=== PATIENT | male | born 1960 | race Caucasian/White ===

== ENCOUNTER 2021-04-18 10:45 | Observation (INO) | payer BC ==
[2021-04-18] MEDS ORDERED: METOPROLOL TARTRATE 5 MG/5 ML INJ IV ONE (11:39)
[2021-04-18 11:51] LABS: Absolute Lymphocytes (CBC) 1.8 K/uL (0.7-4.9); Lymphocytes % 19.6 % (15.3-44.8); MPV 7.9 fL (7.6-11.3); RBC Red Blood Cell Count 4.42 M/uL (4.33-5.43)
[2021-04-18 11:54] LABS: Protime INR 1.09
[2021-04-18 12:00] LABS: Potassium 3.7 mmol/L (3.5-5.1)
--- NOTE | 2021-04-18 12:14 | RAD REPORT ---
EXAM DESCRIPTION: RAD - Chest Single View - 04/18/2021 11:45 am CLINICAL HISTORY: CHEST PAIN COMPARISON: Two view chest March 2019 TECHNIQUE: AP portable chest image was obtained 04/18/2021 11:45 am . FINDINGS: Lung barrera are slightly underinflated compared to the prior study. No peripheral mass or consolidation. Retrocardiac left base is significantly limited due to body habitus affects and portab le imaging. Blunting of the left costophrenic angle is believed to be artifact of portable technique and body habitus. Interstitial pattern matches the prior study. Heart size is prominent but stable. No acute vascular engorgement. Spinal hardware is in place pau ing the full length of the thoracic spine. Hardware is without fracture or acute finding compared to the prior study. No measurable pleural effusion and no pneumothorax. No acute aortic findings suspected. IMPRESSION: Limited portable examination without acute cardiopulmonary finding. No significant change from the comparison study.
[2021-04-18 13:39] LABS: Bilirubin Direct 0.1 mg/dL (0-0.2); Bilirubin Total 0.4 mg/dL (0.2-1.0); Magnesium 2.1 mg/dL (1.8-2.4); Protein, Total 6.5 g/dL (6.4-8.2)
--- NOTE | 2021-04-18 14:05 | EDPHYS ---
Physician Documentation [facility] Name: Darien Luna Age: 60 yrs Sex: Male : 1960 Arrival Date: 04/18/2021 Time: 10:46 Bed 4 Private MD: ED Physician Sandy Zhou HPI: 04/18 11:09 This 60 yrs old Male presents to ER via Ambulatory with complaints of Chest Pain, High sp3 Blood Pressure. 11:09 60-year-old male with history of hypertension presents to the ED for chief complaint sp3 palpitations, chest pain that started suddenly approximately 2 hours prior to arrival. Patient has no history of coronary artery disease, atrial fibrillation, other arrhythmia, STEMI, stent placement, or other cardiac history. Patient on ROS does have mild left-sided neck pain and mild shortness of breath on exertion. Remainder of ROS is negative including headache, back pain, abdominal pain, nausea, vomiting, diarrhea, known sick contacts, fever, travel history, prolonged immobilization, or any other significant findings/symptoms. Patient was fine prior to the sudden episode of the palpitations.. Historical: - Allergies: 10:49 No Known Allergies; ab2 - Home Meds: 10:49 losartan oral [Active]; ab2 - PMHx: 10:49 Hypertensive disorder; ab2 - PSHx: 10:49 Bilateral Knee Replacement; ab2 - Immunization history:: Adult Immunizations up to date, Client reports receiving the 2nd dose of the Covid vaccine. - Social history:: Smoking status: Patient denies any tobacco usage or history of. ROS: 11:10 Constitutional: Negative for fever, chills, and weight loss, Eyes: Negative for injury, sp3 pain, redness, and discharge, ENT: Negative for injury, pain, and discharge, Neck: Negative for injury, pain, and swelling, Respiratory: Negative for shortness of breath, cough, wheezing, and pleuritic chest pain, Abdomen/GI: Negative for abdominal pain, nausea, vomiting, diarrhea, and constipation, Back: Negative for injury and pain, MS/Extremity: Negative for injury and deformity, Skin: Negative for injury, rash, and discoloration, Neuro: Negative for headache, weakness, numbness, tingling, and seizure, Psych: Negative for depression, anxiety, suicide ideation, homicidal ideation, and hallucinations, Allergy/Immunology: Negative for hives, rash, and allergies, Endocrine: Negative for neck swelling, polydipsia, polyuria, polyphagia, and marked weight changes. 11:10 All other systems are negative. Exam: 11:11 Constitutional: This is a well developed, well nourished patient who is awake, alert, sp3 and in no acute distress. Head/Face: Normocephalic, atraumatic. Eyes: Pupils equal round and reactive to light, extra-ocular motions intact. Lids and lashes normal. Conjunctiva and sclera are non-icteric and not injected. Cornea within normal limits. Periorbital areas with no swelling, redness, or edema. ENT: Nares patent. No nasal discharge, no septal abnormalities noted. External auditory canals are clear. Oropharynx with no redness, swelling, or masses, exudates, or evidence of obstruction, uvula midline. Mucous membranes moist. Neck: Trachea midline, no thyromegaly or masses palpated, and no cervical lymphadenopathy. Supple, full range of motion without nuchal rigidity, or vertebral point tenderness. No Meningismus. Chest/axilla: Normal chest wall appearance and motion. Nontender with no deformity. No lesions are appreciated. Respiratory: Lungs have equal breath sounds bilaterally, clear to auscultation and percussion. No rales, rhonchi or wheezes noted. No increased work of breathing, no retractions or nasal flaring. Abdomen/GI: Soft, non-tender, with normal bowel sounds. No distension or tympany. No guarding or rebound. No evidence of tenderness throughout. Back: No spinal tenderness. No costovertebral tenderness. Full range of motion. Skin: Warm, dry with normal turgor. Normal color with no rashes, no lesions, and no evidence of cellulitis. MS/ Extremity: Pulses equal, no cyanosis. Neurovascular intact. Full, normal range of motion. Neuro: Awake and alert, GCS 15, oriented to person, place, time, and situation. Cranial nerves II-XII grossly intact. Motor strength 5/5 in all extremities. Sensory grossly intact. Cerebellar exam normal. Normal gait. Psych: Awake, alert, with orientation to person, place and time. Behavior, mood, and affect are within normal limits. 11:11 Cardiovascular: Irregularly irregular rhythm otherwise normal cardiac exam.. 11:12 ECG was reviewed by the Attending Physician. EKG demonstrates atrial fibrillation with sp3 RVR at 108 bpm, absent LA interval, leftward axis, nonspecific ST/T changes particularly in the inferior leads without evidence of acute ischemia. Vital Signs: 10:47 BP 133 / 77; Pulse 133; Resp 18; Temp 98.1(TE); Pulse Ox 98% on R/A; Weight 136.08 kg; ab2 Height 6 ft. 2 in. (187.96 cm); Pain 0/10; 13:11 BP 108 / 46; Pulse 89; Resp 18; Pulse Ox 100% ; cardenas 14:03 BP 103 / 50; Pulse 91; Resp 16; Pulse Ox 96% on R/A; cardenas 14:53 BP 125 / 57; Pulse 82; Resp 22; Pulse Ox 96% on R/A; ke1 15:31 BP 169 / 62; Pulse 91; Resp 18; Pulse Ox 95% on R/A; cardenas 17:00 BP 141 / 73; Pulse 111; Resp 17; Pulse Ox 95% on R/A; ke1 18:00 BP 123 / 53; Pulse 71; Resp 20; Pulse Ox 94% ; ke1 10:47 Body Mass Index 38.52 (136.08 kg, 187.96 cm) ab2 MDM: 11:03 Patient medically screened. sp3 11:12 Data reviewed: vital signs, nurses notes. ED course: 60-year-old male with new onset sp3 atrial fibrillation less than 23 hours ago. Will administer Lopressor 5 mg IV for rate control and await work-up for ultimate further intervention and/or possible admission. Patient does not appear to be having ST elevation IN or other significant cardiac event.. 13:57 ED course: Patient has been rate controlled into the 80s with 1 dose of metoprolol IV. sp3 Discussed case with on-call cardiology Dr. Duke who is okay with us chemically cardioverting him with ibutilide, however pharmacy does not carry that medication at this time. Patient's troponin and BNP are still pending due to lab machine upgrade status still in progress. We will admit patient at this time for 23 observation, trending of troponins, and further options for cardioversion by cardiology. We are unable to rule out acute coronary syndrome in the emergency department given difficulty with troponin.. 04/18 11:03 Order name: Basic Metabolic Panel sp3 04/18 11:03 Order name: CBC with Diff; Complete Time: 12:15 sp3 04/18 11:03 Order name: LFT's sp3 04/18 11:03 Order name: Magnesium sp3 04/18 11:03 Order name: NT PRO-BNP sp3 04/18 11:03 Order name: PT-INR; Complete Time: 12:15 sp3 04/18 11:03 Order name: Troponin HS sp3 04/18 15:16 Order name: Basic Metabolic Panel EDMS 04/18 15:16 Order name: Basic Metabolic Panel EDMS 04/18 15:17 Order name: T4 Free EDMS 04/18 15:17 Order name: Thyroid Stimulating Hormone EDMS 04/18 15:17 Order name: Magnesium EDMS 04/18 15:17 Order name: Magnesium EDMS 04/18 15:17 Order name: CBC with Automated Diff EDMS 04/18 11:03 Order name: XRAY Chest (1 view); Complete Time: 12:49 sp3 04/18 11:03 Order name: EKG; Complete Time: 11:04 sp3 04/18 11:03 Order name: Cardiac monitoring; Complete Time: 11:38 sp3 04/18 11:03 Order name: EKG - Nurse/Tech; Complete Time: 11:38 sp3 04/18 11:03 Order name: IV Saline Lock; Complete Time: 11:38 sp3 04/18 15:15 Order name: CONS Physician Consult EDMS 04/18 15:16 Order name: Heart Healthy EDMS 04/18 15:17 Order name: CBC with Automated Diff EDMS 04/18 15:21 Order name: EKG Electrocardiogram EDCO 04/18 15:21 Order name: EKG Electrocardiogram EDMS 04/18 15:45 Order name: COVID-19 SARS RT PCR (Document "Date of Onset" if Symptomatic) 04/18 16:44 Order name: SARS-COV-2 RT PCR EDCO 04/18 11:03 Order name: Labs collected and sent; Complete Time: 11:38 sp3 04/18 11:03 Order name: O2 Per Protocol; Complete Time: 11:38 sp3 04/18 11:03 Order name: O2 Sat Monitoring; Complete Time: 11:38 sp3 Administered Medications: 11:50 Drug: Lopressor (metoprolol) 5 mg Route: IVP; Site: left forearm; ke1 13:56 CANCELLED (Physician Discretion; facility does not have medicatin): Ibutilide 1 mg IV cardenas at calculated rate once; administer over 10 mins , may repeat once 14:16 Drug: Tylenol 650 mg Route: PO; ke1 14:59 Follow up: Response: Pain is decreased ke1 15:52 Drug: morphine 2 mg Route: IVP; Site: left forearm; cardenas 15:53 Follow up: Response: No adverse reaction cardenas Disposition Summary: 04/18/21 14:04 Hospitalization Ordered Hospitalization Status: Observation sp3 Provider: Wilfredo Christianson sp3 Location: Telemetry/MedSurg (observation) sp3 Condition: Stable sp3 Problem: new sp3 Symptoms: have worsened sp3 Bed/Room Type: Standard sp3 Room Assignment: 219(04/18/21 20:40) Diagnosis - Atrial fibrillation, new onset, RVR now rate controlled sp3 Forms: - Medication Reconciliation Form sp3 - SBAR form sp3 Signatures: Dispatcher [employer] EDBettye Wright Cindy, RN RN Sandy Burroughs MD MD sp3 Sophie Altamirano RN RN Jacoby Bhagat Kouassi, RN RN ke1 Corrections: (The following items were deleted from the chart) 13:56 13:23 Ibutilide 1 mg IV at calculated rate once; administer over 10 mins , may repeat cardenas once ordered. sp3 18:04 14:04 sp3 bd 18:11 18:04 204 bd bd 20:40 18:11 bd cg
--- NOTE | 2021-04-18 14:05 | ER ---
Nurse's Notes [facility] Name: Darien Luna Age: 60 yrs Sex: Male : 1960 Arrival Date: 04/18/2021 Time: 10:46 Bed 4 Private MD: Diagnosis: Atrial fibrillation, new onset, RVR now rate controlled Presentation: 04/18 10:47 Chief complaint: Patient states: "I usually have high blood pressure but now I feel ab2 like my heart is beating out of my chest. 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 Coronavirus screen: Vaccine status: Patient reports receiving the 2nd dose of the covid vaccine. Client denies travel out of the [place] in the last 14 days. At this time, the client does not indicate any symptoms associated with coronavirus-19. Ebola Screen: Patient negative for fever greater than or equal to 101.5 degrees Fahrenheit, and additional compatible Ebola Virus Disease symptoms Patient denies exposure to infectious person. Patient denies travel to an Ebola-affected area in the 21 days before illness onset. No symptoms or risks identified at this time. Initial Sepsis Screen: Does the patient meet any 2 criteria? No. Patient's initial sepsis screen is negative. Does the patient have a suspected source of infection? No. Patient's initial sepsis screen is negative. Risk Assessment: Do you want to hurt yourself or someone else? Patient reports no desire to harm self or others. Onset of symptoms is unknown. 10:47 Method Of Arrival: Ambulatory ab2 10:47 Acuity: KUSUM 3 ab2 Triage Assessment: 10:50 General: Appears in no apparent distress. comfortable, Behavior is calm, cooperative, ab2 appropriate for age. Pain: Denies pain. Cardiovascular: Reports palpitations, Denies chest pain, shortness of breath, Patient's skin is warm and dry. Historical: - Allergies: 10:49 No Known Allergies; ab2 - Home Meds: 10:49 losartan oral [Active]; ab2 - PMHx: 10:49 Hypertensive disorder; ab2 - PSHx: 10:49 Bilateral Knee Replacement; ab2 - Immunization history:: Adult Immunizations up to date, Client reports receiving the 2nd dose of the Covid vaccine. - Social history:: Smoking status: Patient denies any tobacco usage or history of. Assessment: 10:50 General: Appears in no apparent distress. Behavior is calm, cooperative. Pain: Denies ke1 pain. Neuro: Level of Consciousness is awake, alert, Oriented to person, place, time, situation. Cardiovascular: Capillary refill < 3 seconds Patient's skin is warm and dry. Pulses are all present. Rhythm is atrial fibrillation. Respiratory: Airway is patent Breath sounds are clear bilaterally. GI: Abdomen is obese. : No deficits noted. Derm: No deficits noted. Musculoskeletal: No deficits noted. 12:00 Reassessment: Patient is alert, oriented x 3, equal unlabored respirations, skin ke1 warm/dry/pink. Patient denies pain at this time. 13:00 Reassessment: Patient is alert, oriented x 3, equal unlabored respirations, skin ke1 warm/dry/pink. Patient denies pain at this time. 14:00 Reassessment: Patient is alert, oriented x 3, equal unlabored respirations, skin ke1 warm/dry/pink. Pain: Complains of pain in headache Pain does not radiate. Pain currently is 7 out of 10 on a pain scale. Quality of pain is described as pulsating. 14:58 Reassessment: Patient states feeling better. Patient states symptoms have improved. ke1 Pain: Complains of pain in headache Pain currently is 4 out of 10 on a pain scale. Vital Signs: 10:47 BP 133 / 77; Pulse 133; Resp 18; Temp 98.1(TE); Pulse Ox 98% on R/A; Weight 136.08 kg; ab2 Height 6 ft. 2 in. (187.96 cm); Pain 0/10; 13:11 BP 108 / 46; Pulse 89; Resp 18; Pulse Ox 100% ; cardenas 14:03 BP 103 / 50; Pulse 91; Resp 16; Pulse Ox 96% on R/A; cardenas 14:53 BP 125 / 57; Pulse 82; Resp 22; Pulse Ox 96% on R/A; ke1 15:31 BP 169 / 62; Pulse 91; Resp 18; Pulse Ox 95% on R/A; cardenas 17:00 BP 141 / 73; Pulse 111; Resp 17; Pulse Ox 95% on R/A; ke1 18:00 BP 123 / 53; Pulse 71; Resp 20; Pulse Ox 94% ; ke1 10:47 Body Mass Index 38.52 (136.08 kg, 187.96 cm) ab2 ED Course: 10:46 Patient arrived in ED. ds1 10:49 Triage completed. ab2 10:52 Sandy Zhou MD is Attending Physician. sp3 11:22 Jessica Ovalles RN is Primary Nurse. ke1 11:38 Basic Metabolic Panel Sent. cardenas 11:38 CBC with Diff Sent. cardenas 11:38 LFT's Sent. cardenas 11:38 Magnesium Sent. cardenas 11:38 NT PRO-BNP Sent. cardenas 11:38 PT-INR Sent. cardenas 11:38 Troponin HS Sent. cardenas 11:38 No provider procedures requiring assistance completed. Inserted saline lock: 20 gauge cardenas in left forearm, using aseptic technique. Patient maintains SpO2 saturation greater than 95% on room air. 11:44 XRAY Chest (1 view) In Process Unspecified. EDMS 14:02 Moreno Christianson MD is Hospitalizing Provider. sp3 14:03 Hospitalizing Provider role handed off by Moreno Christianson MD sp3 14:03 Wilfredo Christianson MD is Hospitalizing Provider. sp3 15:52 COVID-19 SARS RT PCR (Document "Date of Onset" if Symptomatic) Sent. cardenas Administered Medications: 11:50 Drug: Lopressor (metoprolol) 5 mg Route: IVP; Site: left forearm; ke1 13:56 CANCELLED (Physician Discretion; facility does not have medicatin): Ibutilide 1 mg IV cardenas at calculated rate once; administer over 10 mins , may repeat once 14:16 Drug: Tylenol 650 mg Route: PO; ke1 14:59 Follow up: Response: Pain is decreased ke1 15:52 Drug: morphine 2 mg Route: IVP; Site: left forearm; cardenas 15:53 Follow up: Response: No adverse reaction cardenas Outcome: 14:04 Decision to Hospitalize by Provider. sp3 21:28 Admitted to Med/surg accompanied by tech, via wheelchair, Report called to VERONA Davis sf1 21:51 Patient left the ED. sf1 Signatures: Dispatcher [employer] EDAL Fransisca Fuller ds1 Sandy Zhou MD MD sp3 Au-StagerSophie RN RN cardenas Jacoby Thompson ab2 Anneliese Pacheco RN RN sf1 Jessica Ovalles RN RN ke1 Corrections: (The following items were deleted from the chart) 11:51 11:50 Lopressor (metoprolol) 5 mg IVP in left antecubital 1 ke1 14:16 14:00 Pain: Complains of pain in headache 1 1 18:33 17:59 BP 123 / 53; Pulse 71bpm; Resp 20bpm; Pulse Ox 94%; ke1 ke1
[2021-04-18] MEDS ORDERED: ACETAMINOPHEN 325 MG TABLET ONE (14:16)
[2021-04-18 15:14] LABS: Troponin High Sensitivity 54.6 pg/mL (<58.9)
--- NOTE | 2021-04-18 15:22 | P.HP ---
Certification for Inpatient Patient admitted to: Observation With expected LOS: <2 Midnights Practitioner: I am a practitioner with admitting privileges, knowledge of patient current condition, hospital course, and medical plan of care. Services: Services provided to patient in accordance with Admission requirements found in Title 42 Section 412.3 of the Code of Federal Regulations Patient History Date of Service: 04/18/21 Reason for admission: A. fib with RVR History of Present Illness: 60-year-old male, PMH: Hypertension Presents to the ED with a few hours of chest palpitations, chest pain, feeling like his heart beating very hard. Associated with slight shortness of breath. Patient was found to be in A. fib with RVR, new onset for the patient. He was given IV Lopressor with improvement of his heart rate. Lab work was rather unremarkable. Patient denies any new recent changes in medications, no recent illness, no cardiac history. ED physician requests admission for further management. Allergies No Known Allergies Allergy (Verified 08/26/15 07:38) - Past Medical/Surgical History -: Hypertension -: Bilateral knee replacement - Family History Family History: Reviewed- Non-Contributory - Social History Smoking Status: Never smoker Alcohol use: Yes Place of Residence: Home Review of Systems 10-point ROS is otherwise unremarkable Physical Examination - Physical Exam General: Alert, In no apparent distress, Oriented x3 HEENT: Sclerae nonicteric Neck: No LAD Respiratory: Clear to auscultation bilaterally, Normal air movement Cardiovascular: No edema, Irregular heart rate/rhythm Gastrointestinal: Soft and benign, Non-distended, No tenderness Musculoskeletal: No erythema, No tenderness Integumentary: No rashes, No significant lesion Neurological: Normal speech, Normal strength at 5/5 x4 extr, Normal affect - Studies Laboratory Data (last 24 hrs) 04/18/21 11:35: PT 12.6 H, INR 1.09 04/18/21 11:35: WBC 9.10, Hgb 12.9 L, Hct 38.0 L, Plt Count 301 04/18/21 11:35: Sodium 141, Potassium 3.7, BUN 26 H, Creatinine 1.38 H, Glucose 115 H, Magnesium 2.1, Total Bilirubin 0.4, AST 16, ALT 33, Alkaline Phosphatase 78 Assessment and Plan - Advance Directives Does patient have a Living Will: No Does patient have a Durable POA for Healthcare: No Physician Review Additional Text: Problem list Atrial fibrillation with RVR, new onset Hypertension Fluid retention CHADSVASCs: 1, possibly 2 (HTN, possible CHF) Patient states he is on at least 1, possibly 2 diuretics. Reports had echocardiogram recently, was told his heart was enlarged. Denies ever being told he has CHF He states he was taking 50 mg hydralazine 3 times daily, this was increased to 100 mg 3 times daily 4-6 weeks ago. Otherwise no other changes in his medications Cardiology consulted Start sotalol 1 dose now, and another 80 mg tonight. Continue twice daily EKG in a.m. Start Eliquis Obtain/confirm home medications VTE: Eliquis Code: Full Dispo: Home, likely tomorrow Time Spent Managing Pts Care (In Minutes): 60
[2021-04-18] MEDS ORDERED: MORPHINE 2 MG/ML SYR ONE (15:50)
[2021-04-18] MEDS ORDERED: SOTALOL HCL 80 MG TAB PO ONE (16:00)
[2021-04-18] MEDS ORDERED: NA CHLORIDE 0.9% 1,000 ML IV SCH (16:00)
[2021-04-18 16:01] LABS: Thyroid Stimulating Hormone 1.55 uIU/mL (0.360-3.740)
[2021-04-18] MEDS ORDERED: NA CHLORIDE 0.9% 1,000 ML ONE (17:20)
[2021-04-18] MEDS ORDERED: SOTALOL HCL 80 MG TAB ONE (17:20)
[2021-04-18] MEDS ORDERED: SOTALOL HCL 80 MG TAB PO SCH (18:00)
[2021-04-18 19:58] VITALS: BMI 38.5
[2021-04-18] MEDS ORDERED: APIXABAN 5 MG TABLET ONE (20:06)
[2021-04-18] MEDS: APIXABAN 5 MG TABLET PO SCH (20:13)
[2021-04-18 20:56] VITALS: O2SAT 95
--- NOTE | 2021-04-18 20:56 | CON ---
Date of Consultation: 04/18/2021 Reason For Consultation: Rapid atrial fibrillation. History Of Present Illness: This is a middle-aged male, history of hypertension, presented with palp itations started about 7 o'clock in the morning, given some beta nikolay. Heart rate was controlled. He was found to be in atrial fibrillation with rapid ventricular response. Denies having any chest pain, minimally short of breath. After bringing his heart rate down, he felt much better. Past Medical History: Obesity and hypertension. Medications: Refer reconciliation sheet for detailed list. Allergies: NO KNOWN DRUG ALLERGIES. Family History: No premature coronary artery disease or cancer. Social History: Does not smoke or drink. Does not use any drugs. Review of Systems: All systems reviewed and they were negative except as mentioned in the HPI. Physical Examination: Vital Signs: Reviewed. Head and Neck: Pupils are equal and reactive to light. Intact eye movements. No JVD. No cervical lymphadenopathy. Neck: Supple. Thyroid is not enlarged. Lungs: Clear to auscultation bilaterally. No rhonchi, rales, or crackles. No accessory muscle use. Heart: Irregularly irregular. No extra sounds. Abdomen: Soft and nontender. Bowel sounds positive. No organomegaly. No masses or hernia. No rig idity or rebound. Extremities: No edema, clubbing, or cyanosis. Intact pulses. Skin: No rash. Neurologic: Alert, awake, and oriented x3. No acute focal deficits appreciated. Investigations: Labs were reviewed. Assessment And Recommendations: Atrial fibrillation with rapid ventricular response. Recommend star t on sotalol 80 mg twice a day to get 2 doses today and with the third dose to obtain an EKG. If no QTc interval prolongation and the patient hopefully will convert to sinus rhythm on that. Adjust one of dose might be needed as he is obese person. In the interim, can use Lopressor 5 mg IV q.1 to 2 h ours as needed for rate control and use sotalol 5 mg twice a day for anticoagulation and I will follo w up with the patient as an outpatient basis. /JEANIE Voice ID: [id number] Report ID: [id number]
[2021-04-18] MEDS ORDERED: MORPHINE 2 MG/ML SYR IV PRN (21:59)
[2021-04-19 04:15] LABS: Absolute Lymphocytes (CBC) 1.7 K/uL (0.7-4.9); Hematocrit 37.2 % (39.6-49.0); Lymphocytes % 18.6 % (15.3-44.8); MPV 8.2 fL (7.6-11.3); RBC Red Blood Cell Count 4.24 M/uL (4.33-5.43)
[2021-04-19 04:26] LABS: Magnesium 2.3 mg/dL (1.8-2.4); Potassium 3.9 mmol/L (3.5-5.1)
[2021-04-19] MEDS ORDERED: SOTALOL HCL 80 MG TAB PO SCH (06:00)
[2021-04-19] MEDS ORDERED: INFLUENZA VACCINE (for 6+ mo) 0.5 ML DOSE IMVAC ONE (08:00)
[2021-04-19] MEDS: APIXABAN 5 MG TABLET PO SCH (08:17)
[2021-04-19 08:26] VITALS: BP 115/49; TEMP 97.4
--- NOTE | 2021-04-19 08:56 | P.DS ---
Admission Date: 04/18/21 Discharge Date: 04/19/21 Disposition: ROUTINE DISCHARGE Discharge Condition: FAIR Reason for Admission: A. fib with RVR - Problems (1) Rapid atrial fibrillation Status: Acute (2) Essential hypertension Status: Acute Brief History of Present Illness: 60-year-old male, PMH: Hypertension presented to the ED with a few hours of chest palpitations, chest pain, feeling like his heart beating very hard. Symptoms associated with shortness of breath. Patient was found to be in A. fib with RVR, new onset for the patient. He was given IV Lopressor with improvement of his heart rate. Lab work was rather unremarkable. Patient denied any new recent changes in medications, no recent illness, no cardiac history. Patient hospitalized for further management. Hospital Course: He was placed under observation on the medical floor, seen by cardiology and started on sotalol. Patient spontaneously converted to sinus rhythm and remained in sinus rhythm. Repeat EKG today showed sinus bradycardia. At this point patient is deemed stable for discharge per cardiology. He is discharged with sotalol 80 mg twice daily. He will follow with cardiology as an outpatient for further management. Vital Signs/Physical Exam: Temp Pulse Resp BP Pulse Ox 97.4 F 54 24 H 115/49 L 95 04/19/21 08:00 04/19/21 08:00 04/19/21 08:00 04/19/21 08:00 04/19/21 08:00 Laboratory Data at Discharge: WBC 8.90 K/uL (4.3-10.9) 04/19/21 03:22 Hgb 12.5 g/dL (13.6-17.9) L 04/19/21 03:22 Hct 37.2 % (39.6-49.0) L 04/19/21 03:22 Plt Count 264 K/uL (152-406) 04/19/21 03:22 PT 12.6 SECONDS (9.5-12.5) H 04/18/21 11:35 INR 1.09 04/18/21 11:35 Sodium 143 mmol/L (136-145) 04/19/21 03:22 Potassium 3.9 mmol/L (3.5-5.1) 04/19/21 03:22 BUN 27 mg/dL (7-18) H 04/19/21 03:22 Creatinine 1.22 mg/dL (0.55-1.3) 04/19/21 03:22 Glucose 109 mg/dL (74-106) H 04/19/21 03:22 Magnesium 2.3 mg/dL (1.8-2.4) 04/19/21 03:22 Total Bilirubin 0.4 mg/dL (0.2-1.0) 04/18/21 11:35 AST 16 U/L (15-37) 04/18/21 11:35 ALT 33 U/L (12-78) 04/18/21 11:35 Alkaline Phosphatase 78 U/L (45-117) 04/18/21 11:35 Home Medications: Amlodipine [Norvasc*] 10 mg PO DAILY 04/18/21 Atorvastatin Calcium [Lipitor] 40 mg PO DAILY 04/18/21 Hydralazine HCl 100 mg PO TID 04/18/21 Losartan/Hydrochlorothiazide [Losartan-Hctz 100-25 mg Tab] 1 tab PO DAILY 04/18/21 Apixaban [Eliquis] 5 mg PO BID #60 tablet 04/19/21 Sotalol HCl [Betapace*] 80 mg PO BID 6AM 6PM #60 tab 04/19/21 New Medications: Sotalol HCl [Betapace*] 80 mg PO BID 6AM 6PM #60 tab Apixaban [Eliquis] 5 mg PO BID #60 tablet Followup: Estrada Duke MD [ACTIVE - CAN ADMIT] - 1-2 Weeks (Call to schedule appointment)
[2021-04-19] MEDS ORDERED: POTASSIUM 25 MEQ EFFERV TAB PO ONE (09:00)
--- NOTE | 2021-04-19 12:50 | EKG ---
Test Date: 2021-04-19 Test Time: 07:43:56 Capture Manager: NAOMI MEASUREMENT RESULTS: Intervals: Rate: 59 VT: 222 QRSD: 120 QT: 452 QTc: 447 [place]: P: 23 VT: 222 QRS: -13 T: 16 INTERPRETIVE STATEMENTS: Sinus bradycardia with 1st degree AV block Nonspecific intraventricular conduction delay Borderline ECG Compared to ECG 04/18/2021 11:00:52 First degree AV block now present Intraventricular conduction delay now present Atrial fibrillation no longer present Left ventricular hypertrophy no longer present Electronically Signed On 04-19-21 12:49:22 STERNMAN by Felipe Crum
--- NOTE | 2021-04-19 12:52 | EKG ---
Test Date: 2021-04-18 Test Time: 11:00:52 Cash Register Servicer: HODAN MEASUREMENT RESULTS: Intervals: Rate: 108 UT: QRSD: 110 QT: 358 QTc: 479 [place]: P: UT: QRS: -26 T: 41 INTERPRETIVE STATEMENTS: Atrial fibrillation with rapid ventricular response Minimal voltage criteria for LVH, may be normal variant Abnormal ECG Compared to ECG 04/20/2011 12:28:17 Left ventricular hypertrophy now present Sinus rhythm no longer present Myocardial infarct finding no longer present Electronically Signed On 04-19-21 12:49:53 LIFE SKILLS INSTRUCTOR by Felipe rCum
--- NOTE | 2021-04-20 11:27 | PN ---
Date of Progress Note: 04/19/2021 Mr. Luna was seen by Dr. Duke yesterday for new onset atrial fibrillation. He was placed on sotal ol 80 mg p.o. b.i.d. He also takes losartan at home. This morning, he is in normal rhythm, has no c omplaints. Echocardiogram was unremarkable. He can go home today and follow up with Dr. Wills on his home medication, but he should be on sotalol 80 mg b.i.d. His echo was normal and this is a new onset. His CHADS score is pretty low and I think he will do okay with just on aspirin for now. I wi ll leave further decision up to Dr. Wills. LINK/JEANIE Voice ID: [id number] Report ID: [id number]
== END 2021-04-19 10:45 | disposition home or self-care (01) ==
LOC: ER 10:45 → ERHOLD 15:27 → 2ND 21:34
PROVIDERS: ADMIT Hospitalist; ATTEND Internal Medicine
DX: I48.91 Unspecified atrial fibrillation (principal); N17.9 Acute kidney failure, unspecified; I10 Essential (primary) hypertension; E66.9 Obesity, unspecified; Z68.38 Body mass index [BMI] 38.0-38.9, adult; Z96.653 Presence of artificial knee joint, bilateral; Z20.822 Contact with and (suspected) exposure to COVID-19
CPT/HCPCS: 93005 ×2; 85025 ×2; 80048 ×2; 36415 ×2; 83735 ×2; 85610; 80076; 84443; 84484; 84439; 83880; 71045; 94760 ×2; 96375; 96374; 99285; U0003; J2270 ×2; J7030; G0378 ×3

== ENCOUNTER 2021-08-07 21:59 | Inpatient (IN) | payer BC ==
--- OUTSIDE RECORDS SUMMARY | 2021-08-07 22:03 | XMS REPORT | Continuity of Care Document ---
:1960 Author Organization [facility] t Address [address] [place] [address] Care Team Providers Name Role Phone [facility] Attending Clinician Unavailable Problems This patient has no known problems. Allergies, Adverse Reactions, Alerts This patient has no known allergies or adverse reactions. Medications This patient has no known medications. Procedures This patient has no known procedures. Encounters Start End Encounter Admission Attending Care Care Encounter Source Date/Time Date/Time Type Type Clinicians Facility Department ID 2021-07-13 2021-07-13 [id number] 026 [place] 00:00:00 00:00:[address] [facility] [address] 2021-07-13 2021-07-13 [facility] [id number] 026 [place] 00:00:00 00:00:00 [facility] [address] 2021-07-07 2021-07-07 [facility] [id number] 969 [place] 00:00:00 00:00:[address] [place] [address] 2021-07-04 2021-07-04 [facility] [id number] [place] 00:00:00 00:00:00 [facility] [address] 2021-06-13 2021-06-13 [facility] [id number] [place] 00:00:00 00:00:00 [place] [address] 2021-06-13 2021-06-13 [facility] [id number] 246 [place] 00:00:00 00:00:00 [place] [address] 2021-06-13 2021-06-13 [facility] [id number] 253 [place] 00:00:00 00:00:[address] [address] Results This patient has no known results.
[2021-08-07 22:43] LABS: Absolute Lymphocytes (CBC) 1.8 K/uL (0.7-4.9); Hematocrit 42.1 % (39.6-49.0); Lymphocytes % 22.7 % (15.3-44.8); MCV 85.2 fL (80-100); MPV 8.1 fL (7.6-11.3); RBC Red Blood Cell Count 4.94 M/uL (4.33-5.43)
[2021-08-07 22:54] LABS: Potassium 3.5 mmol/L (3.5-5.1); Troponin High Sensitivity 37.8 pg/mL (<58.9)
[2021-08-07] MEDS ORDERED: ACETAMINOPHEN 500 MG TAB ONE (23:28)
--- NOTE | 2021-08-07 23:55 | EDPHYS ---
Physician Documentation [facility] Name: Darien Luna Age: 60 yrs Sex: Male : 1960 Arrival Date: 08/07/2021 Time: 22:06 Bed 23 Private MD: ED Physician Alton Mccabe HPI: 08/07 22:41 This 60 yrs old Male presents to ER via EMS with complaints of Chest pain.. mh7 22:41 The patient or guardian reports chest pain that is located primarily in the substernal mh7 area. Onset: today, at 20:00. The pain radiates to neck, jaw. Associated signs and symptoms: Pertinent positives: nausea, shortness of breath, Pertinent negatives: abdominal pain, cough, diaphoresis, dizziness, headache, lower extremity pain, lower extremity swelling, lightheadedness, near syncope, palpitations, recent travel, syncope, vomiting. The chest pain is described as a pressure. Duration: The patient or guardian reports multiple episodes, that are intermittent, that wax and wane, with no pattern. Modifying factors: The symptoms are alleviated by ASA, 325mg NTG, X1. the symptoms are aggravated by nothing. Severity of pain: At its worst the pain was severe today, in the emergency department the pain has improved markedly. EMS care prior to arrival includes: aspirin, nitroglycerin, x 1. Historical: - Allergies: 22:16 No Known Allergies; bb - Home Meds: 22:16 losartan Oral [Active]; atorvastatin oral [Active]; Eliquis oral [Active]; bb - PMHx: 22:16 Hypertensive disorder; Atrial fibrillation; bb - PSHx: 22:16 bilateral knee replacement; back surgery; bb - Immunization history:: Moderna x 3. - Social history:: Smoking status: unknown. ROS: 22:41 Constitutional: Negative for fever, chills, and weight loss, Eyes: Negative for injury, mh7 pain, redness, and discharge, ENT: Negative for injury, pain, and discharge, Back: Negative for injury and pain, : Negative for injury, bleeding, discharge, and swelling, MS/Extremity: Negative for injury and deformity, Skin: Negative for injury, rash, and discoloration, Neuro: Negative for headache, weakness, numbness, tingling, and seizure, Psych: Negative for depression, anxiety, suicide ideation, homicidal ideation, and hallucinations, Allergy/Immunology: Negative for hives, rash, and allergies, Endocrine: Negative for neck swelling, polydipsia, polyuria, polyphagia, and marked weight changes, Hematologic/Lymphatic: Negative for swollen nodes, abnormal bleeding, and unusual bruising. Exam: 22:41 Constitutional: This is a well developed, well nourished patient who is awake, alert, mh7 and in no acute distress. Head/Face: Normocephalic, atraumatic. Eyes: Pupils equal round and reactive to light, extra-ocular motions intact. Lids and lashes normal. Conjunctiva and sclera are non-icteric and not injected. Cornea within normal limits. Periorbital areas with no swelling, redness, or edema. Neck: Trachea midline, no thyromegaly or masses palpated, and no cervical lymphadenopathy. Supple, full range of motion without nuchal rigidity, or vertebral point tenderness. No Meningismus. Chest/axilla: Normal chest wall appearance and motion. Nontender with no deformity. No lesions are appreciated. Cardiovascular: Regular rate and rhythm with a normal S1 and S2. No gallops, murmurs, or rubs. Normal PMI, no JVD. No pulse deficits. Respiratory: Lungs have equal breath sounds bilaterally, clear to auscultation and percussion. No rales, rhonchi or wheezes noted. No increased work of breathing, no retractions or nasal flaring. Abdomen/GI: Soft, non-tender, with normal bowel sounds. No distension or tympany. No guarding or rebound. No evidence of tenderness throughout. Back: No spinal tenderness. No costovertebral tenderness. Full range of motion. Skin: Warm, dry with normal turgor. Normal color with no rashes, no lesions, and no evidence of cellulitis. MS/ Extremity: Pulses equal, no cyanosis. Neurovascular intact. Full, normal range of motion. Neuro: Awake and alert, GCS 15, oriented to person, place, time, and situation. Cranial nerves II-XII grossly intact. Motor strength 5/5 in all extremities. Sensory grossly intact. Cerebellar exam normal. Normal gait. Psych: Awake, alert, with orientation to person, place and time. Behavior, mood, and affect are within normal limits. Vital Signs: 22:14 BP 138 / 38; Pulse 57; Resp 16 S; Temp 98.1(O); Pulse Ox 96% on 2 lpm NC; Weight 142.88 bb kg (R); Height 6 ft. 2 in. (187.96 cm) (R); Pain 9/10; 08/08 01:08 BP 125 / 35; Pulse 54; Resp 16; Pulse Ox 96% on R/A; bb 08/07 22:14 Body Mass Index 40.44 (142.88 kg, 187.96 cm) bb MDM: 08/07 23:51 Differential diagnosis: abnormal EKG, acute myocardial infarction, acute pericarditis, mh7 anxiety, coronary artery disease chest wall pain, congestive heart failure costochondritis, esophagitis, gastritis, gastroesophageal reflux disease (GERD), pancreatitis, pleurisy, pneumonia, pneumothorax. HEART Score: History: Highly Suspicious (2), ECG: Non specific repolarization disturbance / LBTB / PM (1), Age: > 45 and < 65 years (1), Risk Factors: 1 or 2 risk factors (1), [Hypercholesterolemia] [Hypertension] Troponin: < or = 1 x Normal Limit (0), Total Score = 5. The patient was not given aspirin in the Emergency Department. Administered by EMS. Data reviewed: vital signs, nurses notes, EMS record, old medical records, lab test result(s), cardiac enzymes, CBC, electrolytes, EKG, radiologic studies, plain films. Data interpreted: Pulse oximetry: on 2L(s) per nasal canula, is 96 %. Interpretation: acceptable. Counseling: I had a detailed discussion with the patient and/or guardian regarding: the historical points, exam findings, and any diagnostic results supporting the discharge/admit diagnosis, the presence of at least one elevated blood pressure reading (>120/80) during this emergency department visit, lab results, radiology results, the need for further work-up and treatment in the hospital. Response to treatment: the patient's symptoms have mildly improved after treatment. 23:54 Patient medically screened. [facility] 08/07 22:11 Order name: Basic Metabolic Panel; Complete Time: 23:31 08/07 22:11 Order name: CBC with Diff; Complete Time: 23: 08/07 22:11 Order name: Troponin HS; Complete Time: : 08/08 00:08 Order name: COVID-19 SARS RT PCR (Document "Date of Onset" if Symptomatic); Complete mw2 Time: 09:08/08 05:26 Order name: CBC with Automated Diff; Complete Time: :25 EDDE 08/08 05:51 Order name: Comprehensive Metabolic Panel; Complete Time: 09:25 EDDE 08/07 22:11 Order name: XRAY Chest (1 view) 08/07 22:11 Order name: EKG; Complete Time: 22:12 08/07 22:11 Order name: Cardiac monitoring; Complete Time: 22:14 08/07 22:11 Order name: EKG - Nurse/Tech; Complete Time: 22:14 08/07 22:11 Order name: IV Saline Lock; Complete Time: 22:14 08/08 05:51 Order name: Troponin High Sensitivity; Complete Time: 09:25 EDDE 08/07 22:11 Order name: Labs collected and sent; Complete Time: 22:14 08/07 22:11 Order name: O2 Per Protocol; Complete Time: 22:14 08/07 22:11 Order name: O2 Sat Monitoring; Complete Time: 22:14 Administered Medications: 23:35 Drug: Tylenol 1000 mg Route: PO; 08/08 01:19 Follow up: Response: No adverse reaction 01:19 Drug: HYDROcodone-acetaminophen 5 mg-325 mg 1 tabs Route: PO; 02:54 Follow up: Response: Pain is decreased Disposition Summary: 08/07/21 23:54 Hospitalization Ordered Hospitalization Status: Observation [facility] Provider: Moreno Christianson Condition: Stable [facility] Problem: new [facility] Symptoms: have improved [facility] Bed/Room Type: Standard [facility] Location: Telemetry/MedSurg (observation)(08/08/21 07:10) Room Assignment: 219(08/08/21 07:10) bd Diagnosis - Chest pain, unspecified [facility] Forms: - Medication Reconciliation Form [facility] - SBAR form [facility] Signatures: Dispatcher [employer] EDBettye Wright Brenda, RN RN bb Nieto, Roman, MD MD rn Attema, Lee, COLD STRIP ROLLER-C COLD STRIP ROLLER-Cla1 Sharon Morgan RN RN cg Holmes, Maurice, MD MD 7 Corrections: (The following items were deleted from the chart) 00:03 08/07 23:54 Telemetry/MedSurg (observation) [facility] 08/08 00:03 08/07 23:54 [facility] 08/08 07:10 00:03 [facility] 07:10 00:03 [facility]- bd
--- NOTE | 2021-08-07 23:55 | ER ---
Nurse's Notes [facility] Name: Darien Luna Age: 60 yrs Sex: Male : 1960 Arrival Date: 08/07/2021 Time: 22:06 Bed 23 Private MD: Diagnosis: Chest pain, unspecified Presentation: 08/07 22:14 Chief complaint: EMS states: they were toned out for report of pt with chest pain and bb shortness of breath since approx 1999 tonight. Coronavirus screen: At this time, the client does not indicate any symptoms associated with coronavirus-19. Ebola Screen: No symptoms or risks identified at this time. Initial Sepsis Screen: Does the patient meet any 2 criteria? No. Patient's initial sepsis screen is negative. Does the patient have a suspected source of infection? No. Patient's initial sepsis screen is negative. Risk Assessment: Do you want to hurt yourself or someone else? Patient reports no desire to harm self or others. Onset of symptoms was August 07, 2021. Care prior to arrival: Medication(s) given: ASA, 81 mg, x 4, Nitroglycerin, 0.4 mg SL x 1, IV initiated. 18 GA, in the right antecubital area, Glucose check: 100. 22:14 Method Of Arrival: EMS: [facility] bb 22:14 Acuity: KUSUM 3 bb Historical: - Allergies: 22:16 No Known Allergies; bb - Home Meds: 22:16 losartan Oral [Active]; atorvastatin oral [Active]; Eliquis oral [Active]; bb - PMHx: 22:16 Hypertensive disorder; Atrial fibrillation; bb - PSHx: 22:16 bilateral knee replacement; back surgery; bb - Immunization history:: Moderna x 3. - Social history:: Smoking status: unknown. Screenin:17 Abuse screen: Denies threats or abuse. Nutritional screening: No deficits noted. bb Tuberculosis screening: No symptoms or risk factors identified. Fall Risk None identified. Assessment: 22:17 General: Appears in no apparent distress. Behavior is calm, cooperative. Pain: bb Complains of pain in chest Pain currently is 2 out of 10 on a pain scale. Neuro: Level of Consciousness is awake, alert, obeys commands, Oriented to person, place, time, situation. Cardiovascular: Heart tones S1 S2 present Capillary refill < 3 seconds Patient's skin is warm and dry. Rhythm is sinus rhythm. Respiratory: Respiratory effort is even, unlabored, Respiratory pattern is regular. GI: Abdomen is obese, Bowel sounds present X 4 quads. Derm: Skin is pink, warm \T\ dry. Musculoskeletal: Circulation, motion, and sensation intact. 23:30 Reassessment: pt c/o headache Dr Mccabe notified new orders received pt medicated see bb APR. 08/08 01:07 Reassessment: Patient is alert, oriented x 3, equal unlabored respirations, skin bb warm/dry/pink. Mann Prieto COMMUNITY LIAISON at bedside for discussion of admission. 01:09 Reassessment: pt and family verbalized understanding of and agree to plan of care. bb Vital Signs: 08/07 22:14 BP 138 / 38; Pulse 57; Resp 16 S; Temp 98.1(O); Pulse Ox 96% on 2 lpm NC; Weight 142.88 bb kg (R); Height 6 ft. 2 in. (187.96 cm) (R); Pain 9/10; 08/08 01:08 BP 125 / 35; Pulse 54; Resp 16; Pulse Ox 96% on R/A; bb 08/07 22:14 Body Mass Index 40.44 (142.88 kg, 187.96 cm) bb ED Course: 08/07 22:06 Patient arrived in ED. mw2 22:11 Alton Mccabe MD is Attending Physician. 7 22:16 Triage completed. 22:16 Arm band placed on Patient placed in an exam room, on a stretcher, on oxygen, on bb monitor and storage bin tender, on pulse oximetry. EKG completed in triage. Results shown to MD. Family accompanied patient. 22:17 Patient has correct armband on for positive identification. Placed in gown. Bed in low bb position. Call light in reach. Side rails up X 1. Adult w/ patient. Client placed on continuous cardiac and pulse oximetry monitoring. NIBP monitoring applied. Warm blanket given. Pillow given. 22:17 Maintain EMS IV. EMS IV does not flush and discontinued with catheter intact, bleeding bb controlled, bandage applied. 22:21 Inserted saline lock: 20 gauge in left antecubital area, using aseptic technique. zm 22:22 Basic Metabolic Panel Sent. zm 22:22 CBC with Diff Sent. zm 22:22 Troponin HS Sent. zm 22:59 XRAY Chest (1 view) In Process Unspecified. EDMS 23:53 Moreno Christianson MD is Hospitalizing Provider. [facility] 08/08 01:05 Tona Brandt, RN is Primary Nurse. 01:08 No provider procedures requiring assistance completed. Patient admitted, IV remains in bb place. 09:26 Primary Nurse role handed off by Tona Brandt, RN sr5 Administered Medications: 08/07 23:35 Drug: Tylenol 1000 mg Route: PO; 08/08 01:19 Follow up: Response: No adverse reaction 01:19 Drug: HYDROcodone-acetaminophen 5 mg-325 mg 1 tabs Route: PO; 02:54 Follow up: Response: Pain is decreased bb Outcome: 08/07 23:54 Decision to Hospitalize by Provider. [facility] 08/08 01:08 Condition: stable bb Instructed on the need for admit. 10:49 Patient left the ED. aa5 Signatures: Dispatcher [employer] EDMS Tona Brandt, RN RN bb Heidy Harris RN RN aa5 Lucian Izaguirre RN RN sr5 Jonny Engel mw2 Atlon Mccabe MD MD [facility] Crystal Asher Corrections: (The following items were deleted from the chart) 01:08 08/07 23:30 Reassessment: Patient is alert, oriented x 3, equal unlabored respirations, bb skin warm/dry/pink. bb
[2021-08-08] MEDS ORDERED: HYDROCODONE/APAP 5/325 MG TAB ONE (01:31)
--- NOTE | 2021-08-08 02:10 | P.HP ---
Certification for Inpatient Patient admitted to: Observation With expected LOS: <2 Midnights Patient will require the following post-hospital care: None Practitioner: I am a practitioner with admitting privileges, knowledge of patient current condition, hospital course, and medical plan of care. Services: Services provided to patient in accordance with Admission requirements found in Title 42 Section 412.3 of the Code of Federal Regulations <Mann Prieto - Last Filed: 08/08/21 02:05> Patient History Date of Service: 08/08/21 Reason for admission: Chest pain History of Present Illness: 60-year-old male history of atrial fibrillation on chronic anticoagulation therapy, hypertension, hyperlipidemia presents to the emergency department for chest pain. He reports the pain began around 8 PM actually started in his jaw on both sides progressed down to his chest described as pressure-like with associated shortness of breath and nausea denies similar episodes in the past last tress test was 1 year ago has never had cardiac catheterization before. He reports he was diagnosed with atrial fibrillation in April and placed on Eliquis although he was not put on a beta-nikolay because his heart rate runs low. His initial troponin was negative EKG was without acute changes chest x-ray unremarkable does have some mild renal sufficiency will admit for ACS rule out. - Past Medical/Surgical History Diabetic: No -: Hypertension -: A. 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, lives at home with his - Family History Father -: Cancer Mother -: Stroke - Social History Smoking Status: Never smoker Alcohol use: Yes CD- Drugs: No Caffeine use: No Place of Residence: Home <Mann Prieto - Last Filed: 08/08/21 02:05> Date of Service: 08/09/21 <Moreno Christianson - Last Filed: 08/09/21 00:22> Allergies No Known Allergies Allergy (Verified 08/26/15 07:38) Home Medications: Atorvastatin Calcium [Lipitor] 40 mg PO DAILY 04/18/21 Losartan/Hydrochlorothiazide [Losartan-Hctz 100-25 mg Tab] 1 tab PO DAILY 04/18/21 Apixaban [Eliquis] 5 mg PO BID #60 tablet 04/19/21 Anastrozole [Arimidex] 1 mg PO DAILY 08/08/21 Codeine/APAP [Tylenol W/Codeine #3 tab] 1 tab PO Q6HP PRN 08/08/21 Review of Systems 10-point ROS is otherwise unremarkable Respiratory: Shortness of Breath Cardiovascular: Chest Pain Gastrointestinal: Nausea <Mann Prieto - Last Filed: 08/08/21 02:05> Physical Examination - Physical Exam General: Alert, In no apparent distress, Oriented x3 HEENT: Atraumatic, PERRLA, Mucous membr. moist/pink, EOMI, Sclerae nonicteric Neck: Supple, 2+ carotid pulse no bruit, No LAD, Without JVD or thyroid abnormality Respiratory: Clear to auscultation bilaterally, Normal air movement Cardiovascular: Normal S1 S2, Irregular heart rate/rhythm (Sinus bradycardia rate between 48 and 55) Capillary refill: <2 Seconds Gastrointestinal: Normal bowel sounds, No tenderness Musculoskeletal: No tenderness Integumentary: No rashes Neurological: Normal speech, Normal strength at 5/5 x4 extr, Normal tone, Normal affect - Studies Laboratory Data (last 24 hrs) 08/07/21 22:05: WBC 8.1, Hgb 14.1, Hct 42.1, Plt Count 193 08/07/21 22:05: Sodium 140, Potassium 3.5, BUN 29 H, Creatinine 1.45 H, Glucose 118 H <Mann Prieto - Last Filed: 08/08/21 02:05> - Studies Laboratory Data (last 24 hrs) 08/08/21 15:03: APTT 36.3 08/08/21 15:03: PT 13.2 H, INR 1.20 08/08/21 05:12: Sodium 141, Potassium 3.7, BUN 24 H, Creatinine 1.35 H, Glucose 98, Total Bilirubin 0.4, AST 14 L, ALT 24, Alkaline Phosphatase 69 08/08/21 05:12: WBC 7.5, Hgb 13.7, Hct 40.0, Plt Count 180 <Moreno Christianson - Last Filed: 08/09/21 00:22> Assessment and Plan - Plan Assessment: Chest pain rule out ACS A. fib on chronic anticoagulation therapy Renal insufficiency Hypertension Plan: Chest pain rule out ACS: Trend troponins, monitor on telemetry, cardiology consult in place. Last tress test 1 year ago normal per patient has never had cardiac catheterization. No beta-blockers given bradycardia continue Eliquis, losartan as needed pain medication. Appreciate further input from cardiology A. fib on chronic anticoagulation therapy: Continue Eliquis, monitor on telemetry currently sinus bradycardia. Renal insufficiency: We will provide with IV fluids overnight recheck labs in the morning. Hypertension: Continue losartan. DVT PPX: Continue Eliquis Code status:Full Discharge Plan: Home Plan to discharge in: 24 Hours - Advance Directives Does patient have a Living Will: No Does patient have a Durable POA for Healthcare: No - Code Status/Comfort Care Code Status Assessed: Yes (Full) Critical Care: No Time Spent Managing Pts Care (In Minutes): 70 <Mann Prieto - Last Filed: 08/08/21 02:05> - Plan Patient seen and examined on rounds this morning. cardiac risk chest pain concerning for unstable angina / ACS echo ordered suspect patient will need cardiac cath cardiology consulted <Moreno Christianson - Last Filed: 08/09/21 00:22>
[2021-08-08] MEDS ORDERED: ONDANSETRON 4 MG/2 ML VIAL IV PRN (04:52)
[2021-08-08 05:10] VITALS: BMI 39.4
[2021-08-08] MEDS ORDERED: MORPHINE 2 MG/ML SYR ONE ×2 (05:11→07:45)
[2021-08-08] MEDS: MORPHINE 2 MG/ML SYR IV PRN ×3 (05:12→14:55)
[2021-08-08 05:25] LABS: Lymphocytes % 26.7 % (15.3-44.8); MCV 85.8 fL (80-100); MPV 7.8 fL (7.6-11.3); RBC Red Blood Cell Count 4.66 M/uL (4.33-5.43)
[2021-08-08 05:46] LABS: Albumin 2.7 g/dL (3.4-5.0); Bilirubin Total 0.4 mg/dL (0.2-1.0); Potassium 3.7 mmol/L (3.5-5.1); Protein, Total 5.8 g/dL (6.4-8.2)
[2021-08-08 05:50] LABS: Troponin High Sensitivity 105.5 pg/mL (<58.9)
[2021-08-08] MEDS ORDERED: ONDANSETRON 4 MG/2 ML VIAL ONE (07:45)
[2021-08-08] MEDS ORDERED: NA CHLORIDE 0.9% 1,000 ML ONE (07:46)
[2021-08-08] MEDS: NA CHLORIDE 0.9% 1,000 ML IV SCH ×2 (07:48→17:44)
[2021-08-08] MEDS ORDERED: APIXABAN 5 MG TABLET PO SCH (09:00)
[2021-08-08] MEDS: LOSARTAN POTASSIUM 50 MG TABLET PO SCH (11:24)
[2021-08-08] MEDS: ACETAMINOPHEN 500 MG TAB PO PRN ×2 (11:39→17:47)
--- NOTE | 2021-08-08 14:41 | EKG ---
Test Date: 2021-08-07 Test Time: 22:07:11 Personal Injury Paralegal: BEBO MEASUREMENT RESULTS: Intervals: Rate: 57 DC: 218 QRSD: 120 QT: 444 QTc: 432 [place]: P: 18 DC: 218 QRS: -12 T: 39 INTERPRETIVE STATEMENTS: Sinus bradycardia with 1st degree AV block Left ventricular hypertrophy with QRS widening Abnormal ECG Compared to ECG 04/19/2021 07:43:56 Left ventricular hypertrophy now present Intraventricular conduction delay no longer present Electronically Signed On 08-08-21 14:40:03 CDT by Estrada Duke
[2021-08-08 15:20] LABS: Protime INR 1.2
--- NOTE | 2021-08-08 19:47 | RAD REPORT ---
EXAM DESCRIPTION: RAD - Chest Single View - 08/07/2021 10:57 pm CLINICAL HISTORY: CHEST PAIN. COMPARISON: None. TECHNIQUE: Single view AP chest radiograph(s). FINDINGS: Trace diffuse pulmonary interstitial thickening. Possible minimal streaky opacification in the left lung base. Left pleural fluid is not excluded. No pneumothorax. Mild cardiomegaly. No signi ficant osseous abnormality. IMPRESSION: Trace diffuse pulmonary interstitial thickening. Possible minimal streaky opacification in the left lung base, likely atelectasis. Left pleural fluid is not excluded. Mild cardiomegaly. Electronically signed by: Mariza Swartz MD 08/07/2021 11:32 PM CDT Due to temporary technical issues with the PACS/Fluency reporting system, reports are being signed by the in house radiologists without. review as a courtesy to insure prompt reporting. The interpreting radiologist is fully responsible for the content of the report.
[2021-08-08] MEDS ORDERED: MELATONIN 5 MG TABLET PO PRN (20:40)
[2021-08-08] MEDS ORDERED: ATORVASTATIN 40 MG TAB PO SCH (21:00)
[2021-08-09] MEDS: MORPHINE 2 MG/ML SYR IV PRN ×2 (00:54→09:38)
[2021-08-09] MEDS: NA CHLORIDE 0.9% 1,000 ML IV SCH ×2 (01:23→10:52)
[2021-08-09 05:43] LABS: Absolute Lymphocytes (CBC) 1.4 K/uL (0.7-4.9); Hematocrit 39.7 % (39.6-49.0); MCV 86.9 fL (80-100); MPV 8.1 fL (7.6-11.3); RBC Red Blood Cell Count 4.57 M/uL (4.33-5.43)
[2021-08-09] MEDS: ACETAMINOPHEN 500 MG TAB PO PRN (05:54)
[2021-08-09 06:02] LABS: Albumin 2.5 g/dL (3.4-5.0); Bilirubin Total 0.2 mg/dL (0.2-1.0); Potassium 3.9 mmol/L (3.5-5.1); Protein, Total 5.5 g/dL (6.4-8.2); Troponin High Sensitivity 87.8 pg/mL (<58.9)
[2021-08-09] MEDS ORDERED: LIDOCAINE 1% 20 ML MDV ONE (06:42)
[2021-08-09] MEDS ORDERED: HEPA 1000U/500MLS 1,000 UNIT/500 ML BAG IV ONE ×2 (06:42→07:53)
[2021-08-09] MEDS ORDERED: FENTANYL CITR 100 MCG/2 ML ONE (06:44)
[2021-08-09] MEDS ORDERED: MIDAZOLAM HCL 2 MG/2 ML INJ ONE (06:45)
[2021-08-09] MEDS ORDERED: NA CHLORIDE 0.9% 0 ML ONE ×2 (06:45)
[2021-08-09] MEDS ORDERED: ATROPINE SULF 1 MG/10 ML SYR IV ONE (06:45)
[2021-08-09] MEDS: LOSARTAN POTASSIUM 50 MG TABLET PO SCH (09:38)
[2021-08-09 10:31] VITALS: O2SAT 91
--- NOTE | 2021-08-09 13:38 | CON ---
Date of Consultation: 08/08/[address] Christianson on 08/07/2021. I saw the patient on 08/08/2021. Reason For Consultation: Non-STEMI. History Of Present Illness: Mr. Luna is 60. Has a history of hypertension, atrial fibrillation for which he takes Eliquis, Lipitor, losartan and hydrochlorothiazide. Comes in with chest pressure, bl ood pressure over 200, jaw pain and neck pain, and troponin was 105. EKG showed LVH. Chest x-ray wa s negative. Blood work is negative. He is pain free now. Past Medical History: As stated above. Allergies: HE IS ALLERGIC TO NO MEDICATIONS. Medication: As listed above. Review of Systems: Negative. Social History: Negative. Family History: Negative. Physical Examination: Vital Signs: Stable. He was afebrile. Initial pressure was 214. Last pressure was 150/84. HEENT: Negative. Neck: Supple with no bruit. Chest: Clear. Cardiac: Revealed a regular rhythm and rate with S4 gallops. No murmurs or rubs. Abdomen: Obese, but benign. Extremities: Revealed no clubbing, cyanosis, or edema. Diagnostic Data: As stated earlier. Impression And Plan: Non-ST segment elevation myocardial infarction, possibly secondary to hypertens neetu crisis versus coronary artery disease. I will plan a heart catheterization to define his coronar y anatomy. The patient understands the risk and benefits of the procedure and he agrees to proceed. We will hold his Eliquis. Continue Arimidex, Lipitor, losartan and hydrochlorothiazide. Add a low dose beta-blockers. Obtain a 2D echocardiogram. We will what the catheterization shows tomorrow. LINK/SHIREENL Voice ID: [id number] Report ID: [id number]
--- NOTE | 2021-08-09 14:40 | P.DS ---
Admission Date: 08/08/21 Discharge Date: 08/09/21 Disposition: ROUTINE DISCHARGE Discharge Condition: FAIR Reason for Admission: Chest pain - Problems (1) Chest pain Current Visit: Yes Status: Acute (2) Acute renal failure Current Visit: Yes Status: Acute Brief History of Present Illness: 60-year-old male history of atrial fibrillation on chronic anticoagulation therapy, hypertension, hyperlipidemia presented to the emergency department for chest pain. He reported the pain began around 8 PM actually started in his jaw on both sides progressed down to his chest described as pressure-like with associated shortness of breath and nausea. He had a stress test 1 year ago. never had cardiac catheterization before. He reports he was diagnosed with atrial fibrillation in April and placed on Eliquis although he was not put on a beta-nikolay because his heart rate runs low. His initial troponin was negative EKG was without acute changes. Chest x-ray unremarkable. Blood work showed mild renal sufficiency. Patient admitted for ACS rule out. Hospital Course: Diagnosis Chest pain rule out ACS A. fib on chronic anticoagulation therapy Acute renal failure Hypertension. Patient admitted to the medical floor. His troponin trended up. He was seen by cardiology-Dr. Crum who performed cardiac catheterization. No significant vessel occlusion noted on cardiac cath per preliminary report. Patient was asymptomatic during the hospital stay. He had mild acute renal failure which resolved. ACS has been ruled out. Patient with a diagnosis of atrial fibrillation. Patient deemed stable for discharge per cardiology. Eliquis resumed on discharge. Dr. Crum recommend low-dose beta-nikolay but patient's heart rate is in the 50s so beta-blockers held. Echocardiogram was done and the result is pending to be followed by cardiology. Vital Signs/Physical Exam: Temp Pulse Resp BP Pulse Ox 97.7 F 55 16 144/64 H 93 08/09/21 12:00 08/09/21 12:00 08/09/21 12:00 08/09/21 12:00 08/09/21 12:00 General: Alert, In no apparent distress, Oriented x3 HEENT: Mucous membr. moist/pink Neck: Supple, JVD not distended Respiratory: Clear to auscultation bilaterally, Normal air movement Cardiovascular: No edema, Normal S1 S2, Irregular heart rate/rhythm Gastrointestinal: Normal bowel sounds, Soft and benign, Non-distended Musculoskeletal: No swelling Integumentary: No rashes, No cyanosis Neurological: Normal strength at 5/5 x4 extr Laboratory Data at Discharge: WBC 7.0 K/uL (4.3-10.9) 08/09/21 05:06 Hgb 13.5 g/dL (13.6-17.9) L 08/09/21 05:06 Hct 39.7 % (39.6-49.0) 08/09/21 05:06 Plt Count 175 K/uL (152-406) 08/09/21 05:06 PT 13.2 SECONDS (9.5-12.5) H 08/08/21 15:03 INR 1.20 08/08/21 15:03 APTT 36.3 SECONDS (24.3-36.9) 08/08/21 15:03 Sodium 141 mmol/L (136-145) 08/09/21 05:06 Potassium 3.9 mmol/L (3.5-5.1) 08/09/21 05:06 BUN 17 mg/dL (7-18) 08/09/21 05:06 Creatinine 1.18 mg/dL (0.55-1.3) 08/09/21 05:06 Glucose 108 mg/dL (74-106) H 08/09/21 05:06 Total Bilirubin 0.2 mg/dL (0.2-1.0) 08/09/21 05:06 AST 12 U/L (15-37) L 08/09/21 05:06 ALT 21 U/L (12-78) 08/09/21 05:06 Alkaline Phosphatase 64 U/L (45-117) 08/09/21 05:06 Home Medications: Atorvastatin Calcium [Lipitor] 40 mg PO DAILY 04/18/21 Losartan/Hydrochlorothiazide [Losartan-Hctz 100-25 mg Tab] 1 tab PO DAILY 04/18/21 Apixaban [Eliquis] 5 mg PO BID #60 tablet 04/19/21 Anastrozole [Arimidex*] 1 mg PO DAILY 08/08/21 Codeine/APAP [Tylenol #3*] 1 tab PO Q6HP PRN 08/08/21 Diet: AHA Activity: Ad arely Followup: Donato David MD [Primary Care Provider] - 1 Week Felipe Crum MD [ACTIVE - CAN ADMIT] - 1-2 Weeks Time spent managing pt's care (in minutes): 36
[2021-08-09 16:00] VITALS: BP 171/69; TEMP 97.9
--- NOTE | 2021-08-09 20:44 | OP ---
Surgeon: Felipe Crum MD Poultry Buyer: Ms. Arelis Mejia. This is a patient who was admitted to Dr. Christianson on 08/08/2021 with a non-STEMI, chest pain, uncontrol led hypertension, hypertension crisis, elevated troponin. Procedure In Detail: Brought to the lab associate today as an inpatient. He underwent a left heart rossana terization, selective coronary arteriogram, common femoral artery angiogram, and an aortic root angio gram. Indication was dilated aortic root, aortic regurgitation, hypertension, and non-STEMI. The pa tient was prepped and draped in routine sterile fashion. Given Versed and fentanyl for sedation. A 6-Italian sheath introduced in the right common femoral artery successfully. Angiography there was no rmal. StarClose was used to close the case. Daniel catheter left and right were used. The Daniel catheter on the left side cannulated the left main successfully. Angiography there showed normal le ft main, normal circ, normal LAD. I could not cannulate the RCA with a JR4, so we had to do a 3DRC a nd then a modified Amplatz and he had a normal right coronary. An LV-gram was done with a pigtail ca theter crossing the aortic valve successfully. There was no gradient. Angiography showed normal eje ction fraction, normal left ventricular end-diastolic pressure, but he had a dilated aortic root and 1+ aortic regurgitation. With the pigtail catheter, I had actually done an LV-gram and then was pull ed back in the aortic root and aortic root shot was done. There were no complications. Blood Loss: 5 mL. Postoperative Diagnoses: Normal coronaries, mild aortic regurgitation, dilated aortic root. Plan: Plan is for medical therapy. NB/SHIREENL Voice ID: [id number] Report ID: [id number]
--- NOTE | 2021-08-10 07:36 | ECHO ---
HEIGHT: 6 ft 3 in WEIGHT: 315 lb 0 oz DATE OF STUDY: 08/09/[address]: Moreno Christianson MD 2-DIMENSIONAL: YES M.MODE: YES DOPPLER: YES COLOR FLOW: YES TDS: NO PORTABLE: YES DEFINITY: NO BUBBLE STUDY: NO DIAGNOSIS: NSTEMI CARDIAC HISTORY: CATHERIZATION: YES SURGERY: NO PROSTHETIC VALVE: NO PACEMAKER: NO MEASUREMENTS (cm) DIASTOLIC (NORMALS) SYSTOLIC (NORMALS) IVSd 1.3 (0.6-1.2) LA Diam 4.6 (1.9-4.0) LVEF 59% LVIDd 6.0 (3.5-5.7) LVIDs 4.2 (2.0-3.5) %FS 32% LVPWd 1.5 (0.6-1.2) Ao Diam 3.4 (2.0-3.7) 2 DIMENSIONAL ASSESSMENT: RIGHT ATRIUM: NORMAL LEFT ATRIUM: DILATED RIGHT VENTRICLE: NORMAL LEFT VENTRICLE: LEFT VENTRICULAR HYPERTROPHY TRICUSPID VALVE: NORMAL MITRAL VALVE: NORMAL PULMONIC VALVE: NORMAL AORTIC VALVE: NORMAL PERICARDIAL EFFUSION: NONE AORTIC ROOT: NORMAL LEFT VENTRICULAR WALL MOTION: NORMAL. DOPPLER/COLOR FLOW: MILD MITRAL, AORTIC AND TRICUSPID REGURGITATION. COMMENTS: LEFT VENTRICULAR HYPERTROPHY - NORMAL EJECTION FRACTION. MILD MITRAL, AORTIC AND TRICUSPID REGURGITATION - NORMAL RIGHT VENTRICULAR SYSTOLIC PRESSURE. BORDERLINE LEFT VENTRICULAR DILATION. LEFT ATRIAL ENLARGEMENT. TECHNOLOGIST: DOT DAVIES
== END 2021-08-09 16:30 | disposition home or self-care (01) | DRG 287 ==
LOC: ER 21:59 → ERHOLD 08-08 02:04 → 2ND 08-08 09:29 → OBSVTOIN 08-08 17:17
PROVIDERS: ADMIT Hospitalist; ATTEND Hospitalist
PROC: B2011ZZ Plain Radiography of Multiple Coronary Arteries using Low Osmolar Contrast (ICD-10-PCS; principal; 2021-08-09)
PROC: 4A023N7 Measurement of Cardiac Sampling and Pressure, Left Heart, Percutaneous Approach (ICD-10-PCS; 2021-08-09)
DX: I48.91 Unspecified atrial fibrillation (principal); N17.9 Acute kidney failure, unspecified; I16.9 Hypertensive crisis, unspecified; I10 Essential (primary) hypertension; E78.5 Hyperlipidemia, unspecified; I35.1 Nonrheumatic aortic (valve) insufficiency; R77.8 Other specified abnormalities of plasma proteins; Z79.01 Long term (current) use of anticoagulants; Z96.653 Presence of artificial knee joint, bilateral; Z20.822 Contact with and (suspected) exposure to COVID-19
CPT/HCPCS: 36415; 71045; 80048; 80053; 84484; 85025; 85610; 85730; 93005; 93306; 93454; 93567; 99285; C1893; G0378; J0583; J1644; J2250; J2270; J2405; J3010; J7030; J7040; Q9967; U0003

== ENCOUNTER 2022-07-09 18:19 | Emergency (ER) | payer BC ==
--- OUTSIDE RECORDS SUMMARY | 2022-07-09 18:25 | XMS REPORT | Continuity of Care Document ---
:1960 Author Organization [facility] t Address [address] [place] [address] Care Team Providers Name Role Phone Arvind REINA, Donato Primary Care Physician [phone] Jarrod Jamison Attending Clinician Unavailable Milly REINA, Nidia Sterling Attending Clinician [phone] REJI AGUERO Attending Clinician Unavailable Eryn REINA, Savannah French Attending Clinician [phone] Keri Oneil MA Attending Clinician Unavailable Jarrod Jamison Admitting Clinician Unavailable Physician, No Primary or Family Admitting Clinician Unavaila ble Payers Payer Name Policy Type Policy Number Effective Date Expiration Date S ource Problems Condition Condition Condition Status Onset Resolution Last Treating Co mments Source Name Details Category Date Date Treatment Clinician Date Osteoarthr Osteoarthr Disease Active M [facility]-10 st left knee left knee 00:00: [facility]osp [facility] 00 l Primary Primary Disease Active Methodi osteoarthr osteoarthr 09-06 itis of [facility] of 00:00: Hospita knee knee 00 l Essential Essential Disease Active Met hodi hypertensi hypertensi 08-19 on on 00:00: Hospita 00 l Obesity Obesity Disease Active Methodi (BMI (BMI 08-19 35.0-39.9 35.0-39.9 00:00: Hosp [facility] without without 00 l comorbidit comorbidit y) y) Allergies, Adverse Reactions, Alerts Allergy Allergy Status Severity Reaction(s) Onset Inactive Treating Comm ents Source Name Type Date Date Clinician No Known DA Active U [facility] Allergie 4-12 Clear s 00:00: [place] 00 [facility] Family History Family Member Diagnosis Comments Start Date Stop Date Source Natural father Cancer [facility] Natural mother Stroke [facility] Other Asthma [facility] Hosp ital Natural sister Asthma [facility] Social History Social Habit Start Date Stop Date Quantity Comments Source Gender identity [facility] Sexual orientation [facility] History of Social 2022-04-19 2022-04-[address] function 00:00:00 00:00:00 Hospital Alcohol intake 2022-01-24 2022-01-24 Current [facility] 00:00:00 00:00:00 non-drinker of Hospital alcohol (finding) Tobacco use and 2022-01-11 2022-01-11 Smokeless [facility] exposure 00:00:00 00:00:00 tobacco non-user Hospital Sex Assigned At [birth year] [facility] 00:00:00 00:00:00 Hospital Smoking Status Start Date Stop Date Source Never smoked tobacco [facility] ospital Medications Ordered Filled Start Stop Current Ordering Indication Dosage Frequency Signature Comments Components Source Medication Medication Date Date Medication? Clinician (SIG) Name Name multivitami 2021-02 Yes 1{tbl} QD Take 1 Me thodi n tablet 1-[address] 13:37: mouth Hospita 15 daily. l multivitami 2021-02 Yes 1{tbl} QD Take 1 Me thodi n tablet 1-[address] 13:37: mouth [facility]ospita 15 daily. l multivitami 2021-02 Yes 1{tbl} QD Take 1 Me thodi n tablet 1-[address] 13:37: mouth [facility]ospita 15 daily. l anastrozole 2021- No TAKE 1 Met hodi (ARIMIDEX) 6- 11-[address] 1 mg chemo 00:00: 00:00 MOUTH 24 Ho spita tablet 00 :00 TO 48 l HOURS AFTER WEEKLY INJECTION anastrozole 2021- No TAKE 1 Met hodi (ARIMIDEX) 6-23 11-[address] 1 mg chemo 00:00: 00:00 MOUTH 24 Ho spita tablet 00 :00 TO 48 l HOURS AFTER WEEKLY INJECTION anastrozole 2021- No TAKE 1 Met hodi (ARIMIDEX) 6-04 01-[address] 1 mg chemo 00:00: 00:00 MOUTH 24 Ho spita tablet 00 :00 TO 48 l HOURS AFTER WEEKLY INJECTION acetaminoph 2021- No 1{tbl} Q.5D Take 1 M ethodi en-codeine 6-[address] (TYLENOL 00:00: 00:00 mouth 2 Hospi ta WITH 00 :00 (two) l CODEINE #3) times a 300-30 mg day. per tablet acetaminoph 2021- No 1{tbl} Q.5D Take 1 M ethodi en-codeine 6-02 01-[address] (TYLENOL 00:00: 00:00 mouth 2 Hospi ta WITH 00 :00 (two) l CODEINE #3) times a 300-30 mg day. per tablet acetaminoph 2021- No 1{tbl} Q.5D Take 1 M ethodi en-codeine 601-[address] (TYLENOL 00:00: 00:00 mouth 2 Hospi ta WITH 00 :00 (two) l CODEINE #3) times a 300-30 mg day. per tablet Eliquis 5 2021-0 Yes 5mg Q.5D Take 5 mg Met hodi mg tablet 4-[address] 00:00: (two) Hospita 00 times a l day. Eliquis 5 2021-0 Yes 5mg Q.5D Take 5 mg Met hodi mg tablet 4-[address] 00:00: (two) Hospita 00 times a l day. Eliquis 5 2021-0 Yes 5mg Q.5D Take 5 mg Met hodi mg tablet 4-[address] 00:00: (two) Hospita 00 times a l day. atorvastati Yes 40mg QD Take 40 mg Methodi n (LIPITOR) 4-[address] 40 mg 00:00: daily. Hospita tablet 00 l losartan-hy Yes 1{tbl} QD Take 1 Me thodi drochloroth 4-[address] iazide 00:00: mouth Hospita (HYZAAR) 00 daily. l 100-25 mg per tablet atorvastati 2-0 Yes 40mg QD Take 40 mg Methodi n (LIPITOR) 4-[address] 40 mg 00:00: daily. Hospita tablet 00 l losartan-hy 2021-0 Yes 1{tbl} QD Take 1 Me thodi drochloroth 4-[address] iazide 00:00: mouth Hospita (HYZAAR) 00 daily. l 100-25 mg per tablet atorvastati 2-0 Yes 40mg QD Take 40 mg Methodi n (LIPITOR) 4-[address] 40 mg 00:00: daily. Hospita tablet 00 l losartan-hy 2021-0 Yes 1{tbl} QD Take 1 Me thodi drochloroth 4-[address] iazide 00:00: mouth Hospita (HYZAAR) 00 daily. l 100-25 mg per tablet hydrALAZINE 2021-0 202- No 50mg Take 50 mg Methodi (APRESOLINE 05-19 11-[address] ) 50 MG 00:00: 00:00 Hospita tablet 00 :00 l hydrALAZINE 2021-0 2022- No 50mg Take 50 mg Methodi (APRESOLINE 05-19 11-[address] ) 50 MG 00:00: 00:00 Hospita tablet 00 :00 l hydrALAZINE 2021-0 2022- No 50mg Take 50 mg Methodi (APRESOLINE 05-19-[address] ) 50 MG 00:00: 00:00 Hospita tablet 00 :00 l amLODIPine 2021-0 2022- No 5mg QD Take 5 mg M ethodi (NORVASC) 5 -29 12-[address] mg tablet 00:00: 00:00 daily. Hospi ta 00 :00 l spironolact 2-0 2022- No 25mg QD Take 25 mg Methodi one - 11-[address] (ALDACTONE) 00:00: 00:00 daily. Hos adan 25 MG 00 :00 l tablet amLODIPine 2021-0 2022- No 5mg QD Take 5 mg M ethodi (NORVASC) 5 -17 11-[address] mg tablet 00:00: 00:00 daily. Hospi ta 00 :00 l spironolact 2021- No 25mg QD Take 25 mg Methodi one 04-[address] (ALDACTONE) 00:00: 00:00 daily. Hos adan 25 MG 00 :00 l tablet amLODIPine 2021- No 5mg QD Take 5 mg M ethodi (NORVASC) 5 04-[address] mg tablet 00:00: 00:00 daily. Hospi ta 00 :00 l spironolact 2021- No 25mg QD Take 25 mg Methodi one 04-[address] (ALDACTONE) 00:00: 00:00 daily. Hos adan 25 MG 00 :00 l tablet sotaloL 2021- No TAKE 1 Methodi (BETAPACE) 04-[address] 80 MG 00:00: 00:00 MOUTH Hospita tablet 00 :00 TWICE l DAILY AT 6 AM AND AT 6 PM sotaloL 2021- No TAKE 1 Methodi (BETAPACE) 04-19- TABLET BY st 80 MG 00:00: 00:00 MOUTH Hospita tablet 00 :00 TWICE l DAILY AT 6 AM AND AT 6 PM sotaloL 2021- No TAKE 1 Methodi (BETAPACE) 04-[address] 80 MG 00:00: 00:00 MOUTH Hospita tablet 00 :00 TWICE l DAILY AT 6 AM AND AT 6 PM aspirin 2021- No 1 tab po Metho di (ECOTRIN) 09-[address] 325 MG 00:00: 00:00 days Hospita enteric 00 :00 l coated tablet aspirin 2021- No 1 tab po Metho di (ECOTRIN) 09-[address] 325 MG 00:00: 00:00 days Hospita enteric 00 :00 l coated tablet aspirin 2021- No 1 tab po Metho di (ECOTRIN) 09-07- daily x 30 st 325 MG 00:00: 00:00 days Hospita enteric 00 :00 l coated tablet Vital Signs Vital Name Observation Time Observation Value Comments Source Systolic blood 2022-01-24 15:21:00 149 mm[Hg] [facility] pressure Diastolic blood 2022-01-24 15:21:00 66 mm[Hg] [facility] pressure Heart rate 2022-01-24 15:21:00 59 /min [facility] Body temperature 2022-01-24 15:21:00 36.94 Della [facility] Respiratory rate 2022-01-24 15:21:00 14 /min [facility] Body height 2022-01-11 19:37:00 188 cm [facility] Body weight 2022-01-11 19:37:00 148.145 kg [facility] BMI 2022-01-11 19:37:00 41.93 kg/m2 [facility] Oxygen saturation in 2021-07-04 19:00:00 99 /min [facility] Arterial blood by Pulse oximetry Procedures Procedure Date / Time Performed Performing Clinician Sour e [id number] 2022-06-07 00:00:00 CHAAB.01 [facility] [id number] 2022-06-07 00:00:00 CHAAB.01 [facility] [id number] 2022-06-07 00:00:00 CHAAB.01 [facility] [id number] 2022-06-07 00:00:00 CHAAB.01 [facility] [id number] 2022-06-07 00:00:00 CHAAB.01 [facility] [id number] 2022-06-07 00:00:00 CHAAB.01 [facility] [id number] 2022-06-07 00:00:00 CHAAB.01 [facility] [id number] 2022-06-07 00:00:00 CHAAB.01 [facility] [id number] 2022-06-07 00:00:00 CHAAB.01 [facility] EXTERNAL STUDY 2022-01-24 15:17:10 Nidia Atkins [facility] EXAM [place] EXTERNAL STUDY 2021-08-16 15:01:48 Nidia Atkins [facility] EXAM CT LUMBAR SPINE WO 2021-07-13 20:00:00 Reji Aguero [facility] CONTRAST BONE DENSITY 2021-07-13 19:56:20 Reji Aguero [facility] IR EPIDURAL INJECTION 2021-07-04 18:26:22 Reji Aguero [facility] LUMBAR XR SPINE SCOLIOSIS 6+ 2021-06-13 16:58:21 Reji Aguero [facility] VIEWS Plan of Care Planned Activity Planned Date Details Comments Source Future Scheduled 2022-05-30 SHINGLES VACCINES (1 [facility] Test 15:02:54 of 2) [code = SHINGLES VACCINES (1 of 2)] Future Scheduled 2022-05-30 COVID-19 VACCINE (3 - Me [facility] Test 15:02:54 Booster for Moderna series) [code = COVID-19 VACCINE (3 - Booster for Moderna series)] Future Scheduled 2022-05-30 INFLUENZA VACCINE [facility] Test 15:02:54 [code = INFLUENZA VACCINE] Future Scheduled 2022-05-30 Hepatitis C screening [facility] Test 15:02:54 (procedure) [code = 720046813] Future Scheduled 2022-05-30 COLONOSCOPY SCREENING [facility] Test 15:02:54 [code = COLONOSCOPY SCREENING] Future Scheduled 2022-05-30 SHINGLES VACCINES (1 [facility] Test 15:02:54 of 2) [code = SHINGLES VACCINES (1 of 2)] Future Scheduled 2022-05-30 COVID-19 VACCINE (3 - Me [facility] Test 15:02:54 Booster for Moderna series) [code = COVID-19 VACCINE (3 - Booster for Moderna series)] Future Scheduled 2022-05-30 INFLUENZA VACCINE [facility] Test 15:02:54 [code = INFLUENZA VACCINE] Future Scheduled 2022-05-30 Hepatitis C screening [facility] Test 15:02:54 (procedure) [code = [id number]] Future Scheduled 2022-05-30 COLONOSCOPY SCREENING [facility] Test 15:02:54 [code = COLONOSCOPY SCREENING] Future Scheduled 2022-05-19 COVID-19 VACCINE (3 - Me [facility] Test 14:31:01 Booster for Moderna series) [code = COVID-19 VACCINE (3 - Booster for Moderna series)] Future Scheduled 2022-05-19 INFLUENZA VACCINE [facility] Test 14:31:01 [code = INFLUENZA VACCINE] Future Scheduled 2022-05-19 Hepatitis C screening [facility] Test 14:31:01 (procedure) [code = [id number]] Future Scheduled 2022-05-19 COLONOSCOPY SCREENING [facility] Test 14:31:01 [code = COLONOSCOPY SCREENING] Future Scheduled 2022-05-19 SHINGLES VACCINES (1 [facility] Test 14:31:01 of 2) [code = SHINGLES VACCINES (1 of 2)] Encounters Start End Encounter Admission Attending Care Care Encounter Source Date/Time Date/Time Type Type Clinicians Facility Department ID 2022-06-07 2022-06-11 Inpatient JAYJAY PorterLINDA INTE [id number] [facility] 05:50:00 16:04:00 Sandro 52 [facility] 2022-05-24 2022-05-24 Outpatient JAYJAY PorterLINDA OUTD [id number] [facility] [facility] 15:28:00 15:28:00 Sandro 03 [facility] 2022-01-24 2022-01-24 Hospital Milly, 1.2.840.1 [id number] Methodi 09:21:25 23:59:00 Encounter Nidia 01766.1.1 [address] [facility] 3.430.2.7 Hospit a .3.917050 l .8 2022-01-24 2022-01-24 Hospital Milly, 1.2.840.1 [id number] 2100 [id number] Methodi 09:21:25 23:59:00 Encounter Nidia 93590.1.1 [address] [facility] 3.430.2.7 Hospit a .3.899874 l .8 2022-01-24 2022-01-24 Procedure Milly, 1.2.840.1 [id number] [id number] Methodi 09:00:00 11:37:12 visit Nidia 94360.1.[address] [facility] 3.430.2.7 Hospit a .3.666183 l .8 2022-01-24 2022-01-24 Procedure Milly, 1.2.840.1 [id number] Methodi 09:00:00 11:37:12 visit Nidia 54333.1.[address] [facility] 3.430.2.7 Hospit a .3.388849 l .8 2022-01-24 2022-01-24 Orders Atkins, 1.2.840.1 [id number] Methodi 00:00:00 00:00:00 Only Nidia 01369.1.[address] [place] 3.430.2.7 Hospit a .3.142020 l .8 2022-01-24 2022-01-24 Travel 1.2.840.1 1.2.801.263 2852 [id number] Methodi 00:00:00 00:00:[address] 3.430.2.7 0.2.7.3.698 Ho spita .3.729734 084.8 l .8 2022-01-24 2022-01-24 Orders Atkins, 1.2.840.1 [id number] Methodi 00:00:00 00:00:00 Only Nidia 71949.1.[address] [place] 3.430.2.7 Hospit a .3.440934 l .8 2022-01-24 2022-01-24 Travel 1.2.840.1 1.2.549.853 3937 [id number] Methodi 00:00:00 00:00:[address] 3.430.2.7 0.2.7.3.698 Ho spita .3.825668 084.8 l .8 2022-01-11 2022-01-11 Office Atkins, 1.2.840.1 [id number] Methodi 13:00:00 14:08:41 Visit Nidia 03853.1.[address] [place] 3.430.2.7 Hospit a .3.034840 l .8 2022-01-11 2022-01-11 Office Atkins, 1.2.840.1 [id number] Methodi 13:00:00 14:08:41 Visit Nidia 51397.1.[address] [place] 3.430.2.7 Hospit a .3.986507 l .8 2022-01-10 2022-01-10 Travel 1.2.840.1 1.2.579.769 9681 [id number] Methodi 00:00:00 00:00:[address] 3.430.2.7 0.2.7.3.698 Ho spita .3.394400 084.8 l .8 2022-01-10 2022-01-10 Travel 1.2.840.1 1.2.241.555 3530 [id number] Methodi 00:00:00 00:00:[address] 3.430.2.7 0.2.7.3.698 Ho spita .3.038356 084.8 l .8 2022-01-09 2022-01-09 Telephone Atkins, 1.2.840.1 [id number] [id number] Methodi 00:00:00 00:00:[address] [facility] 3.430.2.7 Hospit a .3.001859 l .8 2022-01-09 2022-01-09 Telephone Atkins, 1.2.840.1 [id number] Methodi 00:00:00 00:00:[address] [place] 3.430.2.7 Hospit a .3.533648 l .8 2021-08-22 2021-08-22 Hospital Atkins, 1.2.840.1 [id number] [id number] Methodi 15:18:30 23:59:00 Encounter Nidia 20501.1.[address] [facility] 3.430.2.7 Hospit a .3.420609 l .8 2021-08-22 2021-08-22 Hospital Atkins, 1.2.840.1 [id number] Methodi 15:18:30 23:59:00 Encounter Nidia 55533.1.[address] [place] 3.430.2.7 Hospit a .3.982021 l .8 2021-08-22 2021-08-22 Orders Atkins, 1.2.840.1 [id number] Methodi 00:00:00 00:00:00 Only Nidia 06956.1.[address] [facility] 3.430.2.7 Hospit a .3.893955 l .8 2021-08-22 2021-08-22 Orders Atkins, 1.2.840.1 [id number] Methodi 00:00:00 00:00:00 Only Nidia 27845.1.[address] [place] 3.430.2.7 Hospit a .3.334003 l .8 2021-08-16 2021-08-16 Procedure Atkins, 1.2.840.1 [id number] 851 [id number] Methodi 11:00:00 11:15:00 visit Nidia 40437.1.[address] [place] 3.430.2.7 Hospit a .3.221036 l .8 2021-08-16 2021-08-16 Procedure Atkins, 1.2.840.1 [id number] 782 [id number] Methodi 11:00:00 11:15:00 visit Nidia 44286.1.[address] [place] 3.430.2.7 Hospit a .3.815582 l .8 2021-08-16 2021-08-16 Travel 1.2.840.1 1.2.155.019 1283 [id number] Methodi 00:00:00 00:00:[address] 3.430.2.7 0.2.7.3.698 Ho spita .3.194652 084.8 l .8 2021-08-16 2021-08-16 Travel 1.2.840.1 1.2.362.453 7183 [id number] Methodi 00:00:00 00:00:[address] 3.430.2.7 0.2.7.3.698 Ho spita .3.319942 084.8 l .8 2021-08-05 2021-08-05 Travel 1.2.840.1 1.2.891.007 8647 146208 Methodi 00:00:00 00:00:[address] 3.430.2.7 0.2.7.3.698 Ho spita .3.075881 084.8 l .8 2021-08-05 2021-08-05 Travel 1.2.840.1 1.2.332.288 6463 [id number] Methodi 00:00:00 00:00:[address] 3.430.2.7 0.2.7.3.698 Ho spita .3.161691 084.8 l .8 2021-07-14 2021-07-14 Travel 1.2.840.1 1.2.966.937 6449 408109 Methodi 00:00:00 00:00:[address] 3.430.2.7 0.2.7.3.698 Ho spita .3.241544 084.8 l .8 2021-07-14 2021-07-14 Travel 1.2.840.1 1.2.343.492 1031 006236 Methodi 00:00:00 00:00:[address] 3.430.2.7 0.2.7.3.698 Ho spita .3.536010 084.8 l .8 2021-07-13 2021-07-13 Outpatient MORE, [facility] [id number] [place] 00:00:00 00:00:00 REJI 454 Metho di 2021-07-13 2021-07-13 Outpatient MORE, [facility] [id number] [place] 00:00:00 00:00:00 REJI 567 Metho di 2021-07-07 2021-07-07 Office More, 1.2.840.1 [id number] Methodi 14:30:00 15:37:45 Visit Reji Luevano 68498.1.[address] 3.430.2.7 Hospit a .3.006678 l .8 2021-07-07 2021-07-07 Travel 1.2.840.1 1.2.127.678 3111 [id number] Methodi 00:00:00 00:00:[address] 3.430.2.7 0.2.7.3.698 Ho spita .3.991488 084.8 l .8 2021-07-05 2021-07-05 Telephone Eryn, 1.2.840.1 [id number] Methodi 00:00:00 00:00:[address] [place] 3.430.2.7 Hospi ta .3.824134 l .8 2021-07-04 2021-07-04 Hospital More, 1.2.840.1 [id number] Methodi 09:35:17 23:59:00 Encounter Reji Luevano 63097.1.[address] 3.430.2.7 Hospit a .3.591470 l .8 2021-07-04 2021-07-04 Travel 1.2.840.1 1.2.489.207 2358 [id number] Methodi 00:00:00 00:00:[address] 3.430.2.7 0.2.7.3.698 Ho spita .3.736458 084.8 l .8 2021-06-27 2021-06-27 Transcribe More, 1.2.840.1 [id number] [id number] Methodi 00:00:00 00:00:00 Orders Reji Luevano 34075.1.[address] 3.430.2.7 Hospit a .3.957465 l .8 2021-06-24 2021-06-24 Orders Thad 1.2.840.1 [id number] [id number] Methodi 00:00:00 00:00:00 Only Keri 44999.1.[address] 3.430.2.7 Hospit a .3.595022 l .8 2021-06-20 2021-06-20 Roscoe Aguero, 1.2.840.1 [id number] 2100 [id number] Methodi 00:00:00 00:00:00 Re[address] Lue[address] 3.430.2.7 Hospit a .3.157536 l .8 2021-06-13 2021-06-13 Hospital Aguero, 1.2.840.1 [id number] Methodi 11:02:23 23:59:00 Encounter Reji Luevano 77449.1.[address] 3.430.2.7 Hospit a .3.074671 l .8 2021-06-13 2021-06-13 [facility] Aguero, 1.2.840.1 [id number] 69970 Methodi 10:17:05 11:01:00 Encounter Reji Luevano 64393.1.[address] 3.430.2.7 Hospit a .3.449230 l .8 2021-06-13 2021-06-13 [facility] Aguero, 1.2.840.1 [id number] Methodi 10:30:00 10:58:23 Visit Reji Luevano 52956.1.[address] 3.430.2.7 Hospit a .3.684346 l .8 2021-06-13 2021-06-13 [facility] Aguero, 1.2.840.1 [id number] Methodi 00:00:00 00:00:00 Only Reji Luevano 26037.1.[address] 3.430.2.7 Hospit a .3.071390 l .8 2021-06-13 2021-06-13 Travel 1.2.840.1 1.2.867.720 0899 [id number] Methodi 00:00:00 00:00:[address] 3.430.2.7 0.2.7.3.698 Ho pedrota .3.381427 084.8 l .8 Results Test Description Test Time Test Comments Results Result Comments Source BASIC METABOLIC PANEL 2022-06-11 05:31:00 Test Item Value Reference Range Interpretation Comme nts SODIUM (test code = NA) 132 mEq/L 134-147 L POTASSIUM (test code = K) 4.8 mEq/L 3.4-5.0 N CHLORIDE (test code = CL) 100 mEq/L 100-108 N CARBON DIOXIDE (test code = 27 mEq/l 21-33 N CO2) ANION GAP (test code = GAP) 10 0-20 N GLUCOSE (test code = GLU) 96 mg/dL 70-110 N BLOOD UREA NITROGEN (test code 11 mg/dL 7-18 = BUN) GLOMERULAR FILTRATION RATE 98.4 90-95 H T he Glomerular Filtration Rate is (test code = GFR) a calculat ed parameterbased on serum Creatinin e, patient age and sex. GFR values less than 60 mL/min/1.73 squ are meters are indicative ofCh ronic Kidney Disease. Values less than 15 mL/min/1.73squa re meters indicate Kidney failure. The calculation forGFR is based on the CKD-EPI (2020) calculat ion. This formulais race indifferen t and is the recommended for juan for GFRby the National Kidney Foundation for Adults.The GFR will not calculate if the sex is u nknown or if thepatient's ag e is <18 years. CREATININE (test code = CREAT) 0.9 mg/dL 0.6-1.3 N CALCIUM (test code = CA) 9.1 mg/dL 8.0-10.5 N [id number] 05:31:00 Test Item Value Reference Range Interpretation Comments MAGNESIUM (test code = MAG) 1.92 mg/dL 1.80-2.40 N CBC W/AUTO [id number] 05:05:00 Test Item Value Reference Range Interpretation Comments WHITE BLOOD CELL (test code = 11.0 x10 3/uL 4.5-11.0 N WBC) RED BLOOD CELL (test code = 4.81 x10 6/uL 4.00-5.60 N RBC) HEMOGLOBIN (test code = HGB) 13.8 g/dL 12.5-16.9 N HEMATOCRIT (test code = HCT) 42.3 % 37.5-50.7 N MEAN CELL VOLUME (test code = 87.9 fL 81.0-99.0 N MCV) MEAN CELL HGB (test code = MCH) 28.7 pg 27.0-33.0 N MEAN CELL HGB CONCETRATION 32.6 g/dL 33.0-37.0 L (test code = MCHC) RED CELL DISTRIBUTION WIDTH CV 12.4 % 11.5-14.5 N (test code = RDW) RED CELL DISTRIBUTION WIDTH SD 39.6 fL 37.0-54.0 N (test code = RDW-SD) PLATELET COUNT (test code = 252 x10 3/uL 150-400 N PLT) MEAN PLATELET VOLUME (test code 10.4 fL 7.0-9.0 H = MPV) NEUTROPHIL % (test code = NT%) 75.6 % 56.0-77.0 N IMMATURE GRANULOCYTE % (test 0.5 % 0.0-2.0 N code = IG%) LYMPHOCYTE % (test code = LY%) 9.2 % 14.0-32.0 L MONOCYTE % (test code = MO%) 11.7 % 4.8-9.0 H EOSINOPHIL % (test code = EO%) 2.6 % 0.3-3.7 N BASOPHIL % (test code = BA%) 0.4 % 0.0-2.0 N NUCLEATED RBC % (test code = 0.0 % 0-0 N NRBC%) NEUTROPHIL # (test code = NT#) 8.33 x10 3/uL 2.0-7.6 H IMMATURE GRANULOCYTE # (test 0.05 x10 3/uL 0.00-0.03 H code = IG#) LYMPHOCYTE # (test code = LY#) 1.01 x10 3/uL 1.0-3.8 N MONOCYTE # (test code = MO#) 1.29 x10 3/uL 0.1-0.8 H EOSINOPHIL # (test code = EO#) 0.29 x10 3/uL 0.0-0.2 H BASOPHIL # (test code = BA#) 0.04 x10 3/uL 0.0-0.2 N NUCLEATED RBC # (test code = 0.00 x10 3/uL 0.0-0.1 N NRBC#) MANUAL DIFF REQUIRED (test code NO = MDIFF) - DUP VEIN [id number] 00:00[facility]00 [facility] 1960 Sex: M Name: MARCIA HART [facility] : 1960 Age/S: 61 / M [address] [place] [address] Blvd Unit #: [id number] Loc: [facility] [place] [address] Phys: Nikole Vasquez Acct: [id number] Dis Date: Status: ADM IN PHONE #: [phone] Exam Date: 06/11/2022 1320 FAX #: [phone] Reason: BLE R/O DVT EXAMS: CPT CODE: [id number] [facility] VEIN [place] [address] PROCEDURE INFORMATION: Exam: US Duplex Lower Extremity Veins, Bilateral Exam date and time: 06/11/2022 12:45 PM Age: 61 years old Clinical indication: Screening exam; S/P avr; Additional info: Ble R/O dvt TECHNIQUE: Imaging protocol: Real-time duplex ultrasound of the bilateral extremities with 2-D fernandes scale, color Doppler flow and spectral waveform analysis including responses to compression and other maneuvers (when performed) with image documentation. Complete examfocused on the lower extremity veins. COMPARISON: No relevant prior studies available. FINDINGS: Right deep veins: Unremarkable. The common femoral, femoral, proximal profunda femoral and popliteal veins are patent without thrombus. Normal Doppler waveforms. Normal compressibility and/or augmentationresponse. Right superficial veins: Saphenofemoral junction is patent without thrombus. Left deep veins: Unremarkable. The common femoral, femoral, proximal profunda femoral and popliteal veins are patent without thrombus. Normal Doppler waveforms. Normal compressibility and/or augmentation response. Left superficial veins: Saphenofemoral junction is patent without thrombus. Soft tissues: Unremarkable. IMPRESSION: No evidence of deep vein thrombosis. Electronically Signed by Reema Rodríguez on06/11/2022 at 1327 Reported and signed by: Rainer Rodríguez M.D. CC: Jarrod Jamison MD; Nikole Vasquez Technologist: [facility] Date/Time: 06/11/2022 (1326) [email or web address] Orig Print D/T: S: 06/11/2022 (1326) Probe: PAGE 1 Signed Report- XR CHEST 1 [id number] 00:00:00 [facility] 1960 Sex: M FAX: Jarrod Culp [phone] [place]: St: [facility] FAX: Nikole Block y [phone] ------- Name: MARCIA HART [facility] : 1960 Age/S: 61/M [address] [place], [place] [address] Unit #: [id number] Loc: [id number] Michael [id number] Phys: Nikole Vasquez Physic Acct: [id number] Dis Date: Status: ADM IN PHONE #: [phone] Exam Date: 06/11/2022 0640 FAX #: [phone] Reason: Cardiac Surgery Post Op EXAMS: CPT CODE: [id number] XR CHEST 1 V 04471 PROCEDURE INFORMATION: Exam: XR Chest Exam date and time: 06/11/2022 6:38 AM Age: 61 years old Clinical indication: Other: Cardiac surgery post op TECHNIQUE: Imaging protocol: Radiologic exam of the chest. Views: 1 view. COMPARISON: CR XR CHEST 1V 06/10/2022 6:40 AM FINDINGS: L ungs: Bilateral lung opacities have not significantly changed. Pleural spaces: No pneumothorax. Questionable bilateral pleural effusions. Heart/Mediastinum: The heart size is stable. There are multiple median sternotomy wires and surgical clips suggesting prior CABG. Prosthetic cardiac valve. Bones/joints: Stable. Olivares rods. IMPRESSION: No significant change of the lungs. at 0756 Reported and signed by: Rainer Rodríguez M.D. CC: Jarrod Jamison MD; Nikole Vasquez Technologist: Shawn Quiñonez Trnyvesrd Date/Time/By: 06/11/2022 (0756) : By: [email or web address] Orig Print D/T: S: 06/11/2022 (0756) PAGE 1 Signed ReportBASIC METABOLIC [id number] 03:02:00 Test Item Value Reference Range Interpretation Comments SODIUM (test code = 132 mEq/L 134-147 L NA) POTASSIUM (test code 4.8 mEq/L 3.4-5.0 N = K) CHLORIDE (test code 102 mEq/L 100-108 N = CL) CARBON DIOXIDE (test 29 mEq/l 21-33 N code = CO2) ANION GAP (test code 6 0-20 N = GAP) GLUCOSE (test code = 104 mg/dL 70-110 N GLU) BLOOD UREA NITROGEN 17 mg/dL 7-18 (test code = BUN) GLOMERULAR 86.7 90-95 L The Glomerular FILTRATION RATE Filtration R ate is a (test code = GFR) calculated parameterbased on serum Creatinine, pat ient age and sex. GFR va luesless than 60 mL/min/ 1.73 square meters a re indicative ofCh ronic Kidney Disease. Values less than 15 mL/min/1.73squa re meters indicate Kidney failure. The calculation forGFR is based on the CKD-EPI (2020) calculat ion. This formulais race indifferent and is the recommended for juan for GFRby the [facility] on for Adults.The GFR will not calculate if th e sex is unknown or if thepatient's ag e is <18 years. CREATININE (test 1.0 mg/dL 0.6-1.3 N code = CREAT) CALCIUM (test code = 9.0 mg/dL 8.0-10.5 N CA) COMMENTS: POD #1HEPATIC FUNCTION [id number] 03:02:00 Test Item Value Reference Range Interpretation Comments TOTAL PROTEIN (test code = PROT) 5.9 g/dL 6.4-8.2 L ALBUMIN (test code = ALB) 2.90 g/dL 3.4-5.0 L BILIRUBIN TOTAL (test code = BILT) 0.70 mg/dL 0.0-1.0 N BILIRUBIN DIRECT (test code = 0.30 MG/DL 0.0-0.30 N BILD) BILIRUBIN INDIRECT (test code = 0.40 MG/DL BILIND) SGOT/AST (test code = AST) 29 IUnit/L 15-37 N SGPT/ALT (test code = ALT) 20 IUnit/L 30-65 L ALKALINE PHOSPHATASE TOTAL (test 61 IUnit/L 20-125 N code = ALKP) COMMENTS: POD #[id number] 03:02:00 Test Item Value Reference Range Interpretation Comments MAGNESIUM (test code = MAG) 1.98 mg/dL 1.80-2.40 N COMMENTS: POD #1CBC W/AUTO [id number] 02:54:00 Test Item Value Reference Range Interpretation Comments WHITE BLOOD CELL (test code = 12.6 x10 3/uL 4.5-11.0 H WBC) RED BLOOD CELL (test code = 4.95 x10 6/uL 4.00-5.60 N RBC) HEMOGLOBIN (test code = HGB) 14.3 g/dL 12.5-16.9 N HEMATOCRIT (test code = HCT) 43.3 % 37.5-50.7 N MEAN CELL VOLUME (test code = 87.5 fL 81.0-99.0 N MCV) MEAN CELL HGB (test code = MCH) 28.9 pg 27.0-33.0 N MEAN CELL HGB CONCETRATION 33.0 g/dL 33.0-37.0 N (test code = MCHC) RED CELL DISTRIBUTION WIDTH CV 12.4 % 11.5-14.5 N (test code = RDW) RED CELL DISTRIBUTION WIDTH SD 39.7 fL 37.0-54.0 N (test code = RDW-SD) PLATELET COUNT (test code = 179 x10 3/uL 150-400 N PLT) MEAN PLATELET VOLUME (test code 9.9 fL 7.0-9.0 H = MPV) NEUTROPHIL % (test code = NT%) 77.5 % 56.0-77.0 H IMMATURE GRANULOCYTE % (test 0.6 % 0.0-2.0 N code = IG%) LYMPHOCYTE % (test code = LY%) 7.5 % 14.0-32.0 L MONOCYTE % (test code = MO%) 12.6 % 4.8-9.0 H EOSINOPHIL % (test code = EO%) 1.5 % 0.3-3.7 N BASOPHIL % (test code = BA%) 0.3 % 0.0-2.0 N NUCLEATED RBC % (test code = 0.0 % 0-0 N NRBC%) NEUTROPHIL # (test code = NT#) 9.77 x10 3/uL 2.0-7.6 H IMMATURE GRANULOCYTE # (test 0.07 x10 3/uL 0.00-0.03 H code = IG#) LYMPHOCYTE # (test code = LY#) 0.95 x10 3/uL 1.0-3.8 L MONOCYTE # (test code = MO#) 1.59 x10 3/uL 0.1-0.8 H EOSINOPHIL # (test code = EO#) 0.19 x10 3/uL 0.0-0.2 N BASOPHIL # (test code = BA#) 0.04 x10 3/uL 0.0-0.2 N NUCLEATED RBC # (test code = 0.00 x10 3/uL 0.0-0.1 N NRBC#) MANUAL DIFF REQUIRED (test code NO = MDIFF) - XR CHEST 1 [id number] 00:00:00 [facility] 1960 Sex: M FAX: Jarrod Culp [phone] [place]: St: ADM FAX: Edie Powell MD [phone] Name: MARCIA HART [facility] : 1960 Age/S: 61/M [address] [place] [address] Unit #: [id number] Loc: G.[address] [place] [address]Iuuu: Edie Powell MD Acct: [id number] Dis Date: Status: ADM IN PHONE #: [phone] Exam Date: 224 FAX #: [phone] Reason: SOB/CHEST PAIN EXAMS: CPT CODE: [id number] XR CHEST 1 V 04982 PROCEDURE INFORMATION: Exam: XR Chest Exam date and time: 06/10/2022 2:20 AM Age: 61 years old Clinical indication: Other: Sob/chest pain TECHNIQUE: Imaging protocol: Radiologic exam of the chest. Views: 1 view. COMPARISON: CR XR CHEST 1V 06/09/2022 5:26 AM FINDINGS: Lungs: New right lower lobe infiltrate. Stable increased density at the left lung base.. Pleural spaces: Unremarkable. No pleural effusion. No pneumothorax. Heart/Mediastinum: Cardiomegaly. Increasing prominence of central pulmonary vascularity. Previous midline sternotomy. Bones/joints: Thoracic Olivares rods noted. IMPRESSION: Cardiomegaly with pulmonary vascular congestion. Stable left, increasing right lung base infiltrate likely reflecting pulmonary edema. t 321 Reported and signed by: Leonidas Aguirre M.D. CC: Jarrod Jamison MD; Edie Faustin Technologist: RT Rogelio(R) Trnscrd Date/Time/By: 06/10/2022 (321) : By: Jeannie Orig Print D/T: S: 06/10/2022 (321) PAGE 1 Signed Report- XR CHEST 1 [id number] 00:00:00 [facility] 1960 Sex: M FAX: Jarrod Culp [phone] [place]: St: [facility] FAX: Nikole Block Phy [phone] ------- Name: MARCIA HART [facility] : 1960 Age/S: 61/M [address] [place] [address] Unit #: [id number] Loc: G.3310 Michael [id number] Phys: Nikole Vasquez Acct: [id number] Dis Date: Status: ADM IN PHONE #: [phone] Exam Date: 06/10/2022 0640 FAX #: [phone] Reason: Cardiac Surgery Post Op EXAMS: CPT CODE: [id number] XR CHEST 1 V [id number] PROCEDURE INFORMATION: Exam: XR Chest Exam date and time: 06/10/2022 6:40 AM Age: 61 years old Clinical indication: Pain; Other: Cardiac surgery post op TECHNIQUE: Imaging protocol: Radiologic exam of the chest. Views: 1 view. COMPARISON: CR XR CHEST 1V 06/10/2022 2:20 AM FINDINGS: Lungs: Bilateral lung opacities have not significantly changed when allowing for differences in technique. Pleural spaces: No pneumothorax. Questionable bilateral pleural effusions. Heart/Mediastinum: The heart size is stable. Multiple median sternotomy wires with prosthetic cardiac valve. Bones/joints: Stable. Surgical spine hardware. IMPRESSION: No significant change when allowing for differences in technique. at 0759 Reported and signed by: Rainer Rodríguez M.D. CC: Jarrod Jamison MD; Nikole Vasquez Technologist: Shawn Quiñonez; RT Jose Ramon(Nadya) Trnscrd Date/Time/By: 06/10/2022 (0759) : By: [email or web address] Orig Print D/T: S: 06/10/2022 (0839) PAGE 1 Signed [id number] 14:16:00 Test Item Value Reference Interpretation Comments Range SURGICAL (test code = SR) RUN DATE: 06/09/22 [place] - LAB PAGE 1 RUN TIME: 1416 Specimen Inquiry RUN USER: INTERFACE PATIENT: MARCIA HART LOC: MARIZA U #: [id number] AGE/SX: 61/M ROOM: [facility] RE06/07/22REG DR: Jarrod Jamison : 64 BED: 1 DIS: STATUS: ADM IN TLOC: SPEC #: [id number] RECD: 06/08/22 STATUS: MEÑO REDiallo #: [id number] JUAN: 06/06/22- SUBM DR: Jarrod Jamison MD ENTERED: 06/08/22 SP TYPE: SURGICAL OTHR DR: No Primary or Family Physician Kacey Brown MD, Anas MDORDERED: 67823, 68680, ANATOMIC SPEC COPIES TO: No Primary or Family Physician Kacey Brown MD [address] [place] [address] Jarrod Jamison MD [address] [place] [address]. [address] [place] [address] Edie Powell MD [address] [place] [address] PROCEDURES: 17780 (06/08/22) 97885 (06/08/22) TISSUES: A. AORTIC VALVE - LEAFLETS B. ATRIUM - LEFT ATRIAL APPENDAGE CLINICAL HISTORY SAME FINAL DIAGNOSIS Aortic valve leaflets , replacement: Heart valve with myxoid degeneration. Heart, left atrial appendage, wedge biopsy: Myocardium with focal mild ischemic change. CONTINUED ON NEXT PAGE RUN DATE: 06/09/22 [place] - LAB PAGE 2 RUN TIME: 1415 Specimen Inquiry RUN USER: INTERFACE SPEC #: [id number] PATIENT: MARCIA HART #[id number] (Continued) - GROSS DESCRIPTION Specimen #1 received in formalin labeled "aortic valve leaflets "are 2 crescent-shapedwhite membranous tissue with focal yellow discoloration, up to 3.1 cm in maximum dimension,with dealer compliance representative sections submitted in (A). Specimen #2 received in formalin labeled "left atrial appendage "is a heart wedge biopsyspecimen (3 x 2.3 x 1.7 cm), sectioned and entirely submitted in (B)-(C). Technical component performed at [facility],[address] [place] [address] [place] [address] Unless gross only, the diagnosis is based upon microscopic examination.Immunohistochemistry: This test was developed and its performance characteristicsdetermined by this laboratory. It has not been approved nor does it need approvalby the [place] FDA. Appropriate positive and negative controls are reviewed and judgedto be acceptable for performedimmunohistochemistry and/or special stains. This laboratoryis certified under the Clinical Laboratory Improvement Amendments (CLIA-88) as qualified toperform high complexity clinical laboratory testing. CLINICAL INFORMATION AORTIC VALVE REGURGITATION --- Signed SIGNATURE ON FILE Elder De Santiago 06/09/22 1416 END OF REPORT BASIC METABOLIC [id number] 04:31:00 Test Item Value Reference Range Interpretation Comments SODIUM (test code = 131 mEq/L 134-147 L NA) POTASSIUM (test code 4.9 mEq/L 3.4-5.0 N = K) CHLORIDE (test code 103 mEq/L 100-108 N = CL) CARBON DIOXIDE (test 25 mEq/l 21-33 N code = CO2) ANION GAP (test code 8 0-20 N = GAP) GLUCOSE (test code = 117 mg/dL 70-110 H GLU) BLOOD UREA NITROGEN 13 mg/dL 7-18 N (test code = BUN) GLOMERULAR 98.4 90-95 H The Glomerular FILTRATION RATE Filtration R ate is a (test code = GFR) calculated parameterbased on serum Creatinine, pat ient age and sex. GFR va luesless than 60 mL/min/ 1.73 square meters a re indicative ofCh ronic Kidney Disease. Values less than 15 mL/min/1.73squa re meters indicate Kidney failure. The calculation forGFR is based on the CKD-EPI (2020) calculat ion. This formulais race indifferent and is the recommended for juan for GFRby the [facility] Kidney Foundati on for Adults.The GFR will not calculate if th e sex is unknown or if thepatient's ag e is <18 years. CREATININE (test 0.9 mg/dL 0.6-1.3 N code = CREAT) CALCIUM (test code = 8.3 mg/dL 8.0-10.5 N CA) COMMENTS: POD #1HEPATIC FUNCTION [id number] 04:31:00 Test Item Value Reference Range Interpretation Comments TOTAL PROTEIN (test code = PROT) 5.4 g/dL 6.4-8.2 L ALBUMIN (test code = ALB) 2.80 g/dL 3.4-5.0 L BILIRUBIN TOTAL (test code = BILT) 0.70 mg/dL 0.0-1.0 BILIRUBIN DIRECT (test code = 0.30 MG/DL 0.0-0.30 BILD) BILIRUBIN INDIRECT (test code = 0.40 MG/DL BILIND) SGOT/AST (test code = AST) 35 IUnit/L 15-37 N SGPT/ALT (test code = ALT) 18 IUnit/L 30-65 L ALKALINE PHOSPHATASE TOTAL (test 51 IUnit/L 20-125 N code = ALKP) COMMENTS: POD #[id number] 04:31:00 Test Item Value Reference Range Interpretation Comments MAGNESIUM (test code = MAG) 2.05 mg/dL 1.80-2.40 N COMMENTS: POD #1CBC W/AUTO [id number] 04:11:00 Test Item Value Reference Range Interpretation Comments WHITE BLOOD CELL (test code = 14.3 x10 3/uL 4.5-11.0 H WBC) RED BLOOD CELL (test code = 4.74 x10 6/uL 4.00-5.60 N RBC) HEMOGLOBIN (test code = HGB) 13.7 g/dL 12.5-16.9 N HEMATOCRIT (test code = HCT) 40.8 % 37.5-50.7 N MEAN CELL VOLUME (test code = 86.1 fL 81.0-99.0 N MCV) MEAN CELL HGB (test code = 28.9 pg 27.0-33.0 N MCH) MEAN CELL HGB CONCETRATION 33.6 g/dL 33.0-37.0 N (test code = MCHC) RED CELL DISTRIBUTION WIDTH CV 12.7 % 11.5-14.5 N (test code = RDW) RED CELL DISTRIBUTION WIDTH SD 39.8 fL 37.0-54.0 N (test code = RDW-SD) PLATELET COUNT (test code = 143 x10 3/uL 150-400 L PLT) MEAN PLATELET VOLUME (test 10.3 fL 7.0-9.0 H code = MPV) NEUTROPHIL % (test code = NT%) 80.1 % 56.0-77.0 H IMMATURE GRANULOCYTE % (test 0.6 % 0.0-2.0 N code = IG%) LYMPHOCYTE % (test code = LY%) 6.0 % 14.0-32.0 L MONOCYTE % (test code = MO%) 12.6 % 4.8-9.0 H EOSINOPHIL % (test code = EO%) 0.6 % 0.3-3.7 N BASOPHIL % (test code = BA%) 0.1 % 0.0-2.0 N NUCLEATED RBC % (test code = 0.0 % 0-0 N NRBC%) NEUTROPHIL # (test code = NT#) 11.45 x10 3/uL 2.0-7.6 H IMMATURE GRANULOCYTE # (test 0.08 x10 3/uL 0.00-0.03 H code = IG#) LYMPHOCYTE # (test code = LY#) 0.86 x10 3/uL 1.0-3.8 L MONOCYTE # (test code = MO#) 1.80 x10 3/uL 0.1-0.8 H EOSINOPHIL # (test code = EO#) 0.08 x10 3/uL 0.0-0.2 N BASOPHIL # (test code = BA#) 0.02 x10 3/uL 0.0-0.2 N NUCLEATED RBC # (test code = 0.00 x10 3/uL 0.0-0.1 N NRBC#) MANUAL DIFF REQUIRED (test NO code = MDIFF) - XR CHEST 1 [id number] 00:00:00 [facility] 1960 Sex: M FAX: Jarrod Culp [phone] [place]: St: ADM FAX: Nikole Block [facility] [phone] ------- Name: MARCIA HART [facility] : 1960 Age/S: 61/M [address] [place] [address] Unit #: [id number] Loc: G.2204 [facility] [id number] Phys: Nikole Vasquez Physic Acct: [id number] Dis Date: Status: ADM IN PHONE #: [phone] Date: 06/09/2022706 FAX #: [phone] Reason: Cardiac Surgery Post Op EXAMS: CPT CODE: [id number] XR CHEST 1 V 72839 PROCEDURE INFORMATION: Exam: XR Chest Exam date and time: 06/09/2022 5:26 AM Age: 61 years old Clinical indication: Other: Cardiac surgery post op TECHNIQUE: Imaging protocol: Radiologic exam of the chest. Views: 1 view. COMPARISON: CR XR CHEST 1V 06/08/2022 5:18 AM FINDINGS: Lungs: There is opacity at the left lung base. Pleural spaces: Small left pleural effusion. No pneumothorax. Heart/Mediastinum: The cardiac silhouette is enlarged. Previous midline sternotomy. Bones/joints: Olivares rods project overlying the thoracic spine. Previous ACDF. IMPRESSION: Cardiomegaly with opacity at the left lung base and a small left pleural effusion. at 0848 Reported and signed by: David Genao M.D. CC: Jarrod Jamison MD; Nikole Vasquez Technologist: RT Daniela(R) Trnscrd Date/Time/By : 06/09/2022 (0848) : By: Kenneth Orig Print D/T: S: 06/09/2022 (0849) PAGE 1 Signed ReportGLUCOSE [id number] 12:25:00 Test Item Value Reference Range Interpretation Comments GLUCOSE BEDSIDE (test 127 MG/DL 70-110 H Perfor med by certified code = GLUBED) 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 [facility] POC ARTERIAL BLOOD [id number] 06:57:00 Test Item Value Reference Range Interpretation Comments POC ARTERIAL BLOOD GAS PH (test 7.353 7.35-7.45 N code = POCPHA) POC ARTERIAL BLOOD GAS PCO2 (test 44.3 mmHg 35.0-45 N code = UICKDB0V) POC TCO2 ARTERIAL (test code = 25.9 POCTCO2) POC ARTERIAL BLOOD GAS PO2 (test 88.7 mmHg 80-100.0 N code = AREWP1Q) POC HCO3 ARTERIAL (test code = 24.5 MMOL/L 22.0-26.0 N HAQYXN0T) POC BASE EXCESS (test code = -0.9 MMOL/L -4.0-4.0 N POCBEA) POC O2 SATURATION (test code = 96.1 % 90-100 N POCO2S) ABG DELIVERY (test code = VERN) Cannula ABG TEMPERATURE (test code = 99.3 F TEMPA) ABG SITE (test code = SITEA) Art Line BASIC METABOLIC [id number] 06:57:00 Test Item Value Reference Range Interpretation Comments SODIUM (test code = NA/ABG) 136 mmol/L 134-147 N POTASSIUM (test code = K/ABG) 4.3 mmol/L 3.4-5.0 N CHLORIDE (test code = CL/ABG) 102 mmol/L 100-108 N CREATININE ABG (test code = 1.2 mg/dL 0.8-1.3 N CREAABG) POC IONIZED CALCIUM (test code = 1.23 MMOL/L 1.12-1.32 N POCCA) POC GLUCOSE (test code = POCGLU) 123 MG/DL 70-110 H HEMOGLOBIN [id number] 06:57:00 Test Item Value Reference Range Interpretation Comments HEMOGLOBIN ABG (test code = 15.9 G/DL 12.5-16.9 N HGB/ABG) [id number] 06:57:00 Test Item Value Reference Range Interpretation Comments HEMATOCRIT (test code = HCT/ABG) 47 % 37.5-50.7 N POC LACTIC [id number] 06:57:00 Test Item Value Reference Range Interpretation Comments POC LACTIC ACID (test code = 1.2 mmol/l 0.9-1.7 N POCLAC) BASIC METABOLIC [id number] 03:50:00 Test Item Value Reference Range Interpretation Comments SODIUM (test code = 136 mEq/L 134-147 N NA) POTASSIUM (test code 4.6 mEq/L 3.4-5.0 N = K) CHLORIDE (test code 106 mEq/L 100-108 N = CL) CARBON DIOXIDE (test 27 mEq/l 21-33 N code = CO2) ANION GAP (test code 8 0-20 N = GAP) GLUCOSE (test code = 115 mg/dL 70-110 H GLU) BLOOD UREA NITROGEN 17 mg/dL 7-18 N (test code = BUN) GLOMERULAR 77.3 90-95 L The Glomerular FILTRATION RATE Filtration R ate is a (test code = GFR) calculated parameterbased on serum Creatinine, pat ient age and sex. GFR va luesless than 60 mL/min/ 1.73 square meters a re indicative ofCh ronic Kidney Disease. Values less than 15 mL/min/1.73squa re meters indicate Kidney failure. The calculation forGFR is based on the CKD-EPI (2020) calculat ion. This formulais race indifferent and is the recommended for juan for GFRby the [facility] for Adults.The GFR will not calculate if th e sex is unknown or if thepatient's ag e is <18 years. CREATININE (test 1.1 mg/dL 0.6-1.3 N code = CREAT) CALCIUM (test code = 8.1 mg/dL 8.0-10.5 N CA) COMMENTS: POD #1HEPATIC FUNCTION [id number] 03:50:00 Test Item Value Reference Range Interpretation Comments TOTAL PROTEIN (test code = PROT) 5.0 g/dL 6.4-8.2 L ALBUMIN (test code = ALB) 2.80 g/dL 3.4-5.0 L BILIRUBIN TOTAL (test code = BILT) 0.50 mg/dL 0.0-1.0 N BILIRUBIN DIRECT (test code = 0.20 MG/DL 0.0-0.30 N BILD) BILIRUBIN INDIRECT (test code = 0.30 MG/DL BILIND) SGOT/AST (test code = AST) 60 IUnit/L 15-37 H SGPT/ALT (test code = ALT) 28 IUnit/L 30-65 L ALKALINE PHOSPHATASE TOTAL (test 47 IUnit/L 20-125 N code = ALKP) COMMENTS: POD #[id number] 03:50:00 Test Item Value Reference Range Interpretation Comments MAGNESIUM (test code = MAG) 2.20 mg/dL 1.80-2.40 N COMMENTS: POD #1CBC W/AUTO [id number] 03:22:00 Test Item Value Reference Range Interpretation Comments WHITE BLOOD CELL (test code = 14.4 x10 3/uL 4.5-11.0 H WBC) RED BLOOD CELL (test code = 4.88 x10 6/uL 4.00-5.60 N RBC) HEMOGLOBIN (test code = HGB) 14.4 g/dL 12.5-16.9 N HEMATOCRIT (test code = HCT) 42.6 % 37.5-50.7 N MEAN CELL VOLUME (test code = 87.3 fL 81.0-99.0 N MCV) MEAN CELL HGB (test code = 29.5 pg 27.0-33.0 N MCH) MEAN CELL HGB CONCETRATION 33.8 g/dL 33.0-37.0 N (test code = MCHC) RED CELL DISTRIBUTION WIDTH CV 12.3 % 11.5-14.5 N (test code = RDW) RED CELL DISTRIBUTION WIDTH SD 39.7 fL 37.0-54.0 N (test code = RDW-SD) PLATELET COUNT (test code = 171 x10 3/uL 150-400 N PLT) MEAN PLATELET VOLUME (test 10.2 fL 7.0-9.0 H code = MPV) NEUTROPHIL % (test code = NT%) 81.3 % 56.0-77.0 H IMMATURE GRANULOCYTE % (test 0.4 % 0.0-2.0 N code = IG%) LYMPHOCYTE % (test code = LY%) 7.4 % 14.0-32.0 L MONOCYTE % (test code = MO%) 10.6 % 4.8-9.0 H EOSINOPHIL % (test code = EO%) 0.1 % 0.3-3.7 L BASOPHIL % (test code = BA%) 0.2 % 0.0-2.0 N NUCLEATED RBC % (test code = 0.0 % 0-0 N NRBC%) NEUTROPHIL # (test code = NT#) 11.69 x10 3/uL 2.0-7.6 H IMMATURE GRANULOCYTE # (test 0.06 x10 3/uL 0.00-0.03 H code = IG#) LYMPHOCYTE # (test code = LY#) 1.06 x10 3/uL 1.0-3.8 N MONOCYTE # (test code = MO#) 1.53 x10 3/uL 0.1-0.8 H EOSINOPHIL # (test code = EO#) 0.02 x10 3/uL 0.0-0.2 N BASOPHIL # (test code = BA#) 0.03 x10 3/uL 0.0-0.2 N NUCLEATED RBC # (test code = 0.00 x10 3/uL 0.0-0.1 N NRBC#) MANUAL DIFF REQUIRED (test NO code = MDIFF) HEMOGLOBIN [id number] 03:07:00 Test Item Value Reference Range Interpretation Comments HEMOGLOBIN ABG (test code = 15.3 G/DL 12.5-16.9 N HGB/ABG) [id number] 03:07:00 Test Item Value Reference Range Interpretation Comments HEMATOCRIT (test code = HCT/ABG) 45 % 37.5-50.7 N POC LACTIC [id number] 03:07:00 Test Item Value Reference Range Interpretation Comments POC LACTIC ACID (test code = 0.7 mmol/l 0.9-1.7 L POCLAC) POC ARTERIAL BLOOD [id number] 03:07:00 Test Item Value Reference Range Interpretation Comments POC ARTERIAL BLOOD GAS PH (test 7.367 7.35-7.45 N code = POCPHA) POC ARTERIAL BLOOD GAS PCO2 45.3 mmHg 35.0-45 H (test code = WBZFCI0D) POC TCO2 ARTERIAL (test code = 27.3 POCTCO2) POC ARTERIAL BLOOD GAS PO2 (test 87.7 mmHg 80-100.0 N code = TNXWV3S) POC HCO3 ARTERIAL (test code = 25.9 MMOL/L 22.0-26.0 N YOWGWM1C) POC BASE EXCESS (test code = 0.7 MMOL/L -4.0-4.0 N POCBEA) POC O2 SATURATION (test code = 96.1 % 90-100 N POCO2S) FIO2 (test code = FIO2A) 45 % PaO2/FiO2 (test code = [id number]) 194.88 mm/Hg ABG DELIVERY (test code = VERN) BiPAP ABG VENT RESP RATE (test code = 20 /MIN RRA) ABG PRESSURE SUPPORT (test code 7 cmH2O = PSABG) ABG TEMPERATURE (test code = 99.3 F TEMPA) ABG SITE (test code = SITEA) Art Line BASIC METABOLIC [id number] 03:07:00 Test Item Value Reference Range Interpretation Comments SODIUM (test code = NA/ABG) 137 mmol/L 134-147 N POTASSIUM (test code = K/ABG) 4.6 mmol/L 3.4-5.0 N CHLORIDE (test code = CL/ABG) 100 mmol/L 100-108 N CREATININE ABG (test code = 1.1 mg/dL 0.8-1.3 N CREAABG) POC IONIZED CALCIUM (test code = 1.27 MMOL/L 1.12-1.32 N POCCA) POC GLUCOSE (test code = POCGLU) 103 MG/DL 70-110 N GLUCOSE [id number] 02:17:00 Test Item Value Reference Range Interpretation Comments GLUCOSE BEDSIDE (test 101 MG/DL 70-110 N Perfor med by certified code = GLUBED) 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 [facility] GLUCOSE [id number] 00:29:00 Test Item Value Reference Range Interpretation Comments GLUCOSE BEDSIDE (test 113 MG/DL 70-110 H Perfor med by certified code = GLUBED) 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 [facility] - XR CHEST 1 [id number] 00:00:00 [facility] 1960 Sex: M FAX: Jarrod Culp [phone] [place]: St: ADM FAX: Nikole Block y [phone] -------- Name: MARCIA HART [facility] : 1960 Age/S: 61/M [address] [place] [address] Unit #: [id number] Loc: G.[id number] [facility] [id number] Phys: Nikole Vasquez Physic Acct: [id number] Dis Date: Status: ADM IN PHONE #: [phone] Exam Date: 06/08/2022519 FAX #: [phone] Reason: Cardiac Surgery Post Op EXAMS: CPT CODE: [id number] XR CHEST 1 V [id number] PROCEDURE INFORMATION: Exam: XR Chest Exam date and time: 06/08/2022 5:18 AM Age: 61 years old Clinical indication: Other: Cardiac surgery post op TECHNIQUE: Imaging protocol: Radiologic exam of the chest. Views: 1 view. COMPARISON: CR XR CHEST 1V 06/07/2022 11:40 AM FINDINGS: L imitations: Portable technique and patient body habitus. Portions of the lung bases are beyond the field of view. Tubes, catheters and devices: Endotracheal tube has been removed. Right Pomeroy-Vlad catheter sheath in place. Aortic valve prosthesis poorly visualized on this exam grossly stable otherwise. Any mediastinal drain is beyond the field of view. Lungs: Lung volumes are decreased. Ill-defined perihilar and basilar pulmonary opacities. The left hemidiaphragm is obscured. The right remains partially visible. Pleural spaces: There is no pneumothorax. Heart/Mediastinum: Enlarged cardiomediastinal silhouette likely magnified by projection and lower lung volumes. Apparent widening of the superiormediastinum likely accentuated by patient rotation and low lung volumes. The pulmonary vasculature is indistinct. Bones/joints: Unremarkable. IMPRESSION: 1. Limited exam with decreased lung volumes. Hyp oventilatory changes accentuating pulmonary opacities with edema and inflammation in the differential. 2. Enlarged cardiomediastinal silhouette likely magnified by projection and low lung volumes. Close radiographic follow- up is suggested. If there is clinical concern, further imaging options include C T and echocardiography. 3. Opacification left base may reflect combination of atelectasis, consolidation and pleural effusion. at 0847 Reported and signed by: Piotr Lee M.D. PAGE 1 Signed Report (CONTINUED) FAX: Jarrod Culp [phone] [place]: St: [facility] FAX: Nikole Block [facility] [phone] Name: MARCIA HART [facility] :1960 Age/S: 61/M [address] [place] [address] Blvd Unit #: [id number] Loc: G.2204 [place] [address] Phys: Nikole Vasquez Acct: [id number] Dis Date: Status: ADM IN PHONE #: [phone] Exam Date: 06/08/2022519 FAX #: [phone] Reason: Cardiac Surgery Post Op EXAMS: CPT CODE: [id number] XR CHEST 1 V 25763 (Continued) CC: Jarrod Jamison MD; Nikole Vasquez Technologist: Daria Chavis, RT(R) Trnscrd Date/Time/By: 06/08/2022 (0847) : By: [place] Orig Print D/T: S: 06/08/2022 (0848) PAGE 2 Signed ReportGLUCOSE [id number] 22:21:00 Test Item Value Reference Range Interpretation Comments GLUCOSE BEDSIDE (test 133 MG/DL 70-110 H Perfor med by certified code = GLUBED) 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 [facility] BASIC METABOLIC [id number] 21:29:00 Test Item Value Reference Range Interpretation Comments SODIUM (test code = 135 mEq/L 134-147 N NA) POTASSIUM (test code 4.7 mEq/L 3.4-5.0 = K) CHLORIDE (test code 106 mEq/L 100-108 N = CL) CARBON DIOXIDE (test 25 mEq/l 21-33 N code = CO2) ANION GAP (test code 9 0-20 N = GAP) GLUCOSE (test code = 139 mg/dL 70-110 H GLU) BLOOD UREA NITROGEN 16 mg/dL 7-18 N (test code = BUN) GLOMERULAR 77.3 90-95 L The Glomerular FILTRATION RATE Filtration R ate is a (test code = GFR) calculated parameterbased on serum Creatinine, pat ient age and sex. GFR va luesless than 60 mL/min/ 1.73 square meters a re indicative ofCh ronic Kidney Disease. Values less than 15 mL/min/1.73squa re meters indicate Kidney failure. The calculation forGFR is based on the CKD-EPI (2020) calculat ion. This formulais race indifferent and is the recommended for juan for GFRby the Nat[facility] n[facility] Kidney Foundati on for Adults.The GFR will not calculate if th e sex is unknown or if thepatient's ag e is <18 years. CREATININE (test 1.1 mg/dL 0.6-1.3 N code = CREAT) CALCIUM (test code = 8.2 mg/dL 8.0-10.5 N CA) [id number] 21:29:00 Test Item Value Reference Range Interpretation Comments MAGNESIUM (test code = MAG) 2.00 mg/dL 1.80-2.40 POC ARTERIAL BLOOD [id number] 21:01:00 Test Item Value Reference Range Interpretation Comments POC ARTERIAL BLOOD GAS PH (test 7.361 7.35-7.45 N code = POCPHA) POC ARTERIAL BLOOD GAS PCO2 (test 45.4 mmHg 35.0-45 H code = [id number]) POC TCO2 ARTERIAL (test code = 26.9 POCTCO2) POC ARTERIAL BLOOD GAS PO2 (test 78.5 mmHg 80-100.0 L code = OEVHO3F) POC HCO3 ARTERIAL (test code = 25.6 MMOL/L 22.0-26.0 N [id number]) POC BASE EXCESS (test code = 0.3 MMOL/L -4.0-4.0 N POCBEA) POC O2 SATURATION (test code = 94.5 % 90-100 N POCO2S) ABG DELIVERY (test code = VERN) Cannula ABG TEMPERATURE (test code = 99.5 F TEMPA) ABG SITE (test code = SITEA) Art Line BASIC METABOLIC [id number] 21:01:00 Test Item Value Reference Range Interpretation Comments SODIUM (test code = NA/ABG) 137 mmol/L 134-147 N POTASSIUM (test code = K/ABG) 4.8 mmol/L 3.4-5.0 N CHLORIDE (test code = CL/ABG) 102 mmol/L 100-108 N CREATININE ABG (test code = 1.2 mg/dL 0.8-1.3 N CREAABG) POC IONIZED CALCIUM (test code = 1.28 MMOL/L 1.12-1.32 N POCCA) POC GLUCOSE (test code = POCGLU) 132 MG/DL 70-110 H HEMOGLOBIN [id number] 21:01:00 Test Item Value Reference Range Interpretation Comments HEMOGLOBIN ABG (test code = 15.1 G/DL 12.5-16.9 N HGB/ABG) [id number] 21:01:00 Test Item Value Reference Range Interpretation Comments HEMATOCRIT (test code = HCT/ABG) 44 % 37.5-50.7 N POC LACTIC [id number] 21:01:00 Test Item Value Reference Range Interpretation Comments POC LACTIC ACID (test code = 1.8 mmol/l 0.9-1.7 H POCLAC) GLUCOSE [id number] 20:21:00 Test Item Value Reference Range Interpretation Comments GLUCOSE BEDSIDE (test 131 MG/DL 70-110 H Perfor med by certified code = GLUBED) 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 [facility] POC ARTERIAL BLOOD [id number] 17:56:00 Test Item Value Reference Range Interpretation Comments POC ARTERIAL BLOOD GAS PH (test 7.346 7.35-7.45 L code = POCPHA) POC ARTERIAL BLOOD GAS PCO2 (test 48.0 mmHg 35.0-45 H code = WKNDUD6C) POC TCO2 ARTERIAL (test code = 27.7 POCTCO2) POC ARTERIAL BLOOD GAS PO2 (test 88.9 mmHg 80-100.0 N code = ULQOU8F) POC HCO3 ARTERIAL (test code = 26.2 MMOL/L 22.0-26.0 H DNQFYB8A) POC BASE EXCESS (test code = 0.6 MMOL/L -4.0-4.0 N POCBEA) POC O2 SATURATION (test code = 96.1 % 90-100 N POCO2S) ABG DELIVERY (test code = VERN) Cannula ABG TEMPERATURE (test code = 99 F TEMPA) ABG SITE (test code = SITEA) Art Line RONIT'S TEST (test code = ALLENS) N/A BASIC METABOLIC [id number] 17:56:00 Test Item Value Reference Range Interpretation Comments SODIUM (test code = NA/ABG) 138 mmol/L 134-147 N POTASSIUM (test code = K/ABG) 4.8 mmol/L 3.4-5.0 N CHLORIDE (test code = CL/ABG) 105 mmol/L 100-108 N CREATININE ABG (test code = 1.0 mg/dL 0.8-1.3 N CREAABG) POC IONIZED CALCIUM (test code = 1.28 MMOL/L 1.12-1.32 N POCCA) POC GLUCOSE (test code = POCGLU) 140 MG/DL 70-110 H HEMOGLOBIN [id number] 17:56:00 Test Item Value Reference Range Interpretation Comments HEMOGLOBIN ABG (test code = 14.7 G/DL 12.5-16.9 N HGB/ABG) [id number] 17:56:00 Test Item Value Reference Range Interpretation Comments HEMATOCRIT (test code = HCT/ABG) 43 % 37.5-50.7 N POC LACTIC [id number] 17:56:00 Test Item Value Reference Range Interpretation Comments POC LACTIC ACID (test code = 1.3 mmol/l 0.9-1.7 N POCLAC) POC ARTERIAL BLOOD [id number] 14:35:00 Test Item Value Reference Range Interpretation Comments POC ARTERIAL BLOOD GAS PH (test 7.284 7.35-7.45 LL code = POCPHA) POC ARTERIAL BLOOD GAS PCO2 (test 57.4 mmHg 35.0-45 HH code = TYNJEL9Z) POC TCO2 ARTERIAL (test code = 29.1 POCTCO2) POC ARTERIAL BLOOD GAS PO2 (test 70.7 mmHg 80-100.0 L code = LWISE0F) POC HCO3 ARTERIAL (test code = 27.3 MMOL/L 22.0-26.0 H TCBGJA6O) POC BASE EXCESS (test code = 0.5 MMOL/L -4.0-4.0 N POCBEA) POC O2 SATURATION (test code = 91.7 % 90-100 N POCO2S) ABG DELIVERY (test code = VERN) Cannula ABG TEMPERATURE (test code = 98 F TEMPA) ABG SITE (test code = SITEA) Art Line RONIT'S TEST (test code = ALLENS) N/A BASIC METABOLIC [id number] 14:35:00 Test Item Value Reference Range Interpretation Comments SODIUM (test code = NA/ABG) 142 mmol/L 134-147 N POTASSIUM (test code = K/ABG) 4.4 mmol/L 3.4-5.0 N CHLORIDE (test code = CL/ABG) 109 mmol/L 100-108 H CREATININE ABG (test code = 0.9 mg/dL 0.8-1.3 CREAABG) POC IONIZED CALCIUM (test code = 1.32 MMOL/L 1.12-1.32 N POCCA) POC GLUCOSE (test code = POCGLU) 166 MG/DL 70-110 H HEMOGLOBIN [id number] 14:35:00 Test Item Value Reference Range Interpretation Comments HEMOGLOBIN ABG (test code = 15.6 G/DL 12.5-16.9 N HGB/ABG) [id number] 14:35:00 Test Item Value Reference Range Interpretation Comments HEMATOCRIT (test code = HCT/ABG) 46 % 37.5-50.7 N POC LACTIC [id number] 14:35:00 Test Item Value Reference Range Interpretation Comments POC LACTIC ACID (test code = 1.5 mmol/l 0.9-1.7 N POCLAC) GLUCOSE [id number] 13:14:00 Test Item Value Reference Range Interpretation Comments GLUCOSE BEDSIDE (test 136 MG/DL 70-110 H [facility] med by certified code = GLUBED) 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 [facility] POC ARTERIAL BLOOD [id number] 12:36:00 Test Item Value Reference Range Interpretation Comments POC ARTERIAL BLOOD GAS PH (test 7.295 7.35-7.45 LL code = POCPHA) POC ARTERIAL BLOOD GAS PCO2 51.9 mmHg 35.0-45 HH (test code = AXMGUY8L) POC TCO2 ARTERIAL (test code = 27.3 POCTCO2) POC ARTERIAL BLOOD GAS PO2 (test 78.7 mmHg 80-100.0 L code = LZRRJ6C) POC HCO3 ARTERIAL (test code = 25.6 MMOL/L 22.0-26.0 N PARUUG4E) POC BASE EXCESS (test code = -1.2 MMOL/L -4.0-4.0 N POCBEA) POC O2 SATURATION (test code = 94.7 % 90-100 N POCO2S) FIO2 (test code = FIO2A) 50 % PaO2/FiO2 (test code = SND9SLQ9) 157.40 mm/Hg ABG DELIVERY (test code = VERN) Adult Vent ABG VENT MODE (test code = CPAP/PS MODEA) ABG PEEP (test code = PEEPA) 5 cmH2O ABG PRESSURE SUPPORT (test code 10 cmH2O = PSABG) ABG TEMPERATURE (test code = 96.6 F TEMPA) ABG SITE (test code = SITEA) Art Line RONIT'S TEST (test code = N/A ALLENS) BASIC METABOLIC [id number] 12:36:00 Test Item Value Reference Range Interpretation Comments SODIUM (test code = NA/ABG) 143 mmol/L 134-147 N POTASSIUM (test code = K/ABG) 3.9 mmol/L 3.4-5.0 N CHLORIDE (test code = CL/ABG) 108 mmol/L 100-108 N CREATININE ABG (test code = 1.3 mg/dL 0.8-1.3 N CREAABG) POC IONIZED CALCIUM (test code = 1.35 MMOL/L 1.12-1.32 H POCCA) POC GLUCOSE (test code = POCGLU) 147 MG/DL 70-110 H HEMOGLOBIN [id number] 12:36:00 Test Item Value Reference Range Interpretation Comments HEMOGLOBIN ABG (test code = 15.7 G/DL 12.5-16.9 N HGB/ABG) [id number] 12:36:00 Test Item Value Reference Range Interpretation Comments HEMATOCRIT (test code = HCT/ABG) 46 % 37.5-50.7 N POC LACTIC [id number] 12:36:00 Test Item Value Reference Range Interpretation Comments POC LACTIC ACID (test code = 1.8 mmol/l 0.9-1.7 H POCLAC) GLUCOSE [id number] 12:25:00 Test Item Value Reference Range Interpretation Comments GLUCOSE BEDSIDE (test 123 MG/DL 70-110 H Perfor med by certified code = GLUBED) 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 [facility] PROTHROMBIN [id number] 11:47:00 Test Item Value Reference Range Interpretation Comments PROTHROMBIN TIME 12.8 SECONDS 9.3-12.9 N PATIENT (test code = PTP) INTERNATIONAL NORMAL 1.1 0.8-1.2 N TARGET INR BY RATIO (test code = INDICATIO N Indication INR) INR1. Prophylax is of venous thrombos is 2.0 - 3.0 (orthoped ic surgery), Proph ylaxis of venous throm bosis (other than hig h-risk surgery), Treat ment of Deep Vein Thrombosis/Pulm onary Embolism, Preve ntion of systemic emb olism - Tissue heart va lves, Acute Myocardia l Infarction (to prevent systemic emboli sm), Valvular heart disease, Atrial Fibrillation, Bileaflet mecha nical valve in aortic position.2. Mec hanical prosthetic valv es (high risk), 2. 5 - 3.5 Presence of Lup us Anticoagulant o r Antiphospholipi d Antibodies, Pre vention of systemic emb olism - Acute Myocardia l Infarction (to prevent recurrent infar ct). COMMENTS: On arrivalTHROMBOPLASTIN TIME [id number] 11:47:00 Test Item Value Reference Range Interpretation Comments THROMBOPLASTIN TIME 32.5 Seconds 25.0-39.5 N Therape utic Range: PARTIAL (test code = 50.4 - 88.3 Seconds PTT) Effective 05/28/2018 COMMENTS: On arrivalBASIC METABOLIC [id number] 11:47:00 Test Item Value Reference Range Interpretation Comments SODIUM (test code = 141 mEq/L 134-147 N NA) POTASSIUM (test code 3.9 mEq/L 3.4-5.0 N = K) CHLORIDE (test code 110 mEq/L 100-108 H = CL) CARBON DIOXIDE (test 25 mEq/l 21-33 N code = CO2) ANION GAP (test code 10 0-20 N = GAP) GLUCOSE (test code = 142 mg/dL 70-110 H GLU) BLOOD UREA NITROGEN 16 mg/dL 7-18 N (test code = BUN) GLOMERULAR 63.3 90-95 L The Glomerular FILTRATION RATE Filtration R ate is a (test code = GFR) calculated parameterbased on serum Creatinine, pat ient age and sex. GFR va luesless than 60 mL/min/ 1.73 square meters a re indicative ofCh ronic Kidney Disease. Values less than 15 mL/min/1.73squa re meters indicate Kidney failure. The calculation forGFR is based on the CKD-EPI (2020) calculat ion. This formulais race indifferent and is the recommended for juan for GFRby the [facility] on for Adults.The GFR will not calculate if th e sex is unknown or if thepatient's ag e is <18 years. CREATININE (test 1.3 mg/dL 0.6-1.3 N code = CREAT) CALCIUM (test code = 9.8 mg/dL 8.0-10.5 N CA) COMMENTS: On [id number] 11:47:00 Test Item Value Reference Range Interpretation Comments MAGNESIUM (test code = MAG) 3.14 mg/dL 1.80-2.40 H COMMENTS: On arrivalCBC W/AUTO [id number] 11:41:00 Test Item Value Reference Range Interpretation Comments WHITE BLOOD CELL (test code = 20.5 x10 3/uL 4.5-11.0 H WBC) RED BLOOD CELL (test code = 5.27 x10 6/uL 4.00-5.60 N RBC) HEMOGLOBIN (test code = HGB) 15.4 g/dL 12.5-16.9 N HEMATOCRIT (test code = HCT) 45.7 % 37.5-50.7 N MEAN CELL VOLUME (test code = 86.7 fL 81.0-99.0 N MCV) MEAN CELL HGB (test code = 29.2 pg 27.0-33.0 N MCH) MEAN CELL HGB CONCETRATION 33.7 g/dL 33.0-37.0 N (test code = MCHC) RED CELL DISTRIBUTION WIDTH CV 12.0 % 11.5-14.5 N (test code = RDW) RED CELL DISTRIBUTION WIDTH SD 38.5 fL 37.0-54.0 N (test code = RDW-SD) PLATELET COUNT (test code = 165 x10 3/uL 150-400 N PLT) MEAN PLATELET VOLUME (test 10.0 fL 7.0-9.0 H code = MPV) NEUTROPHIL % (test code = NT%) 86.1 % 56.0-77.0 H IMMATURE GRANULOCYTE % (test 0.9 % 0.0-2.0 N code = IG%) LYMPHOCYTE % (test code = LY%) 8.1 % 14.0-32.0 L MONOCYTE % (test code = MO%) 4.0 % 4.8-9.0 L EOSINOPHIL % (test code = EO%) 0.6 % 0.3-3.7 N BASOPHIL % (test code = BA%) 0.3 % 0.0-2.0 N NUCLEATED RBC % (test code = 0.0 % 0-0 N NRBC%) NEUTROPHIL # (test code = NT#) 17.61 x10 3/uL 2.0-7.6 H IMMATURE GRANULOCYTE # (test 0.19 x10 3/uL 0.00-0.03 H code = IG#) LYMPHOCYTE # (test code = LY#) 1.66 x10 3/uL 1.0-3.8 N MONOCYTE # (test code = MO#) 0.81 x10 3/uL 0.1-0.8 H EOSINOPHIL # (test code = EO#) 0.13 x10 3/uL 0.0-0.2 N BASOPHIL # (test code = BA#) 0.06 x10 3/uL 0.0-0.2 N NUCLEATED RBC # (test code = 0.00 x10 3/uL 0.0-0.1 N NRBC#) MANUAL DIFF REQUIRED (test NO code = MDIFF) [facility] [id number] 11:19:00 Test Item Value Reference Range Interpretation Comments POC ARTERIAL BLOOD GAS PH (test 7.322 7.35-7.45 L code = POCPHA) POC ARTERIAL BLOOD GAS PCO2 51.0 mmHg 35.0-45 HH (test code = HKYCXS7T) POC TCO2 ARTERIAL (test code = 28.0 POCTCO2) POC ARTERIAL BLOOD GAS PO2 (test 77.9 mmHg 80-100.0 L code = JBROY8O) POC HCO3 ARTERIAL (test code = 26.5 MMOL/L 22.0-26.0 H ODOAWP3F) POC BASE EXCESS (test code = 0.3 MMOL/L -4.0-4.0 N POCBEA) POC O2 SATURATION (test code = 94.3 % 90-100 N POCO2S) FIO2 (test code = FIO2A) 50 % PaO2/FiO2 (test code = [id number]) 155.80 mm/Hg ABG DELIVERY (test code = VERN) Adult Vent ABG VENT MODE (test code = AC MODEA) ABG VENT RESP RATE (test code = 20 /MIN RRA) ABG TIDAL VOLUME (test code = 550 ml TVA) ABG PEEP (test code = PEEPA) 5 cmH2O ABG TEMPERATURE (test code = 98 F TEMPA) ABG SITE (test code = SITEA) Art Line RONIT'S TEST (test code = N/A ALLENS) BASIC METABOLIC [id number] 11:19:00 Test Item Value Reference Range Interpretation Comments SODIUM (test code = NA/ABG) 141 mmol/L 134-147 N POTASSIUM (test code = K/ABG) 3.8 mmol/L 3.4-5.0 N CHLORIDE (test code = CL/ABG) 107 mmol/L 100-108 N CREATININE ABG (test code = 1.1 mg/dL 0.8-1.3 CREAABG) POC IONIZED CALCIUM (test code = 1.42 MMOL/L 1.12-1.32 H POCCA) POC GLUCOSE (test code = POCGLU) 146 MG/DL 70-110 H HEMOGLOBIN [id number] 11:19:00 Test Item Value Reference Range Interpretation Comments HEMOGLOBIN ABG (test code = 15.2 G/DL 12.5-16.9 N HGB/ABG) [id number] 11:19:00 Test Item Value Reference Range Interpretation Comments HEMATOCRIT (test code = HCT/ABG) 45 % 37.5-50.7 N POC ARTERIAL BLOOD [id number] 10:39:00 Test Item Value Reference Range Interpretation Comments POC ARTERIAL BLOOD GAS PH (test 7.348 7.35-7.45 L code = POCPHA) POC ARTERIAL BLOOD GAS PCO2 (test 45.4 mmHg 35.0-45 H code = RMFNDC0T) POC TCO2 ARTERIAL (test code = 26.3 POCTCO2) POC ARTERIAL BLOOD GAS PO2 (test 105.0 mmHg 80-100.0 H code = FNJXE1F) POC HCO3 ARTERIAL (test code = 24.9 MMOL/L 22.0-26.0 N YRHQIN3P) POC BASE EXCESS (test code = -1.0 MMOL/L -4.0-4.0 N POCBEA) POC O2 SATURATION (test code = 97.7 % 90-100 N POCO2S) BASIC METABOLIC [id number] 10:39:00 Test Item Value Reference Range Interpretation Comments SODIUM (test code = NA/ABG) 143 mmol/L 134-147 N POTASSIUM (test code = K/ABG) 3.6 mmol/L 3.4-5.0 N CHLORIDE (test code = CL/ABG) 109 mmol/L 100-108 H CREATININE ABG (test code = 1.4 mg/dL 0.8-1.3 H CREAABG) POC IONIZED CALCIUM (test code = 1.44 MMOL/L 1.12-1.32 H POCCA) POC GLUCOSE (test code = POCGLU) 145 MG/DL 70-110 H HEMOGLOBIN [id number] 10:39:00 Test Item Value Reference Range Interpretation Comments HEMOGLOBIN ABG (test code = 14.2 G/DL 12.5-16.9 N HGB/ABG) [id number] 10:39:00 Test Item Value Reference Range Interpretation Comments HEMATOCRIT (test code = HCT/ABG) 42 % 37.5-50.7 N POC LACTIC [id number] 10:39:00 Test Item Value Reference Range Interpretation Comments POC LACTIC ACID (test code = 2.0 mmol/l 0.9-1.7 H POCLAC) [id number] 10:30:00 Test Item Value Reference Range Interpretation Comments ACT-ISTAT (test code 125 SEC 74-137 N Perform ed by certified = ACTI) 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 [facility] POC ARTERIAL BLOOD [id number] 10:22:00 Test Item Value Reference Range Interpretation Comments POC ARTERIAL BLOOD GAS PH (test 7.340 7.35-7.45 L code = POCPHA) POC ARTERIAL BLOOD GAS PCO2 (test 47.9 mmHg 35.0-45 H code = [id number]) POC TCO2 ARTERIAL (test code = 27.3 POCTCO2) POC ARTERIAL BLOOD GAS PO2 (test 67.3 mmHg 80-100.0 L code = DWKOG8B) POC HCO3 ARTERIAL (test code = 25.8 MMOL/L 22.0-26.0 N [id number]) POC BASE EXCESS (test code = -0.5 MMOL/L -4.0-4.0 N POCBEA) POC O2 SATURATION (test code = 91.7 % 90-100 N POCO2S) BASIC METABOLIC [id number] 10:22:00 Test Item Value Reference Range Interpretation Comments SODIUM (test code = NA/ABG) 143 mmol/L 134-147 N POTASSIUM (test code = K/ABG) 3.9 mmol/L 3.4-5.0 N CHLORIDE (test code = CL/ABG) 107 mmol/L 100-108 N CREATININE ABG (test code = 1.4 mg/dL 0.8-1.3 H CREAABG) POC IONIZED CALCIUM (test code = 1.36 MMOL/L 1.12-1.32 H POCCA) POC GLUCOSE (test code = POCGLU) 147 MG/DL 70-110 H HEMOGLOBIN [id number] 10:22:00 Test Item Value Reference Range Interpretation Comments HEMOGLOBIN ABG (test code = 13.3 G/DL 12.5-16.9 N HGB/ABG) [id number] 10:22:00 Test Item Value Reference Range Interpretation Comments HEMATOCRIT (test code = HCT/ABG) 39 % 37.5-50.7 N POC LACTIC [id number] 10:22:00 Test Item Value Reference Range Interpretation Comments POC LACTIC ACID (test code = 1.9 mmol/l 0.9-1.7 H POCLAC) [id number] 09:40:00 Test Item Value Reference Range Interpretation Comments ACT-ISTAT (test code 522 SEC 74-137 H Perform ed by certified = ACTI) 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 [facility] POC ARTERIAL BLOOD [id number] 09:27:00 Test Item Value Reference Range Interpretation Comments POC ARTERIAL BLOOD GAS PH (test 7.381 7.35-7.45 N code = POCPHA) POC ARTERIAL BLOOD GAS PCO2 (test 45.8 mmHg 35.0-45 H code = FDSTYR3C) POC TCO2 ARTERIAL (test code = 28.6 POCTCO2) POC ARTERIAL BLOOD GAS PO2 (test 402.6 mmHg 80-100.0 HH code = PYHRQ8N) POC HCO3 ARTERIAL (test code = 27.2 MMOL/L 22.0-26.0 H [id number]) POC BASE EXCESS (test code = 1.5 MMOL/L -4.0-4.0 N POCBEA) POC O2 SATURATION (test code = 100.0 % 90-100 N POCO2S) BASIC METABOLIC [id number] 09:27:00 Test Item Value Reference Range Interpretation Comments SODIUM (test code = NA/ABG) 142 mmol/L 134-147 N POTASSIUM (test code = K/ABG) 5.4 mmol/L 3.4-5.0 H CHLORIDE (test code = CL/ABG) 105 mmol/L 100-108 N CREATININE ABG (test code = 1.4 mg/dL 0.8-1.3 H CREAABG) POC IONIZED CALCIUM (test code = 1.13 MMOL/L 1.12-1.32 N POCCA) POC GLUCOSE (test code = POCGLU) 129 MG/DL 70-110 H HEMOGLOBIN [id number] 09:27:00 Test Item Value Reference Range Interpretation Comments HEMOGLOBIN ABG (test code = 13.0 G/DL 12.5-16.9 N HGB/ABG) [id number] 09:27:00 Test Item Value Reference Range Interpretation Comments HEMATOCRIT (test code = HCT/ABG) 38 % 37.5-50.7 N POC LACTIC [id number] 09:27:00 Test Item Value Reference Range Interpretation Comments POC LACTIC ACID (test code = < 0.3 mmol/l 0.9-1.7 L POCLAC) [id number] 08:57:00 Test Item Value Reference Range Interpretation Comments ACT-ISTAT (test code 540 SEC 74-137 H Perform ed by certified = ACTI) 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 [facility] POC ARTERIAL BLOOD [id number] 08:44:00 Test Item Value Reference Range Interpretation Comments POC ARTERIAL BLOOD GAS PH (test 7.380 7.35-7.45 N code = POCPHA) POC ARTERIAL BLOOD GAS PCO2 (test 47.0 mmHg 35.0-45 H code = LHGOTR8Q) POC TCO2 ARTERIAL (test code = 29.2 POCTCO2) POC ARTERIAL BLOOD GAS PO2 (test 384.7 mmHg 80-100.0 HH code = OJZGV8D) POC HCO3 ARTERIAL (test code = 27.8 MMOL/L 22.0-26.0 H [id number]) POC BASE EXCESS (test code = 2.0 MMOL/L -4.0-4.0 N POCBEA) POC O2 SATURATION (test code = 100.0 % 90-100 N POCO2S) BASIC METABOLIC [id number] 08:44:00 Test Item Value Reference Range Interpretation Comments SODIUM (test code = NA/ABG) 142 mmol/L 134-147 N POTASSIUM (test code = K/ABG) 5.1 mmol/L 3.4-5.0 H CHLORIDE (test code = CL/ABG) 104 mmol/L 100-108 N CREATININE ABG (test code = 1.3 mg/dL 0.8-1.3 N CREAABG) POC IONIZED CALCIUM (test code = 1.14 MMOL/L 1.12-1.32 N POCCA) POC GLUCOSE (test code = POCGLU) 130 MG/DL 70-110 H HEMOGLOBIN [id number] 08:44:00 Test Item Value Reference Range Interpretation Comments HEMOGLOBIN ABG (test code = 12.7 G/DL 12.5-16.9 N HGB/ABG) [id number] 08:44:00 Test Item Value Reference Range Interpretation Comments HEMATOCRIT (test code = HCT/ABG) 37 % 37.5-50.7 L POC LACTIC [id number] 08:44:00 Test Item Value Reference Range Interpretation Comments POC LACTIC ACID (test code = 0.4 mmol/l 0.9-1.7 L POCLAC) [id number] 08:11:00 Test Item Value Reference Range Interpretation Comments ACT-ISTAT (test code 522 SEC 74-137 H Perform ed by certified = ACTI) 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 [facility] POC ARTERIAL BLOOD [id number] 07:58:00 Test Item Value Reference Range Interpretation Comments POC ARTERIAL BLOOD GAS PH (test 7.353 7.35-7.45 N code = POCPHA) POC ARTERIAL BLOOD GAS PCO2 (test 49.4 mmHg 35.0-45 H code = [id number]) POC TCO2 ARTERIAL (test code = 29.0 POCTCO2) POC ARTERIAL BLOOD GAS PO2 (test 435.2 mmHg 80-100.0 HH code = [id number]) POC HCO3 ARTERIAL (test code = 27.5 MMOL/L 22.0-26.0 H [id number]) POC BASE EXCESS (test code = 1.0 MMOL/L -4.0-4.0 N POCBEA) POC O2 SATURATION (test code = 100.0 % 90-100 N POCO2S) BASIC METABOLIC [id number] 07:58:00 Test Item Value Reference Range Interpretation Comments SODIUM (test code = NA/ABG) 143 mmol/L 134-147 N POTASSIUM (test code = K/ABG) 3.9 mmol/L 3.4-5.0 N CHLORIDE (test code = CL/ABG) 106 mmol/L 100-108 N CREATININE ABG (test code = 1.3 mg/dL 0.8-1.3 N CREAABG) POC IONIZED CALCIUM (test code = 1.21 MMOL/L 1.12-1.32 N POCCA) POC GLUCOSE (test code = POCGLU) 113 MG/DL 70-110 H HEMOGLOBIN [id number] 07:58:00 Test Item Value Reference Range Interpretation Comments HEMOGLOBIN ABG (test code = 15.7 G/DL 12.5-16.9 N HGB/ABG) [id number] 07:58:00 Test Item Value Reference Range Interpretation Comments HEMATOCRIT (test code = HCT/ABG) 46 % 37.5-50.7 N POC LACTIC [id number] 07:58:00 Test Item Value Reference Range Interpretation Comments POC LACTIC ACID (test code = 0.4 mmol/l 0.9-1.7 L POCLAC) [id number] 07:30:00 Test Item Value Reference Range Interpretation Comments ACT-ISTAT (test code 119 SEC 74-137 N Perform ed by certified = ACTI) 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 [facility] POC ARTERIAL BLOOD [id number] 07:27:00 Test Item Value Reference Range Interpretation Comments POC ARTERIAL BLOOD GAS PH (test 7.394 7.35-7.45 N code = POCPHA) POC ARTERIAL BLOOD GAS PCO2 (test 41.2 mmHg 35.0-45 N code = [id number]) POC TCO2 ARTERIAL (test code = 26.4 POCTCO2) POC ARTERIAL BLOOD GAS PO2 (test 360.0 mmHg 80-100.0 HH code = [id number]) POC HCO3 ARTERIAL (test code = 25.2 MMOL/L 22.0-26.0 N [id number]) POC BASE EXCESS (test code = 0.1 MMOL/L -4.0-4.0 N POCBEA) POC O2 SATURATION (test code = 99.9 % 90-100 N POCO2S) BASIC METABOLIC [id number] 07:27:00 Test Item Value Reference Range Interpretation Comments SODIUM (test code = NA/ABG) 146 mmol/L 134-147 N POTASSIUM (test code = K/ABG) 3.7 mmol/L 3.4-5.0 N CHLORIDE (test code = CL/ABG) 108 mmol/L 100-108 N CREATININE ABG (test code = 1.2 mg/dL 0.8-1.3 N CREAABG) POC IONIZED CALCIUM (test code = 1.22 MMOL/L 1.12-1.32 N POCCA) POC GLUCOSE (test code = POCGLU) 79 MG/DL 70-110 N HEMOGLOBIN [id number] 07:27:00 Test Item Value Reference Range Interpretation Comments HEMOGLOBIN ABG (test code = 16.1 G/DL 12.5-16.9 N HGB/ABG) [id number] 07:27:00 Test Item Value Reference Range Interpretation Comments HEMATOCRIT (test code = HCT/ABG) 47 % 37.5-50.7 N POC LACTIC [id number] 07:27:00 Test Item Value Reference Range Interpretation Comments POC LACTIC ACID (test code = 0.7 mmol/l 0.9-1.7 L POCLAC) LIPID PROFILE (CORONARY RISK)2022-06-07 07:02:00 Test Item Value Reference Range Interpretation Comments TRIGLYCERIDES (test 131 mg/dL 40-150 N code = TRIG) CHOLESTEROL (test 143 mg/dL <200 code = CHOL) CHOLESTEROL/HDL 4.80 RATIO 3.43-4.97 N RISK ASSOCIA JIMMY WITH RATIO (test code = CHOL/HDL RATIOS: RISK CHOLHDL) MALE FEMALE1/2 AVERAGE 3.43 3.27AVERAG E 4.97 4.442X AVERAGE 9.55 7.053X AVERAGE 23.39 11.04 NOTE THAT THE REFERENCE VALUE IS RELATEDTO RISK LEVELS RECOMMENDED BY THE NATL.HEART, MITA G, AND BLOOD INST. HDL CHOLESTEROL 29.8 mg/dL 32-72 L (test code = HDL) LIPOPROTEIN LDL 96.0 mg/dL 0-100 N <100 OPTIMAL 100-129 (test code = LDL) NEAR OPTIM AL/ABOVE [id number] HIGH>IW=751 ADAN Y HIGH*Guidelines provided by the National Choles terol EducationProgra m Adult Treatment Panel III - XR CHEST 1 [id number] 00:00:00 [facility] : 1960 Sex: M FAX: Jarrod Culp [phone] [place]: St: ADM FAX: Nikole Block [facility] [phone] -------- Name: MARCIA HART [facility] : 1960 Age/S: 61/M [address] [place] [address] Unit #: [id number] Loc: G.2204 [place] [address] Phys: Nikole Vasquez Physic Acct: [id number] Dis Date: Status: ADM IN PHONE #: [phone] Date: 06/07/2022 1201 FAX #: [phone] Reason: Cardiac Surgery Post Op EXAMS: CPT CODE: [id number] XR CHEST 1 V 15132 PROCEDURE INFORMATION: Exam: XR Chest Exam date and time: 06/07/2022 11:40 AMAge: 61 years old Clinical indication: Other: Cardiac surgery post op TECHNIQUE: Imaging protocol: Radiologic exam of the chest. Views: 1 view. COMPARISON: DX XR CHEST 2 V 06/06/2022 9:12 AM FINDINGS: Tu bes, catheters and devices: Endotracheal tube satisfactory. Right jugular line terminates at the SVC. Lungs: Diminished lung volumes with increased interstitial opacities in the perihilar and lower lung zone regions. Left dependent atelectasis. Pleural spaces: Small left pleural effusion. No visible pneumothorax. Heart/Mediastinum: Stable cardiomegaly. Vasculature: Aortic valvuloplasty. Bones/joints:Median sternotomy wires. Spinal fusion hardware. IMPRESSION: Post sternotomy. Endotracheal tube and right jugular central line satisfactory. Hypoventilation, with dependent left atelectasis, bilateral perihilar opacities which may be secondary to atelectasis or pulmonary vascular congestion. No visible pneumothorax. at 1239 Reported and signed by: Naun Pulido M.D. CC: Jarrod Jamison MD; Nikole Darden chnologist: RT Sylvester(Nadya) Trnscrd Date/Time/By: 06/07/2022 (0360) : By: [email or web address] Orig PrintD/T: S: 06/07/2022 (8831) PAGE 1 Signed ReportUA RFLX MICR CULT IF [id number] 09:51:00 Test Item Value Reference Range Interpretation Comments UA COLOR (test code = COLU) BC YEL/STRAW A UA APPEARANCE (test code = SL CLOUDY CLEAR APPU) UA GLUCOSE DIPSTICK (test code NEGATIVE NEGATIVE = DGLUU) UA BILIRUBIN DIPSTICK (test NEGATIVE NEGATIVE code = BILU) UA KETONE DIPSTICK (test code NEGATIVE NEGATIVE = KETU) UA SPECIFIC GRAVITY (test code 1.017 1.005-1.030 N = SGU) UA BLOOD DIPSTICK (test code = NEGATIVE NEGATIVE CECILIA) UA PH DIPSTICK (test code = 7.0 5.0-7.0 N EDMAR) UA PROTEIN DIPSTICK (test code 2+ NEGATIVE A = PROU) UA UROBILINIOGEN DIPSTICK 0.2 mg/dL 0.2-1.0 (test code = URO) UA NITRITE DIPSTICK (test code NEGATIVE NEGATIVE = DANICA) UA LEUKOCYTE ESTERASE DIPSTICK NEGATIVE NEGATIVE (test code = LEUU) UA WBC (test code = WBCU) 0-3 WBC/HPF 0-3 UA RBC (test code = RBCU) 0-3 RBC/HPF 0-3 UA WBC NO REFLEX (test code = 0-3 WBC/HPF 0-3 WBCUCL) UA BACTERIA (test code = BACU) NONE SEEN /HPF NONE SEEN UA SQUAMOUS CELLS (test code = NONE SEEN /HPF NONE SEEN SQU) UA MUCUS (test code = MUCU) TRACE /LPF NONE SEEN Indication for culture: RiskForSepsis-no oth srcSpecimen Description: MID STREAM HGBA1C%2022-06-06 09:51:00 Test Item Value Reference Range Interpretation Comments HGBA1C% (test code = HGBA1C%) 5.2 %A1C 4.8-6.0 N PROTHROMBIN [id number] 09:40:00 Test Item Value Reference Range Interpretation Comments PROTHROMBIN TIME 11.3 SECONDS 9.3-12.9 N PATIENT (test code = PTP) INTERNATIONAL NORMAL 1.0 0.8-1.2 N TARGET INR BY RATIO (test code = INDICATIO N Indication INR) INR1. Prophylax is of venous thrombos is 2.0 - 3.0 (orthoped ic surgery), Proph ylaxis of venous throm bosis (other than hig h-risk surgery), Treat ment of Deep Vein Thrombosis/Pulm onary Embolism, Preve ntion of systemic emb olism - Tissue heart va lves, Acute Myocardia l Infarction (to prevent systemic emboli sm), Valvular heart disease, Atrial Fibrillation, Bileaflet mecha nical valve in aortic position.2. Mec hanical prosthetic valv es (high risk), 2. 5 - 3.5 Presence of Lup us Anticoagulant o r Antiphospholipi d Antibodies, Pre vention of systemic emb olism - Acute Myocardia l Infarction (to prevent recurrent infar ct). THROMBOPLASTIN TIME [id number] 09:40:00 Test Item Value Reference Range Interpretation Comments THROMBOPLASTIN TIME 32.8 Seconds 25.0-39.5 N Therape utic Range: PARTIAL (test code = 50.4 - 88.3 Seconds PTT) Effective 05/28/2018 CBC W/AUTO [id number] 09:35:00 Test Item Value Reference Range Interpretation Comments WHITE BLOOD CELL (test code = 6.1 x10 3/uL 4.5-11.0 N WBC) RED BLOOD CELL (test code = 6.08 x10 6/uL 4.00-5.60 H RBC) HEMOGLOBIN (test code = HGB) 17.3 g/dL 12.5-16.9 H HEMATOCRIT (test code = HCT) 52.0 % 37.5-50.7 H MEAN CELL VOLUME (test code = 85.5 fL 81.0-99.0 N MCV) MEAN CELL HGB (test code = MCH) 28.5 pg 27.0-33.0 N MEAN CELL HGB CONCETRATION 33.3 g/dL 33.0-37.0 N (test code = MCHC) RED CELL DISTRIBUTION WIDTH CV 12.3 % 11.5-14.5 N (test code = RDW) RED CELL DISTRIBUTION WIDTH SD 38.3 fL 37.0-54.0 N (test code = RDW-SD) PLATELET COUNT (test code = 243 x10 3/uL 150-400 N PLT) MEAN PLATELET VOLUME (test code 10.3 fL 7.0-9.0 H = MPV) NEUTROPHIL % (test code = NT%) 63.8 % 56.0-77.0 N IMMATURE GRANULOCYTE % (test 0.2 % 0.0-2.0 N code = IG%) LYMPHOCYTE % (test code = LY%) 24.9 % 14.0-32.0 N MONOCYTE % (test code = MO%) 5.8 % 4.8-9.0 N EOSINOPHIL % (test code = EO%) 4.5 % 0.3-3.7 H BASOPHIL % (test code = BA%) 0.8 % 0.0-2.0 N NUCLEATED RBC % (test code = 0.0 % 0-0 N NRBC%) NEUTROPHIL # (test code = NT#) 3.87 x10 3/uL 2.0-7.6 N IMMATURE GRANULOCYTE # (test 0.01 x10 3/uL 0.00-0.03 N code = IG#) LYMPHOCYTE # (test code = LY#) 1.51 x10 3/uL 1.0-3.8 N MONOCYTE # (test code = MO#) 0.35 x10 3/uL 0.1-0.8 N EOSINOPHIL # (test code = EO#) 0.27 x10 3/uL 0.0-0.2 H BASOPHIL # (test code = BA#) 0.05 x10 3/uL 0.0-0.2 N NUCLEATED RBC # (test code = 0.00 x10 3/uL 0.0-0.1 N NRBC#) MANUAL DIFF REQUIRED (test code NO = MDIFF) COMPREHENSIVE METABOLIC [id number] 09:30:00 Test Item Value Reference Range Interpretation Comments SODIUM (test code = 141 mEq/L 134-147 N NA) POTASSIUM (test code 3.6 mEq/L 3.4-5.0 N = K) CHLORIDE (test code 108 mEq/L 100-108 N = CL) CARBON DIOXIDE (test 28 mEq/l 21-33 N code = CO2) ANION GAP (test code 9 0-20 N = GAP) GLUCOSE (test code = 119 mg/dL 70-110 H GLU) BLOOD UREA NITROGEN 18 mg/dL 7-18 N (test code = BUN) GLOMERULAR 69.7 90-95 L The Glomerular FILTRATION RATE Filtration R ate is a (test code = GFR) calculated parameterbased on serum Creatinine, pat ient age and sex. GFR va luesless than 60 mL/min/ 1.73 square meters a re indicative ofCh ronic Kidney Disease. Values less than 15 mL/min/1.73squa re meters indicate Kidney failure. The calculation for GFR is based on the CK D-EPI (2020) calculat ion. This formulais race indifferent and is the recommended for juan for GFRby the [facility] Kidney Foundati on for Adults.The GFR will not calculate if th e sex is unknown or if thepatient's ag e is <18 years. CREATININE (test 1.2 mg/dL 0.6-1.3 N code = CREAT) TOTAL PROTEIN (test 6.4 g/dL 6.4-8.2 N code = PROT) ALBUMIN (test code = 3.30 g/dL 3.4-5.0 L ALB) CALCIUM (test code = 9.3 mg/dL 8.0-10.5 N CA) BILIRUBIN TOTAL 0.50 mg/dL 0.0-1.0 N (test code = BILT) SGOT/AST (test code 31 IUnit/L 15-37 N = AST) SGPT/ALT (test code 38 IUnit/L 30-65 N = ALT) ALKALINE PHOSPHATASE 74 IUnit/L 20-125 N TOTAL (test code = ALKP) B-TYPE NATRIURETIC [id number] 09:24:00 Test Item Value Reference Range Interpretation Comments B-TYPE NATRIURETIC PEPTIDE (test 87.0 PG/ML 0-100 N code = BNP) COVID 19 Asymptomatic IH [id number] 09:19:00 Test Item Value Reference Range Interpretation Comments COVID 19 Asymptomatic Negative Negative A nega tive result is IH AG (test code = presumpti ve and should COVNONPUIAG) be confirmedwit h an FDA authorized mole cular assay, if debbiees elizabeth forpatient alis gement.A positive result does not rule out co-inf ections withother patho gens.This test detects guerita th viable (live) and non-viable,SARS -CoV, and SARS-CoV-2. Corey t performance dep ends on theamount of vi jose (antigen) in th e sample.This corey t has not been FDA cleare d or approved; the t est hasbeen authori zed by FDA under an Em ergency Use Authorizati on(EUA) for use by labo ratories certified under the CLIA thatmeet the requirements to perform moderate, high or waivedcomplexit y tests. - XR CHEST 2 [id number] 00:00:00 [facility] : 1960 Sex: M FAX: Jarrod Culp [phone] [place]: [address]: PRE Name: MARCIA HART [facility] [place] : 1960 Age/S: 61/M [address] [place] [address] Unit #: [id number] Loc: DUANE [place] [address] Phys: Jarrod Jamison MD Acct:[id number] Dis Date: Status: PRE IN PHONE #: [phone] Exam Date: 06/06/2022 0916 FAX #: Reason: PREOP EXAMS: CPT CODE: [id number] XR CHEST 2 V 43714 PROCEDURE INFORMATION: Exam: XR Chest Exam date and time: 06/06/2022 9:12 AM Age: 61 years old Clinical indication: Pre-operative exam; Cardiovascular screening and respiratory screening exam; Additional info: Preop TECHNIQUE: Imaging protocol: Radiologic exam of the chest. Views: 2 views. PA and Lateral COMPARISON: CTA CHEST, CTA CHEST 05/24/2022 4:34 PM FINDINGS: Lungs: There are normal lung volumes without consolidation or interstitial opacities. Pleural spaces: Unremarkable. No pleural effusion. No pneumothorax. Heart/Mediastinum: The cardiac silhouette is slightly enlarged. Bones/joints: Olivares rods overlying the thoracic spine. IMPRESSION: No acute cardiopulmonary findings. at 1106 Reported and signed by: David Genao M.D. CC: Jarrod Jamison MD Technologist: RT Juan Carlos(R) Trnscrd Date/Time/By: 06/06/2022 (1106) : By: JessieTDO Orig Print D/T: S: 06/06/2022 (9802) PAGE 1 Signed Report- CT ANGIO [id number] 16:16:00 [facility] 1960 Sex: M Name: MARCIA HART : 1960 Age/S: 61 / M [address] [place], [place] [address] Unit #: [id number] Loc: [place] [address] Phys: Jarrod Jamison MD Acct: [id number] Dis Date: Status: DEP CLI PHONE #: [phone] Exam Date: 05/24/2022 1634 FAX #: [phone] Reason: CAD. EXAMS: CPT CODE: [id number] CT ANGIO CHEST [address]5844 EXAM: - CT ANGIO CHEST LOCATION: H65 TECHNIQUE: Serial axial CT images were obtained from the supraclavicular region to the adrenal glands with the administration of intravenous contrast. Phase(s): Arterial Reformats: Coronal and sagittal MIPS This exam was performed according to our departmental dose-optimization program, which includes automated exposure control, adjustment of the mA and/or kV according to patient size and/or use of iterative reconstruction technique. Unless otherwise specified, incidental findings do not require dedicated imaging follow-up. COMPARISON: None available. HISTORY: CAD. FINDINGS: THYROID: Normal. LYMPHADENOPATHY: There is no supraclavicular or axillary lymphadenopathy. No enlarged mediastinal or hilar lymph nodes. AIRWAYS: Unremarkable. LUNGS/PLEURA: Focal wscr-ic-ztn-type reticulonodular density seen in the left lower lobe superior segment. A very small cluster of punctate nodules is also noted in the right upper lobe (series 3 image 34). No pleural effusion, pleural based masses, or calcifications. No suspicious pulmonary nodules. MEDIASTINUM: The heart and pericardium are unremarkable. The thoracic aorta is nonaneurysmal. No aorticatherosclerosis. Minimal three-vessel coronary artery calcifications noted. The pulmonary trunk is normal in size. The esophagus is grossly unremarkable. VISUALIZED ABDOMEN: The visualized upper abdomen is unremarkable. SOFT TISSUES: Unremarkable. PAGE 1 Signed Report (CONTINUED) Name: MARCIA HART : 1960 Age/S: 61 / M [address] [place] [address] Unit #: [id number] Loc: DUANE [place] [address] Phys: Jarrod Jamison MD Acct: [id number] Dis Date: Status: DEP CLI PHONE #: [phone] Exam Date: 05/24/2022 1638 FAX #: [phone] Reason: CAD. EXAMS: CPT CODE: [id number] CT ANGIOCHEST [address] (Continued) BONES: Dextroscoliosis of the midthoracic spine. Extensive posterior thoracic fusion hardware noted. IMPRESSION: Few tree-in-bud type reticulonodular densities are seen left lower lobe superior segment (series 3 image 47). This may represent sequelae of aspiration with or without superimposed atypical infection. Indeterminate small cluster of punctate nodules in the right upper lobe, which may also represent inflammation/infection. Minimal three-vessel coronary artery calcifications. at 1616 Reported and signed by: Luis Orozco D.O. CC: Jarrod Jamison MD Technologist:Bettye Steele, RT(R)(CT) CTDI: DLP: Trnscb Date/Time: 05/25/2022 (1616) [email or web address] Orig Print D/T: S: 05/25/2022 (0669) PAGE 2 Signed Report- DUP EXTRACRANIAL NICHELLE 2022-05-25 00:00:00 [facility] : 1960 Sex: M Name: MARCIA HART [facility] [place] : 1960 Age/S: 61 / M [address] [place] [address] Unit #: [id number]: DUANE [place] [address] Phys: Jarrod Jamison MD Acct: [id number] Dis Date: Status: DEP CLI PHONE #: [phone] Exam Date: 05/24/2022 1626 FAX #: [phone] Reason: CAD. EXAMS: CPT CODE: [id number] DUP EXTRACRANIAL NICHELLE 24955 PROCEDURE INFORMATION: Exam: US Duplex Bilateral Extracranial Arteries, Carotid Arteries Exam date and time: 05/24/2022 3:44 PM Age: 61 years old Clinical indication: Condition or disease; Other: Pre op. Cad TECHNIQUE: Imaging protocol: Real-time Duplex ultrasound scan of the bilateral carotid and vertebral arteries combining fernandes scale, color Doppler and spectral waveform analysis. Bilateral exam. Exam focused on the carotid arteries. COMPARISON: No relevant prior studies available. FINDINGS: Right common carotid artery: Unremarkable. No occlusion or stenosis. Waveforms are normal. Right internal carotid artery: Minimal plaque. No occlusion or stenosis. Waveforms are normal. Right ICA/CCA ratio: Within normal limits. Right external carotid artery: No stenosis in the origin. Right vertebral artery: Unremarkable. Antegrade flow. Left common carotid artery: Unremarkable. No occlusion or stenosis. Waveforms are normal. Left internal carotid artery: Minimal plaque. No occlusion or stenosis. Waveforms are normal. Left ICA/CCA ratio: Within normal limits. Left external carotid artery: No stenosis in the origin. Left vertebral artery: Unremarkable. Antegrade flow.IMPRESSION: No carotid arterial stenosis. REFERENCES: SRU CRITERIA. The degree of internal carotid artery stenosis is based on criteria defined by the Society of Radiologists in Ultrasound (SRU). Normal is no stenosis. Mild is less than 50% stenosis. Moderate is 50-69% stenosis. Severe is greater than69% stenosis to near occlusion. Near occlusion is a markedly narrowed lumen. Total occlusion is no detectable patent lumen. at 0834 Reported and signed by: David Genao M.D. PAGE 1 Signed Report (CONTINUED) Name: MARCIA HART [facility] : 1960 Age/S: 61 / M [address] [place] [address] Unit #: [id number] Loc: [place] [address] Phys: Jarrod Jamison MD Acct: [id number] Dis Date: Status: DEP CLI PHONE #: [phone] Exam Date: 05/24/2022 1626 FAX #: [phone] Reason: CAD. EXAMS: CPT CODE: [id number] DUP EXTRACRANIAL NICHELLE 67242 (Continued) CC: Jarrod Jamison MD Technologist: Semaj Stein Trnscb Date/Time: 05/25/2022 (833) [email or web address] Orig Print D/T: S: 05/25/2022 (833) Probe: PAGE 2 Signed Report Notes Date/Time Note Provider Source 2022-06-23 14:25:00-00:00 [facility] ([facility]) DT Operative Note REPORT#:[id number] REPORT STATUS: Signed DATE:06/23/22 TIME: 142 PATIENT: MARCIA HART UNIT #: [id number] ROOM/BED: [place] [address] : [birth year] AGE: 61 SEX: M ATTEND: Ashley Jamison MD ADM AUTHOR: Ruddy Pierce MD * ALL edits or amendments must be made on the el [employer]/computer document * Operative Report Operative Note Note: On 06/07/[address] Jamison with the early features of t his operation including AoV analysis, depbridement, AoV replacement as well as LAAA and PVI Ruddy Pierce MD Electronically Signed by Ruddy Pierce MD on 06/12 04/06 at 1427 RPT #:[id number] END OF REPORT 2022-06-13 11:36:00-00:00 [facility] ([facility]) Discharge Summary REPORT#:[id number] REPORT STATUS: Signed DATE:06/13/22 TIME: 113 PATIENT: MARCIA HART UNIT #: [id number] ROOM/BED: [place] [address] : [birth year] AGE: 61 SEX: M ATTEND: Ashley Jamison MD ADM AUTHOR: Nikole Vasquez Physic * ALL edits or amendments must be made on the [employer]/computer document * General Information Discharge date: 06/11/22 Discharge diagnosis: Aortic valve stenosis, S/P AVR, Atrial fib Hospital course: Hospital course to date: This is a very pleasant 61-year-old gentleman wi th a past medical history of hypertension, paroxysmal atrial fibrillation ini tially 2 years ago on Eliquis therapy, with severe aortic valve regurg itation. He was referred by Dr. Duke for severe aortic valve regu rgitation noted on echocardiogram done on 05/18/2022. The patient does report symptoms of worsening s hortness of breath over the past 6 months. Patient denies any chest pain s. Patient denies any lower extremity edema. Patient denies any paroxysmal n octurnal dyspnea Patient has a history of left heart catheteriza tion with normal coronaries on 08/09/2021. Patient had repeat coronary angiogram last week which showed normal coronaries. Assessment/plan 1. Severe aortic valve stenosis 2. Paroxysmal atrial fibrillation Patient is admitted for aortic valve replacement , with PVI ablation. 06/07/22 PROCEDURES: 1. Aortic valve replacement (29 Inspiris valve). 2. Pulmonary vein isolation. 3. Amputation of left atrial appendage 06/08/22 POD 1 AAOx3 Respiratory: On 6l nasal cannula, wean off as to lerated. Encourage IS, Deep Breathing, CXR reviewed Cardiac: NSR, epicardial pacing wires present Discontinue central line and arterial line today Discontinue mediastinal chest tube, keep pericar dial CT and monitor outputs GI:Tolerating cardiac diet Continue Bowel regimen : Monitor strict I Os, daily weights, reassess suero need this afternoon. UO: 650 overnight Continue PT/OT Disposition: home DVT prophylaxis- SCDs Labs reveiwed- replace electrolytes as needed Transfer to CV intermediate care unit later toshea y. Patient seen and examined by Dr. Jamison. Plan o f care discussed with multidisciplinary team 06/10/22 POD 3 AAOx3 Respiratory: on room air. Wean off as tolerated. Encourage IS, Deep Breathing, CXR reviewed Cardiac: NSR, epicardial pacing wires in place o n standby GI:Tolerating cardiac diet, Need BM, Suppository Continue Bowel regimen : Monitor strict I Os, daily weights, reassess suero need this afternoon. UO: 2485 overnight Continue PT/OT Disposition: home DVT prophylaxis- SCDs Labs reveiwed- replace electrolytes as needed Transfer to CV intermediate care unit later maximo y. Patient seen and examined by Dr. Jamison. Plan o f care discussed with multidisciplinary team 06/11/22 POD 4 AAOx3 Respiratory: on room air. Wean off as tolerated. Encourage IS, Deep Breathing, CXR reviewed Cardiac: NSR, PACING wires removed. Will obtain echo R/O Effsuion GI:Tolerating cardiac diet, Need BM, Suppository Continue Bowel regimen : Monitor strict I Os, daily weights, reassess suero need this afternoon. UO: 2725 overnight Continue PT/OT Disposition: home today if DVT study negative an d Echo shows no effusion. DVT prophylaxis- SCDs Labs reveiwed- replace electrolytes as needed Consultants: anesthesiology, cardiology, cardiov ascular surgery, critical/ milk receiver, hospitalist at 1124 Addendum 1: 06/11/22 1224 by Nikole Vasquez Phy sic Patient to continue home dose of Elliquis x 3 mo nt. Consultants: anesthesiology, cardiology, cardiov ascular surgery, critical/ milk receiver, hospitalist Med Rec PCP PCP: PCP: No Primary or Family Physician Med Rec Discharge meds: Stop taking the following medications: ATORVASTATIN (LIPITOR) 40 MG TAB 40 MILLIGRAM ORAL DAILY. LOSARTAN (COZAAR) 50 MG TAB 50 MILLIGRAM ORAL DAILY. Continue taking these medications: APIXABAN (ELIQUIS) 5 MG TAB 5 MILLIGRAM ORAL DAILY. Start taking the following new medications: AMIODARONE (PACERONE) 200 MG TAB 200 MILLIGRAM ORAL THREE TIMES A DAY. Qty = 21 No Refills Instructions: Take 200 mg BID x 1 week, then 200 mg QD x 1 w [place] ATORVASTATIN (LIPITOR) 40 MG TAB 40 MILLIGRAM ORAL 2100 Days = 30 Qty = 30 No Refills METOPROLOL TARTRATE (LOPRESSOR) 25 MG TAB 12.5 MILLIGRAM ORAL EVERY 12 HOURS. Days = 30 Qty = 60 No Refills ASPIRIN (ASPIRIN) 81 MG TAB.CHEW 81 MILLIGRAM ORAL DAILY. Days = 30 Qty = 30 No Refills Objective VS/I O Last Documented: Result Date Time Temp 97.9 06/11 1600 Pulse Ox 94 06/11 1400 B/P 162/81 06/11 1400 B/P Mean 115 06/11 1400 Pulse 74 06/11 1400 Resp 26 06/11 1400 FiO2 21 06/11 0900 O2 Delivery Room air 06/11 0900 O2 Flow Rate 3 06/10 0400 PATIENT WEIGHT: Weight (lb): 315 Weight (oz): 11.23 Weight (kg): 143.200 Discharge Instructions PCP PCP: PCP: No Primary or Family Physician )( Discharge to: Home/Self Care Discharge Instructions Additional Discharge Routines: PCP Follow-Up, At tending Follow-Up )( Diet: Cardiac Follow-up Appointments PCP follow up: PCP: No Primary or Family Physician PCP follow up timeframe: In 1-2 weeks Special instructions: PLEASE CALL FOR AN APPOINTMENT. Attending Physician: Attending Physician: Jarrod Jamison MD Attending physician follow up timeframe: In 1-2 weeks Special instructions: PLEASE CALL FOR AN APPOINTMENT. at 1137 RPT #:[id number] END OF REPORT 2022-06-11 19:19:00-00:00 [id number] [place] [address] PATIENT NAME: MARCIA HART ADMIT DATE: 06/07/22 ACCOUNT NO: [id number] ROOM NO: [facility] AGE: 61 REPORT TYPE: eECHOCARDIOGRAM REPORT SEX: M ADMITTING PHYSICIAN:Jarrod Jamison MD ATTENDING PHYSICIAN:Jarrod Jamison MD *[facility]* [address] [place] [address] Limited Transthoracic Echocardiogram Patient: Marcia Hart Study Date: 06/11/2022 BP: 150 / 65 Location: C [facility]L URN: [id number] : 1960 Age: 61 Height: 74 in / 188 cm Gender: M Weight: 314 .3 lb / 142.9 kg BMI/BSA: 40.4 kg/m 2 / 2.64 m 2 *Ordering Physician: * Nikole Vasquez *Interpreting Physician: * Rich Gonzalez MD *Ent Consultant: * Merced Borges Indications: R/o pericardial effusion, pacer wir es removed. Study data: Transthoracic echocardiogram, limite d study. Procedure: Transthoracic echocardiography was performed. Im age quality was adequate. The study was technically limited due to restricted patient mobility, excessive abdominal air, and body habi tus. Limited 2D and limited spectral Doppler. Location: Bedside. [facility] status: Inpatient. Patient room number: 3310. Study stat us: Routine. Findings Left ventricle: The cavity size is trivially dil ated. Wall thickness is increased. Systolic function is reduced. The est imated ejection fraction is 40-44%. Mild to moderate diffuse hypokinesis. The study is not technically sufficient to allow evaluation of LV diastolic function. Right ventricle: The cavity size is dilated. Sys tolic function is reduced. TAPSE measurement is estimated at 13 mm . Insufficient tricuspid PATIENT NAME: MARCIA HART 2 regurgitation jet to estimate RVSP. Aorta: The aorta is not visualized. Aortic valve: There is a bioprosthetic valve. No rmally Functioning. There is no regurgitation. Mitral valve: There is no evidence of stenosis. There is trivial regurgitation. Tricuspid valve: There is trivial regurgitation. Pulmonic valve: Not well visualized. There is ph ysiologic regurgitation. Pericardium: There is no pericardial effusion. T here is a left pleural effusion. Pulmonary arteries: Not well visualized. Systemic veins: Inferior vena cava: The vessel is dilated. The r espirophasic diameter changes are in the normal range (= 50%). Measurements Left ventricle Value Ref POLO, LAX 6.0 cm 4.2 - 5.8 ESD, LAX 5.0 cm 2.5 - 4.0 ESD/bsa, LAX 1.9 cm/m 2 1.3 - 2.1 FS, LAX 17 % 25 - 43 ESD/bsa major ax, 3.5 cm/m 2 ------- A4C POLO/bsa minor ax, 3.5 cm/m 2 ------- A4C POLO major ax, A2C 10.0 cm ------- POLO/bsa major ax, 3.8 cm/m 2 ------- A2C PW, ED 1.5 cm 0.6 - 1.0 IVS/PW, ED 0.87 ------- EF 34 % 52 - 72 LVOT Value Ref Diam, S 2.32 cm ------- Area 4.2 cm 2 ------- Peak kerrie, S 1.02 m/sec ------- Mean kerrie, S 0.7 m/sec ------- VTI, S 16.1 cm ------- Peak grad, S 4 mm Hg ------- Mean grad, S 2 mm Hg ------- SV 68 ml ------- Qs 4.58 L/min ------- Qs/bsa 1.7 L/(min-m 2) ------- SV/bsa 26 ml/m 2 ------- Ventricular septum Value Ref PATIENT NAME: MARCIA HART 2 IVS, ED 1.3 cm 0.6 - 1.0 Right ventricle Value Ref TAPSE, MM 1.3 cm 1.7 - 3.1 Aortic valve Value Ref Peak v, S 2.15 m/sec ------- Mean v, S 1.49 m/sec ------- VTI, S 37.5 cm ------- Mean grad, S 10.1 mm Hg ------- Peak grad, S 18.4 mm Hg ------- LVOT/AV, VTI ratio 0.43 ------- SUZETTE, VTI 2.33 cm 2 ------- LVOT/AV, Vpeak 0.47 ------- ratio SUZETTE, Vmax 2.42 cm 2 ------- Pulmonic valve Value Ref TN v, ED 0.67 m/sec ------- Conclusions Summary: 1. Left ventricle: The cavity size is trivially dilated. Wall thickness is increased. Systolic function is reduced. The estimated ejection fraction is 40-44%. Mild to moderate diffuse hy pokinesis. The study is not technically sufficient to allow evaluat ion of LV diastolic function. 2. Right ventricle: The cavity size is dilated. Systolic function is reduced. 3. Aortic valve: There is a bioprosthetic valve. Normally functioning. 4. Pericardium, extracardiac: There is no perica rdial effusion. There is a left pleural effusion. Prepared and electronically signed by Rich Gonzalez MD 06/11/2022 19:19 at 1919 PATIENT NAME: MARCIA HART 2 2022-06-11 11:18:00-00:00 [facility] Cardiothoracic Surgery Prog REPORT#:[id number] REPORT STATUS: Signed DATE:06/11/22 TIME: 1118 PATIENT: MARCIA HART UNIT #: [id number] ROOM/BED: [place] [id number] : 62 AGE: 61 SEX: M ATTEND: Ashley Jamison MD ADM AUTHOR: Nikole Vasquez Physic * ALL edits or amendments must be made on the [employer] document * See Addendum General Post-op: day 4 Status post: 06/07/22 1. Aortic valve replacement (29 Inspiris valve) . 2. Pulmonary vein isolation. 3. Amputation of left atrial appendage. Subjective Chief complaint: Aortic stenosis s/p AVR Review of Systems Constitutional: Denies: fatigue, fever, generalized weakness. Skin: Denies: bruising, contusion. Allergy/Immun: Denies: itching, rhinorrhea. Eyes: Denies: itching, diplopia, eye pain. Respiratory: Denies: ARIAS (dyspnea on exertion), hemoptysis, n on productive cough. Cardiovascular: Denies: chest pain, ARIAS (dyspnea on exertion). GI: Denies: constipation, diarrhea. : Denies: dysuria, hematuria. Musculoskeletal: Denies: joint pain, joint swelling. Heme: Denies: bleeding, bruising. Endocrine: Denies: polydipsia, polyuria. Neuro: Denies: confusion, dizziness. All systems rev neg: except as marked Objective General VS/I O Last Documented: Result Date Time Pulse Ox 96 06/11 0900 FiO2 21 06/11 0900 O2 Delivery Room air 06/11 0900 Temp 97.6 06/11 0800 B/P 150/65 06/11 0800 B/P Mean 94 06/11 0800 Pulse 82 06/11 0800 Resp 23 06/11 0700 O2 Flow Rate 3 06/10 0400 24 hour I O ending at 0700: 04/30 0700 06/10 1900 Intake Total 300 500.00 Output Total 1800 925 Balance -1500 -425.00 Intake, IV 100.00 Intake, Oral 300 400 Number Voids 1 4 Output, Urine 1800 925 PATIENT WEIGHT: Weight (lb): 315 Weight (oz): 11.23 Weight (kg): 143.200 Physical Exam General appearance: alert, awake, oriented Wound/incision: Location: Sternum dry Site condition: dressing clean dry, dressing in tact Neck: full range of motion, non-tender Cardiovascular: BP/pulses equal bilat., normal h eart sounds, regular rate rhythm Respiratory: aerating well, clear to auscultatio n Abdomen: soft, non-tender Extremities: dry, moves all Musculoskeletal: full range of motion Neuro/TELEPHOTO ENGINEER: alert, oriented X 3 Skin: dry, intact Psychiatry: normal affect, normal mood Treatment Prophylaxis Treatment Prophylaxis Oxygen: nasal cannula Drain(s)/tube(s): Drain(s)/tube(s): chest Diagnosis, Assessment Plan Hospital course to date: This is a very pleasant 61-year-old gentleman wi th a past medical history of hypertension, paroxysmal atrial fibrillation ini tiay 2 years ago on Eliquis therapy, with severe aortic valve regurg itation. He was referred by Dr. Duke for severe aortic valve regu rgitation noted on echocardiogram done on 05/18/2022. The patient does report symptoms of worsening s hortness of breath over the past 6 months. Patient denies any chest pain s. Patient denies any lower extremity edema. Patient denies any paroxysmal n octurnal dyspnea Patient has a history of left heart catheteriza tion with normal coronaries on 08/09/2021. Patient had repeat coronary angiogram last week which showed normal coronaries. Assessment/plan 1. Severe aortic valve stenosis 2. Paroxysmal atrial fibrillation Patient is admitted for aortic valve replacement , with PVI ablation. 06/07/22 PROCEDURES: 1. Aortic valve replacement (29 Inspiris valve). 2. Pulmonary vein isolation. 3. Amputation of left atrial appendage 06/08/22 POD 1 AAOx3 Respiratory: On 6l nasal cannula, wean off as to lerated. Encourage IS, Deep Breathing, CXR reviewed Cardiac: NSR, epicardial pacing wires present Discontinue central line and arterial line today Discontinue mediastinal chest tube, keep pericar dial CT and monitor outputs GI:Tolerating cardiac diet Continue Bowel regimen : Monitor strict I Os, daily weights, reassess suero need this afternoon. UO: 650 overnight Continue PT/OT Disposition: home DVT prophylaxis- SCDs Labs reveiwed- replace electrolytes as needed Transfer to CV intermediate care unit later toda y. Patient seen and examined by Dr. Jamison. Plan o f care discussed with multidisciplinary team 06/10/22 POD 3 AAOx3 Respiratory: on room air. Wean off as tolerated. Encourage IS, Deep Breathing, CXR reviewed Cardiac: NSR, epicardial pacing wires in place o n standby GI:Tolerating cardiac diet, Need BM, Suppository Continue Bowel regimen : Monitor strict I Os, daily weights, reassess suero need this afternoon. UO: 2485 overnight Continue PT/OT Disposition: home DVT prophylaxis- SCDs Labs reveiwed- replace electrolytes as needed Transfer to CV intermediate care unit later to y. Patient seen and examined by Dr. Jamison. Plan o f care discussed with multidisciplinary team 06/11/22 POD 4 AAOx3 Respiratory: on room air. Wean off as tolerated. Encourage IS, Deep Breathing, CXR reviewed Cardiac: NSR, PACING wires removed. Will obtain echo R/O Effsuion GI:Tolerating cardiac diet, Need BM, Suppository Continue Bowel regimen : Monitor strict I Os, daily weights, reassess suero need this afternoon. UO: 2725 overnight Continue PT/OT Disposition: home today if DVT study negative an d Echo shows no effusion. DVT prophylaxis- SCDs Labs reveiwed- replace electrolytes as needed Consultants: anesthesiology, cardiology, cardiov ascular surgery, critical/ milk receiver, hospitalist at 1124 at 0739 Addendum 1: 06/11/22 1224 by Nikole Vasquez sic Patient to continue home dose of Elliquis x 3 mo nth. at 1225 RPT #:[id number] END OF REPORT 2022-06-10 15:41:00-00:00 [facility] Critical Care Progress Note REPORT#:[id number] REPORT STATUS: Signed DATE:06/10/22 TIME: 1541 PATIENT: MARCIA HART UNIT #: [id number] ROOM[facility]BED: [facility] : 64 AGE: 61 SEX: M ATTEND: Ashley Jamison MD ADM AUTHOR: Maribel Watts * ALL edits or amendments must be made on the el [employer]/computer document * Subjective Chief complaint: AVR HPI: 61-year-old male with history of HTN, PAF on Bianca tyrone and severe aortic regurgitation who presented with progressive liz rtness of breath. Left heart cath last year showed normal coronaries. Patient underwent AVR (29 Inspiris), PVI and ALAA today on 023. Has mildly depressed EF 45%. Crystalloid 1.5 L, Cell Saver 850, autologous blood 500, urine outp ut 500. Surgery went well and patient was transferred to CVICU postop in a sta ble surgical condition. He is currently intubated on insulin drip. Objective General VS/I O Last Documented: Result Date Time Pulse Ox 92 06/10 1400 B/P 137/71 06/10 1400 B/P Mean 98 06/10 1400 Pulse 70 06/10 1400 Resp 27 06/10 1400 Temp 98.7 06/10 1200 O2 Delivery Room air 06/10 0757 O2 Flow Rate 3 06/10 0400 FiO2 45 06/09 0352 24 hour I O ending at 0700: 06/10 0700 06/09 1900 Intake Total 480 820.00 Output Total 1200 1290 Balance -720 -470.00 Intake, IV 100.00 Intake, Oral 480 720 Number Voids 3 Output, Chest 5 Tube Drainage Output, Urine 1200 1285 Patient 143.2 kg Weight Weight Standing scale Measurement Method PATIENT WEIGHT: Weight (lb): 315 Weight (oz): 11.23 Weight (kg): 143.200 Medications: Active Meds + DC'd Last 24 Hrs Magnesium Sulfate (MAGNESIUM SULFATE 2GM/SWFI 50 ML) 50 ML ONCE ONE IV ( DC) Cyanocobalamin (Vitamin B-12 500 mcg tab) 500 MC G DAILY PO Ferrous Sulfate (FERROUS SULFATE) 325 MG DAILY P O Senna/Docusate Sodium (SENOKOT S) 1 TAB BID 9A 5 P PO Ipratropium Julian (ATROVENT) 500 MCG RTQ2H PRN PRN INH Bisacodyl (DULCOLAX) 10 MG ONCE PRN RECTAL Magnesium Hydroxide (MILK OF MAGNESIA) 30 ML ONC E PRN PO Atorvastatin Calcium (LIPITOR) 40 MG 2100 PO Mupirocin (BACTROBAN 2% 22 GM OINTMENT) 1 APPLIC BID NASAL Polyethylene Glycol (MIRALAX) 17 GM DAILY PO Amiodarone HCl (CORDARONE) 200 MG TID PO Gabapentin (NEURONTIN) 200 MG BID PO Metoprolol Tartrate (LOPRESSOR) 12.5 MG Q12HR PO Sennosides (Senna Lax 8.6 MG TABLET) 17.2 MG BED TIME PO (DC) Tramadol HCl (ULTRAM) 50 MG QID PO Aspirin (ASPIRIN) 81 MG DAILY PO Ipratropium Julian (ATROVENT) 500 MCG RTQ4H INH (DC) Acetaminophen (TYLENOL) 650 MG Q4H PRN PRN PO Acetaminophen (TYLENOL) 650 MG Q4H PRN PRN RECTA L Calcium Chloride (CALCIUM CHLORIDE) 1 GM ASDIR P RN IV Dextrose/Water (DEXTROSE 10% IN WATER) 125 ML DIR PRN IV (CKD) Dextrose/Water (DEXTROSE 10% IN WATER) 250 ML DIR PRN IV (CKD) Docusate Sodium (COLACE) 100 MG BID PO Epinephrine (ADRENALIN CHLORIDE) 4 MG ASDIR IV Dextrose/Water (DEXTROSE 5% WATER) 246 ML Glucagon (GLUCAGON) 1 MG ASDIR PRN IM Insulin Human Regular (HumuLIN R) 100 UNIT ASDIR IV (CKD) Sodium Chloride (SODIUM CHLORIDE 0.9%) 99 ML Magnesium Sulfate (MAGNESIUM SULFATE 4GM/SWFI 10 0ML) 100 ML ASDIR PRN IV Magnesium Sulfate (MAGNESIUM SULFATE 2GM/SWFI 50 ML) 50 ML ASDIR PRN IV Magnesium Sulfate/Dextrose (MAGNESIUM SULFATE 1G M/D5W 100ML) 100 ML ASDIR PRN IV Nitroglycerin/Dextrose (NITROGLYCERIN 50,000MCG/ D5W 250ML) 250 ML ASDIR IV Norepinephrine Bitartrate (NOREPINEPHRINE 8 MG/N S 250 ML) 250 ML TITRATE IV Ondansetron HCl (ZOFRAN) 4 MG Q6H PRN PRN IV Oxycodone HCl (ROXICODONE) 5 MG Q4H PRN PRN PO Potassium Chloride (KCL 20MEQ/SWFI 100ML) 100 ML ASDIR PRN IV Sodium Bicarbonate (SODIUM BICARBONATE) 50 MEQ A SDIR PRN IV Sodium Chloride (SODIUM CHLORIDE 0.9%) 1,000 ML .Q20H IV (DC) Sodium Chloride (SODIUM CHLORIDE 0.9%) 250 ML Q2 4H IV (DC) Lactated Ringer's (LACTATED RINGERS) 1,000 ML TN EOP ONCALL IV Lidocaine HCl (LIDOCAINE HCL/PF) 2 ML PREOP ONCA LL LOCAL Lidocaine HCl (LIDOCAINE HCL/PF) 2 ML PREOP ONCA LL LOCAL Sodium Chloride (SODIUM CHLORIDE 0.9%) 500 ML TN EOP ONCALL IV Sodium Chloride (SODIUM CHLORIDE 0.9%) 500 ML TN EOP ONCALL IV Sodium Chloride (SODIUM CHLORIDE 0.9%) 1,000 ML PREOP ONCALL IV Sodium Chloride (SODIUM CHLORIDE) 5 ML ASDIR PRN IV Sodium Chloride (SODIUM CHLORIDE) 10 ML ASDIR TN N IV Sodium Chloride (SODIUM CHLORIDE 0.9%) 250 ML DIR PRN IV Results Findings/data: Laboratory Tests 06/10 0236 Chemistry Sodium (134 - 147 mEq/L) 132 L Potassium (3.4 - 5.0 mEq/L) 4.8 Chloride (100 - 108 mEq/L) 102 Carbon Dioxide (21 - 33 mEq/l) 29 Anion Gap (0 - 20) 6 BUN (7 - 18 mg/dL) 17 Creatinine (0.6 - 1.3 mg/dL) 1.0 Glomerular Filtr Rate (90 - 95) 86.7 L Glucose (70 - 110 mg/dL) 104 Calcium (8.0 - 10.5 mg/dL) 9.0 Magnesium (1.80 - 2.40 mg/dL) 1.98 Total Bilirubin (0.0 - 1.0 mg/dL) 0.70 Direct Bilirubin (0.0 - 0.30 MG/DL) 0.30 Indirect Bilirubin (MG/DL) 0.40 AST (15 - 37 IUnit/L) 29 ALT (30 - 65 IUnit/L) 20 L Total Alk Phosphatase (20 - 125 IUnit/L) 61 Total Protein (6.4 - 8.2 g/dL) 5.9 L Albumin (3.4 - 5.0 g/dL) 2.90 L Laboratory Tests 06/10 0236 Hematology WBC (4.5 - 11.0 x10 3/uL) 12.6 H RBC (4.00 - 5.60 x10 6/uL) 4.95 Hgb (12.5 - 16.9 g/dL) 14.3 Hct (37.5 - 50.7 %) 43.3 MCV (81.0 - 99.0 fL) 87.5 MCH (27.0 - 33.0 pg) 28.9 MCHC (33.0 - 37.0 g/dL) 33.0 RDW (11.5 - 14.5 %) 12.4 Plt Count (150 - 400 x10 3/uL) 179 MPV (7.0 - 9.0 fL) 9.9 H Neut % (Auto) (56.0 - 77.0 %) 77.5 H Lymph % (Auto) (14.0 - 32.0 %) 7.5 L [place] % (Auto) (4.8 - 9.0 %) 12.6 H Eos % (Auto) (0.3 - 3.7 %) 1.5 Baso % (Auto) (0.0 - 2.0 %) 0.3 Neut # (Auto) (2.0 - 7.6 x10 3/uL) 9.77 H Lymph # (Auto) (1.0 - 3.8 x10 3/uL) 0.95 L [place] # (Auto) (0.1 - 0.8 x10 3/uL) 1.59 H Eos # (Auto) (0.0 - 0.2 x10 3/uL) 0.19 Baso # (Auto) (0.0 - 0.2 x10 3/uL) 0.04 Abs Immat Gran (auto) (0.00 - 0.03 x10 3/uL) 0. 07 H Add Manual Diff NO Immature Gran % (0.0 - 2.0 %) 0.6 Nucleated RBC % (0 - 0 %) 0.0 Nucleated RBCs # (Man) (0.0 - 0.1 x10 3/uL) 0.0 0 Laboratory Tests 06/10/22 0236: [Embedded Image Not Available] Radiology data Recent Impressions: RADIOLOGY - XR CHEST 1 V 06/10 0225 Report Impression - Status: SIGNED Entered: 06/10/2022 0322 IMPRESSION: Cardiomegaly with pulmonary vascular congestion. Stable left, increasing right lung base infiltrate likely ref lecting pulmonary edema. Impression By: Thaddeus Martinez RADIOLOGY - XR CHEST 1 V 06/10 0640 Report Impression - Status: SIGNED Entered: 06/10/2022 0800 IMPRESSION: No significant change when allowing for differen lisa in technique. Impression By: Kt Rodríguez M.D. Free Text Obj Notes Free Text Obj Notes: General appearance: up to chair, no distress HEENT: atraumatic, normocephalic, dry mucosal me mbranes Neck: full range of motion, supple/no meningismu s Cardiovascular: S1-S2 regular rate and rhythm Respiratory: symmetric expansion, no acute respi ratory distress Abdomen: soft, obese, non-tender, no distention, no guarding Genitourinary: voids freely Extremities: pedal pulses palpable, moves all, n o clubbing, no cyanosis, mild edema Musculoskeletal: normal inspection, no muscle sp asm Neuro/TELEPHOTO ENGINEER: Alert and oriented x3, CNII-XII gross ly intact, no motor deficits Skin: dry, intact and clean surgery dressing Diagnosis, Assessment Plan Problem list/A P: 1. Aortic valve regurgitation 2. S/P aortic valve replacement with bioprosthe tic valve 3. Hypercapnia 4. Postoperative pulmonary dysfunction after ca rdiac surgery Free text A P: 61-year-old male with history of HTN, PAF on Bianca tyrone and severe aortic regurgitation who presented with progressive liz rtness of breath. Left heart cath last year showed normal coronaries. Patient underwent AVR (29 Inspiris), PVI and ALAA today on 023. Has mildly depressed EF 45%. Crystalloid 1.5 L, Cell Saver 850, autologous blood 500, urine outp ut 500. Surgery went well and patient was transferred to CVICU postop in a sta ble surgical condition. He is currently intubated on insulin drip. 06/10- Seen and examined during rounds. H e is up to chair, awake, alert. Not in distress, on room air. Likely home tomorrow per CTS. Neuro: Appears intact, multimodal pain control Respiratory: Sats well on roomair, mantain sp02 above 92%. CXR reviewed. Encouarge ambulation, OOB to chair and IS use. Cardiovascular: Hemodynamically stable, NSR on m onitor 70s Renal: strict I/Os, monitor Cr and electrolytes, voiding GI: ANTHONY, optimized bowel care ID: reactive leukocytosis, he is afebrile, monit or Hem: monitor Hgb, 14.3 today, no active bleeding , transfuse as needed Endo: Blood glucose well controlled Misc: OOB to chair and ambulation, DVT prophylax is with SCDs Patient is a full code. ICC to follow. Dispo: Likely home tomorrow. 32 min of critical care spent. Consultants: anesthesiology, cardiology, cardiov ascular surgery, critical/ milk receiver, hospitalist Code status: full code Plan discussed with: patient, collaborating MD, consultants, nurse at 1606 RPT #:[id number] END OF REPORT 2022-06-10 10:28:00-00:00 [facility] Cardiology Progress Note REPORT#:[id number] REPORT STATUS: Signed DATE:06/10/22 TIME: 1028 PATIENT: MARCIA HART UNIT #: [id number] ROOM/BED: [place] [id number] : 64 AGE: 61 SEX: M ATTEND: Ashley Jamison MD ADM AUTHOR: Rich Gonzalez MD * ALL edits or amendments must be made on the [employer]/computer document * Subjective Chief complaint: Presented with severe symptomatic Objective General VS/I O: 24 hour I O ending at 0700: 06/10 0700 06/09 1900 Intake Total 480 820.00 Output Total 1200 1290 Balance -720 -470.00 Intake, IV 100.00 Intake, Oral 480 720 Number Voids 3 Output, Chest 5 Tube Drainage Output, Urine 1200 1285 Patient 143.2 kg Weight Weight Standing scale Measurement Method Vital Signs: Date Time Temp Pulse Resp B/P B/P Pulse O2 O2 Flow FiO2 Mean Ox Delivery Rate 06/10 0757 98 Room air 06/10 0600 61 17 158/82 113 98 06/10 0530 57 14 130/74 95 97 06/10 0500 61 17 128/59 85 97 06/10 0430 62 16 134/70 96 97 06/10 0400 98.0 Nasal 3 cannula 06/10 0400 64 24 148/90 113 96 06/10 0330 65 15 146/78 106 96 06/10 0300 65 21 144/81 106 96 06/10 0219 69 30 133/77 100 95 06/10 0200 66 25 153/74 106 97 06/10 0101 69 36 139/80 104 95 06/10 0000 97.8 Nasal 3 cannula 06/10 0000 62 24 147/67 96 98 06/09 2300 58 16 129/66 89 97 06/09 2200 60 20 127/65 89 97 06/09 2100 67 30 129/63 89 97 06/09 2014 100 Nasal 3 cannula 06/09 2000 71 29 133/75 96 96 06/10 1999 97.5 Nasal 3 cannula 06/10 1999 Nasal 3 cannula 06/09 1900 71 32 150/72 103 96 06/09 1800 71 24 132/62 89 95 06/09 1714 74 41 143/67 97 95 06/09 1600 99.7 06/09 1600 67 30 144/70 100 97 06/09 1557 94 High flow 3 nasal cannula 06/09 1500 64 21 146/76 99 96 06/09 1404 66 27 153/92 113 97 06/09 1300 62 21 130/66 91 96 06/09 1200 97.7 06/09 1200 66 31 140/77 102 95 06/09 1101 66 29 141/79 99 96 06/09 1036 68 32 174/87 121 92 PATIENT WEIGHT: Weight (lb): 315 Weight (oz): 11.23 Weight (kg): 143.200 Medications: Active Meds + DC'd Last 24 Hrs Magnesium Sulfate (MAGNESIUM SULFATE 2GM/SWFI 50 ML) 50 ML ONCE ONE IV Cyanocobalamin (Vitamin B-12 500 mcg tab) 500 MC G DAILY PO Ferrous Sulfate (FERROUS SULFATE) 325 MG DAILY P O Senna/Docusate Sodium (SENOKOT S) 1 TAB BID 9A 5 P PO Ipratropium Julian (ATROVENT) 500 MCG RTQ2H PRN PRN INH Bisacodyl (DULCOLAX) 10 MG ONCE PRN RECTAL Magnesium Hydroxide (MILK OF MAGNESIA) 30 ML ONC E PRN PO Atorvastatin Calcium (LIPITOR) 40 MG 2100 PO Mupirocin (BACTROBAN 2% 22 GM OINTMENT) 1 APPLIC BID NASAL Polyethylene Glycol (MIRALAX) 17 GM DAILY PO Amiodarone HCl (CORDARONE) 200 MG TID PO Gabapentin (NEURONTIN) 200 MG BID PO Metoprolol Tartrate (LOPRESSOR) 12.5 MG Q12HR PO Sennosides (Senna Lax 8.6 MG TABLET) 17.2 MG BED TIME PO (DC) Tramadol HCl (ULTRAM) 50 MG QID PO Aspirin (ASPIRIN) 81 MG DAILY PO Ipratropium Julian (ATROVENT) 500 MCG RTQ4H INH (DC) Acetaminophen (TYLENOL) 650 MG Q4H PRN PRN PO Acetaminophen (TYLENOL) 650 MG Q4H PRN PRN RECTA L Calcium Chloride (CALCIUM CHLORIDE) 1 GM ASDIR P RN IV Dextrose/Water (DEXTROSE 10% IN WATER) 125 ML DIR PRN IV (CKD) Dextrose/Water (DEXTROSE 10% IN WATER) 250 ML DIR PRN IV (CKD) Docusate Sodium (COLACE) 100 MG BID PO Epinephrine (ADRENALIN CHLORIDE) 4 MG ASDIR IV Dextrose/Water (DEXTROSE 5% WATER) 246 ML Glucagon (GLUCAGON) 1 MG ASDIR PRN IM Insulin Human Regular (HumuLIN R) 100 UNIT ASDIR IV (CKD) Sodium Chloride (SODIUM CHLORIDE 0.9%) 99 ML Magnesium Sulfate (MAGNESIUM SULFATE 4GM/SWFI 10 0ML) 100 ML ASDIR PRN IV Magnesium Sulfate (MAGNESIUM SULFATE 2GM/SWFI 50 ML) 50 ML ASDIR PRN IV Magnesium Sulfate/Dextrose (MAGNESIUM SULFATE 1G M/D5W 100ML) 100 ML ASDIR PRN IV Nitroglycerin/Dextrose (NITROGLYCERIN 50,000MCG/ D5W 250ML) 250 ML ASDIR IV Norepinephrine Bitartrate (NOREPINEPHRINE 8 MG/N S 250 ML) 250 ML TITRATE IV Ondansetron HCl (ZOFRAN) 4 MG Q6H PRN PRN IV Oxycodone HCl (ROXICODONE) 5 MG Q4H PRN PRN PO Potassium Chloride (KCL 20MEQ/SWFI 100ML) 100 ML ASDIR PRN IV Sodium Bicarbonate (SODIUM BICARBONATE) 50 MEQ A SDIR PRN IV Sodium Chloride (SODIUM CHLORIDE 0.9%) 1,000 ML .Q20H IV Sodium Chloride (SODIUM CHLORIDE 0.9%) 250 ML Q2 4H IV Lactated Ringer's (LACTATED RINGERS) 1,000 ML TN EOP ONCALL IV Lidocaine HCl (LIDOCAINE HCL/PF) 2 ML PREOP ONCA LL LOCAL Lidocaine HCl (LIDOCAINE HCL/PF) 2 ML PREOP ONCA LL LOCAL Sodium Chloride (SODIUM CHLORIDE 0.9%) 500 ML TN EOP ONCALL IV Sodium Chloride (SODIUM CHLORIDE 0.9%) 500 ML TN EOP ONCALL IV Sodium Chloride (SODIUM CHLORIDE 0.9%) 1,000 ML PREOP ONCALL IV Sodium Chloride (SODIUM CHLORIDE) 5 ML ASDIR PRN IV Sodium Chloride (SODIUM CHLORIDE) 10 ML ASDIR TN N IV Sodium Chloride (SODIUM CHLORIDE 0.9%) 250 ML DIR PRN IV Physical Exam General appearance: alert, awake, oriented Neck: non-tender Cardiovascular: CV assessment: regular rate and rhythm Respiratory: decreased breath sounds, on oxygen, no distress Abdomen: distended, non-tender Genitourinary: no flank pain, no urinary cathete r Lower extremity: LE assessment: edema, no edema Musculoskeletal: normal inspection Neuro/TELEPHOTO ENGINEER: alert, oriented X 3, normal speech Skin: dry Psychiatry: normal affect, normal judgment/insig ht, normal mood Results Findings/Data: Laboratory Tests 06/10 0236 Chemistry Sodium (134 - 147 mEq/L) 132 L Potassium (3.4 - 5.0 mEq/L) 4.8 Chloride (100 - 108 mEq/L) 102 Carbon Dioxide (21 - 33 mEq/l) 29 Anion Gap (0 - 20) 6 BUN (7 - 18 mg/dL) 17 Creatinine (0.6 - 1.3 mg/dL) 1.0 Glomerular Filtr Rate (90 - 95) 86.7 L Glucose (70 - 110 mg/dL) 104 Calcium (8.0 - 10.5 mg/dL) 9.0 Magnesium (1.80 - 2.40 mg/dL) 1.98 Total Bilirubin (0.0 - 1.0 mg/dL) 0.70 Direct Bilirubin (0.0 - 0.30 MG/DL) 0.30 Indirect Bilirubin (MG/DL) 0.40 AST (15 - 37 IUnit/L) 29 ALT (30 - 65 IUnit/L) 20 L Total Alk Phosphatase (20 - 125 IUnit/L) 61 Total Protein (6.4 - 8.2 g/dL) 5.9 L Albumin (3.4 - 5.0 g/dL) 2.90 L Laboratory Tests 06/10 0236 Hematology WBC (4.5 - 11.0 x10 3/uL) 12.6 H RBC (4.00 - 5.60 x10 6/uL) 4.95 Hgb (12.5 - 16.9 g/dL) 14.3 Hct (37.5 - 50.7 %) 43.3 MCV (81.0 - 99.0 fL) 87.5 MCH (27.0 - 33.0 pg) 28.9 MCHC (33.0 - 37.0 g/dL) 33.0 RDW (11.5 - 14.5 %) 12.4 Plt Count (150 - 400 x10 3/uL) 179 MPV (7.0 - 9.0 fL) 9.9 H Neut % (Auto) (56.0 - 77.0 %) 77.5 H Lymph % (Auto) (14.0 - 32.0 %) 7.5 L [place] % (Auto) (4.8 - 9.0 %) 12.6 H Eos % (Auto) (0.3 - 3.7 %) 1.5 Baso % (Auto) (0.0 - 2.0 %) 0.3 Neut # (Auto) (2.0 - 7.6 x10 3/uL) 9.77 H Lymph # (Auto) (1.0 - 3.8 x10 3/uL) 0.95 L [place] # (Auto) (0.1 - 0.8 x10 3/uL) 1.59 H Eos # (Auto) (0.0 - 0.2 x10 3/uL) 0.19 Baso # (Auto) (0.0 - 0.2 x10 3/uL) 0.04 Abs Immat Gran (auto) (0.00 - 0.03 x10 3/uL) 0. 07 H Add Manual Diff NO Immature Gran % (0.0 - 2.0 %) 0.6 Nucleated RBC % (0 - 0 %) 0.0 Nucleated RBCs # (Man) (0.0 - 0.1 x10 3/uL) 0.0 0 Laboratory Tests 06/10 0236 Chemistry Magnesium (1.80 - 2.40 mg/dL) 1.98 Radiology data: Recent Impressions: RADIOLOGY - XR CHEST 1 V 06/10 0225 Report Impression - Status: SIGNED Entered: 06/10/2022 0322 IMPRESSION: Cardiomegaly with pulmonary vascular congestion. Stable left, increasing right lung base infiltrate likely ref lecting pulmonary edema. Impression By: Thaddeus Martinez RADIOLOGY - XR CHEST 1 V 06/10 0640 Report Impression - Status: SIGNED Entered: 06/10/2022 0800 IMPRESSION: No significant change when allowing for differen lisa in technique. Impression By: Kt Rodríguez M.D. Results: labs reviewed, vital signs reviewed, vi meron signs stable Treatment Prophylaxis Treatment Prophylaxis Drain(s)/tube(s): Drain(s)/tube(s): chest Diagnosis, Assessment Plan Consultants: anesthesiology, cardiology, cardiov ascular surgery, critical/ milk receiver, hospitalist Free Text DxA P Notes Free Text DxA P Notes: Cardiology consultation for severe symptomatic a ortic valve regurgitation on this 61-year-old male with medical history of pa roxysmal atrial fibrillation, hypertension, symptomatic severe aortic valve re gurgitation. 1. Severe symptomatic aortic valve regurgitation 06/07/22: s/p SAVR (29 Inspiris bioprosth etic valve) with concomitant pulmonary vein isolation and amputation of left atrial navneet endage. continue DAPT, BB, statin Immediate postop care per CTS CXR noted ->diuresis per CTS 2. Paroxysmal atrial fibrillation Status post PVI and ALAA 3. Hypertension BP on upward trend continue BB Reinitiate antihypertensive meds as necessary 06/10/22: -Severe symptomatic aortic valve regurgitation, EF is preserved -06/07/22: s/p SAVR (29 Inspi ris bioprosthetic valve), amputation of left atrial appendage. -PAF, IN NSR -Chest x-ray reveals left small pleural effusion -STABLE CARDIAC STATUS -OK TO TRANSFER TO 3RD FLOOR TELE Electronically Signed by Rich Gonzalez MD on 0 06/11/22 at 1009 RPT #:[id number] END OF REPORT 2022-06-10 05:40:00-00:00 [facility] Cardiothoracic Surgery Prog REPORT#:[id number] REPORT STATUS: Signed DATE:06/10/22 TIME: 0540 PATIENT: MARCIA HART UNIT #: [id number] ROOM/BED: [place] [id number] : [birth year] AGE: 61 SEX: M ATTEND: Ab selam Jamison MD ADM AUTHOR: Nikole Vasquez Physic * ALL edits or amendments must be made on the [employer]/computer document * General Post-op: day 3 Status post: 06/07/22 1. Aortic valve replacement (29 Inspiris valve) . 2. Pulmonary vein isolation. 3. Amputation of left atrial appendage. Subjective Chief complaint: Aortic stenosis s/p AVR Review of Systems Constitutional: Denies: fatigue, fever, generalized weakness. Skin: Denies: bruising, contusion. Allergy/Immun: Denies: itching, rhinorrhea. Eyes: Denies: itching, diplopia, eye pain. Respiratory: Denies: ARIAS (dyspnea on exertion), hemoptysis, n on productive cough. Cardiovascular: Denies: chest pain, ARIAS (dyspnea on exertion). GI: Denies: constipation, diarrhea. : Denies: dysuria, hematuria. Musculoskeletal: Denies: joint pain, joint swelling. Heme: Denies: bleeding, bruising. Endocrine: Denies: polydipsia, polyuria. Neuro: Denies: confusion, dizziness. All systems rev neg: except as marked Objective General VS/I O Last Documented: Result Date Time Pulse Ox 96 06/10 0300 B/P 144/81 06/10 0300 B/P Mean 106 06/10 0300 Pulse 65 06/10 0300 Resp 21 06/10 0300 O2 Delivery Nasal cannula 06/10 0000 O2 Flow Rate 3 06/10 0000 Temp 97.8 06/10 0000 FiO2 45 06/09 0352 24 hour I O ending at 0700: 06/10 0700 06/09 1900 Intake Total 240 820.00 Output Total 750 1290 Balance -510 -470.00 Intake, IV 100.00 Intake, Oral 240 720 Number Voids 2 Output, Chest 5 Tube Drainage Output, Urine 750 1285 PATIENT WEIGHT: Weight (lb): 316 Weight (oz): 2.29 Weight (kg): 143.400 Physical Exam General appearance: alert, awake, oriented Wound/incision: Location: Sternum dry Site condition: dressing clean dry, dressing in tact Neck: full range of motion, non-tender Cardiovascular: BP/pulses equal bilat., normal h eart sounds, regular rate rhythm Respiratory: aerating well, clear to auscultatio n Abdomen: soft, non-tender Extremities: dry, moves all Musculoskeletal: full range of motion Neuro/TELEPHOTO ENGINEER: alert, oriented X 3 Skin: dry, intact Psychiatry: normal affect, normal mood Treatment Prophylaxis Treatment Prophylaxis Oxygen: nasal cannula Drain(s)/tube(s): Drain(s)/tube(s): chest Diagnosis, Assessment Plan Hospital course to date: This is a very pleasant 61-year-old gentleman wi th a past medical history of hypertension, paroxysmal atrial fibrillation ini tially 2 years ago on Eliquis therapy, with severe aortic valve regurg itation. He was referred by Dr. Duke for severe aortic valve regu rgitation noted on echocardiogram done on 05/18/2022. The patient does report symptoms of worsening s hortness of breath over the past 6 months. Patient denies any chest pain s. Patient denies any lower extremity edema. Patient denies any paroxysmal n octurnal dyspnea Patient has a history of left heart catheteriza tion with normal coronaries on 08/09/2021. Patient had repeat coronary angiogram last week which showed normal coronaries. Assessment/plan 1. Severe aortic valve stenosis 2. Paroxysmal atrial fibrillation Patient is admitted for aortic valve replacement , with PVI ablation. 06/07/22 PROCEDURES: 1. Aortic valve replacement (29 Inspiris valve). 2. Pulmonary vein isolation. 3. Amputation of left atrial appendage 06/08/22 POD 1 AAOx3 Respiratory: On 6l nasal cannula, wean off as to lerated. Encourage IS, Deep Breathing, CXR reviewed Cardiac: NSR, epicardial pacing wires present Discontinue central line and arterial line today Discontinue mediastinal chest tube, keep pericar dial CT and monitor outputs GI:Tolerating cardiac diet Continue Bowel regimen : Monitor strict I Os, daily weights, reassess suero need this afternoon. UO: 650 overnight Continue PT/OT Disposition: home DVT prophylaxis- SCDs Labs reveiwed- replace electrolytes as needed Transfer to CV intermediate care unit later to y. Patient seen and examined by Dr. Jamison. Plan o f care discussed with multidisciplinary team 06/10/22 POD 3 AAOx3 Respiratory: on room air. Wean off as tolerated. Encourage IS, Deep Breathing, CXR reviewed Cardiac: NSR, epicardial pacing wires in place o n standby GI:Tolerating cardiac diet, Need BM, Suppository Continue Bowel regimen : Monitor strict I Os, daily weights, reassess suero need this afternoon. UO: 2485 overnight Continue PT/OT Disposition: home DVT prophylaxis- SCDs Labs reveiwed- replace electrolytes as needed Transfer to CV intermediate care unit later to y. Patient seen and examined by Dr. Jamison. Plan o f care discussed with multidisciplinary team Consultants: anesthesiology, cardiology, cardiov ascular surgery, critical/ milk receiver, hospitalist at 0933 at 0739 RPT #:[id number] END OF REPORT 2022-06-09 13:08:00-00:00 [facility]) Critical Care Consult Note REPORT#:[id number] REPORT STATUS: Signed DATE:06/09/22 TIME: 1308 PATIENT: MARCIA HART UNIT #: [id number] ROOM[facility]BED: [facility] : 62 AGE: 61 SEX: M ATTEND: Ashley Jamison MD ADM AUTHOR: Dean Parr MD * ALL edits or amendments must be made on the [employer]/computer document * History of Present Illness HPI Requesting clinician: Dr Jamison ([facility]) Reason for consult: Severe aortic regurgitation Status post SAVR postop day 2 Acute hypoxemic respiratory failure Postop elective ventilator dependence after arthur r cardiothoracic surgery Small left pleural effusion History of paroxysmal atrial fibrillation on Bianca tyrone History of hypertension Chief complaint: AVR PCP: PCP: No Primary or Family Physician HPI: Patient seen and discussed in room #2204 in the CVICU during MDR this morning. He is status post SAVR postop day 2. Pericardial tube is still in place. Patient is ambulating. Suero catheter to be discontinued today. Central venous catheter has been removed. Good urine output. Bernard saleem is neuro intact on no vasopressors. He is alert orient x4. Marcia Olivas is a 61-year-old male with past medical history significant for HTN, PAF on Eliquis and severe aortic regurgitation w ho presented with progressive shortness of breath. Left he art cath last year showed normal coronaries. Patient underwent AVR (29 Inspiris), PVI and ALAA today on 06/07/2022. Has mildly depressed EF 45%. Crystalloi d 1.5 L, Cell Saver 850, autologous blood 500, urine output 500. Surgery went well and ashanti go was transferred to CVICU postop in a stable surgical condition. He is currently intub ated on insulin drip. Patient was extubated in a timely fa shion. He is awake, alert, oriented x4, moves all 4 extremities. Patient is full code. History - Adult longitudinal Past medical history: Reports: Atrial fibrillation (paroxysmal). Alcohol use: Denies EtOH use Drug use: Denies recreational drugs Smoking status for patients 13 years old or olde r: Never Smoker Medications: Home Medications: Medication Dose/Rte/Freq Days Qty Entered Last Max Daily Dose Reviewed ATORVASTATIN (LIPITOR) 40 MG PO DAILY 06/06/22 06/07/22 Strength: 40 MG TAB 0837 0628 LOSARTAN (COZAAR) 50 MG PO DAILY 06/06/2206/07 Strength: 50 MG TAB 0837 0628 APIXABAN (ELIQUIS) 5 MG PO DAILY 06/06/2206/07 Strength: 5 MG TAB 0848 0628 Current Hospital Medications: Autonomic Drugs Sig/Denys Start time Last Medication Dose Route Stop Time Status Admin Ipratropium Julian 500 MCG RTQ2H PRN PRN 06/10 0846 AC (ATROVENT) INH 07/10 0845 Ipratropium Julian 500 MCG RTQ4H 06/07 1200 AC 06/09 (ATROVENT) INH 06/10 0846 1146 Epinephrine 4 MG ASDIR 06/07 09 AC (ADRENALIN CHLORIDE) IV 07/07 0859 Dextrose/Water 246 ML (DEXTROSE 5% WATER) Norepinephrine 250 ML TITRATE 06/07 899 AC Bitartrate IV 07/07 0859 (NOREPINEPHRINE 8 MG/ NS 250 ML) Blood Formation,Coagulation Sig/Denys Start time Last Medication Dose Route Stop Time Status Admin Ferrous Sulfate 325 MG DAILY 06/10 09 AC (FERROUS SULFATE) PO 07/10 0859 Cardiovascular Drugs Sig/Denys Start time Last Medication Dose Route Stop Time Status Admin Atorvastatin Calcium 40 MG 2100 06/08 2099 AC 0 06/08 (LIPITOR) PO 07/08 Amiodarone HCl 200 MG TID 06/07 2099 AC 06/09 (CORDARONE) PO 07/07 2058 0852 Metoprolol Tartrate 12.5 MG Q12HR 06/07 2100 A C 06/09 (LOPRESSOR) PO 07/07 2058 0852 Nitroglycerin/ 250 ML ASDIR 06/07 899 AC Dextrose IV 07/08 0759 (NITROGLYCERIN 50,000MCG/D5W 250ML) Lidocaine HCl 2 ML PREOP ONCALL 06/06 0915 AC (LIDOCAINE HCL/PF) LOCAL 07/06 2359 Lidocaine HCl 2 ML PREOP ONCALL 06/06 0915 AC (LIDOCAINE HCL/PF) LOCAL 07/06 2359 Central Nervous System Agents Sig/Denys Start time Last Medication Dose Route Stop Time Status Admin Gabapentin 200 MG BID 06/07 2100 AC 06/09 (NEURONTIN) PO 06/12 0901 0852 Tramadol HCl 50 MG QID 06/07 1700 AC 06/09 (ULTRAM) PO 06/12 1659 1222 Aspirin 81 MG DAILY 06/07 1446 AC 06/09 (ASPIRIN) PO 07/07 1445 0852 Acetaminophen 650 MG Q4H PRN PRN 06/07 09 AC 06/08 (TYLENOL) PO 07/07 0859 1427 Acetaminophen 650 MG Q4H PRN PRN 06/07 09 AC (TYLENOL) RECTAL 07/07 0859 Magnesium Sulfate 100 ML ASDIR PRN 06/07 0900 A C (MAGNESIUM SULFATE IV 07/07 0859 4GM/SWFI 100ML) Magnesium Sulfate 50 ML ASDIR PRN 06/07 09 AC (MAGNESIUM SULFATE IV 07/07 0859 2GM/SWFI 50ML) Magnesium Sulfate/ 100 ML ASDIR PRN 06/07 09 AC 06/09 Dextrose IV 07/07 858 0748 (MAGNESIUM SULFATE 1GM/D5W 100ML) Oxycodone HCl 5 MG Q4H PRN PRN 06/07 09 AC (ROXICODONE) PO 06/12 0859 0749 Electrolytic, Caloric, And Akira Sig/Denys Start time Last Medication Dose Route Stop Time Status Admin Calcium Chloride 1 GM ASDIR PRN 06/07 899 AC (CALCIUM CHLORIDE) IV 07/07 858 Dextrose/Water 125 ML ASDIR PRN 06/07 899 CKD (DEXTROSE 10% IN IV 07/07 858 WATER) Dextrose/Water 250 ML ASDIR PRN 06/07 899 CKD (DEXTROSE 10% IN IV 07/07 858 WATER) Potassium Chloride 100 ML ASDIR PRN 06/07 899 AC (KCL 20MEQ/SWFI IV 07/07 858 100ML) Sodium Bicarbonate 50 MEQ ASDIR PRN 06/07 899 AC (SODIUM BICARBONATE) IV 07/07 858 Sodium Chloride 1,000 ML .Q20H 06/07 09 AC (SODIUM CHLORIDE IV 07/07 858 0408 0.9%) Sodium Chloride 250 ML Q24H 06/07 899 AC (SODIUM CHLORIDE IV 07/08 0759 0.9%) Lactated Ringer's 1,000 ML PREOP ONCALL 06/06 0 915 AC (LACTATED RINGERS) IV 07/06 2358 Sodium Chloride 500 ML PREOP ONCALL 06/06 914 AC (SODIUM CHLORIDE IV 07/06 2358 0.9%) Sodium Chloride 500 ML PREOP ONCALL 06/06 0815 AC (SODIUM CHLORIDE IV 07/06 2358 0.9%) Sodium Chloride 1,000 ML PREOP ONCALL 06/06 091 5 AC (SODIUM CHLORIDE IV 07/06 2358 0.9%) Sodium Chloride 5 ML ASDIR PRN 06/06 914 AC (SODIUM CHLORIDE) IV 07/06 913 Sodium Chloride 10 ML ASDIR PRN 06/06 914 AC (SODIUM CHLORIDE) IV 07/06 913 Sodium Chloride 250 ML ASDIR PRN 06/06 914 AC (SODIUM CHLORIDE IV 07/06 0814 0.9%) Gastrointestinal Drugs Sig/Denys Start time Last Medication Dose Route Stop Time Status Admin Bisacodyl 10 MG ONCE PRN 06/09 1200 AC (DULCOLAX) RECTAL 07/09 1159 Magnesium Hydroxide 30 ML ONCE PRN 06/09 1200 A C (MILK OF MAGNESIA) PO Polyethylene Glycol 17 GM DAILY 06/08 0900 AC 0 06/09 (MIRALAX) PO 07/08 0859 0852 Sennosides 17.2 MG BEDTIME 06/07 2100 AC 06/08 (Senna Lax 8.6 MG PO 07/07 TABLET) Docusate Sodium 100 MG BID 06/07 0900 AC 06/09 (COLACE) PO 07/07 0859 0852 Ondansetron HCl 4 MG Q6H PRN PRN 06/07 09 AC (ZOFRAN) IV 07/07 0859 Hormones And Synthetic Substit Sig/Denys Start time Last Medication Dose Route Stop Time Status Admin Glucagon 1 MG ASDIR PRN 06/07 0900 AC (GLUCAGON) IM 07/07 0859 Insulin Human Regular 100 UNIT ASDIR 06/07 0900 CKD (HumuLIN R) IV 07/07 0859 Sodium Chloride 99 ML (SODIUM CHLORIDE 0.9%) Skin And Mucous Membrane Agent Sig/Denys Start time Last Medication Dose Route Stop Time Status Admin Mupirocin 1 APPLIC BID 06/08 0900 AC 06/09 (BACTROBAN 2% 22 GM NASAL 06/12 2100 0853 OINTMENT) Vitamins Sig/Denys Start time Last Medication Dose Route Stop Time Status Admin Cyanocobalamin 500 MCG DAILY 06/10 0900 AC (Vitamin B-12 500 PO 07/10 0859 mcg tab) Allergies: Coded Allergies: No Known Allergies (05/24/22) Ambulatory status: Independent Review of Systems ROS Constitutional: Denies: fatigue, fever, generalized weakness. Skin: Denies: diaphoresis, ecchymosis, rash, swelling. Allergy/Immun: Denies: anaphylaxis, hives. Eyes: Denies: redness, discharge. ENT: Denies: nose bleeding, throat swelling, tongue s welling. Respiratory: Denies: ARIAS (dyspnea on exertion), hemoptysis, S OB, wheezing. Cardiovascular: Denies: chest pain, ARIAS (dyspnea on exertion), e frandy. GI: Denies: hematemesis, hematochezia, melena, nause a. : Denies: hematuria, nocturia. Musculoskeletal: Denies: extremity pain, extremity swelling, join t swelling. Heme: Denies: bleeding, bruising. Endocrine: Denies: polydipsia, polyphagia. Neuro: Denies: confusion, dizziness, focal weak ness, gait problem, headache, seizure, slurred speech. Psych: Denies: agitation, anxiety, confusion, delusiona l. Objective Physical Exam VS/I O: Last Documented: Result Date Time Temp 36.5 06/09 1200 Pulse Ox 95 06/09 1200 B/P 140/77 06/09 1200 B/P Mean 102 06/09 1200 Pulse 66 06/09 1200 Resp 31 06/09 1200 O2 Delivery High flow nasal cannula 06/09 0837 O2 Flow Rate 3 06/09 0837 FiO2 45 06/09 0352 24 hour I O ending at 0700: 06/09 0700 06/08 1900 Intake Total 1000 1010 Output Total 705 800 Balance 295 210 Intake, Oral 1000 830 Intake, Oral 180 Supplement Output, Chest 70 Tube Drainage Output, Urine 635 800 Patient 143.4 kg 142.428 kg Weight Weight Standing scale Measurement Method Patient Weight and BMI Weight (kg): 143.400 BMI: 40.6 Medications: Active Meds + DC'd Last 24 Hrs Cyanocobalamin (Vitamin B-12 500 mcg tab) 500 MC G DAILY PO Ferrous Sulfate (FERROUS SULFATE) 325 MG DAILY P O Ipratropium Julian (ATROVENT) 500 MCG RTQ2H PRN PRN INH Bisacodyl (DULCOLAX) 10 MG ONCE PRN RECTAL Magnesium Hydroxide (MILK OF MAGNESIA) 30 ML ONC E PRN PO Atorvastatin Calcium (LIPITOR) 40 MG 2100 PO Mupirocin (BACTROBAN 2% 22 GM OINTMENT) 1 APPLIC BID NASAL Polyethylene Glycol (MIRALAX) 17 GM DAILY PO Amiodarone HCl (CORDARONE) 200 MG TID PO Gabapentin (NEURONTIN) 200 MG BID PO Metoprolol Tartrate (LOPRESSOR) 12.5 MG Q12HR PO Sennosides (Senna Lax 8.6 MG TABLET) 17.2 MG BED TIME PO Tramadol HCl (ULTRAM) 50 MG QID PO Aspirin (ASPIRIN) 81 MG DAILY PO Ipratropium Julian (ATROVENT) 500 MCG RTQ4H INH Acetaminophen (TYLENOL) 650 MG Q4H PRN PRN PO Acetaminophen (TYLENOL) 650 MG Q4H PRN PRN RECTA L Calcium Chloride (CALCIUM CHLORIDE) 1 GM ASDIR P RN IV Dextrose/Water (DEXTROSE 10% IN WATER) 125 ML DIR PRN IV (CKD) Dextrose/Water (DEXTROSE 10% IN WATER) 250 ML DIR PRN IV (CKD) Docusate Sodium (COLACE) 100 MG BID PO Epinephrine (ADRENALIN CHLORIDE) 4 MG ASDIR IV Dextrose/Water (DEXTROSE 5% WATER) 246 ML Glucagon (GLUCAGON) 1 MG ASDIR PRN IM Insulin Human Regular (HumuLIN R) 100 UNIT ASDIR IV (CKD) Sodium Chloride (SODIUM CHLORIDE 0.9%) 99 ML Magnesium Sulfate (MAGNESIUM SULFATE 4GM/SWFI 10 0ML) 100 ML ASDIR PRN IV Magnesium Sulfate (MAGNESIUM SULFATE 2GM/SWFI 50 ML) 50 ML ASDIR PRN IV Magnesium Sulfate/Dextrose (MAGNESIUM SULFATE 1G M/D5W 100ML) 100 ML ASDIR PRN IV Nitroglycerin/Dextrose (NITROGLYCERIN 50,000MCG/ D5W 250ML) 250 ML ASDIR IV Norepinephrine Bitartrate (NOREPINEPHRINE 8 MG/N S 250 ML) 250 ML TITRATE IV Ondansetron HCl (ZOFRAN) 4 MG Q6H PRN PRN IV Oxycodone HCl (ROXICODONE) 5 MG Q4H PRN PRN PO Potassium Chloride (KCL 20MEQ/SWFI 100ML) 100 ML ASDIR PRN IV Sodium Bicarbonate (SODIUM BICARBONATE) 50 MEQ A SDIR PRN IV Sodium Chloride (SODIUM CHLORIDE 0.9%) 1,000 ML .Q20H IV Sodium Chloride (SODIUM CHLORIDE 0.9%) 250 ML Q2 4H IV Lactated Ringer's (LACTATED RINGERS) 1,000 ML TN EOP ONCALL IV Lidocaine HCl (LIDOCAINE HCL/PF) 2 ML PREOP ONCA LL LOCAL Lidocaine HCl (LIDOCAINE HCL/PF) 2 ML PREOP ONCA LL LOCAL Sodium Chloride (SODIUM CHLORIDE 0.9%) 500 ML TN EOP ONCALL IV Sodium Chloride (SODIUM CHLORIDE 0.9%) 500 ML TN EOP ONCALL IV Sodium Chloride (SODIUM CHLORIDE 0.9%) 1,000 ML PREOP ONCALL IV Sodium Chloride (SODIUM CHLORIDE) 5 ML ASDIR PRN IV Sodium Chloride (SODIUM CHLORIDE) 10 ML ASDIR TN N IV Sodium Chloride (SODIUM CHLORIDE 0.9%) 250 ML DIR PRN IV General appearance: alert, awake, oriented, no a cute distress, pleasant, conversational, mental status normal, no respira tory distress Head/Eyes: atraumatic, clear cornea, normocephal ic, PERRL ENT: normal nose, normal sinus Neck: no JVD, no masses or swelling Cardiovascular: regular rate and rhythm, normal S1/S2, no murmur, no rub Respiratory: aerating well, clear to auscultatio n, symmetric expansion, no distress Abdomen: soft, non-tender, normal bowel sounds, no distention, no guarding, no rebound Genitourinary: urinary catheter, no bladder dist ention, no flank pain Extremities: moves all, normal capillary refill, no clubbing, no cyanosis, no edema Neuro/TELEPHOTO ENGINEER: alert, oriented X 3, no motor deficit s, no sensory deficits Skin: dry, intact, normal color, normal temperat ure, no rash Psychiatry: normal affect, n ormal judgment/insight, normal mood, not homicidal, not suicidal, no hallucinations Results Findings/Data: Laboratory Tests 06/09/22353: [Embedded Image Not Available] Laboratory Tests 06/09 353 Chemistry Sodium (134 - 147 mEq/L) 131 L Potassium (3.4 - 5.0 mEq/L) 4.9 Chloride (100 - 108 mEq/L) 103 Carbon Dioxide (21 - 33 mEq/l) 25 Anion Gap (0 - 20) 8 BUN (7 - 18 mg/dL) 13 Creatinine (0.6 - 1.3 mg/dL) 0.9 Glomerular Filtr Rate (90 - 95) 98.4 H Glucose (70 - 110 mg/dL) 117 H Calcium (8.0 - 10.5 mg/dL) 8.3 Magnesium (1.80 - 2.40 mg/dL) 2.05 Total Bilirubin (0.0 - 1.0 mg/dL) 0.70 Direct Bilirubin (0.0 - 0.30 MG/DL) 0.30 Indirect Bilirubin (MG/DL) 0.40 AST (15 - 37 IUnit/L) 35 ALT (30 - 65 IUnit/L) 18 L Total Alk Phosphatase (20 - 125 IUnit/L) 51 Total Protein (6.4 - 8.2 g/dL) 5.4 L Albumin (3.4 - 5.0 g/dL) 2.80 L Laboratory Tests 06/09 0354 Hematology WBC (4.5 - 11.0 x10 3/uL) 14.3 H RBC (4.00 - 5.60 x10 6/uL) 4.74 Hgb (12.5 - 16.9 g/dL) 13.7 Hct (37.5 - 50.7 %) 40.8 MCV (81.0 - 99.0 fL) 86.1 MCH (27.0 - 33.0 pg) 28.9 MCHC (33.0 - 37.0 g/dL) 33.6 RDW (11.5 - 14.5 %) 12.7 Plt Count (150 - 400 x10 3/uL) 143 L MPV (7.0 - 9.0 fL) 10.3 H Neut % (Auto) (56.0 - 77.0 %) 80.1 H Lymph % (Auto) (14.0 - 32.0 %) 6.0 L [place] % (Auto) (4.8 - 9.0 %) 12.6 H Eos % (Auto) (0.3 - 3.7 %) 0.6 Baso % (Auto) (0.0 - 2.0 %) 0.1 Neut # (Auto) (2.0 - 7.6 x10 3/uL) 11.45 H Lymph # (Auto) (1.0 - 3.8 x10 3/uL) 0.86 L [place] # (Auto) (0.1 - 0.8 x10 3/uL) 1.80 H Eos # (Auto) (0.0 - 0.2 x10 3/uL) 0.08 Baso # (Auto) (0.0 - 0.2 x10 3/uL) 0.02 Abs Immat Gran (auto) (0.00 - 0.03 x10 3/uL) 0. 08 H Add Manual Diff NO Immature Gran % (0.0 - 2.0 %) 0.6 Nucleated RBC % (0 - 0 %) 0.0 Nucleated RBCs # (Man) (0.0 - 0.1 x10 3/uL) 0.0 0 Radiology data: Recent Impressions: RADIOLOGY - XR CHEST 1 V 06/09 0707 Report Impression - Status: SIGNED Entered: 06/09/2022 0849 IMPRESSION: Cardiomegaly with opacity at the left lung base and a small left pleural effusion. Impression By: Thaddeus Nicole Results: vital signs reviewed, rhythm personally rev'd, x-ray personally reviewed, current med profile rev'd Free Text Obj Notes Free Text Obj Notes: General appearance: Elderly male in no acute dis tress Head/Eyes: atraumatic, normocephalic ENT: dry mucosal membranes, ETT in place Neck: full range of motion, supple/no meningismu s Cardiovascular: Good cap refill, S1-S2 regular r ate and rhythm Respiratory: symmetric expansion, no acute respi ratory distress Abdomen: soft, non-tender, no distention, no gua rding Genitourinary: suero with clear urine Extremities: pedal pulses, moves all, no clubbin g, no cyanosis, no edema Vascular pulse assessment: palpated: R posterior tibialis, L posterior tibi sugey, R dorsalis pedis, L dorsalis pedis Musculoskeletal: normal inspection, no muscle sp asm Neuro/TELEPHOTO ENGINEER: Sedated but arousable, CNII-XII gross ly intact, no motor deficits Skin: dry, intact and clean surgery dressing Treatment Prophylaxis Treatment Prophylaxis Drain(s)/tube(s): Drain(s)/tube(s): chest Diagnosis, Assessment Plan Diagnosis, Assessment Plan Orders: Procedure Date/time Status _RT: Non-Invasive Ventilation 06/09 0908 Active Consultants: anesthesiology, cardiology, cardiov ascular surgery, critical/ milk receiver, hospitalist Plan discussed with: spouse/ partner, consultants, interdisc care team, pharmacy/ pharmacist Critical care time: Minutes: 42 Code Status/Resusc. Discussion Resuscitation discussion: Discussed with: Power of Manufacturing Assembler Code status: full code Free text DxA P: Problem List: Severe aortic regurgitation Status post SAVR postop day 2 Acute hypoxemic respiratory failure Postop elective ventilator dependence after arthur r cardiothoracic surgery Small left pleural effusion History of paroxysmal atrial fibrillation on Bianca tyrone History of hypertension Leukocytosis Hyponatremia Asessment and Plan: Marcia Hart is a 61-year-old male with history of HTN, PAF on Eliquis and severe aortic regurgitation who presented with progress neetu shortness of breath. Left heart cath last year showed normal coronaries. Abeba song underwent AVR (29 Inspiris), PVI and ALAA today on 06/07/2022. Has mildly depressed EF 45%. Crystalloid 1.5 L, Cell Saver 850, autologous bl ood 500, urine output 500. Surgery went well and patient was transferred to CVICU postop in a stable surgical condition. He is currently intubated on insulin drip. Neuro: Appears intact, keep off sedation, multim odal pain control Respiratory: Sats well, tolerating CPAP trial, m ildly hypercapnic, plan for extubation to BiPAP, will obtain serial ABGs, CX R reviewed Cardiovascular: HD stable not on vasopressors, k eep CTs to suction Renal: strict I/Os, monitor Cr and electrolytes, resuscitate as needed GI: bedside swallow then ora l diet if remains off BiPAP after extubation, bowel regimen ID: reactive leukocytosis, trend WBC, co ntinue periop antibiotics per protocol Hem: monitor Hgb and CTs output, no active bleed ing, transfuse as needed Endo: Blood glucose control with insulin gtt per protocol Misc: PT and OT consult, DVT prophylaxis with SC Ds 06/09/2022 Patient seen and discussed in room #2204 in the CVICU during MDR this morning. He is status post SAVR postop day 2. Pericardial tube is still in place. Patient is ambulating. Suero catheter to be discontinued today. Central venous catheter has been removed. Good urine output. Bernard saleem is neuro intact on no vasopressors. He is alert orient x4. Marcia Olivas is a 61-year-old male with past medical history significant for HTN, PAF on Eliquis and severe aortic regurgitation w ho presented with progressive shortness of breath. Left he art cath last year showed normal coronaries. Patient underwent AVR (29 Inspiris), PVI and ALAA today on 06/07/2022. Has mildly depressed EF 45%. Crystalloi d 1.5 L, Cell Saver 850, autologous blood 500, urine output 500. Surgery went well and patien t was transferred to CVICU postop in a stable surgical condition. He is currently intub ated on insulin drip. Patient was extubated in a timely fa shion. He is awake, alert, oriented x4, moves all 4 extremities. Patient is full code. 06/09/2022 Patient seen and discussed in room #2204 in the CVICU during MDR this morning. He is status post SAVR postop day 2. Pericardial tube is still in place. Patient is ambulating. Suero catheter to be discontinued today. Central venous catheter has been removed. Good urine output. Bernard saleem is neuro intact on no vasopressors. He is alert orient x4. Marcia Olivas is a 61-year-old male with past medical history significant for HTN, PAF on Eliquis and severe aortic regurgitation w ho presented with progressive shortness of breath. Left he art cath last year showed normal coronaries. Patient underwent AVR (29 Inspiris), PVI and ALAA today on 06/07/2022. Has mildly depressed EF 45%. Crystalloi d 1.5 L, Cell Saver 850, autologous blood 500, urine output 500. Surgery went well and ashanti go was transferred to CVICU postop in a stable surgical condition. He is currently intub ated on insulin drip. Patient was extubated in a timely fa shion. He is awake, alert, oriented x4, moves all 4 extremities. Patient is full code. Patient is postop day 2 after SAVR postop course was uneventful Patient has history of parox ysmal atrial fibrillation and was on Eliquis that is on hold Pericardial chest tube to be removed Good urine output DC Suero Catheter Patient is ambulating with physical therapy EF is preserved Platelet count is 143,000 Not on vasopressors Stable vital signs Patient is neuro intact Chest x-ray reveals left small pleural effusion Leukocytosis, most likely reactive, trend CBC Has hyponatremia, follow BMP Mental status stable Transfer to CCU SCDs for DVT prophylaxis Dean Parr MD [facility] 06/09/2022 1.41 PM Electronically Signed by Dena Parr MD on 05/14 11/04 at 0747 RPT #:[id number] END OF REPORT 2022-06-09 11:05:00-00:00 [facility] Cardiology Progress Note REPORT#:[id number] REPORT STATUS: Signed DATE:06/09/22 TIME: 1105 PATIENT: MARCIA HART UNIT #: [id number] ROOM/BED: [place] [id number] : 64 AGE: 61 SEX: M ATTEND: Ashley Jamison MD ADM AUTHOR: Mesha Burciaga CNP * ALL edits or amendments must be made on the [employer]/computer document * Subjective Patient reports: No: complaints. Objective General VS/I O: 24 hour I O ending at 0700: 06/09 0700 06/08 1900 Intake Total 1000 1010 Output Total 705 800 Balance 295 210 Intake, Oral 1000 830 Intake, Oral 180 Supplement Output, Chest 70 Tube Drainage Output, Urine 635 800 Patient 143.4 kg 142.428 kg Weight Weight Standing scale Measurement Method Vital Signs: Date Time Temp Pulse Resp B/P B/P Pulse O2 O2 F low FiO2 Mean Ox Delivery Rate 06/09 1036 68 32 174/87 121 92 06/09 1000 67 27 142/73 99 95 06/09 0900 37.6 68 25 144/76 104 94 06/09 0837 95 High flow 3 nasal cannula 06/09 0800 High flow 3 nasal cannula 06/09 0800 37.6 67 32 142/80 105 95 06/09 0716 37.6 69 32 131/65 91 94 06/09 0352 6 98 45 06/09 0352 98 BiPAP 45 06/09 0113 65 96 06/08 2000 Nasal 2 cannula 06/08 2000 66 95 06/08 2000 95 High flow 2 nasal cannula 06/08 1700 37.6 66 140/60 80 94 06/08 1600 37.7 67 23 135/68 96 95 06/08 1500 37.7 67 25 125/70 92 95 06/08 1400 37.7 67 26 122/67 88 95 06/08 1345 37.7 68 32 119/70 87 96 06/08 1330 37.7 66 25 122/71 90 95 06/08 1315 37.7 65 25 120/71 90 95 06/08 1300 37.6 64 121/68 89 95 06/08 1245 37.6 64 127/71 92 96 06/08 1230 37.6 66 126/74 96 96 06/08 1215 37.6 65 119/69 89 95 06/08 1200 37.6 63 123/75 91 98 06/08 1145 37.5 63 115/74 89 97 06/08 1131 37.5 67 124/61 86 96 06/08 1116 37.5 71 29 149/95 115 96 PATIENT WEIGHT: Weight (lb): 316 Weight (oz): 2.29 Weight (kg): 143.400 Medications: Active Meds + DC'd Last 24 Hrs Cyanocobalamin (Vitamin B-12 500 mcg tab) 500 MC G DAILY PO Ferrous Sulfate (FERROUS SULFATE) 325 MG DAILY P O Ipratropium Julian (ATROVENT) 500 MCG RTQ2H PRN PRN INH Bisacodyl (DULCOLAX) 10 MG ONCE PRN RECTAL Magnesium Hydroxide (MILK OF MAGNESIA) 30 ML ONC E PRN PO Atorvastatin Calcium (LIPITOR) 40 MG 2100 PO Mupirocin (BACTROBAN 2% 22 GM OINTMENT) 1 APPLIC BID NASAL Polyethylene Glycol (MIRALAX) 17 GM DAILY PO Amiodarone HCl (CORDARONE) 200 MG TID PO Gabapentin (NEURONTIN) 200 MG BID PO Metoprolol Tartrate (LOPRESSOR) 12.5 MG Q12HR PO Sennosides (Senna Lax 8.6 MG TABLET) 17.2 MG BED TIME PO Tramadol HCl (ULTRAM) 50 MG QID PO Aspirin (ASPIRIN) 81 MG DAILY PO Ipratropium Julian (ATROVENT) 500 MCG RTQ4H INH Acetaminophen (TYLENOL) 650 MG Q4H PRN PRN PO Acetaminophen (TYLENOL) 650 MG Q4H PRN PRN RECTA L Calcium Chloride (CALCIUM CHLORIDE) 1 GM ASDIR P RN IV Dextrose/Water (DEXTROSE 10% IN WATER) 125 ML DIR PRN IV (CKD) Dextrose/Water (DEXTROSE 10% IN WATER) 250 ML DIR PRN IV (CKD) Docusate Sodium (COLACE) 100 MG BID PO Epinephrine (ADRENALIN CHLORIDE) 4 MG ASDIR IV Dextrose/Water (DEXTROSE 5% WATER) 246 ML Glucagon (GLUCAGON) 1 MG ASDIR PRN IM Insulin Human Regular (HumuLIN R) 100 UNIT ASDIR IV (CKD) Sodium Chloride (SODIUM CHLORIDE 0.9%) 99 ML Magnesium Sulfate (MAGNESIUM SULFATE 4GM/SWFI 10 0ML) 100 ML ASDIR PRN IV Magnesium Sulfate (MAGNESIUM SULFATE 2GM/SWFI 50 ML) 50 ML ASDIR PRN IV Magnesium Sulfate/Dextrose (MAGNESIUM SULFATE 1G M/D5W 100ML) 100 ML ASDIR PRN IV Nitroglycerin/Dextrose (NITROGLYCERIN 50,000MCG/ D5W 250ML) 250 ML ASDIR IV Norepinephrine Bitartrate (NOREPINEPHRINE 8 MG/N S 250 ML) 250 ML TITRATE IV Ondansetron HCl (ZOFRAN) 4 MG Q6H PRN PRN IV Oxycodone HCl (ROXICODONE) 5 MG Q4H PRN PRN PO Potassium Chloride (KCL 20MEQ/SWFI 100ML) 100 ML ASDIR PRN IV Sodium Bicarbonate (SODIUM BICARBONATE) 50 MEQ A SDIR PRN IV Sodium Chloride (SODIUM CHLORIDE 0.9%) 1,000 ML .Q20H IV Sodium Chloride (SODIUM CHLORIDE 0.9%) 250 ML Q2 4H IV Lactated Ringer's (LACTATED RINGERS) 1,000 ML TN EOP ONCALL IV Lidocaine HCl (LIDOCAINE HCL/PF) 2 ML PREOP ONCA LL LOCAL Lidocaine HCl (LIDOCAINE HCL/PF) 2 ML PREOP ONCA LL LOCAL Sodium Chloride (SODIUM CHLORIDE 0.9%) 500 ML TN EOP ONCALL IV Sodium Chloride (SODIUM CHLORIDE 0.9%) 500 ML TN EOP ONCALL IV Sodium Chloride (SODIUM CHLORIDE 0.9%) 1,000 ML PREOP ONCALL IV Sodium Chloride (SODIUM CHLORIDE) 5 ML ASDIR PRN IV Sodium Chloride (SODIUM CHLORIDE) 10 ML ASDIR TN N IV Sodium Chloride (SODIUM CHLORIDE 0.9%) 250 ML DIR PRN IV Physical Exam General appearance: obese, alert, awake, oriente d Neck: non-tender Cardiovascular: CV assessment: regular rate and rhythm Respiratory: decreased breath sounds, on oxygen, no distress Abdomen: distended, non-tender Genitourinary: no flank pain, no urinary cathete r Lower extremity: LE assessment: edema, no edema Musculoskeletal: normal inspection Neuro/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 ENGINEER: alert, oriented X 3, normal speech Skin: dry Psychiatry: normal affect, normal judgment/insig ht, normal mood Results Findings/Data: Laboratory Tests 06/09 06/08 0354 1214 Chemistry Sodium (134 - 147 mEq/L) 131 L Potassium (3.4 - 5.0 mEq/L) 4.9 Chloride (100 - 108 mEq/L) 103 Carbon Dioxide (21 - 33 mEq/l) 25 Anion Gap (0 - 20) 8 BUN (7 - 18 mg/dL) 13 Creatinine (0.6 - 1.3 mg/dL) 0.9 Glomerular Filtr Rate (90 - 95) 98.4 H Glucose (70 - 110 mg/dL) 117 H POC Glucose (70 - 110 MG/DL) 127 H Calcium (8.0 - 10.5 mg/dL) 8.3 Magnesium (1.80 - 2.40 mg/dL) 2.05 Total Bilirubin (0.0 - 1.0 mg/dL) 0.70 Direct Bilirubin (0.0 - 0.30 MG/DL) 0.30 Indirect Bilirubin (MG/DL) 0.40 AST (15 - 37 IUnit/L) 35 ALT (30 - 65 IUnit/L) 18 L Total Alk Phosphatase (20 - 125 IUnit/L) 51 Total Protein (6.4 - 8.2 g/dL) 5.4 L Albumin (3.4 - 5.0 g/dL) 2.80 L Laboratory Tests 06/09 0354 Hematology WBC (4.5 - 11.0 x10 3/uL) 14.3 H RBC (4.00 - 5.60 x10 6/uL) 4.74 Hgb (12.5 - 16.9 g/dL) 13.7 Hct (37.5 - 50.7 %) 40.8 MCV (81.0 - 99.0 fL) 86.1 MCH (27.0 - 33.0 pg) 28.9 MCHC (33.0 - 37.0 g/dL) 33.6 RDW (11.5 - 14.5 %) 12.7 Plt Count (150 - 400 x10 3/uL) 143 L MPV (7.0 - 9.0 fL) 10.3 H Neut % (Auto) (56.0 - 77.0 %) 80.1 H Lymph % (Auto) (14.0 - 32.0 %) 6.0 L [place] % (Auto) (4.8 - 9.0 %) 12.6 H Eos % (Auto) (0.3 - 3.7 %) 0.6 Baso % (Auto) (0.0 - 2.0 %) 0.1 Neut # (Auto) (2.0 - 7.6 x10 3/uL) 11.45 H Lymph # (Auto) (1.0 - 3.8 x10 3/uL) 0.86 L [place] # (Auto) (0.1 - 0.8 x10 3/uL) 1.80 H Eos # (Auto) (0.0 - 0.2 x10 3/uL) 0.08 Baso # (Auto) (0.0 - 0.2 x10 3/uL) 0.02 Abs Immat Gran (auto) (0.00 - 0.03 x10 3/uL) 0. 08 H Add Manual Diff NO Immature Gran % (0.0 - 2.0 %) 0.6 Nucleated RBC % (0 - 0 %) 0.0 Nucleated RBCs # (Man) (0.0 - 0.1 x10 3/uL) 0.0 0 Laboratory Tests 06/09 0354 Chemistry Magnesium (1.80 - 2.40 mg/dL) 2.05 Radiology data: Recent Impressions: RADIOLOGY - XR CHEST 1 V 06/09 0707 Report Impression - Status: SIGNED Entered: 06/09/2022 0849 IMPRESSION: Cardiomegaly with opacity at the left lung base and a small left pleural effusion. Impression By: Thaddeus Nicole Results: labs reviewed, vital signs reviewed, [facility] personally rev'd Telemetry Interpretation: sinus rhythm with PVCs Diagnosis, Assessment Plan Problem List/A P: 1. Aortic valve regurgitation 2. S/P aortic valve replacement with bioprosthe tic valve Plan discussed with: patient, family, nurse Free Text DxA P Notes Free Text DxA P Notes: Cardiology consultation for severe symptomatic a ortic valve regurgitation on this 61-year-old male with medical history of pa roxysmal atrial fibrillation, hypertension, symptomatic severe aortic valve re gurgitation. 1. Severe symptomatic aortic valve regurgitation 06/07/22: s/p SAVR (29 Inspiris bioprosth etic valve) with concomitant pulmonary vein isolation and amputation of left atrial navneet endage. continue DAPT, BB, statin Immediate postop care per CTS CXR noted ->diuresis per CTS 2. Paroxysmal atrial fibrillation Status post PVI and ALAA 3. Hypertension BP on upward trend continue BB Reinitiate antihypertensive meds as necessary at 1111 Electronically Signed by Kacey Brown MD on at 1048 RPT #:[id number] END OF REPORT 2022-06-09 09:59:00-00:[address] [facility] [place], [place] ([facility]) Clinical Note REPORT#:[id number] REPORT STATUS: Signed DATE:06/09/22 TIME: 0959 PATIENT: MARCIA HART UNIT #: [id number] ROOM/BED: [address] : 64 AGE: 61 SEX: M ATTEND: Ab selam Jamison MD ADM AUTHOR: Ruddy Pierce MD * ALL edits or amendments must be made on the [employer]/computer document * Clinical Note Note: STS RISK SCORES Procedure: Isolated AVR Risk of Mortality: 1.386% Renal Failure: 1.358% Permanent Stroke: 0.405% Prolonged Ventilation: 9.602% DSW Infection: 0.209% Reoperation: 3.437% Morbidity or Mortality: 13.380% Short Length of Stay: 45.830% Long Length of Stay: 3.872% Electronically Signed by Ruddy Pierce MD on 05/14 10/04 at 0959 RPT #:[id number] END OF REPORT 2022-06-09 05:55:00-00:00 [id number] [place] [address] PATIENT NAME: MARCIA HART ADMIT DATE: 06/07/22 ACCOUNT NO: [id number] ROOM NO: [facility] [place] AGE: 61 REPORT TYPE: eELECTROCARDIOGRAM REPORT SEX: M ADMITTING PHYSICIAN:Jarrod Jamison MD ATTENDING PHYSICIAN:Jarrod Jamison MD Order: [id number] Test Reason : P/S AVR Test Date/Time Stamp: SunJun 09 2022 05:55:35 Blood Pressure : / mmHG Vent. Rate : 068 BPM Atrial Rate : 068 BPM P-R Int : 294 ms QRS Dur : 128 ms QT Int : 408 ms P-R-T Axes : 029 035 015 degree s QTc Int : 433 ms Sinus rhythm with 1st degree AV block Nonspecific intraventricular block Minimal voltage criteria for LVH, may be normal variant ( Omi product ) Abnormal ECG When compared with ECG of 08-JUN-2022 04:40, No significant change was found Confirmed by MD ARMANDO GERARD ([id number]) on 06/10/19 23 4:09:33 PM Referred By: Sandro Jamison Confirmed by:CRISTA PHOENIX MD Electronically Signed by Crista Armando MD on 0 06/09/22 at 1609 PATIENT NAME: MARCIA HART 54 2022-06-08 09:38:00-00:00 [facility] Cardiology Progress Note REPORT#:[id number] REPORT STATUS: Signed DATE:06/08/22 TIME: 937 PATIENT: MARCIA HART UNIT #: [id number] ROOM/BED: [place] [address] : 64 AGE: 61 SEX: M ATTEND: Ashley Jamison MD ADM AUTHOR: Mesha Burciaga LAYOUT TECHNICIAN * ALL edits or amendments must be made on the [employer] document * Subjective Comments: OOB to chair, on NC, awake and alert. Objective General VS/I O: 24 hour I O ending at 0700: 06/08 0700 06/07 1900 Intake Total 2295.00 4040.00 Output Total 785 1105 Balance 1510.00 2935.00 Intake, IV 1445.00 3040.00 Intake, Oral 850 1000 Output, Chest 210 290 Tube Drainage Output, Urine 575 815 Patient 142.7 kg 141.5 kg Weight Weight Standing scale Bed scale Measurement Method Vital Signs: Date Time Temp Pulse Resp B/P B/P Pulse O2 O2 F low FiO2 Mean Ox Delivery Rate 06/09 0733 37.4 67 21 140/63 81 97 06/08 0830 37.4 66 23 115/69 85 96 06/08 0815 37.3 73 26 106/65 78 96 06/08 0803 96 Nasal 5 cannula 06/09 799 37.3 62 24 115/64 84 96 04/27 0745 37.3 61 23 122/71 91 97 04/27 0730 37.3 68 116/72 90 97 04/27 0715 37.3 64 110/68 83 95 04/27 0701 37.4 65 101/61 74 97 04/27 0700 37.3 65 111/55 69 97 04/27 0637 37.4 72 20 147/67 86 98 04/27 0630 142/65 83 04/27 0630 37.4 72 20 127/72 94 98 04/27 0615 132/62 79 04/27 0615 37.4 68 20 119/67 88 96 04/27 0600 125/56 74 04/27 0600 37.4 65 21 112/64 82 95 04/27 0545 122/58 74 04/27 0545 37.5 66 27 113/65 84 94 04/27 0535 125/64 78 04/27 0535 37.5 67 26 115/68 85 94 04/27 0527 126/61 77 04/27 0527 37.5 64 29 130/67 80 93 04/27 0500 130/63 80 04/27 0500 37.4 65 26 107/63 80 04/27 0445 125/62 77 04/27 0445 37.4 62 26 105/64 79 98 04/27 0430 115/59 73 04/27 0430 37.4 61 16 105/60 77 98 04/27 0415 117/59 74 04/27 0415 37.4 59 21 105/58 75 97 04/27 0400 119/59 74 04/27 0400 37.4 59 0 111/60 79 97 04/27 0345 115/58 72 04/27 0345 37.4 57 14 111/60 80 98 04/27 0330 118/58 73 04/27 0330 37.4 58 14 104/56 74 97 04/27 0315 117/57 72 04/27 0315 37.4 57 5 106/55 75 97 04/27 0300 106/54 67 04/27 0300 37.4 58 21 104/55 73 96 04/27 0300 58 96 45 04/27 0245 111/57 71 04/27 0245 37.4 59 20 106/57 75 96 04/27 0230 113/58 71 04/27 0230 37.4 60 20 105/59 76 96 04/27 0215 113/58 72 04/ 0215 37.4 60 21 109/59 78 96 04/ 0200 37.4 60 21 103/57 73 96 04/ 0145 110/56 70 04/ 0145 37.4 60 20 106/56 74 96 / 0130 112/57 71 04/ 0130 37.4 61 20 104/56 72 96 04/ 0119 114/58 72 04/ 0119 37.4 63 10 109/59 78 97 / 0101 99/52 64 04/ 0101 37.4 66 22 115/64 81 96 / 0045 110/56 69 04/ 0045 37.4 64 13 117/69 86 97 04/ 0030 110/57 71 04/ 0030 37.4 65 25 119/68 87 97 / 0015 110/55 68 04/ 0015 37.4 59 9 116/59 82 96 / 0000 117/58 72 04/ 0000 37.4 60 9 121/56 81 96 06/07 2345 118/58 73 04 2345 37.4 62 7 123/60 86 96 06/07 2330 122/58 75 06/07 2330 37.4 65 11 128/56 84 95 06/07 2315 124/58 74 04/ 2315 37.3 67 11 127/61 88 95 06/07 2309 77 96 45 06/07 2300 123/59 75 / 2300 37.4 70 10 127/60 87 95 06/07 2245 115/54 69 06/07 2245 37.4 70 14 126/58 84 94 06/07 2230 131/61 79 06/07 2230 37.4 80 11 142/63 90 96 06/07 2215 123/57 74 04 2215 37.5 77 16 126/59 85 94 06/07 2200 130/61 79 04/ 2200 37.5 80 21 128/60 87 95 06/07 2145 132/61 79 04/ 2145 37.5 80 20 134/61 88 95 06/07 2130 131/62 80 04/ 2130 37.5 82 28 136/60 86 94 06/07 2115 138/63 81 06/07 2115 37.5 79 12 153/67 97 94 06/07 2100 123/59 76 06/07 2100 37.5 80 16 130/59 88 95 06/075 124/62 79 06/07 2044 37.5 80 28 136/64 93 94 06/07 2030 135/63 81 06/07 2030 37.5 80 31 148/69 99 95 06/07 2014 139/62 82 06/07 2014 37.5 76 21 148/66 95 94 06/08 1999 142/62 82 06/08 1999 37.5 76 26 143/63 90 95 06/07 1957 Nasal 6 cannula 06/07 194 136/60 80 06/07 194 37.5 78 31 148/67 96 95 06/07 1930 137/60 79 06/07 1930 37.5 74 18 141/61 90 95 06/07 1930 75 95 06/07 1930 95 Nasal 4 cannula 06/07 191 142/64 83 06/07 1915 37.5 76 18 145/66 95 94 06/07 1900 135/61 80 06/07 1900 37.5 76 26 143/63 91 95 06/07 1730 37.4 75 26 129/63 90 96 06/07 1700 37.4 73 26 131/63 90 96 06/07 1630 37.2 74 24 133/58 85 95 06/07 1600 37.1 76 7 130/65 91 95 06/07 1539 93 High flow 5 nasal cannula 06/07 1530 37.0 75 18 129/61 88 93 06/07 1500 36.8 77 3 144/71 98 95 06/07 1400 36.6 80 24 146/69 99 92 06/07 1330 36.3 74 25 140/64 92 98 06/07 1300 BiPAP 60 06/07 1300 36.1 73 6 136/63 90 92 06/07 1255 73 93 60 06/07 1230 35.9 74 23 149/65 94 94 06/07 1200 35.9 67 24 149/66 97 94 06/07 1200 73 26 93 06/07 1200 75 94 50 06/07 1105 98 Ventilator 50 06/07 1105 69 98 50 PATIENT WEIGHT: Weight (lb): 314 Weight (oz): 9.59 Weight (kg): 142.700 Medications: Active Meds + DC'd Last 24 Hrs Cyanocobalamin (Vitamin B-12 500 mcg tab) 500 MC G DAILY PO Ferrous Sulfate (FERROUS SULFATE) 325 MG DAILY P O Ipratropium Julian (ATROVENT) 500 MCG RTQ2H PRN PRN INH Bisacodyl (DULCOLAX) 10 MG ONCE PRN RECTAL Magnesium Hydroxide (MILK OF MAGNESIA) 30 ML ONC E PRN PO Atorvastatin Calcium (LIPITOR) 40 MG 2100 PO Mupirocin (BACTROBAN 2% 22 GM OINTMENT) 1 APPLIC BID NASAL Polyethylene Glycol (MIRALAX) 17 GM DAILY PO Amiodarone HCl (CORDARONE) 200 MG TID PO Gabapentin (NEURONTIN) 200 MG BID PO Metoprolol Tartrate (LOPRESSOR) 12.5 MG Q12HR PO Sennosides (Senna Lax 8.6 MG TABLET) 17.2 MG BED TIME PO Tramadol HCl (ULTRAM) 50 MG QID PO Vancomycin HCl (VANCOMYCIN HCL) 1,000 MG Q12H IV (DC) Sodium Chloride (SODIUM CHLORIDE 0.9%) 250 ML Aspirin (ASPIRIN) 81 MG DAILY PO Ipratropium Julian (ATROVENT) 500 MCG RTQ4H INH Fentanyl Citrate (SUBLIMAZE) 0 .STK-MED ONE .ROU TE (DC) Sugammadex Sodium (BRIDION) 0 .STK-MED ONE IV (D C) Acetaminophen (TYLENOL) 650 MG Q4H PRN PRN PO Acetaminophen (TYLENOL) 650 MG Q4H PRN PRN RECTA L Albumin Human (ALBUMINAR 25%) 25 GM ASDIR PRN IV (DC) Calcium Chloride (CALCIUM CHLORIDE) 1 GM ASDIR P RN IV Cefazolin Sodium (KEFZOL OR ANCEF) 6 GM ONCE ONE IV (DC) Sodium Chloride (SODIUM CHLORIDE 0.9%) 500 ML Dextrose/Water (DEXTROSE 10% IN WATER) 125 ML DIR PRN IV (CKD) Dextrose/Water (DEXTROSE 10% IN WATER) 250 ML DIR PRN IV (CKD) Docusate Sodium (COLACE) 100 MG BID PO Epinephrine (ADRENALIN CHLORIDE) 4 MG ASDIR IV Dextrose/Water (DEXTROSE 5% WATER) 246 ML Glucagon (GLUCAGON) 1 MG ASDIR PRN IM Insulin Human Regular (HumuLIN R) 100 UNIT ASDIR IV (CKD) Sodium Chloride (SODIUM CHLORIDE 0.9%) 99 ML Magnesium Sulfate (MAGNESIUM SULFATE 4GM/SWFI 10 0ML) 100 ML ASDIR PRN IV Magnesium Sulfate (MAGNESIUM SULFATE 2GM/SWFI 50 ML) 50 ML ASDIR PRN IV Magnesium Sulfate/Dextrose (MAGNESIUM SULFATE 1G M/D5W 100ML) 100 ML ASDIR PRN IV Nitroglycerin/Dextrose (NITROGLYCERIN 50,000MCG/ D5W 250ML) 250 ML ASDIR IV Norepinephrine Bitartrate (NOREPINEPHRINE 8 MG/N S 250 ML) 250 ML TITRATE IV Ondansetron HCl (ZOFRAN) 4 MG Q6H PRN PRN IV Oxycodone HCl (ROXICODONE) 5 MG Q4H PRN PRN PO Potassium Chloride (KCL 20MEQ/SWFI 100ML) 100 ML ASDIR PRN IV Sodium Bicarbonate (SODIUM BICARBONATE) 50 MEQ A SDIR PRN IV Sodium Chloride (SODIUM CHLORIDE 0.9%) 1,000 ML .Q20H IV Sodium Chloride (SODIUM CHLORIDE 0.9%) 250 ML Q2 4H IV Lactated Ringer's (LACTATED RINGERS) 1,000 ML TN EOP ONCALL IV Lidocaine HCl (LIDOCAINE HCL/PF) 2 ML PREOP ONCA LL LOCAL Lidocaine HCl (LIDOCAINE HCL/PF) 2 ML PREOP ONCA LL LOCAL Sodium Chloride (SODIUM CHLORIDE 0.9%) 500 ML TN EOP ONCALL IV Sodium Chloride (SODIUM CHLORIDE 0.9%) 500 ML TN EOP ONCALL IV Sodium Chloride (SODIUM CHLORIDE 0.9%) 1,000 ML PREOP ONCALL IV Sodium Chloride (SODIUM CHLORIDE) 5 ML ASDIR PRN IV Sodium Chloride (SODIUM CHLORIDE) 10 ML ASDIR P RN IV Sodium Chloride (SODIUM CHLORIDE 0.9%) 250 ML DIR PRN IV Physical Exam General appearance: obese, alert, awake, oriente d Neck: non-tender Cardiovascular: CV assessment: regular rate and rhythm Respiratory: decreased breath sounds, on oxygen, no distress Abdomen: distended, non-tender Genitourinary: urinary catheter, urine Lower extremity: LE assessment: normal capillary refill, no didi a Musculoskeletal: normal inspection Skin: dry Psychiatry: normal affect, normal judgment/insig ht, normal mood Results Findings/Data: Laboratory Tests 06/08 06/08 06/07 06/07 0652 0308 6945 [id number] Blood Gas Puncture Site Art Line Art Line Art Line Art Li ne O2 Saturation (90 - 100 %) 96.1 96.1 94.5 96.1 ABG pH (7.35 - 7.45) 7.353 7.367 7.361 7.346 L ABG pCO2 (35.0 - 45 mmHg) 44.3 45.3 H 45.4 H 48 .0 H ABG pO2 (80 - 100.0 mmHg) 88.7 87.7 78.5 L 88.9 ABG PO2/FiO2 Ratio (mm/Hg) 194.88 ABG HCO3 (22.0 - 26.0 MMOL/L) 24.5 25.9 25.6 26 .2 H ABG Total CO2 25.9 27.3 26.9 27.7 ABG Base Excess (-4.0 - 4.0 MMOL/L) -0.9 0.7 0. 3 0.6 ABG Hematocrit (37.5 - 50.7 %) 47 45 44 43 ABG Hemoglobin (12.5 - 16.9 G/DL) 15.9 15.3 15. 1 14.7 Ronit Test N/A Sodium (134 - 147 mmol/L) 136 137 137 138 Potassium (3.4 - 5.0 mmol/L) 4.3 4.6 4.8 4.8 Chloride (100 - 108 mmol/L) 102 100 102 105 Ionized Calcium (1.12 - 1.32 MMOL/L) 1.23 1.27 1.28 1.28 Lactic Acid (0.9 - 1.7 mmol/l) 1.2 0.7 L 1.8 H 1.3 Temperature (F) 99.3 99.3 99.5 99 O2 Delivery Device Cannula BiPAP Cannula Cannul a Vent Rate (/MIN) 20 FiO2 (%) 45 Pressure Support (cmH2O) 7 06/07 06/07 06/07 06/07 1431 1232 1116 1035 Blood Gas Puncture Site Art Line Art Line Art Line O2 Saturation (90 - 100 %) 91.7 94.7 94.3 97.7 ABG pH (7.35 - 7.45) 7.284 *L 7.295 *L 7.322 L 7.348 L ABG pCO2 (35.0 - 45 mmHg) 57.4 *H 51.9 *H 51.0 *H 45.4 H ABG pO2 (80 - 100.0 mmHg) 70.7 L 78.7 L 77.9 L 105.0 H ABG PO2/FiO2 Ratio (mm/Hg) 157.40 155.80 ABG HCO3 (22.0 - 26.0 MMOL/L) 27.3 H 25.6 26.5 H 24.9 ABG Total CO2 29.1 27.3 28.0 26.3 ABG Base Excess (-4.0 - 4.0 0.5 -1.2 0.3 -1.0 MMOL/L) ABG Hematocrit (37.5 - 50.7 %) 46 46 45 42 ABG Hemoglobin (12.5 - 16.9 G/DL) 15.6 15.7 15. 2 14.2 Ronit Test N/A N/A N/A Sodium (134 - 147 mmol/L) 142 143 141 143 Potassium (3.4 - 5.0 mmol/L) 4.4 3.9 3.8 3.6 Chloride (100 - 108 mmol/L) 109 H 108 107 109 H Ionized Calcium (1.12 - 1.32 1.32 1.35 H 1.42 H 1.44 H MMOL/L) Lactic Acid (0.9 - 1.7 mmol/l) 1.5 1.8 H 2.0 H Temperature (F) 98 96.6 98 O2 Delivery Device Cannula Adult Vent Adult Gordy t Vent Mode CPAP/PS AC Vent Rate (/MIN) 20 FiO2 (%) 50 50 Tidal Volume (ml) 550 PEEP (cmH2O) 5 5 Pressure Support (cmH2O) 10 06/07 1020 Blood Gas O2 Saturation (90 - 100 %) 91.7 ABG pH (7.35 - 7.45) 7.340 L ABG pCO2 (35.0 - 45 mmHg) 47.9 H ABG pO2 (80 - 100.0 mmHg) 67.3 L ABG HCO3 (22.0 - 26.0 MMOL/L) 25.8 ABG Total CO2 27.3 ABG Base Excess (-4.0 - 4.0 MMOL/L) -0.5 ABG Hematocrit (37.5 - 50.7 %) 39 ABG Hemoglobin (12.5 - 16.9 G/DL) 13.3 Sodium (134 - 147 mmol/L) 143 Potassium (3.4 - 5.0 mmol/L) 3.9 Chloride (100 - 108 mmol/L) 107 Ionized Calcium (1.12 - 1.32 MMOL/L) 1.36 H Lactic Acid (0.9 - 1.7 mmol/l) 1.9 H Laboratory Tests 06/08 06/08 06/08 06/08 06/08 0652 [id number] 0304 0206 0018 Chemistry Sodium (134 - 147 mEq/L) 136 Potassium (3.4 - 5.0 mEq/L) 4.6 Chloride (100 - 108 mEq/L) 106 Carbon Dioxide (21 - 33 mEq/l) 27 Anion Gap (0 - 20) 8 BUN (7 - 18 mg/dL) 17 Creatinine (0.6 - 1.3 mg/dL) 1.1 POC Creatinine (0.8 - 1.3 mg/dL) 1.2 1.1 Glomerular Filtr Rate (90 - 95) 77.3 L Glucose (70 - 110 mg/dL) 115 H POC Glucose (70 - 110 MG/DL) 101 113 H POC Glucose (mg/dL) (70 - 110 MG/DL) 123 H 103 Calcium (8.0 - 10.5 mg/dL) 8.1 Magnesium (1.80 - 2.40 mg/dL) 2.20 Total Bilirubin (0.0 - 1.0 mg/dL) 0.50 Direct Bilirubin (0.0 - 0.30 MG/DL) 0.20 Indirect Bilirubin (MG/DL) 0.30 AST (15 - 37 IUnit/L) 60 H ALT (30 - 65 IUnit/L) 28 L Total Alk Phosphatase (20 - 125 47 IUnit/L) Total Protein (6.4 - 8.2 g/dL) 5.0 L Albumin (3.4 - 5.0 g/dL) 2.80 L 06/07 Chemistry Sodium (134 - 147 mEq/L) 135 Potassium (3.4 - 5.0 mEq/L) 4.7 Chloride (100 - 108 mEq/L) 106 Carbon Dioxide (21 - 33 mEq/l) 25 Anion Gap (0 - 20) 9 BUN (7 - 18 mg/dL) 16 Creatinine (0.6 - 1.3 mg/dL) 1.1 POC Creatinine (0.8 - 1.3 mg/dL) 1.2 1.0 Glomerular Filtr Rate (90 - 95) 77.3 L Glucose (70 - 110 mg/dL) 139 H POC Glucose (70 - 110 MG/DL) 133 H 131 H POC Glucose (mg/dL) (70 - 110 MG/DL) 132 H 140 H Calcium (8.0 - 10.5 mg/dL) 8.2 Magnesium (1.80 - 2.40 mg/dL) 2.00 06/07 06/07 06/07 06/07 06/07 1431 1303 1232 1214 1116 Chemistry POC Creatinine (0.8 - 1.3 mg/dL) 0.9 1.3 1.1 POC Glucose (70 - 110 MG/DL) 136 H 123 H POC Glucose (mg/dL) (70 - 110 MG/DL) 166 H 147 H 146 H 06/07 06/07 06/07 1115 1035 1020 Chemistry Sodium (134 - 147 mEq/L) 141 Potassium (3.4 - 5.0 mEq/L) 3.9 Chloride (100 - 108 mEq/L) 110 H Carbon Dioxide (21 - 33 mEq/l) 25 Anion Gap (0 - 20) 10 BUN (7 - 18 mg/dL) 16 Creatinine (0.6 - 1.3 mg/dL) 1.3 POC Creatinine (0.8 - 1.3 mg/dL) 1.4 H 1.4 H Glomerular Filtr Rate (90 - 95) 63.3 L Glucose (70 - 110 mg/dL) 142 H POC Glucose (mg/dL) (70 - 110 MG/DL) 145 H 147 H Calcium (8.0 - 10.5 mg/dL) 9.8 Magnesium (1.80 - 2.40 mg/dL) 3.14 H Laboratory Tests 06/07 06/07 1115 1021 Coagulation INR (0.8 - 1.2) 1.1 PTT ([place]) (25.0 - 39.5 Seconds) 32.5 PT Patient/Control Mix (9.3 - 12.9 SECONDS) 12. 8 Activated Coag Time (74 - 137 SEC) 125 Laboratory Tests 06/08 06/07 0310 1115 Hematology WBC (4.5 - 11.0 x10 3/uL) 14.4 H 20.5 H RBC (4.00 - 5.60 x10 6/uL) 4.88 5.27 Hgb (12.5 - 16.9 g/dL) 14.4 15.4 Hct (37.5 - 50.7 %) 42.6 45.7 MCV (81.0 - 99.0 fL) 87.3 86.7 MCH (27.0 - 33.0 pg) 29.5 29.2 MCHC (33.0 - 37.0 g/dL) 33.8 33.7 RDW (11.5 - 14.5 %) 12.3 12.0 Plt Count (150 - 400 x10 3/uL) 171 165 MPV (7.0 - 9.0 fL) 10.2 H 10.0 H Neut % (Auto) (56.0 - 77.0 %) 81.3 H 86.1 H Lymph % (Auto) (14.0 - 32.0 %) 7.4 L 8.1 L [place] % (Auto) (4.8 - 9.0 %) 10.6 H 4.0 L Eos % (Auto) (0.3 - 3.7 %) 0.1 L 0.6 Baso % (Auto) (0.0 - 2.0 %) 0.2 0.3 Neut # (Auto) (2.0 - 7.6 x10 3/uL) 11.69 H 17.6 1 H Lymph # (Auto) (1.0 - 3.8 x10 3/uL) 1.06 1.66 [place] # (Auto) (0.1 - 0.8 x10 3/uL) 1.53 H 0.81 H Eos # (Auto) (0.0 - 0.2 x10 3/uL) 0.02 0.13 Baso # (Auto) (0.0 - 0.2 x10 3/uL) 0.03 0.06 Abs Immat Gran (auto) (0.00 - 0.03 x10 3/uL) 0. 06 H 0.19 H Add Manual Diff NO NO Immature Gran % (0.0 - 2.0 %) 0.4 0.9 Nucleated RBC % (0 - 0 %) 0.0 0.0 Nucleated RBCs # (Man) (0.0 - 0.1 x10 3/uL) 0.0 0 0.00 Laboratory Tests 06/08 06/07 06/07 0310 2100 1115 Chemistry Magnesium (1.80 - 2.40 mg/dL) 2.20 2.00 3.14 H Radiology data: Recent Impressions: RADIOLOGY - XR CHEST 1 V 06/07 1201 Report Impression - Status: SIGNED Entered: 06/07/2022 1240 IMPRESSION: Post sternotomy. Endotracheal tube a nd right jugular central line satisfactory. Hypoventilation, with dependent left atelectasis , bilateral perihilar opacities which may be secondary to at electasis or pulmonary vascular congestion. No visible pneumothorax. Impression By: [email or web address] Grace Chaney. RADIOLOGY - XR CHEST 1 V 06/08 0520 Report Impression - Status: SIGNED Entered: 06/08/2022 0848 IMPRESSION: 1. Limited exam with decreased lung volumes. Hyp oventilatory changes accentuating pulmonary opacities with ed kathleen and inflammation in the differential. 2. Enlarged cardiomediastinal silhouette likely magnified by projection and low lung volumes. Close radiograp hic follow-up is suggested. If there is clinical concern, further imaging options include CT and echocardiography. 3. Opacification left base may reflect combinati on of atelectasis, consolidation and pleural effusion. Impression By: Boston Lee M.D. Results: labs reviewed, vital signs reviewed, [facility] personally rev'd Telemetry Interpretation: sinus rhythm, first degree AVB Diagnosis, Assessment Plan Problem List/A P: 1. Aortic valve regurgitation 2. S/P aortic valve replacement with bioprosthe tic valve Plan discussed with: patient, spouse/partner Free Text DxA P Notes Free Text DxA P Notes: Cardiology consultation for severe symptomatic a ortic valve regurgitation on this 61-year-old male with medical history of pa roxysmal atrial fibrillation, hypertension, symptomatic severe aortic valve re gurgitation. 1. Severe symptomatic aortic valve regurgitation 06/07/22: s/p SAVR (29 Inspiris bioprosth etic valve) with concomitant pulmonary vein isolation and amputation of left atrial navneet endage. continue DAPT, BB, statin Immediate postop care per CTS appear volume overloaded, positive fluid balance , CXR noted, need diuretic - defer to CTS 2. Paroxysmal atrial fibrillation Status post PVI and ALAA 3. Hypertension Monitor off antihypertensive medications Reinitiate antihypertensive meds as necessary at 0946 Electronically Signed by Kacey Brown MD on at 1047 RPT #:[id number] END OF REPORT 2022-06-08 09:26:00-00:00 [facility]) Critical Care Progress Note REPORT#:[id number] REPORT STATUS: Signed DATE:06/08/22 TIME: 925 PATIENT: MARCIA HART UNIT #: [id number] ROOM/BED: [place] [id number] : 62 AGE: 61 SEX: M ATTEND: Ashley Jamison MD ADM AUTHOR: Edie Powell MD * ALL edits or amendments must be made on the [employer]/computer document * Subjective Chief complaint: AVR HPI: 61-year-old male with history of HTN, PAF on Bianca tyrone and severe aortic regurgitation who presented with progressive liz rtness of breath. Left heart cath last year showed normal coronaries. Patient underwent AVR (29 Inspiris), PVI and ALAA today on 023. Has mildly depressed EF 45%. Crystalloid 1.5 L, Cell Saver 850, autologous blood 500, urine outp ut 500. Surgery went well and patient was transferred to CVICU postop in a sta ble surgical condition. He is currently intubated on insulin drip. Comments: Extubated yesterday, used BiPAP Out of bed in the chair this a.m. Urine output 650 cc overnight CTs output 140/90 cc On insulin drip Objective General VS/I O Last Documented: Result Date Time Pulse Ox 97 06/08 0833 B/P 140/63 06/08 0833 B/P Mean 81 06/08 0833 Temp 99.3 06/08 0833 Pulse 67 06/08 0833 Resp 21 06/08 0833 O2 Delivery Nasal cannula 06/08 0803 O2 Flow Rate 5 06/08 0803 FiO2 45 06/08 0300 24 hour I O ending at 0700: 06/08 0700 06/07 1900 Intake Total 2295.00 4040.00 Output Total 785 1105 Balance 1510.00 2935.00 Intake, IV 1445.00 3040.00 Intake, Oral 850 1000 Output, Chest 210 290 Tube Drainage Output, Urine 575 815 Patient 142.7 kg 141.5 kg Weight Weight Standing scale Bed scale Measurement Method PATIENT WEIGHT: Weight (lb): 314 Weight (oz): 9.59 Weight (kg): 142.700 Medications: Active Meds + DC'd Last 24 Hrs Cyanocobalamin (Vitamin B-12 500 mcg tab) 500 MC G DAILY PO Ferrous Sulfate (FERROUS SULFATE) 325 MG DAILY P O Ipratropium Julian (ATROVENT) 500 MCG RTQ2H PRN PRN INH Bisacodyl (DULCOLAX) 10 MG ONCE PRN RECTAL Magnesium Hydroxide (MILK OF MAGNESIA) 30 ML ONC E PRN PO Atorvastatin Calcium (LIPITOR) 40 MG 2100 PO Mupirocin (BACTROBAN 2% 22 GM OINTMENT) 1 APPLIC BID NASAL Polyethylene Glycol (MIRALAX) 17 GM DAILY PO Amiodarone HCl (CORDARONE) 200 MG TID PO Gabapentin (NEURONTIN) 200 MG BID PO Metoprolol Tartrate (LOPRESSOR) 12.5 MG Q12HR PO Sennosides (Senna Lax 8.6 MG TABLET) 17.2 MG BED TIME PO Tramadol HCl (ULTRAM) 50 MG QID PO Vancomycin HCl (VANCOMYCIN HCL) 1,000 MG Q12H IV (DC) Sodium Chloride (SODIUM CHLORIDE 0.9%) 250 ML Aspirin (ASPIRIN) 81 MG DAILY PO Ipratropium Julian (ATROVENT) 500 MCG RTQ4H INH Fentanyl Citrate (SUBLIMAZE) 0 .STK-MED ONE .ROU TE (DC) Sugammadex Sodium (BRIDION) 0 .STK-MED ONE IV (D C) Acetaminophen (TYLENOL) 650 MG Q4H PRN PRN PO Acetaminophen (TYLENOL) 650 MG Q4H PRN PRN RECTA L Albumin Human (ALBUMINAR 25%) 25 GM ASDIR PRN IV (DC) Calcium Chloride (CALCIUM CHLORIDE) 1 GM ASDIR P RN IV Cefazolin Sodium (KEFZOL OR ANCEF) 6 GM ONCE ONE IV (DC) Sodium Chloride (SODIUM CHLORIDE 0.9%) 500 ML Dextrose/Water (DEXTROSE 10% IN WATER) 125 ML DIR PRN IV (CKD) Dextrose/Water (DEXTROSE 10% IN WATER) 250 ML DIR PRN IV (CKD) Docusate Sodium (COLACE) 100 MG BID PO Epinephrine (ADRENALIN CHLORIDE) 4 MG ASDIR IV Dextrose/Water (DEXTROSE 5% WATER) 246 ML Glucagon (GLUCAGON) 1 MG ASDIR PRN IM Insulin Human Regular (HumuLIN R) 100 UNIT ASDIR IV (CKD) Sodium Chloride (SODIUM CHLORIDE 0.9%) 99 ML Magnesium Sulfate (MAGNESIUM SULFATE 4GM/SWFI 10 0ML) 100 ML ASDIR PRN IV Magnesium Sulfate (MAGNESIUM SULFATE 2GM/SWFI 50 ML) 50 ML ASDIR PRN IV Magnesium Sulfate/Dextrose (MAGNESIUM SULFATE 1G M/D5W 100ML) 100 ML ASDIR PRN IV Nitroglycerin/Dextrose (NITROGLYCERIN 50,000MCG/ D5W 250ML) 250 ML ASDIR IV Norepinephrine Bitartrate (NOREPINEPHRINE 8 MG/N S 250 ML) 250 ML TITRATE IV Ondansetron HCl (ZOFRAN) 4 MG Q6H PRN PRN IV Oxycodone HCl (ROXICODONE) 5 MG Q4H PRN PRN PO Potassium Chloride (KCL 20MEQ/SWFI 100ML) 100 ML ASDIR PRN IV Sodium Bicarbonate (SODIUM BICARBONATE) 50 MEQ A SDIR PRN IV Sodium Chloride (SODIUM CHLORIDE 0.9%) 1,000 ML .Q20H IV Sodium Chloride (SODIUM CHLORIDE 0.9%) 250 ML Q2 4H IV Lactated Ringer's (LACTATED RINGERS) 1,000 ML TN EOP ONCALL IV Lidocaine HCl (LIDOCAINE HCL/PF) 2 ML PREOP ONCA LL LOCAL Lidocaine HCl (LIDOCAINE HCL/PF) 2 ML PREOP ONCA LL LOCAL Sodium Chloride (SODIUM CHLORIDE 0.9%) 500 ML TN EOP ONCALL IV Sodium Chloride (SODIUM CHLORIDE 0.9%) 500 ML TN EOP ONCALL IV Sodium Chloride (SODIUM CHLORIDE 0.9%) 1,000 ML PREOP ONCALL IV Sodium Chloride (SODIUM CHLORIDE) 5 ML ASDIR PRN IV Sodium Chloride (SODIUM CHLORIDE) 10 ML ASDIR TN N IV Sodium Chloride (SODIUM CHLORIDE 0.9%) 250 ML DIR PRN IV Results Findings/data: Laboratory Tests 06/08 06/08 06/07 06/07 0652 0685 2082 1736 Blood Gas Puncture Site Art Line Art Line Art Line Art Li ne O2 Saturation (90 - 100 %) 96.1 96.1 94.5 96.1 ABG pH (7.35 - 7.45) 7.353 7.367 7.361 7.346 L ABG pCO2 (35.0 - 45 mmHg) 44.3 45.3 H 45.4 H 48 .0 H ABG pO2 (80 - 100.0 mmHg) 88.7 87.7 78.5 L 88. 9 ABG PO2/FiO2 Ratio (mm/Hg) 194.88 ABG HCO3 (22.0 - 26.0 MMOL/L) 24.5 25.9 25.6 26 .2 H ABG Total CO2 25.9 27.3 26.9 27.7 ABG Base Excess (-4.0 - 4.0 MMOL/L) -0.9 0.7 0. 3 0.6 ABG Hematocrit (37.5 - 50.7 %) 47 45 44 43 ABG Hemoglobin (12.5 - 16.9 G/DL) 15.9 15.3 15. 1 14.7 Ronit Test N/A Sodium (134 - 147 mmol/L) 136 137 137 138 Potassium (3.4 - 5.0 mmol/L) 4.3 4.6 4.8 4.8 Chloride (100 - 108 mmol/L) 102 100 102 105 Ionized Calcium (1.12 - 1.32 MMOL/L) 1.23 1.27 1.28 1.28 Lactic Acid (0.9 - 1.7 mmol/l) 1.2 0.7 L 1.8 H 1.3 Temperature (F) 99.3 99.3 99.5 99 O2 Delivery Device Cannula BiPAP Cannula Cannul a Vent Rate (/MIN) 20 FiO2 (%) 45 Pressure Support (cmH2O) 7 06/07 06/07 06/07 06/07 1431 1232 1116 1035 Blood Gas Puncture Site Art Line Art Line Art Line O2 Saturation (90 - 100 %) 91.7 94.7 94.3 97.7 ABG pH (7.35 - 7.45) 7.284 *L 7.295 *L 7.322 L 7.348 L ABG pCO2 (35.0 - 45 mmHg) 57.4 *H 51.9 *H 51.0 *H 45.4 H ABG pO2 (80 - 100.0 mmHg) 70.7 L 78.7 L 77.9 L 105.0 H ABG PO2/FiO2 Ratio (mm/Hg) 157.40 155.80 ABG HCO3 (22.0 - 26.0 MMOL/L) 27.3 H 25.6 26.5 H 24.9 ABG Total CO2 29.1 27.3 28.0 26.3 ABG Base Excess (-4.0 - 4.0 MMOL/L) 0.5 -1.2 0. 3 -1.0 ABG Hematocrit (37.5 - 50.7 %) 46 46 45 42 ABG Hemoglobin (12.5 - 16.9 G/DL) 15.6 15.7 15. 2 14.2 Ronit Test N/A N/A N/A Sodium (134 - 147 mmol/L) 142 143 141 143 Potassium (3.4 - 5.0 mmol/L) 4.4 3.9 3.8 3.6 Chloride (100 - 108 mmol/L) 109 H 108 107 109 H Ionized Calcium (1.12 - 1.32 1.32 1.35 H 1.42 H 1.44 H MMOL/L) Lactic Acid (0.9 - 1.7 mmol/l) 1.5 1.8 H 2.0 H Temperature (F) 98 96.6 98 O2 Delivery Device Cannula Adult Vent Adult Gordy t Vent Mode CPAP/PS AC Vent Rate (/MIN) 20 FiO2 (%) 50 50 Tidal Volume (ml) 550 PEEP (cmH2O) 5 5 Pressure Support (cmH2O) 10 06/07 1020 Blood Gas O2 Saturation (90 - 100 %) 91.7 ABG pH (7.35 - 7.45) 7.340 L ABG pCO2 (35.0 - 45 mmHg) 47.9 H ABG pO2 (80 - 100.0 mmHg) 67.3 L ABG HCO3 (22.0 - 26.0 MMOL/L) 25.8 ABG Total CO2 27.3 ABG Base Excess (-4.0 - 4.0 MMOL/L) -0.5 ABG Hematocrit (37.5 - 50.7 %) 39 ABG Hemoglobin (12.5 - 16.9 G/DL) 13.3 Sodium (134 - 147 mmol/L) 143 Potassium (3.4 - 5.0 mmol/L) 3.9 Chloride (100 - 108 mmol/L) 107 Ionized Calcium (1.12 - 1.32 MMOL/L) 1.36 H Lactic Acid (0.9 - 1.7 mmol/l) 1.9 H Laboratory Tests 06/08 06/08 06/08 06/08 06/08 0652 0310 0304 0206 0018 Chemistry Sodium (134 - 147 mEq/L) 136 Potassium (3.4 - 5.0 mEq/L) 4.6 Chloride (100 - 108 mEq/L) 106 Carbon Dioxide (21 - 33 mEq/l) 27 Anion Gap (0 - 20) 8 BUN (7 - 18 mg/dL) 17 Creatinine (0.6 - 1.3 mg/dL) 1.1 POC Creatinine (0.8 - 1.3 mg/dL) 1.2 1.1 Glomerular Filtr Rate (90 - 95) 77.3 L Glucose (70 - 110 mg/dL) 115 H POC Glucose (70 - 110 MG/DL) 101 113 H POC Glucose (mg/dL) (70 - 110 MG/DL) 123 H 103 Calcium (8.0 - 10.5 mg/dL) 8.1 Magnesium (1.80 - 2.40 mg/dL) 2.20 Total Bilirubin (0.0 - 1.0 mg/dL) 0.50 Direct Bilirubin (0.0 - 0.30 MG/DL) 0.20 Indirect Bilirubin (MG/DL) 0.30 AST (15 - 37 IUnit/L) 60 H ALT (30 - 65 IUnit/L) 28 L Total Alk Phosphatase (20 - 125 IUnit/L) 47 Total Protein (6.4 - 8.2 g/dL) 5.0 L Albumin (3.4 - 5.0 g/dL) 2.80 L 06/07 Chemistry Sodium (134 - 147 mEq/L) 135 Potassium (3.4 - 5.0 mEq/L) 4.7 Chloride (100 - 108 mEq/L) 106 Carbon Dioxide (21 - 33 mEq/l) 25 Anion Gap (0 - 20) 9 BUN (7 - 18 mg/dL) 16 Creatinine (0.6 - 1.3 mg/dL) 1.1 POC Creatinine (0.8 - 1.3 mg/dL) 1.2 1.0 Glomerular Filtr Rate (90 - 95) 77.3 L Glucose (70 - 110 mg/dL) 139 H POC Glucose (70 - 110 MG/DL) 133 H 131 H POC Glucose (mg/dL) (70 - 110 MG/DL) 132 H 140 H Calcium (8.0 - 10.5 mg/dL) 8.2 Magnesium (1.80 - 2.40 mg/dL) 2.00 06/07 06/07 06/07 06/07 06/07 1431 1303 1232 1214 1116 Chemistry POC Creatinine (0.8 - 1.3 mg/dL) 0.9 1.3 1.1 POC Glucose (70 - 110 MG/DL) 136 H 123 H POC Glucose (mg/dL) (70 - 110 MG/DL) 166 H 147 H 146 H 06/07 06/07 06/07 1115 1035 1020 Chemistry Sodium (134 - 147 mEq/L) 141 Potassium (3.4 - 5.0 mEq/L) 3.9 Chloride (100 - 108 mEq/L) 110 H Carbon Dioxide (21 - 33 mEq/l) 25 Anion Gap (0 - 20) 10 BUN (7 - 18 mg/dL) 16 Creatinine (0.6 - 1.3 mg/dL) 1.3 POC Creatinine (0.8 - 1.3 mg/dL) 1.4 H 1.4 H Glomerular Filtr Rate (90 - 95) 63.3 L Glucose (70 - 110 mg/dL) 142 H POC Glucose (mg/dL) (70 - 110 MG/DL) 145 H 147 H Calcium (8.0 - 10.5 mg/dL) 9.8 Magnesium (1.80 - 2.40 mg/dL) 3.14 H Laboratory Tests 06/07 06/07 1115 1021 Coagulation INR (0.8 - 1.2) 1.1 PTT ([place]) (25.0 - 39.5 Seconds) 32.5 PT Patient/Control Mix (9.3 - 12.9 SECONDS) 12. 8 Activated Coag Time (74 - 137 SEC) 125 Laboratory Tests 06/08 06/07 0310 1115 Hematology WBC (4.5 - 11.0 x10 3/uL) 14.4 H 20.5 H RBC (4.00 - 5.60 x10 6/uL) 4.88 5.27 Hgb (12.5 - 16.9 g/dL) 14.4 15.4 Hct (37.5 - 50.7 %) 42.6 45.7 MCV (81.0 - 99.0 fL) 87.3 86.7 MCH (27.0 - 33.0 pg) 29.5 29.2 MCHC (33.0 - 37.0 g/dL) 33.8 33.7 RDW (11.5 - 14.5 %) 12.3 12.0 Plt Count (150 - 400 x10 3/uL) 171 165 MPV (7.0 - 9.0 fL) 10.2 H 10.0 H Neut % (Auto) (56.0 - 77.0 %) 81.3 H 86.1 H Lymph % (Auto) (14.0 - 32.0 %) 7.4 L 8.1 L [place] % (Auto) (4.8 - 9.0 %) 10.6 H 4.0 L Eos % (Auto) (0.3 - 3.7 %) 0.1 L 0.6 Baso % (Auto) (0.0 - 2.0 %) 0.2 0.3 Neut # (Auto) (2.0 - 7.6 x10 3/uL) 11.69 H 17.6 1 H Lymph # (Auto) (1.0 - 3.8 x10 3/uL) 1.06 1.66 [place] # (Auto) (0.1 - 0.8 x10 3/uL) 1.53 H 0.81 H Eos # (Auto) (0.0 - 0.2 x10 3/uL) 0.02 0.13 Baso # (Auto) (0.0 - 0.2 x10 3/uL) 0.03 0.06 Abs Immat Gran (auto) (0.00 - 0.03 x10 3/uL) 0. 06 H 0.19 H Add Manual Diff NO NO Immature Gran % (0.0 - 2.0 %) 0.4 0.9 Nucleated RBC % (0 - 0 %) 0.0 0.0 Nucleated RBCs # (Man) (0.0 - 0.1 x10 3/uL) 0.0 0 0.00 Laboratory Tests 06/08/22 0310: [Embedded Image Not Available] 06/07/22 2100: [Embedded Image Not Available] 06/07/22 1115: [Embedded Image Not Available] Microbiology: 06/06 818 NASAL: MSSA Surveillance Screen - COM P 06/06 818 NASAL: MRSA DNA Surveillance Screen - COMP Radiology data Recent Impressions: RADIOLOGY - XR CHEST 1 V 06/07 1201 Report Impression - Status: SIGNED Entered: 06/07/2022 1240 IMPRESSION: Post sternotomy. Endotracheal tube a nd right jugular central line satisfactory. Hypoventilation, with dependent left atelectasis , bilateral perihilar opacities which may be secondary to at electasis or pulmonary vascular congestion. No visible pneumothorax. Impression By: Grace Ly RADIOLOGY - XR CHEST 1 V 06/08 0520 Report Impression - Status: SIGNED Entered: 06/08/2022 0848 IMPRESSION: 1. Limited exam with decreased lung volumes. Hyp oventilatory changes accentuating pulmonary opacities with ed kathleen and inflammation in the differential. 2. Enlarged cardiomediastinal silhouette likely magnified by projection and low lung volumes. Close radiograp hic follow-up is suggested. If there is clinical concern, further imaging options include CT and echocardiography. 3. Opacification left base may reflect combinati on of atelectasis, consolidation and pleural effusion. Impression By: Boston Lee M.D. Free Text Obj Notes Free Text Obj Notes: General appearance: Elderly male in no acute dis tress, interactive and conversational HEENT: atraumatic, normocephalic, dry mucosal me mbranes Neck: full range of motion, supple/no meningismu s Cardiovascular: S1-S2 regular rate and rhythm Respiratory: symmetric expansion, no acute respi ratory distress Abdomen: soft, non-tender, no distention, no gua rding Genitourinary: suero with clear urine Extremities: pedal pulses palpable, moves all, n o clubbing, no cyanosis, no edema Musculoskeletal: normal inspection, no muscle sp asm Neuro/TELEPHOTO ENGINEER: Alert and oriented x3, CNII-XII gross ly intact, no motor deficits Skin: dry, intact and clean surgery dressing Treatment Prophylaxis Treatment Prophylaxis Drain(s)/tube(s): Drain(s)/tube(s): chest Diagnosis, Assessment Plan Problem list/A P: 1. Aortic valve regurgitation 2. S/P aortic valve replacement with bioprosthe tic valve 3. Hypercapnia 4. Postoperative pulmonary dysfunction after ca rdiac surgery Free text A P: 61-year-old male with history of HTN, PAF on Bianca tyrone and severe aortic regurgitation who presented with progressive liz rtness of breath. Left heart cath last year showed normal coronaries. Patient underwent AVR (29 Inspiris), PVI and ALAA today on 023. Has mildly depressed EF 45%. Crystalloid 1.5 L, Cell Saver 850, autologous blood 500, urine outp ut 500. Surgery went well and patient was transferred to CVICU postop in a sta ble surgical condition. He is currently intubated on insulin drip. Neuro: Appears intact, keep off sedation, multim odal pain control Respiratory: Sats well, tolerating CPAP trial, m ildly hypercapnic, plan for extubation to BiPAP, will obtain serial ABGs, CX R reviewed Cardiovascular: HD stable not on vasopressors, k eep CTs to suction Renal: strict I/Os, monitor Cr and electrolytes, resuscitate as needed GI: bedside swallow then ora l diet if remains off BiPAP after extubation, bowel regimen ID: reactive leukocytosis, trend WBC, co ntinue periop antibiotics per protocol Hem: monitor Hgb and CTs output, no active bleed ing, transfuse as needed Endo: Blood glucose control with insulin gtt per protocol Misc: PT and OT consult, DVT prophylaxis with SC Ds 06/08 Remains neuro intact, continue multimodal pain c ontrol Sats well, weaned off BiPAP, hypercapnia resolve d, encourage IS, ABG and CXR reviewed Remained HD stable not on vasopressors, continue current medications Cr stable, good urine output, mild lactic acidos is cleared Oral diet as tolerated, continue bowel regimen, trend LFTs Leukocytosis with downtrending WBC, given periop antibiotics Hgb appears stable, no evidence of active bleed, monitor CTs output Blood glucose control with insulin drip, transit ion to sliding scale insulin Encourage PT/OT and out of bed as tolerated, DVT prophylaxis with SCDs Plan discussed with: patient, family, co nsultants, nurse, interdisc care team, pharmacy/pharmacist Critical care time: Minutes: 37 Electronically Signed by Edie Powell MD on 05/14 11/04 at 0810 [facility] #:[id number] END OF REPORT 2022-06-08 06:29:00-00:00 [facility] Cardiothoracic Surgery Prog REPORT#:[id number] REPORT STATUS: Signed DATE:06/08/22 TIME: 628 PATIENT: MARCIA HART UNIT #: [id number] ROOM/BED: [place] [id number] : 62 AGE: 61 SEX: M ATTEND: Ashley Jamison MD ADM AUTHOR: Nikole Vasquez Physic * ALL edits or amendments must be made on the [employer]/computer document * General Post-op: day 1 Status post: 06/07/22 1. Aortic valve replacement (29 Inspiris valve). 2. Pulmonary vein isolation. 3. Amputation of left atrial appendage. Subjective Chief complaint: Aortic stenosis s/p AVR Review of Systems Constitutional: Denies: fatigue, fever, generalized weakness. Skin: Denies: bruising, contusion. Allergy/Immun: Denies: itching, rhinorrhea. Eyes: Denies: itching, diplopia, eye pain. Respiratory: Denies: ARIAS (dyspnea on exertion), hemoptysis, n on productive cough. Cardiovascular: Denies: chest pain, ARIAS (dyspnea on exertion). GI: Denies: constipation, diarrhea. : Denies: dysuria, hematuria. Musculoskeletal: Denies: joint pain, joint swelling. Heme: Denies: bleeding, bruising. Endocrine: Denies: polydipsia, polyuria. Neuro: Denies: confusion, dizziness. All systems rev neg: except as marked Objective General VS/I O Last Documented: Result Date Time Pulse Ox 96 06/08 0300 FiO2 45 06/08 0300 Pulse 58 06/08 0300 B/P 131/61 06/07 2229 B/P Mean 79 06/07 2229 Temp 99.3 06/07 2229 Resp 11 06/07 2229 O2 Delivery Nasal cannula 06/07 1957 O2 Flow Rate 6 06/07 1957 24 hour I O ending at 0700: 06/08 0700 06/07 1900 Intake Total 2295.00 4040.00 Output Total 785 1105 Balance 1510.00 2935.00 Intake, IV 1445.00 3040.00 Intake, Oral 850 1000 Output, Chest 210 290 Tube Drainage Output, Urine 575 815 Patient 142.7 kg 141.5 kg Weight Weight Standing scale Bed scale Measurement Method PATIENT WEIGHT: Weight (lb): 314 Weight (oz): 9.59 Weight (kg): 142.700 Dietitian Nutrition assessment The data set between the solid lines has been im ported from the dietitian's assessment. BMI Calculated: 40.4 Nutrition related diagnosis: Nutrition diagnosis details: Nutrition problem: Nutrition etiology: Nutrition signs and symptoms: Nutrition prescription: Dietitian name: Assessment completed: Physical Exam General appearance: alert, awake, oriented Wound/incision: Location: Sternum dry Site condition: dressing clean dry, dressing in tact Neck: full range of motion, non-tender Cardiovascular: BP/pulses equal bilat., normal h eart sounds, regular rate rhythm Respiratory: aerating well, clear to auscultatio n Abdomen: soft, non-tender Extremities: dry, moves all Musculoskeletal: full range of motion Neuro/TELEPHOTO ENGINEER: alert, oriented X 3 Skin: dry, intact Psychiatry: normal affect, normal mood Current Medications Medications: Active Meds + DC'd Last 24 Hrs Cyanocobalamin (Vitamin B-12 500 mcg tab) 500 MC G DAILY PO Ferrous Sulfate (FERROUS SULFATE) 325 MG DAILY P O Ipratropium Julian (ATROVENT) 500 MCG RTQ2H PRN PRN INH Bisacodyl (DULCOLAX) 10 MG ONCE PRN RECTAL Magnesium Hydroxide (MILK OF MAGNESIA) 30 ML ONC E PRN PO Atorvastatin Calcium (LIPITOR) 40 MG 2100 PO Mupirocin (BACTROBAN 2% 22 GM OINTMENT) 1 APPLIC BID NASAL Polyethylene Glycol (MIRALAX) 17 GM DAILY PO Amiodarone HCl (CORDARONE) 200 MG TID PO Gabapentin (NEURONTIN) 200 MG BID PO Metoprolol Tartrate (LOPRESSOR) 12.5 MG Q12HR PO Sennosides (Senna Lax 8.6 MG TABLET) 17.2 MG BED TIME PO Tramadol HCl (ULTRAM) 50 MG QID PO Vancomycin HCl (VANCOMYCIN HCL) 1,000 MG Q12H IV (DC) Sodium Chloride (SODIUM CHLORIDE 0.9%) 250 ML Aspirin (ASPIRIN) 81 MG DAILY PO Ipratropium Julian (ATROVENT) 500 MCG RTQ4H INH Fentanyl Citrate (SUBLIMAZE) 0 .STK-MED ONE .ROU TE (DC) Sugammadex Sodium (BRIDION) 0 .STK-MED ONE IV ( DC) Acetaminophen (TYLENOL) 650 MG Q4H PRN PRN PO Acetaminophen (TYLENOL) 650 MG Q4H PRN PRN RECTA L Albumin Human (ALBUMINAR 25%) 25 GM ASDIR PRN IV Calcium Chloride (CALCIUM CHLORIDE) 1 GM ASDIR P RN IV Cefazolin Sodium (KEFZOL OR ANCEF) 6 GM ONCE ONE IV (DC) Sodium Chloride (SODIUM CHLORIDE 0.9%) 500 ML Dextrose/Water (DEXTROSE 10% IN WATER) 125 ML DIR PRN IV (CKD) Dextrose/Water (DEXTROSE 10% IN WATER) 250 ML DIR PRN IV (CKD) Docusate Sodium (COLACE) 100 MG BID PO Epinephrine (ADRENALIN CHLORIDE) 4 MG ASDIR IV Dextrose/Water (DEXTROSE 5% WATER) 246 ML Glucagon (GLUCAGON) 1 MG ASDIR PRN IM Insulin Human Regular (HumuLIN R) 100 UNIT ASDIR IV (CKD) Sodium Chloride (SODIUM CHLORIDE 0.9%) 99 ML Magnesium Sulfate (MAGNESIUM SULFATE 4GM/SWFI 10 0ML) 100 ML ASDIR PRN IV Magnesium Sulfate (MAGNESIUM SULFATE 2GM/SWFI 50 ML) 50 ML ASDIR PRN IV Magnesium Sulfate/Dextrose (MAGNESIUM SULFATE 1G M/D5W 100ML) 100 ML ASDIR PRN IV Nitroglycerin/Dextrose (NITROGLYCERIN 50,000MCG/ D5W 250ML) 250 ML ASDIR IV Norepinephrine Bitartrate (NOREPINEPHRINE 8 MG/N S 250 ML) 250 ML TITRATE IV Ondansetron HCl (ZOFRAN) 4 MG Q6H PRN PRN IV Oxycodone HCl (ROXICODONE) 5 MG Q4H PRN PRN PO Potassium Chloride (KCL 20MEQ/SWFI 100ML) 100 ML ASDIR PRN IV Sodium Bicarbonate (SODIUM BICARBONATE) 50 MEQ A SDIR PRN IV Sodium Chloride (SODIUM CHLORIDE 0.9%) 1,000 ML .Q20H IV Sodium Chloride (SODIUM CHLORIDE 0.9%) 250 ML Q 24H IV Isoflurane (FORANE) 0 .STK-MED ONE INH (DC) Rocuronium Julian (ZEMURON) 0 .STK-MED ONE IV ( DC) Acetaminophen (TYLENOL EXTRA STRENGTH) 1,000 MG PREOP ONCALL PO (DC) Gabapentin (NEURONTIN) 200 MG PREOP ONCALL PO (D C) Lactated Ringer's (LACTATED RINGERS) 1,000 ML TN EOP ONCALL IV Lidocaine HCl (LIDOCAINE HCL/PF) 2 ML PREOP ONCA LL LOCAL Lidocaine HCl (LIDOCAINE HCL/PF) 2 ML PREOP ONCA LL LOCAL Sodium Chloride (SODIUM CHLORIDE 0.9%) 500 ML TN EOP ONCALL IV Sodium Chloride (SODIUM CHLORIDE 0.9%) 500 ML TN EOP ONCALL IV Sodium Chloride (SODIUM CHLORIDE 0.9%) 1,000 ML PREOP ONCALL IV Sodium Chloride (SODIUM CHLORIDE) 5 ML ASDIR PRN IV Sodium Chloride (SODIUM CHLORIDE) 10 ML ASDIR TN N IV Sodium Chloride (SODIUM CHLORIDE 0.9%) 250 ML DIR PRN IV Results Findings/Data: Laboratory Tests 06/08 06/08 06/07 06/07 0652 0659 4427 1868 Blood Gas Puncture Site Art Line Art Line Art Line Art Li ne O2 Saturation (90 - 100 %) 96.1 96.1 94.5 96.1 ABG pH (7.35 - 7.45) 7.353 7.367 7.361 7.346 L ABG pCO2 (35.0 - 45 mmHg) 44.3 45.3 H 45.4 H 48 .0 H ABG pO2 (80 - 100.0 mmHg) 88.7 87.7 78.5 L 88. 9 ABG PO2/FiO2 Ratio (mm/Hg) 194.88 ABG HCO3 (22.0 - 26.0 MMOL/L) 24.5 25.9 25.6 26 .2 H ABG Total CO2 25.9 27.3 26.9 27.7 ABG Base Excess (-4.0 - 4.0 MMOL/L) -0.9 0.7 0. 3 0.6 ABG Hematocrit (37.5 - 50.7 %) 47 45 44 43 ABG Hemoglobin (12.5 - 16.9 G/DL) 15.9 15.3 15. 1 14.7 Ronit Test N/A Sodium (134 - 147 mmol/L) 136 137 137 138 Potassium (3.4 - 5.0 mmol/L) 4.3 4.6 4.8 4.8 Chloride (100 - 108 mmol/L) 102 100 102 105 Ionized Calcium (1.12 - 1.32 MMOL/L) 1.23 1.27 1.28 1.28 Lactic Acid (0.9 - 1.7 mmol/l) 1.2 0.7 L 1.8 H 1.3 Temperature (F) 99.3 99.3 99.5 99 O2 Delivery Device Cannula BiPAP Cannula Cannul a Vent Rate (/MIN) 20 FiO2 (%) 45 Pressure Support (cmH2O) 7 06/07 06/07 06/07 06/07 1431 1232 1116 1035 Blood Gas Puncture Site Art Line Art Line Art Line O2 Saturation (90 - 100 %) 91.7 94.7 94.3 97.7 ABG pH (7.35 - 7.45) 7.284 *L 7.295 *L 7.322 L 7.348 L ABG pCO2 (35.0 - 45 mmHg) 57.4 *H 51.9 *H 51.0 *H 45.4 H ABG pO2 (80 - 100.0 mmHg) 70.7 L 78.7 L 77.9 L 105.0 H ABG PO2/FiO2 Ratio (mm/Hg) 157.40 155.80 ABG HCO3 (22.0 - 26.0 MMOL/L) 27.3 H 25.6 26.5 H 24.9 ABG Total CO2 29.1 27.3 28.0 26.3 ABG Base Excess (-4.0 - 4.0 MMOL/L) 0.5 -1.2 0. 3 -1.0 ABG Hematocrit (37.5 - 50.7 %) 46 46 45 42 ABG Hemoglobin (12.5 - 16.9 G/DL) 15.6 15.7 15. 2 14.2 Ronit Test N/A N/A N/A Sodium (134 - 147 mmol/L) 142 143 141 143 Potassium (3.4 - 5.0 mmol/L) 4.4 3.9 3.8 3.6 Chloride (100 - 108 mmol/L) 109 H 108 107 109 H Ionized Calcium (1.12 - 1.32 1.32 1.35 H 1.42 H 1.44 H MMOL/L) Lactic Acid (0.9 - 1.7 mmol/l) 1.5 1.8 H 2.0 H Temperature (F) 98 96.6 98 O2 Delivery Device Cannula Adult Vent Adult Gordy t Vent Mode CPAP/PS AC Vent Rate (/MIN) 20 FiO2 (%) 50 50 Tidal Volume (ml) 550 PEEP (cmH2O) 5 5 Pressure Support (cmH2O) 10 06/07 06/07 06/07 1020 0922 0842 Blood Gas O2 Saturation (90 - 100 %) 91.7 100.0 100.0 ABG pH (7.35 - 7.45) 7.340 L 7.381 7.380 ABG pCO2 (35.0 - 45 mmHg) 47.9 H 45.8 H 47.0 H ABG pO2 (80 - 100.0 mmHg) 67.3 L 402.6 *H 384. 7 *H ABG HCO3 (22.0 - 26.0 MMOL/L) 25.8 27.2 H 27.8 H ABG Total CO2 27.3 28.6 29.2 ABG Base Excess (-4.0 - 4.0 MMOL/L) -0.5 1.5 2. 0 ABG Hematocrit (37.5 - 50.7 %) 39 38 37 L ABG Hemoglobin (12.5 - 16.9 G/DL) 13.3 13.0 12. 7 Sodium (134 - 147 mmol/L) 143 142 142 Potassium (3.4 - 5.0 mmol/L) 3.9 5.4 H 5.1 H Chloride (100 - 108 mmol/L) 107 105 104 Ionized Calcium (1.12 - 1.32 MMOL/L) 1.36 H 1.1 3 1.14 Lactic Acid (0.9 - 1.7 mmol/l) 1.9 H < 0.3 L 0. 4 L Laboratory Tests 06/08 06/08 06/08 06/08 06/08 0652 0310 0304 0206 0018 Chemistry Sodium (134 - 147 mEq/L) 136 Potassium (3.4 - 5.0 mEq/L) 4.6 Chloride (100 - 108 mEq/L) 106 Carbon Dioxide (21 - 33 mEq/l) 27 Anion Gap (0 - 20) 8 BUN (7 - 18 mg/dL) 17 Creatinine (0.6 - 1.3 mg/dL) 1.1 POC Creatinine (0.8 - 1.3 mg/dL) 1.2 1.1 Glomerular Filtr Rate (90 - 95) 77.3 L Glucose (70 - 110 mg/dL) 115 H POC Glucose (70 - 110 MG/DL) 101 113 H POC Glucose (mg/dL) (70 - 110 MG/DL) 123 H 103 Calcium (8.0 - 10.5 mg/dL) 8.1 Magnesium (1.80 - 2.40 mg/dL) 2.20 Total Bilirubin (0.0 - 1.0 mg/dL) 0.50 Direct Bilirubin (0.0 - 0.30 MG/DL) 0.20 Indirect Bilirubin (MG/DL) 0.30 AST (15 - 37 IUnit/L) 60 H ALT (30 - 65 IUnit/L) 28 L Total Alk Phosphatase (20 - 125 IUnit/L) 47 Total Protein (6.4 - 8.2 g/dL) 5.0 L Albumin (3.4 - 5.0 g/dL) 2.80 L 06/07 06/07 06/07 06/07 06/07 2210 2099 2055 2009 1753 Chemistry Sodium (134 - 147 mEq/L) 135 Potassium (3.4 - 5.0 mEq/L) 4.7 Chloride (100 - 108 mEq/L) 106 Carbon Dioxide (21 - 33 mEq/l) 25 Anion Gap (0 - 20) 9 BUN (7 - 18 mg/dL) 16 Creatinine (0.6 - 1.3 mg/dL) 1.1 POC Creatinine (0.8 - 1.3 mg/dL) 1.2 1.0 Glomerular Filtr Rate (90 - 95) 77.3 L Glucose (70 - 110 mg/dL) 139 H POC Glucose (70 - 110 MG/DL) 133 H 131 H POC Glucose (mg/dL) (70 - 110 MG/DL) 132 H 140 H Calcium (8.0 - 10.5 mg/dL) 8.2 Magnesium (1.80 - 2.40 mg/dL) 2.00 06/07 06/07 06/07 06/07 06/07 1431 1303 1232 1214 1116 Chemistry POC Creatinine (0.8 - 1.3 mg/dL) 0.9 1.3 1.1 POC Glucose (70 - 110 MG/DL) 136 H 123 H POC Glucose (mg/dL) (70 - 110 MG/DL) 166 H 147 H 146 H 06/07 06/07 06/07 06/07 06/07 1115 1035 1020 0922 0842 Chemistry Sodium (134 - 147 mEq/L) 141 Potassium (3.4 - 5.0 mEq/L) 3.9 Chloride (100 - 108 mEq/L) 110 H Carbon Dioxide (21 - 33 mEq/l) 25 Anion Gap (0 - 20) 10 BUN (7 - 18 mg/dL) 16 Creatinine (0.6 - 1.3 mg/dL) 1.3 POC Creatinine (0.8 - 1.3 mg/dL) 1.4 H 1.4 H 1. 4 H 1.3 Glomerular Filtr Rate (90 - 95) 63.3 L Glucose (70 - 110 mg/dL) 142 H POC Glucose (mg/dL) (70 - 110 MG/DL) 145 H 147 H 129 H 130 H Calcium (8.0 - 10.5 mg/dL) 9.8 Magnesium (1.80 - 2.40 mg/dL) 3.14 H Laboratory Tests 06/07 06/07 06/07 06/07 1115 1021 0924 0843 Coagulation INR (0.8 - 1.2) 1.1 PTT ([place]) (25.0 - 39.5 Seconds) 32.5 PT Patient/Control Mix (9.3 - 12.9 SECONDS) 12. 8 Activated Coag Time (74 - 137 SEC) 125 522 H 5 40 H Laboratory Tests 06/08 06/07 0310 1115 Hematology WBC (4.5 - 11.0 x10 3/uL) 14.4 H 20.5 H RBC (4.00 - 5.60 x10 6/uL) 4.88 5.27 Hgb (12.5 - 16.9 g/dL) 14.4 15.4 Hct (37.5 - 50.7 %) 42.6 45.7 MCV (81.0 - 99.0 fL) 87.3 86.7 MCH (27.0 - 33.0 pg) 29.5 29.2 MCHC (33.0 - 37.0 g/dL) 33.8 33.7 RDW (11.5 - 14.5 %) 12.3 12.0 Plt Count (150 - 400 x10 3/uL) 171 165 MPV (7.0 - 9.0 fL) 10.2 H 10.0 H Neut % (Auto) (56.0 - 77.0 %) 81.3 H 86.1 H Lymph % (Auto) (14.0 - 32.0 %) 7.4 L 8.1 L [place] % (Auto) (4.8 - 9.0 %) 10.6 H 4.0 L Eos % (Auto) (0.3 - 3.7 %) 0.1 L 0.6 Baso % (Auto) (0.0 - 2.0 %) 0.2 0.3 Neut # (Auto) (2.0 - 7.6 x10 3/uL) 11.69 H 17.6 1 H Lymph # (Auto) (1.0 - 3.8 x10 3/uL) 1.06 1.66 [place] # (Auto) (0.1 - 0.8 x10 3/uL) 1.53 H 0.81 H Eos # (Auto) (0.0 - 0.2 x10 3/uL) 0.02 0.13 Baso # (Auto) (0.0 - 0.2 x10 3/uL) 0.03 0.06 Abs Immat Gran (auto) (0.00 - 0.03 x10 3/uL) 0. 06 H 0.19 H Add Manual Diff NO NO Immature Gran % (0.0 - 2.0 %) 0.4 0.9 Nucleated RBC % (0 - 0 %) 0.0 0.0 Nucleated RBCs # (Man) (0.0 - 0.1 x10 3/uL) 0.0 0 0.00 Radiology data: Recent Impressions: RADIOLOGY - XR CHEST 1 V 06/07 1201 Report Impression - Status: SIGNED Entered: 06/07/2022 1240 IMPRESSION: Post sternotomy. Endotracheal tube a nd right jugular central line satisfactory. Hypoventilation, with dependent left atelectasis , bilateral perihilar opacities which may be secondary to at electasis or pulmonary vascular congestion. No visible pneumothorax. Impression By: [id number] - Grace Payton Results: labs reviewed, rythm personally rev'd, x-ray personally reviewed, current med profile rev'd Treatment Prophylaxis Treatment Prophylaxis Oxygen: nasal cannula Drain(s)/tube(s): Drain(s)/tube(s): chest Diagnosis, Assessment Plan Hospital course to date: This is a very pleasant 61-year-old gentleman wi th a past medical history of hypertension, paroxysmal atrial fibrillation ini tially 2 years ago on Eliquis therapy, with severe aortic valve regurg itation. He was referred by Dr. Duke for severe aortic valve regu rgitation noted on echocardiogram done on 05/18/2022. The patient does report symptoms of worsening s hortness of breath over the past 6 months. Patient denies any chest pain s. Patient denies any lower extremity edema. Patient denies any paroxysmal n octurnal dyspnea Patient has a history of left heart catheteriza tion with normal coronaries on 08/09/2021. Patient had repeat coronary angiogram last week which showed normal coronaries. Assessment/plan 1. Severe aortic valve stenosis 2. Paroxysmal atrial fibrillation Patient is admitted for aortic valve replacement , with PVI ablation. 06/07/22 PROCEDURES: 1. Aortic valve replacement (29 Inspiris valve). 2. Pulmonary vein isolation. 3. Amputation of left atrial appendage 06/08/22 POD 1 AAOx3 Respiratory: On 6l nasal cannula, wean off as to lerated. Encourage IS, Deep Breathing, CXR reviewed Cardiac: NSR, epicardial pacing wires present Discontinue central line and arterial line today Discontinue mediastinal chest tube, keep pericar dial CT and monitor outputs GI:Tolerating cardiac diet Continue Bowel regimen : Monitor strict I Os, daily weights, reassess suero need this afternoon. UO: 650 overnight Continue PT/OT Disposition: home DVT prophylaxis- SCDs Labs reveiwed- replace electrolytes as needed Transfer to CV intermediate care unit later toshea y. Patient seen and examined by Dr. Jamison. Plan o f care discussed with multidisciplinary team Code status: full code Plan discussed with: patient, nurse, interdisc c are team at 0928 at 0739 RPT #:[id number] END OF REPORT 2022-06-08 04:40:00-00:00 [id number] [place] [address] PATIENT NAME: MARCIA HART ADMIT DATE: 06/07/22 ACCOUNT NO: [id number] ROOM NO: [id number] AGE: 61 REPORT TYPE: eELECTROCARDIOGRAM REPORT SEX: M ADMITTING PHYSICIAN:Jarrod Jamison MD ATTENDING PHYSICIAN:Jarrod Jamison MD Order: [id number] Test Reason : P/S AVR Test Date/Time Stamp: SunJun 08 2022 04:40:36 Blood Pressure : / mmHG Vent. Rate : 063 BPM Atrial Rate : 063 BPM P-R Int : 218 ms QRS Dur : 130 ms QT Int : 436 ms P-R-T Axes : 034 012 031 degree s QTc Int : 446 ms Sinus rhythm with 1st degree AV block Left bundle branch block Abnormal ECG When compared with ECG of 07-JUN-2022 11:18, No changes Confirmed by MD YURIY, CRISTA ([id number]) on 06/09/19 9:24:30 PM Referred By: Sandro Jamison Confirmed by:CRISTA PHOENIX MD Electronically Signed by Crista Armando MD on 0 06/08/22 at 1784 PATIENT NAME: MARCIA HART 2 2022-06-07 11:23:00-00:[address] [facility] [place], [place] ([facility]) Critical Care Consult Note REPORT#:[id number] REPORT STATUS: Signed DATE:06/07/22 TIME: 1123 PATIENT: MARCIA HART UNIT #: [id number] ROOM/BED: [place] [id number] : [birth year] AGE: 61 SEX: M ATTEND: Ashley Jamison MD ADM AUTHOR: Edie Powell MD * ALL edits or amendments must be made on the el [employer]/computer document * History of Present Illness HPI Requesting clinician: Dr. Jamison Reason for consult: postop management Chief complaint: AVR PCP: PCP: No Primary or Family Physician HPI: 61-year-old male with history of HTN, PAF on Bianca tyrone and severe aortic regurgitation who presented with progressive liz rtness of breath. Left heart cath last year showed normal coronaries. Patient underwent AVR (29 Inspiris), PVI and ALAA today on 023. Has mildly depressed EF 45%. Crystalloid 1.5 L, Cell Saver 850, autologous blood 500, urine outp ut 500. Surgery went well and patient was transferred to CVICU postop in a sta ble surgical condition. He is currently intubated on insulin drip. History - Adult longitudinal Past medical history: Reports: Atrial fibrillation (paroxysmal). Alcohol use: Denies EtOH use Drug use: Denies recreational drugs Smoking status for patients 13 years old or olde r: Never Smoker Allergies: Coded Allergies: No Known Allergies (05/24/22) Review of Systems ROS Unable to obtain due to: vented Objective Physical Exam VS/I O: Last Documented: Result Date Time FiO2 60 06/07 1300 O2 Delivery BiPAP 06/07 1300 Pulse Ox 93 06/07 1255 Pulse 73 06/07 1255 Resp 26 06/07 1200 B/P 175/74 06/07 0613 Temp 97.4 06/07 0613 24 hour I O ending at 0700: 06/07 0700 06/06 1900 Intake Total Output Total Balance Patient 137.5 kg Weight Weight Standing scale Measurement Method Patient Weight and BMI Weight (kg): 137.500 BMI: 38.9 Medications: Active Meds + DC'd Last 24 Hrs Cyanocobalamin (Vitamin B-12 500 mcg tab) 500 MC G DAILY PO Ferrous Sulfate (FERROUS SULFATE) 325 MG DAILY P O Ipratropium Julian (ATROVENT) 500 MCG RTQ2H PRN PRN INH Bisacodyl (DULCOLAX) 10 MG ONCE PRN RECTAL Magnesium Hydroxide (MILK OF MAGNESIA) 30 ML ONC E PRN PO Atorvastatin Calcium (LIPITOR) 40 MG 2100 PO Polyethylene Glycol (MIRALAX) 17 GM DAILY PO Amiodarone HCl (CORDARONE) 200 MG TID PO Gabapentin (NEURONTIN) 200 MG BID PO Metoprolol Tartrate (LOPRESSOR) 12.5 MG Q12HR PO Sennosides (Senna Lax 8.6 MG TABLET) 17.2 MG BED TIME PO Tramadol HCl (ULTRAM) 50 MG QID PO (UNVr) Vancomycin HCl (VANCOMYCIN HCL) 1,000 MG Q12H IV Sodium Chloride (SODIUM CHLORIDE 0.9%) 250 ML Aspirin (ASPIRIN) 81 MG DAILY PO Ipratropium Julian (ATROVENT) 500 MCG RTQ4H INH Fentanyl Citrate (SUBLIMAZE) 0 .STK-MED ONE .ROU TE (DC) Sugammadex Sodium (BRIDION) 0 .STK-MED ONE IV (D C) Acetaminophen (TYLENOL) 650 MG Q4H PRN PRN PO Acetaminophen (TYLENOL) 650 MG Q4H PRN PRN RECTA L Albumin Human (ALBUMINAR 25%) 25 GM ASDIR PRN IV Calcium Chloride (CALCIUM CHLORIDE) 1 GM ASDIR P RN IV Cefazolin Sodium (KEFZOL OR ANCEF) 6 GM ONCE ONE IV (CKD) Sodium Chloride (SODIUM CHLORIDE 0.9%) 500 ML Dextrose/Water (DEXTROSE 10% IN WATER) 125 ML DIR PRN IV (CKD) Dextrose/Water (DEXTROSE 10% IN WATER) 250 ML DIR PRN IV (CKD) Docusate Sodium (COLACE) 100 MG BID PO Epinephrine (ADRENALIN CHLORIDE) 4 MG ASDIR IV Dextrose/Water (DEXTROSE 5% WATER) 246 ML Glucagon (GLUCAGON) 1 MG ASDIR PRN IM Insulin Human Regular (HumuLIN R) 100 UNIT ASDIR IV (CKD) Sodium Chloride (SODIUM CHLORIDE 0.9%) 99 ML Magnesium Sulfate (MAGNESIUM SULFATE 4GM/SWFI 10 0ML) 100 ML ASDIR PRN IV Magnesium Sulfate (MAGNESIUM SULFATE 2GM/SWFI 50 ML) 50 ML ASDIR PRN IV Magnesium Sulfate/Dextrose (MAGNESIUM SULFATE 1G M/D5W 100ML) 100 ML ASDIR PRN IV Nitroglycerin/Dextrose (NITROGLYCERIN 50,000MCG/ D5W 250ML) 250 ML ASDIR IV Norepinephrine Bitartrate (NOREPINEPHRINE 8 MG/N S 250 ML) 250 ML TITRATE IV Ondansetron HCl (ZOFRAN) 4 MG Q6H PRN PRN IV Oxycodone HCl (ROXICODONE) 5 MG Q4H PRN PRN PO Potassium Chloride (KCL 20MEQ/SWFI 100ML) 100 ML ASDIR PRN IV Sodium Bicarbonate (SODIUM BICARBONATE) 50 MEQ A SDIR PRN IV Sodium Chloride (SODIUM CHLORIDE 0.9%) 1,000 ML .Q20H IV Sodium Chloride (SODIUM CHLORIDE 0.9%) 250 ML Q2 4H IV Isoflurane (FORANE) 0 .STK-MED ONE INH (DC) Rocuronium Julian (ZEMURON) 0 .STK-MED ONE IV ( DC) Mineral Oil/White Petrolatum (SYSTANE NIGHTTIME OPTH OINTMENT) 0 .STK-MED ONE .ROUTE (DC) Heparin Sodium (HEPARIN SODIUM) 0 .STK-MED ONE . ROUTE (DC) Succinylcholine Chloride (QUELICIN FLIPTOP) 0 .S TK-MED ONE IV (DC) Metoprolol Tartrate (LOPRESSOR) 6.5 MG ONCE ONE PO (DC) Metoprolol Tartrate (LOPRESSOR) 0 .STK-MED ONE . ROUTE (DC) Parenteral Electrolytes (PLASMA-LYTE A pH 7.4) 1 ,000 ML .STK-MED ONE IV (DC) Epinephrine HCl (EPINEPHrine 4 mg/D5W 250 mL) 25 0 ML .STK-MED ONE IV (DC ) Heparin Sodium (HEPARIN SODIUM) 0 .STK-MED ONE . ROUTE (DC) Insulin Human Regular (HumuLIN R 100 UNITS/NS 10 0ML) 100 ML .STK-MED ONE IV (DC) Nitroglycerin/Dextrose (NITROGLYCERIN 50,000MCG/ D5W 250ML) 250 ML .STK-MED ONE IV (DC) Norepinephrine Bitartrate (NOREPINEPHRINE 8 MG/N S 250 ML) 250 ML .STK-MED ONE IV (DC) Protamine Sulfate (PROTAMINE SULFATE) 0 .STK-MED ONE IV (DC) Aminocaproic Acid (AMICAR) 0 .STK-MED ONE IV (DC ) Calcium Chloride (CALCIUM CHLORIDE) 0 .STK-MED O NE IV (DC) Magnesium Sulfate (MAGNESIUM SULFATE) 0 .STK-MED ONE .ROUTE (DC) Ropivacaine (NAROPIN 0.5% 150 MG/30mL) 0 .STK-ME D ONE .ROUTE (DC) Sodium Chloride (SODIUM CHLORIDE 0.9%) 100 ML .S TK-MED ONE IV (DC) Etomidate (AMIDATE) 0 .STK-MED ONE IV (DC) Fentanyl Citrate (SUBLIMAZE) 0 .STK-MED ONE IV ( DC) Lidocaine HCl (XYLOCAINE) 0 .STK-MED ONE .ROUTE (DC) Midazolam HCl (VERSED) 0 .STK-MED ONE .ROUTE (DC ) Rocuronium Julian (ZEMURON) 0 .STK-MED ONE IV ( DC) Cefazolin Sodium (KEFZOL OR ANCEF) 0 .STK-MED ON E .ROUTE (DC) Vancomycin HCl (VANCOMYCIN HCL) 0 .STK-MED ONE . ROUTE (DC) Acetaminophen (TYLENOL EXTRA STRENGTH) 0 .STK-ME D ONE .ROUTE (DC) Gabapentin (NEURONTIN) 0 .STK-MED ONE .ROUTE (DC ) Albumin Human (ALBUMINAR-25%) 0 .STK-MED ONE IV (DC) Heparin Sodium (HEPARIN SODIUM) 0 .STK-MED ONE . ROUTE (DC) Lidocaine HCl (XYLOCAINE IV) 0 .STK-MED ONE IV ( DC) Sodium Bicarbonate (SODIUM BICARBONATE) 0 .STK-M ED ONE IV (DC) Sodium Chloride (SODIUM CHLORIDE 0.9%) 100 ML .S TK-MED ONE IV (DC) Magnesium Sulfate (MAGNESIUM SULFATE) 0 .STK-MED ONE IV (DC) Phenylephrine HCl (JUAN-SYNEPHRINE 10MG/ML AMP) 0 .STK-MED ONE .ROUTE (DC ) Acetaminophen (TYLENOL EXTRA STRENGTH) 1,000 MG PREOP ONCALL PO (DC) Gabapentin (NEURONTIN) 200 MG PREOP ONCALL PO (D C) Lactated Ringer's (LACTATED RINGERS) 1,000 ML TN EOP ONCALL IV Lidocaine HCl (LIDOCAINE HCL/PF) 2 ML PREOP ONCA LL LOCAL Lidocaine HCl (LIDOCAINE HCL/PF) 2 ML PREOP ONCA LL LOCAL Sodium Chloride (SODIUM CHLORIDE 0.9%) 500 ML TN EOP ONCALL IV Sodium Chloride (SODIUM CHLORIDE 0.9%) 500 ML TN EOP ONCALL IV Sodium Chloride (SODIUM CHLORIDE 0.9%) 1,000 ML PREOP ONCALL IV Sodium Chloride (SODIUM CHLORIDE) 5 ML ASDIR PRN IV Sodium Chloride (SODIUM CHLORIDE) 10 ML ASDIR TN N IV Sodium Chloride (SODIUM CHLORIDE 0.9%) 250 ML DIR PRN IV Results Findings/Data: Laboratory Tests 06/07/22 1115: [Embedded Image Not Available] Laboratory Tests 06/07 06/07 06/07 06/07 1431 1232 1116 1035 Blood Gas Puncture Site Art Line Art Line Art Line O2 Saturation (90 - 100 %) 91.7 94.7 94.3 97.7 ABG pH (7.35 - 7.45) 7.284 *L 7.295 *L 7.322 L 7.348 L ABG pCO2 (35.0 - 45 mmHg) 57.4 *H 51.9 *H 51.0 *H 45.4 H ABG pO2 (80 - 100.0 mmHg) 70.7 L 78.7 L 77.9 L 105.0 H ABG PO2/FiO2 Ratio (mm/Hg) 157.40 155.80 ABG HCO3 (22.0 - 26.0 MMOL/L) 27.3 H 25.6 26.5 H 24.9 ABG Total CO2 29.1 27.3 28.0 26.3 ABG Base Excess (-4.0 - 4.0 0.5 -1.2 0.3 -1.0 MMOL/L) ABG Hematocrit (37.5 - 50.7 %) 46 46 45 42 ABG Hemoglobin (12.5 - 16.9 G/DL) 15.6 15.7 15. 2 14.2 Ronit Test N/A N/A N/A Sodium (134 - 147 mmol/L) 142 143 141 143 Potassium (3.4 - 5.0 mmol/L) 4.4 3.9 3.8 3.6 Chloride (100 - 108 mmol/L) 109 H 108 107 109 H Ionized Calcium (1.12 - 1.32 1.32 1.35 H 1.42 H 1.44 H MMOL/L) Lactic Acid (0.9 - 1.7 mmol/l) 1.5 1.8 H 2.0 H Temperature (F) 98 96.6 98 O2 Delivery Device Cannula Adult Vent Adult Gordy t Vent Mode CPAP/PS AC Vent Rate (/MIN) 20 FiO2 (%) 50 50 Tidal Volume (ml) 550 PEEP (cmH2O) 5 5 Pressure Support (cmH2O) 10 06/07 06/07 06/07 06/07 1020 0922 0842 0755 Blood Gas O2 Saturation (90 - 100 %) 91.7 100.0 100.0 100 .0 ABG pH (7.35 - 7.45) 7.340 L 7.381 7.380 7.353 ABG pCO2 (35.0 - 45 mmHg) 47.9 H 45.8 H 47.0 H 49.4 H ABG pO2 (80 - 100.0 mmHg) 67.3 L 402.6 *H 384.7 *H 435.2 *H ABG HCO3 (22.0 - 26.0 MMOL/L) 25.8 27.2 H 27.8 H 27.5 H ABG Total CO2 27.3 28.6 29.2 29.0 ABG Base Excess (-4.0 - 4.0 MMOL/L) -0.5 1.5 2 .0 1.0 ABG Hematocrit (37.5 - 50.7 %) 39 38 37 L 46 ABG Hemoglobin (12.5 - 16.9 G/DL) 13.3 13.0 12. 7 15.7 Sodium (134 - 147 mmol/L) 143 142 142 143 Potassium (3.4 - 5.0 mmol/L) 3.9 5.4 H 5.1 H 3. 9 Chloride (100 - 108 mmol/L) 107 105 104 106 Ionized Calcium (1.12 - 1.32 MMOL/L) 1.36 H 1.1 3 1.14 1.21 Lactic Acid (0.9 - 1.7 mmol/l) 1.9 H < 0.3 L 0. 4 L 0.4 L 06/07 0724 Blood Gas O2 Saturation (90 - 100 %) 99.9 ABG pH (7.35 - 7.45) 7.394 ABG pCO2 (35.0 - 45 mmHg) 41.2 ABG pO2 (80 - 100.0 mmHg) 360.0 *H ABG HCO3 (22.0 - 26.0 MMOL/L) 25.2 ABG Total CO2 26.4 ABG Base Excess (-4.0 - 4.0 MMOL/L) 0.1 ABG Hematocrit (37.5 - 50.7 %) 47 ABG Hemoglobin (12.5 - 16.9 G/DL) 16.1 Sodium (134 - 147 mmol/L) 146 Potassium (3.4 - 5.0 mmol/L) 3.7 Chloride (100 - 108 mmol/L) 108 Ionized Calcium (1.12 - 1.32 MMOL/L) 1.22 Lactic Acid (0.9 - 1.7 mmol/l) 0.7 L Laboratory Tests 06/07 06/07 06/07 06/07 06/07 1431 1303 1232 1214 1116 Chemistry POC Creatinine (0.8 - 1.3 mg/dL) 0.9 1.3 1.1 POC Glucose (70 - 110 MG/DL) 136 H 123 H POC Glucose (mg/dL) (70 - 110 MG/DL) 166 H 147 H 146 H 06/07 06/07 06/07 06/07 06/07 1115 1035 1020 0922 0842 Chemistry Sodium (134 - 147 mEq/L) 141 Potassium (3.4 - 5.0 mEq/L) 3.9 Chloride (100 - 108 mEq/L) 110 H Carbon Dioxide (21 - 33 mEq/l) 25 Anion Gap (0 - 20) 10 BUN (7 - 18 mg/dL) 16 Creatinine (0.6 - 1.3 mg/dL) 1.3 POC Creatinine (0.8 - 1.3 mg/dL) 1.4 H 1.4 H 1 .4 H 1.3 Glomerular Filtr Rate (90 - 95) 63.3 L Glucose (70 - 110 mg/dL) 142 H POC Glucose (mg/dL) (70 - 110 MG/DL) 145 H 147 H 129 H 130 H Calcium (8.0 - 10.5 mg/dL) 9.8 Magnesium (1.80 - 2.40 mg/dL) 3.14 H 06/07 06/07 06/07 0515 8782 0554 Chemistry POC Creatinine (0.8 - 1.3 mg/dL) 1.3 1.2 POC Glucose (mg/dL) (70 - 110 MG/DL) 113 H 79 Triglycerides (40 - 150 mg/dL) 131 Cholesterol (<200 mg/dL) 143 LDL Cholesterol [place] (0 - 100 mg/dL) 96.0 HDL Cholesterol (32 - 72 mg/dL) 29.8 L Cholesterol/HDL Ratio (3.43 - 4.97 RATIO) 4.80 Laboratory Tests 06/07 06/07 06/07 06/07 06/07 1115 1021 0924 0843 0757 Coagulation INR (0.8 - 1.2) 1.1 PTT (Isaías) (25.0 - 39.5 Seconds) 32.5 PT Patient/Control Mix (9.3 - 12.9 12.8 SECONDS) Activated Coag Time (74 - 137 SEC) 125 522 H 54 0 H 522 H 06/07 0726 Coagulation Activated Coag Time (74 - 137 SEC) 119 Laboratory Tests 06/07 1115 Hematology WBC (4.5 - 11.0 x10 3/uL) 20.5 H RBC (4.00 - 5.60 x10 6/uL) 5.27 Hgb (12.5 - 16.9 g/dL) 15.4 Hct (37.5 - 50.7 %) 45.7 MCV (81.0 - 99.0 fL) 86.7 MCH (27.0 - 33.0 pg) 29.2 MCHC (33.0 - 37.0 g/dL) 33.7 RDW (11.5 - 14.5 %) 12.0 Plt Count (150 - 400 x10 3/uL) 165 MPV (7.0 - 9.0 fL) 10.0 H Neut % (Auto) (56.0 - 77.0 %) 86.1 H Lymph % (Auto) (14.0 - 32.0 %) 8.1 L [place] % (Auto) (4.8 - 9.0 %) 4.0 L Eos % (Auto) (0.3 - 3.7 %) 0.6 Baso % (Auto) (0.0 - 2.0 %) 0.3 Neut # (Auto) (2.0 - 7.6 x10 3/uL) 17.61 H Lymph # (Auto) (1.0 - 3.8 x10 3/uL) 1.66 [place] # (Auto) (0.1 - 0.8 x10 3/uL) 0.81 H Eos # (Auto) (0.0 - 0.2 x10 3/uL) 0.13 Baso # (Auto) (0.0 - 0.2 x10 3/uL) 0.06 Abs Immat Gran (auto) (0.00 - 0.03 x10 3/uL) 0. 19 H Add Manual Diff NO Immature Gran % (0.0 - 2.0 %) 0.9 Nucleated RBC % (0 - 0 %) 0.0 Nucleated RBCs # (Man) (0.0 - 0.1 x10 3/uL) 0.0 0 Microbiology: 06/06 818 NASAL: MSSA Surveillance Screen - COM P 06/06 818 NASAL: MRSA DNA Surveillance Screen - COMP Radiology data: Recent Impressions: RADIOLOGY - XR CHEST 1 V 06/07 1201 Report Impression - Status: SIGNED Entered: 06/07/2022 1240 IMPRESSION: Post sternotomy. Endotracheal tube a nd right jugular central line satisfactory. Hypoventilation, with dependent left atelectasis , bilateral perihilar opacities which may be secondary to at electasis or pulmonary vascular congestion. No visible pneumothorax. Impression By: [email or web address] - Grace Payton Free Text Obj Notes Free Text Obj Notes: General appearance: Elderly male in no acute dis tress Head/Eyes: atraumatic, normocephalic ENT: dry mucosal membranes, ETT in place Neck: full range of motion, supple/no meningismu s Cardiovascular: Good cap refill, S1-S2 regular r ate and rhythm Respiratory: symmetric expansion, no acute respi ratory distress Abdomen: soft, non-tender, no distention, no gua rding Genitourinary: suero with clear urine Extremities: pedal pulses, moves all, no clubbin g, no cyanosis, no edema Vascular pulse assessment: palpated: R posterior tibialis, L posterior tibi sugey, R dorsalis pedis, L dorsalis pedis Musculoskeletal: normal inspection, no muscle sp asm Neuro/TELEPHOTO ENGINEER: Sedated but arousable, CNII-XII gross ly intact, no motor deficits Skin: dry, intact and clean surgery dressing Diagnosis, Assessment Plan Diagnosis, Assessment Plan Problem list/A P: 1. Aortic valve regurgitation 2. S/P aortic valve replacement with bioprosthe tic valve 3. Hypercapnia 4. Postoperative pulmonary dysfunction after ca rdiac surgery Orders: Procedure Date/time Status _RT: OXYGEN THERAPY 06/07 1330 Active _RT: Non-Invasive Ventilation 06/07 1330 Active Plan discussed with: patient , consultants, nurse, interdisc care team, pharmacy/ pharmacist Critical care time: Minutes: 45 Free text DxA P: 61-year-old male with history of HTN, PAF on Bianca tyrone and severe aortic regurgitation who presented with progressive liz rtness of breath. Left heart cath last year showed normal coronaries. Patient underwent AVR (29 Inspiris), PVI and ALAA today on 023. Has mildly depressed EF 45%. Crystalloid 1.5 L, Cell Saver 850, autologous blood 500, urine outp ut 500. Surgery went well and patient was transferred to CVICU postop in a sta ble surgical condition. He is currently intubated on insulin drip. Neuro: Appears intact, keep off sedation, multim odal pain control Respiratory: Sats well, tolerating CPAP trial, m ildly hypercapnic, plan for extubation to BiPAP, will obtain serial ABGs, CX R reviewed Cardiovascular: HD stable not on vasopressors, k eep CTs to suction Renal: strict I/Os, monitor Cr and electrolytes, resuscitate as needed GI: bedside swallow then ora l diet if remains off BiPAP after extubation, bowel regimen ID: reactive leukocytosis, trend WBC, co ntinue periop antibiotics per protocol Hem: monitor Hgb and CTs output, no active bleed ing, transfuse as needed Endo: Blood glucose control with insulin gtt per protocol Misc: PT and OT consult, DVT prophylaxis with SC Ds Electronically Signed by Edie Powell MD on 05/14 11/04 at 0810 [facility] #:[id number] END OF REPORT 2022-06-07 11:18:00-00:00 [id number] [place] [address] PATIENT NAME: MARCIA HART ADMIT DATE: 06/07/22 ACCOUNT NO: [id number] ROOM NO: G.2204 AGE: 61 REPORT TYPE: eELECTROCARDIOGRAM REPORT SEX: M ADMITTING PHYSICIAN:Jarrod Jamison MD ATTENDING PHYSICIAN:Jarrod Jamison MD Order: [id number] Test Reason : S/P AVR Test Date/Time Stamp: SunJun 07 2022 11:18:58 Blood Pressure : / mmHG Vent. Rate : 069 BPM Atrial Rate : 069 BPM P-R Int : 238 ms QRS Dur : 136 ms QT Int : 460 ms P-R-T Axes : 066 -35 031 degre es QTc Int : 492 ms Sinus rhythm with 1st degree AV block Left axis deviation Nonspecific intraventricular block Minimal voltage criteria for LVH, may be normal variant ( Omi product ) Abnormal ECG When compared with ECG of 06-JUN-2022 09:06, No changes Confirmed by MD YURIY, CRISTA ([id number]) on 06/09/19 9:24:14 PM Referred By: Sandro Jamison Confirmed by:CRISTA PHOENIX MD Electronically Signed by Crista Armando MD on 0 06/08/22 at 2124 PATIENT NAME: MARCIA HART 2 2022-06-07 10:45:00-00:00 [id number] [place] [address] PATIENT NAME: MARCIA HART ADMIT DATE: 06/07/22 ACCOUNT NO: [id number] ROOM NO: [facility] AGE: 61 REPORT TYPE: OPERATIVE REPORT SEX: M ADMITTING PHYSICIAN:Jarrod Jamison MD ATTENDING PHYSICIAN:Jarrod Jamison MD OPERATION DATE: 06/07/2022 PREOPERATIVE DIAGNOSES: 1. Aortic regurgitation. 2. Paroxysmal atrial fibrillation. POSTOPERATIVE DIAGNOSES: 1. Aortic regurgitation. 2. Paroxysmal atrial fibrillation. PROCEDURES: 1. Aortic valve replacement (29 Inspiris valve). 2. Pulmonary vein isolation. 3. Amputation of left atrial appendage. SURGEON: Jarrod Jamison M.D. PLASTERER FOREMAN: Ruddy Pierce MD. ANESTHESIOLOGIST: Dr. Blackwood. ANESTHESIA: General endotracheal anesthesia. ESTIMATED BLOOD LOSS: 100 mL. INDICATIONS: Mr. Hart is a 61-year-old gentlema n with severe aortic regurgitation, cardiomyopathy and paroxysmal atr ial fibrillation. After due preop counseling, he was brought to the [facility] room today for aortic valve replacement and pulmonary vein isolation. FINDINGS: 1. Osteoporotic sternum. 2. Normal pericardium without any intrapericardi al adhesions, minimal intrapericardial fluid. 3. Tricuspid aortic valve with multiple fenestra tions in the left and noncoronary cusps. 4. Following excision of the leaflet, the annulu s was sized to 29 Magna Ease valve. 5. Box lesion was created ar ound the right superior and inferior pulmonary vein using AtriCure device. A sec ond box lesion was created around the left superior and inferior pulmonary vein using AtriCure devic e. 6. Left atrial appendage was amputated half a ce ntimeter from the base. This was then repaired with two layers of running ple dgeted 4-0 Prolene suture. PATIENT NAME: MARCIA HART 2 PROCEDURE IN DETAIL: Mr. Hart was ident ified in the preoperative holding area and brought to the OR and pl aced supine on the operating table. After induction of general endotracheal anesthesia, Suero cathet er, radial arterial line, and antibiotics were placed. The patient's anterior torso and both legs were then prepped and draped in standard surgical fashion. Median sternotomy was performed. The patient was heparinized. Pericardium was opened longitudinally. Pericardial well was created. Cardiopulmonary b ypass was instituted using ascending aorta and 3-stage cannula in the right atrium. The patient was cooled to 32 degrees centigrade. Surgical field was denys rcoky with carbon dioxide all throughout duration of cardi opulmonary bypass. LV vent was placed via the right superior pulmonary vein. Stockroom Helper ssclamp was applied and the heart was arrested with 1.5 liters of antegrade and retrograde cold bloo d cardioplegia. Cardioplegia was repeated at interval of 10 minutes all throu ghout duration of crossclamp. We began by dissecting on th e right superior and inferior pulmonary vein. A red rubber catheter was passed a round the right-sided pulmonary vein. This was used to guide the AtriCure device and lesion set x2 w as created. Next, dissection was performed around the left superior a nd inferior pulmonary vein. Red rubber catheter was then passed, wh ich was used to guide the AtriCure device and lesion set x2 were created. Next, the left atrial appen dage was amputated half a centimeter from the base. This was then repaired with two layers of running pledgeted 4-0 Prolene suture. Attention was then shifted to the aortic valve. A transverse aortotomy was performed a fingerbre adth distal to sinotubular junction. This was extended in hockey stick fashion onto the noncoronary sinus. Three pledgeted 4-0 Prolene suture plac ed in the superior and inferior lip of the aortotomy so as to assist with the e xposure of the aortic valve. The valve was inspected with the above -mentioned findings. The aortic cusps were excised. The annulus sized to 29 Inspiris valve. Circumf erential 3-0 Ethibond sutures were placed in the aortic an nulus, size 29 Inspiris valve was then brought onto the surgical field. The sutures were then sequen tially passed through the sewing ring. The valve was lowered down onto the annulus. After confirming proper seating, the sutures were tied. Rewarming was commenced at this stage. Aortotomy was closed in 2 layers using running 4 -0 Prolene suture. Careful de-aeration was performed an d the crossclamp was released. One ventricular wire was placed. A 28-Thai chest tube was p laced in the mediastinum and 28-angled chest tube placed in the pericardial space. Once the patient was at temperature, de-airing maneuvers were repeated a nd the patient was weaned off cardiopulmonary bypass with minimal inotropic wilson pport. Heparin was reversed with protamine. Decannulation was uneven tful. After confirming hemostasis, the chest was closed in layers using stainless steel wires for the sternum, #1 Vicryl for the fascia, 2-0 V icryl for the subcutaneous tissue and 4-0 Vicryl for the skin. The patient was transferred to intensi ve care unit, intubated in stable condition. Dictated By: Jarrod Jamison MD Date Dictated: 06/07/2022 10:45:41 Date Transcribed: 06/07/2022 11:52:55 MAIN Receipt ID: [id number] Authenticated and Edited by Balbir Jamison MD On 06/16/22 8:52:36 PM PATIENT NAME: MARCIA HART 2 at 0853 PATIENT NAME: MARCIA HART 54 2022-06-07 10:36:00-00:[address] [facility] [place], [place] ([facility]) Brief Op Note REPORT#:[id number] REPORT STATUS: Signed DATE:06/07/22 TIME: 1036 PATIENT: MARCIA HART UNIT #: [id number] ROOM/BED: [place] [address] : 62 AGE: 61 SEX: M ATTEND: Ashley Jamison MD ADM AUTHOR: Jarrod Jamison MD * ALL edits or amendments must be made on the [employer] document * Op/Inv Proc Note - Brief Pre-procedure diagnosis: AI, PAF, Cardiomyopathy Post-procedure diagnosis: same as pre procedure dx Procedures performed: AVR (29 Inspiris) PVI ALAA Primary Surgeon: Yaquelin Bonus Clerk(s): Ruddy Pierce Findings: fenestrated aortic cusp Complications: none Estimated blood loss in ml's: 100 cc Specimens removed/altered: Aortic cusp at 1040 RPT #:[id number] END OF REPORT 2022-06-07 10:03:00-00:[address] [facility] [place] [place] ([facility]) Cardiology Consultation REPORT#:[id number] REPORT STATUS: Signed DATE:06/07/22 TIME: 1003 PATIENT: MARCIA HART UNIT #: [id number] ROOM/BED: [place] [address] : 62 AGE: 61 SEX: M ATTEND: Ashley Jamison MD ADM AUTHOR: Mesha Burciaga CNP * ALL edits or amendments must be made on the [employer] document * History of Present Illness HPI Requesting Clinician: Dr. Jamison Reason for consult: postop SAVR Chief complaint: Presented with severe symptomatic PCP: PCP: No Primary or Family Physician HPI: Cardiology consultation for severe symptomatic a ortic valve regurgitation on this 61-year-old male with medical history of pa roxysmal atrial fibrillation, hypertension, symptomatic severe aortic valve regurgitation. Patient underwent surgical aortic valve replacement (29 Inspiris b ioprosthetic valve) with concomitant procedure of pul monary vein isolation and amputation of left atrial appendage. History - Adult longitudinal Past medical history: Reports: Atrial fibrillation (paroxysmal), Hypertension, Anticoagulant therapy. Denies: Congestive heart failure, Coronary arter y disease. Alcohol use: Denies EtOH use Drug use: Denies recreational drugs Smoking status for patients 13 years old or olde r: Never Smoker Home medications: Home Medications: ATORVASTATIN (LIPITOR) 40 MG PO DAILY LOSARTAN (COZAAR) 50 MG PO DAILY APIXABAN (ELIQUIS) 5 MG PO DAILY Allergies: Coded Allergies: No Known Allergies (05/24/22) Ambulatory status: Independent Review of Systems Unable to obtain due to: Intubated. Objective General VS/I O: Vital Signs: Date Time Temp Pulse Resp B/P B/P Pulse O2 O2 F low FiO2 Mean Ox Delivery Rate 06/07 0613 36.3 59 20 175/74 96 Room air 24 hour I O ending at 0700: 06/07 0700 06/06 1900 Intake Total Output Total Balance Patient 137.5 kg Weight Weight Standing scale Measurement Method PATIENT WEIGHT: Weight (lb): 303 Weight (oz): 2.17 Weight (kg): 137.500 Medications: Active Meds + DC'd Last 24 Hrs Cyanocobalamin (Vitamin B-12 500 mcg tab) 500 MC G DAILY PO Ferrous Sulfate (FERROUS SULFATE) 325 MG DAILY P O Ipratropium Julian (ATROVENT) 500 MCG RTQ2H PRN PRN INH Bisacodyl (DULCOLAX) 10 MG ONCE PRN RECTAL Magnesium Hydroxide (MILK OF MAGNESIA) 30 ML ONC E PRN PO Atorvastatin Calcium (LIPITOR) 40 MG 2100 PO Polyethylene Glycol (MIRALAX) 17 GM DAILY PO Amiodarone HCl (CORDARONE) 200 MG TID PO Gabapentin (NEURONTIN) 200 MG BID PO Metoprolol Tartrate (LOPRESSOR) 12.5 MG Q12HR PO Sennosides (Senna Lax 8.6 MG TABLET) 17.2 MG BED TIME PO Vancomycin HCl (VANCOMYCIN HCL) 1,000 MG Q12H IV Sodium Chloride (SODIUM CHLORIDE 0.9%) 250 ML Aspirin (ASPIRIN) 81 MG DAILY PO Ipratropium Julian (ATROVENT) 500 MCG RTQ4H INH Sugammadex Sodium (BRIDION) 0 .STK-MED ONE IV (D C) Acetaminophen (TYLENOL) 650 MG Q4H PRN PRN PO Acetaminophen (TYLENOL) 650 MG Q4H PRN PRN RECTA L Albumin Human (ALBUMINAR 25%) 25 GM ASDIR PRN IV Calcium Chloride (CALCIUM CHLORIDE) 1 GM ASDIR P RN IV Cefazolin Sodium (KEFZOL OR ANCEF) 6 GM ONCE ONE IV (CKD) Sodium Chloride (SODIUM CHLORIDE 0.9%) 500 ML Dextrose/Water (DEXTROSE 10% IN WATER) 125 ML DIR PRN IV (CKD) Dextrose/Water (DEXTROSE 10% IN WATER) 250 ML DIR PRN IV (CKD) Docusate Sodium (COLACE) 100 MG BID PO Epinephrine (ADRENALIN CHLORIDE) 4 MG ASDIR IV Dextrose/Water (DEXTROSE 5% WATER) 246 ML Glucagon (GLUCAGON) 1 MG ASDIR PRN IM Insulin Human Regular (HumuLIN R) 100 UNIT ASDIR IV (CKD) Sodium Chloride (SODIUM CHLORIDE 0.9%) 99 ML Magnesium Sulfate (MAGNESIUM SULFATE 4GM/SWFI 10 0ML) 100 ML ASDIR PRN IV Magnesium Sulfate (MAGNESIUM SULFATE 2GM/SWFI 50 ML) 50 ML ASDIR PRN IV Magnesium Sulfate/Dextrose (MAGNESIUM SULFATE 1G M/D5W 100ML) 100 ML ASDIR PRN IV Nitroglycerin/Dextrose (NITROGLYCERIN 50,000MCG/ D5W 250ML) 250 ML ASDIR IV Norepinephrine Bitartrate (NOREPINEPHRINE 8 MG/N S 250 ML) 250 ML TITRATE IV Ondansetron HCl (ZOFRAN) 4 MG Q6H PRN PRN IV Oxycodone HCl (ROXICODONE) 5 MG Q4H PRN PRN PO Potassium Chloride (KCL 20MEQ/SWFI 100ML) 100 ML ASDIR PRN IV Sodium Bicarbonate (SODIUM BICARBONATE) 50 MEQ A SDIR PRN IV Sodium Chloride (SODIUM CHLORIDE 0.9%) 1,000 ML .Q20H IV Sodium Chloride (SODIUM CHLORIDE 0.9%) 250 ML Q2 4H IV Isoflurane (FORANE) 0 .STK-MED ONE INH (DC) Rocuronium Julian (ZEMURON) 0 .STK-MED ONE IV ( DC) Mineral Oil/White Petrolatum (SYSTANE NIGHTTIME OPTH OINTMENT) 0 .STK-MED ONE .ROUTE (DC) Heparin Sodium (HEPARIN SODIUM) 0 .STK-MED ONE . ROUTE (DC) Succinylcholine Chloride (QUELICIN FLIPTOP) 0 .S TK-MED ONE IV (DC) Metoprolol Tartrate (LOPRESSOR) 6.5 MG ONCE ONE PO (DC) Metoprolol Tartrate (LOPRESSOR) 0 .STK-MED ONE . ROUTE (DC) Parenteral Electrolytes (PLASMA-LYTE A pH 7.4) 1 ,000 ML .STK-MED ONE IV (DC) Epinephrine HCl (EPINEPHrine 4 mg/D5W 250 mL) 25 0 ML .STK-MED ONE IV (DC ) Heparin Sodium (HEPARIN SODIUM) 0 .STK-MED ONE .ROUTE (DC) Insulin Human Regular (HumuLIN R 100 UNITS/NS 10 0ML) 100 ML .STK-MED ONE IV (DC) Nitroglycerin/Dextrose (NITROGLYCERIN 50,000MCG/ D5W 250ML) 250 ML .STK-MED ONE IV (DC) Norepinephrine Bitartrate (NOREPINEPHRINE 8 MG/N S 250 ML) 250 ML .STK-MED ONE IV (DC) Protamine Sulfate (PROTAMINE SULFATE) 0 .STK-MED ONE IV (DC) Aminocaproic Acid (AMICAR) 0 .STK-MED ONE IV (DC ) Calcium Chloride (CALCIUM CHLORIDE) 0 .STK-MED O NE IV (DC) Magnesium Sulfate (MAGNESIUM SULFATE) 0 .STK-MED ONE .ROUTE (DC) Ropivacaine (NAROPIN 0.5% 150 MG/30mL) 0 .STK-ME D ONE .ROUTE (DC) Sodium Chloride (SODIUM CHLORIDE 0.9%) 100 ML .S TK-MED ONE IV (DC) Etomidate (AMIDATE) 0 .STK-MED ONE IV (DC) Fentanyl Citrate (SUBLIMAZE) 0 .STK-MED ONE IV ( DC) Lidocaine HCl (XYLOCAINE) 0 .STK-MED ONE .ROUTE (DC) Midazolam HCl (VERSED) 0 .STK-MED ONE .ROUTE (DC ) Rocuronium Julian (ZEMURON) 0 .STK-MED ONE IV ( DC) Cefazolin Sodium (KEFZOL OR ANCEF) 0 .STK-MED ON E .ROUTE (DC) Vancomycin HCl (VANCOMYCIN HCL) 0 .STK-MED ONE . ROUTE (DC) Acetaminophen (TYLENOL EXTRA STRENGTH) 0 .STK-ME D ONE .ROUTE (DC) Gabapentin (NEURONTIN) 0 .STK-MED ONE .ROUTE (DC ) Albumin Human (ALBUMINAR-25%) 100 ML .STK-MED ON E IV (DC) Heparin Sodium (HEPARIN SODIUM) 0 .STK-MED ONE . ROUTE (DC) Lidocaine HCl (XYLOCAINE IV) 0 .STK-MED ONE IV ( DC) Sodium Bicarbonate (SODIUM BICARBONATE) 0 .STK-M ED ONE IV (DC) Sodium Chloride (SODIUM CHLORIDE 0.9%) 100 ML .S TK-MED ONE IV (DC) Magnesium Sulfate (MAGNESIUM SULFATE) 0 .STK-MED ONE IV (DC) Phenylephrine HCl (JUAN-SYNEPHRINE 10MG/ML AMP) 0 .STK-MED ONE .ROUTE (DC ) Acetaminophen (TYLENOL EXTRA STRENGTH) 1,000 MG PREOP ONCALL PO (DC) Gabapentin (NEURONTIN) 200 MG PREOP ONCALL PO (D C) Lactated Ringer's (LACTATED RINGERS) 1,000 ML TN EOP ONCALL IV Lidocaine HCl (LIDOCAINE HCL/PF) 2 ML PREOP ONCA LL LOCAL Lidocaine HCl (LIDOCAINE HCL/PF) 2 ML PREOP ONCA LL LOCAL Sodium Chloride (SODIUM CHLORIDE 0.9%) 500 ML TN EOP ONCALL IV Sodium Chloride (SODIUM CHLORIDE 0.9%) 500 ML TN EOP ONCALL IV Sodium Chloride (SODIUM CHLORIDE 0.9%) 1,000 ML PREOP ONCALL IV Sodium Chloride (SODIUM CHLORIDE) 5 ML ASDIR PRN IV Sodium Chloride (SODIUM CHLORIDE) 10 ML ASDIR TN N IV Sodium Chloride (SODIUM CHLORIDE 0.9%) 250 ML DIR PRN IV Physical Exam General appearance: respiratory support, awake Neck: non-tender Cardiovascular: CV assessment: regular rate and rhythm Respiratory: on mechanical ventilation. Abdomen: soft, non-tender, normal bowel sounds Genitourinary: urinary catheter, urine Lower extremity: LE assessment: normal capillary refill, no didi a Musculoskeletal: normal inspection Skin: dry Psychiatry: unable to evaluate Results Findings/Data: Laboratory Tests 06/07 06/07 06/07 06/07 0922 0842 0755 0724 Blood Gas O2 Saturation (90 - 100 %) 100.0 100.0 100.0 99 .9 ABG pH (7.35 - 7.45) 7.381 7.380 7.353 7.394 ABG pCO2 (35.0 - 45 mmHg) 45.8 H 47.0 H 49.4 H 41.2 ABG pO2 (80 - 100.0 mmHg) 402.6 *H 384.7 *H 43 5.2 *H 360.0 *H ABG HCO3 (22.0 - 26.0 MMOL/L) 27.2 H 27.8 H 27. 5 H 25.2 ABG Total CO2 28.6 29.2 29.0 26.4 ABG Base Excess (-4.0 - 4.0 MMOL/L) 1.5 2.0 1.0 0.1 ABG Hematocrit (37.5 - 50.7 %) 38 37 L 46 47 ABG Hemoglobin (12.5 - 16.9 G/DL) 13.0 12.7 15. 7 16.1 Sodium (134 - 147 mmol/L) 142 142 143 146 Potassium (3.4 - 5.0 mmol/L) 5.4 H 5.1 H 3.9 3 .7 Chloride (100 - 108 mmol/L) 105 104 106 108 Ionized Calcium (1.12 - 1.32 MMOL/L) 1.13 1.14 1.21 1.22 Lactic Acid (0.9 - 1.7 mmol/l) < 0.3 L 0.4 L 0. 4 L 0.7 L Laboratory Tests 06/07 06/07 06/07 06/07 06/07 0922 0842 0750 0710 0566 Chemistry POC Creatinine (0.8 - 1.3 mg/dL) 1.4 H 1.3 1.3 1.2 POC Glucose (mg/dL) (70 - 110 MG/DL) 129 H 130 H 113 H 79 Triglycerides (40 - 150 mg/dL) 131 Cholesterol (<200 mg/dL) 143 LDL Cholesterol Measurd (0 - 100 mg/dL) 96.0 HDL Cholesterol (32 - 72 mg/dL) 29.8 L Cholesterol/HDL Ratio (3.43 - 4.97 RATIO) 4.80 Laboratory Tests 06/07 06/07 06/07 06/07 0924 0843 0751 0780 Coagulation Activated Coag Time (74 - 137 SEC) 522 H 540 H 522 H 119 Radiology Data: Recent Impressions: RADIOLOGY - XR CHEST 1 V 06/07 1201 Report Impression - Status: SIGNED Entered: 06/07/2022 1240 IMPRESSION: Post sternotomy. Endotracheal tube a nd right jugular central line satisfactory. Hypoventilation, with dependent left atelectasis , bilateral perihilar opacities which may be secondary to at electasis or pulmonary vascular congestion. No visible pneumothorax. Impression By: [email or web address] - Grace Payton Results: labs reviewed, vital signs reviewed, [facility] personally rev'd Diagnosis, Assessment Plan Problem List/A P: 1. Aortic valve regurgitation 2. S/P aortic valve replacement with bioprosthe tic valve Plan discussed with: family, collaborating MD, gavin hoffmann Free Text DxA P Notes Free Text DxA P Notes: Cardiology consultation for severe symptomatic a ortic valve regurgitation on this 61-year-old male with medical history of pa roxysmal atrial fibrillation, hypertension, symptomatic severe aortic valve re gurgitation. 1. Severe symptomatic aortic valve regurgitation 06/07/22: s/p SAVR (29 Inspiris bioprosth etic valve) with concomitant pulmonary vein isolation and amputation of left atrial navneet endage. Immediate postop care per CTS 2. Paroxysmal atrial fibrillation Status post PVI and ALAA 3. Hypertension Monitor off antihypertensive medications Reinitiate antihypertensive meds as necessary Appreciate the referral. at 1514 Electronically Signed by Kacey Brown MD on at 1047 RPT #:[id number] END OF REPORT 2022-06-07 08:40:00-00:00 [facility] History Physical - Adult REPORT#:[id number] REPORT STATUS: Signed DATE:06/07/22 TIME: 08 PATIENT: MARCIA HART UNIT #: [id number] ROOM/BED: 3310-1 : 62 AGE: 61 SEX: M ATTEND: Ashley Jamison MD ADM AUTHOR: Nikole Vasquez Physic * ALL edits or amendments must be made on the [employer] document * Nikloe Vasquez 06/07/22 0840: History of Present Illness HPI Chief complaint: Aortic stenosis HPI: This is a very pleasant 61-year-old gentleman wi th a past medical history of hypertension, paroxysmal atrial fibrillation ini tially 2 years ago on Eliquis therapy, with severe aortic valve regurg itation. He was referred by Dr. Duke for severe aortic valve regu rgitation noted on echocardiogram done on 05/18/2022. The patient does report symptoms of worsening s hortness of breath over the past 6 months. Patient denies any chest pain s. Patient denies any lower extremity edema. Patient denies any paroxysmal n octurnal dyspnea Patient has a history of left heart catheteriza tion with normal coronaries on 08/09/2021. History Past medical history: Reports: Atrial fibrillation (paroxysmal). Alcohol use: Denies EtOH use Drug use: Denies recreational drugs Smoking status for patients 13 years old or olde r: Never Smoker Medication/Allergy-Vaccine Hx Allergies: Coded Allergies: No Known Allergies (05/24/22) Review of Systems ROS comments: Constitutional: Negative for fever, chills, weig ht loss Skin: Negative for rash, negative for swelling n egative for any laceration HEENT: Denies hearing loss d enies any ear ringing denies any earache denies any sore throat denies any throat pain Respiratory: Positive for shortness of breath Cardiac: Denies chest pain, denies palpitations denies orthopnea GI: Denies constipation denies diarrhea : Denies hematuria denies dysuria denies flank pain Musculoskeletal: Denies any joint pain denies an y joint swelling denies any myalgia Hematologic: Denies any easy bruising, denies an y bleeding Endocrine: denies any night sweats, denies polyu ashley polydipsia Neurologic: Denies any lightheaded denies any he adache denies any confusion denies any dizziness Physical Exam VS/I O Vital Signs: Date Time Temp Pulse Resp B/P B/P Pulse O2 O2 F low FiO2 Mean Ox Delivery Rate 06/07 0613 97.4 59 20 175/74 96 Room air 24 hour I O ending at 0700: 06/07 0706/06 1900 Intake Total Output Total Balance Patient 137.5 kg Weight Weight Standing scale Measurement Method PATIENT WEIGHT: Weight (lb): 303 Weight (oz): 2.17 Weight (kg): 137.500 General appearance: alert, awake Free Text PE Notes Free Text PE Notes: General: well nourished, well groomed, no acute distress. HEENT: conjunctiva clear, ex traocular movement intact, PERRLA, sclera anicteric. normal dentition, gums, normal, oral mucosa with out pallor or cyanosis. Neck: no, JVD, trachea midline, no, lymphadenopa thy, neck supple, normal ROM. Respiratory: Clear to auscultation, no distress. Cardiovascular: /6 systolic ejection murmur Abdomen: Soft, non tender. No rebound. No guardi ng Extremities: dry, moves all. Musculoskeletal: Full range of motion, no CVA te nderness, no muscle spasm Skin: warm, dry, no, lesions, rash. Neurologic: Alert and oriented x3. Psychiatric: affect and demeanor normal Diagnosis, Assessment Plan Free Text DxA P Notes Free Text DxA P Notes: This is a very pleasant 61-year-old gentleman wi th a past medical history of hypertension, paroxysmal atrial fibrillation in ti[place] 2 years ago on Eliquis therapy, with severe aortic valve regurg itation. He was referred by Dr. Duke for severe aortic valve regu rgitation noted on echocardiogram done on 05/18/2022. The patient does report symptoms of worsening s hortness of breath over the past 6 months. Patient denies any chest pain s. Patient denies any lower extremity edema. Patient denies any paroxysmal n octurnal dyspnea Patient has a history of left heart catheteriza tion with normal coronaries on 08/09/2021. Patient had repeat coronary angiogram last week which showed normal coronaries. Assessment/plan 1. Severe aortic valve stenosis 2. Paroxysmal atrial fibrillation Patient is admitted for aortic valve replacement , with PVI ablation. The patient was seen preoperatively by Dr. Jeremiah levine. The risk of the operation was discussed with the patient including , bleeding, infection, heart attack, stroke, prolonged IC U stay, pneumonia, renal failure, dialysis, need for long-term rehabilitation etc. The patient's questions were answered and the pa tient agreed to proceed with surgery Jarrod Jamison 06/30/22 0955: Attestations Physician Attestation Agree w/findings plan: I have seen and examined Mr. Hart. I agree with the findings and plan as documented by BERNARD Mueller. Briefly, 61-year-old gentleman with severe katharina l regurgitation and normal coronary arteries being admitted to the hospital for mitral valve repair possible replacement. I have explained to him th e procedure, risk involved, benefit, alternatives, STS risk score, and compl ications. at 0846 at 1016 RPT #:[id number] END OF REPORT 2022-06-06 09:06:00-00:00 [id number] [place] [address] PATIENT NAME: MARCIA HART ADMIT DATE: ACCOUNT NO: [id number] ROOM NO: AGE: 61 REPORT TYPE: eELECTROCARDIOGRAM REPORT SEX: M ADMITTING PHYSICIAN:Jarrod Jamison MD ATTENDING PHYSICIAN:Jarrod Jamison MD Order: [id number] Test Reason : PREOP Test Date/Time Stamp: SunJun 06 2022 09:06:13 Blood Pressure : / mmHG Vent. Rate : 058 BPM Atrial Rate : 058 BPM P-R Int : 220 ms QRS Dur : 116 ms QT Int : 442 ms P-R-T Axes : 022 -32 -19 degree s QTc Int : 433 ms Sinus bradycardia with 1st degree AV block Left axis deviation Poor R wave progression Abnormal ECG No previous ECGs available Confirmed by RICH GONZALEZ ([id number]) on 3 12:45:14 PM Referred By: Sandro Jamison Confirmed by:RICH GONZALEZ at 1245 PATIENT NAME: MARCIA HART 2
[2022-07-09 18:40] LABS: Absolute Lymphocytes (CBC) 1.8 K/uL (0.7-4.9); Hematocrit 43.6 % (39.6-49.0); Lymphocytes % 20.9 % (15.3-44.8); MCV 84.7 fL (80-100); MPV 7.7 fL (7.6-11.3); RBC Red Blood Cell Count 5.14 M/uL (4.33-5.43)
[2022-07-09 18:48] LABS: Protime INR 1.17
[2022-07-09 18:58] LABS: Albumin 3.4 g/dL (3.4-5.0); Bilirubin Direct 0.1 mg/dL (0-0.2); Bilirubin Indirect, Calculated 0.2 mg/dL (0.2-0.8); Bilirubin Total 0.3 mg/dL (0.2-1.0); Magnesium 1.8 mg/dL (1.6-2.4); Potassium 3.6 mEq/L (3.5-5.1); Protein, Total 7.2 g/dL (6.4-8.2); Troponin High Sensitivity 42.8 pg/mL (<58.9)
--- NOTE | 2022-07-09 19:29 | RAD REPORT ---
EXAM DESCRIPTION: RAD - Chest Single View - 07/09/2022 7:23 pm CLINICAL HISTORY: CHEST PAIN COMPARISON: Chest Pa And Lat (2 Views) dated 05/29/2022; Chest Single View dated 08/07/2021; Chest Sin gle View dated 04/18/2021; Chest Pa And Lat (2 Views) dated 04/01/2019 FINDINGS: Lines: None. Lungs: No evidence of edema or pneumonia. The left lung base is partially obscured. This is likely du e to underpenetration. Pleural: No significant pleural effusions or pneumothorax. Cardiac: Cardiomegaly. Mediastinum: Within normal limits. Bones: No acute fractures. Olivares rods. Sternotomy. Other: None IMPRESSION: No definite acute process. Left lung base not well visualized likely due to underpenetra tion though this is been similar on prior exams.
--- NOTE | 2022-07-09 20:08 | ER ---
Nurse's Notes [facility] Name: Darien Luna Age: 61 yrs Sex: Male : 1960 Arrival Date: 07/09/2022 Time: 18:19 Bed 2 Private MD: Diagnosis: Chest pain, unspecified Presentation: 07/09 18:23 Chief complaint: Patient states: he started having chest pain and shortness of breath, hb vomited once. 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 He felt like he was in afib. Coronavirus screen: At this time, the client does not indicate any symptoms associated with coronavirus-19. Ebola Screen: No symptoms or risks identified at this time. Initial Sepsis Screen: Does the patient meet any 2 criteria? No. Patient's initial sepsis screen is negative. Does the patient have a suspected source of infection? No. Patient's initial sepsis screen is negative. Risk Assessment: Do you want to hurt yourself or someone else? Patient reports no desire to harm self or others. Onset of symptoms was July 09, 2022. 18:23 Method Of Arrival: Ambulatory hb 18:23 Acuity: KUSUM 2 hb Triage Assessment: 18:27 General: Appears distressed, uncomfortable, Behavior is cooperative, appropriate for hb age, anxious. Pain: Complains of pain in chest. EENT: No deficits noted. Neuro: No deficits noted. Cardiovascular: Chest pain is described as severe, quality is sharp, is located in chest wall. Respiratory: No deficits noted. GI: Reports nausea, vomiting, prior to arrival. : No deficits noted. Derm: No deficits noted. Musculoskeletal: No deficits noted. Historical: - Home Meds: 18:27 atorvastatin Oral [Active]; Eliquis Oral [Active]; losartan Oral [Active]; hb - PMHx: 18:27 Atrial fibrillation; Hypertensive disorder; hb - PSHx: 18:27 back surgery; bilateral knee replacement; hb - Immunization history:: Adult Immunizations up to date. - Social history:: Smoking status: Patient denies any tobacco usage or history of. Screenin:30 [facility] ED Fall Risk Assessment (Adult) History of falling in the last 3 months, hb including since admission No falls in past 3 months (0 pts) Confusion or Disorientation No (0 pts) Intoxicated or Sedated No (0 pts) Impaired Gait No (0 pts) Mobility Assist Device Used No (0 pt) Altered Elimination No (0 pt) Score/Fall Risk Level 0 - 2 = Low Risk Oriented to surroundings, Maintained a safe environment, Educated pt \T\ family on fall prevention, incl call for assistance when getting out of bed, Assessed \T\ reinforced patient's understanding of fall precautions, Provided non-skid footwear, Hourly rounding (assess needs \T\ fall precautionary measures) done, Used ambulatory aids as needed (educated on \T\ assisted with), Used gait belt as appropriate. Abuse screen: Denies threats or abuse. Denies injuries from another. Nutritional screening: No deficits noted. Tuberculosis screening: No symptoms or risk factors identified. Assessment: 18:30 Pain: Pain does not radiate. Pain began suddenly. hb 19:45 General: updated pt on awaiting provider decision. as6 Vital Signs: 18:23 BP 112 / 89; Pulse 81; Resp 14; Temp 98.3; Pulse Ox 99% ; hb 18:38 BP 109 / 58; Pulse 82; Resp 18; Pulse Ox 97% ; hb 19:01 Weight 130.18 kg; Height 6 ft. 2 in. ; ko1 19:43 BP 124 / 74; Pulse 85; Resp 17 S; Pulse Ox 99% on R/A; as6 19:01 Body Mass Index 36.85 (130.18 kg, 187.96 cm) ko1 ED Course: 18:20 Patient arrived in ED. eb 18:22 Sophie Rodríguez, RN is Primary Nurse. hb 18:23 Patient has correct armband on for positive identification. Placed in gown. Bed in low mm9 position. Call light in reach. Side rails up X 1. Client placed on continuous cardiac and pulse oximetry monitoring. NIBP monitoring applied. youth nutritional monitor on. Pulse ox on. NIBP on. 18:23 EKG done, by ED staff, reviewed by Charli Woods MD. mm9 18:27 Triage completed. hb 18:27 Arm band placed on right wrist. Patient placed in an exam room, on a stretcher, on hb ekg monitor tech, on pulse oximetry, Patient notified of wait time. 18:30 Charli Woods MD is Attending Physician. karson 18:30 Inserted saline lock: 18 gauge in right antecubital area, using aseptic technique. hb Blood collected. Patient maintains SpO2 saturation greater than 95% on room air. 18:31 Charli Ceja PA is PHCP. cp 18:35 Magnesium Sent. hb 18:35 PT-INR Sent. hb 18:35 Ptt, Activated Sent. hb 18:35 LFT's Sent. hb 18:35 Basic Metabolic Panel Sent. hb 18:35 CBC with Diff Sent. hb 18:35 Troponin HS Sent. hb 19:25 XRAY Chest (1 view) In Process Unspecified. EDMS 20:16 No provider procedures requiring assistance completed. IV discontinued, intact, as6 bleeding controlled, No redness/swelling at site. Administered Medications: No medications were administered Medication: 20:16 VIS not applicable for this client. as6 Outcome: 20:08 Discharge ordered by . cp 20:16 Discharged to home ambulatory. as6 20:16 Condition: stable 20:16 Discharge instructions given to pt left without signing discharge instructions 20:17 Patient left the ED. as6 Signatures: Dispatcher [employer] EDMS Charli Woods MD MD cha Page, Corey, PA PA cp Baxter, Heather, RN RN Marycarmen Hernadez Ashby, RN RN as6 Keyla Willingham, VERONA RN Zenobia Salazar mm9
--- NOTE | 2022-07-09 20:09 | EDPHYS ---
Physician Documentation [facility] Name: Darien Luna Age: 61 yrs Sex: Male : 1960 Arrival Date: 07/09/2022 Time: 18:19 Bed 2 Private MD: ED Physician Charli Woods HPI: 07/09 18:45 This 61 yrs old Male presents to ER via Ambulatory with complaints of Chest Pain. cp 18:45 Patient is a 61-year-old male who presents to the emergency room with complaints of cp chest pain. 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 Patient reports he is 4 weeks post valve replacement surgery. Denies fever, cough, congestion, body ache. Patient reports symptoms have improved since sitting here in the emergency. Patient reports recent cardiac cath that was clear prior to cardiac valve replacements surgery. Historical: - Home Meds: 18:27 atorvastatin Oral [Active]; Eliquis Oral [Active]; losartan Oral [Active]; hb - PMHx: 18:27 Atrial fibrillation; Hypertensive disorder; hb - PSHx: 18:27 back surgery; bilateral knee replacement; hb - Immunization history:: Adult Immunizations up to date. - Social history:: Smoking status: Patient denies any tobacco usage or history of. ROS: 18:50 Constitutional: Negative for body aches, chills, fever, poor PO intake. cp 18:50 Cardiovascular: Positive for chest pain, palpitations, Negative for edema. cp 18:50 Respiratory: Negative for cough, shortness of breath, wheezing. 18:50 Abdomen/GI: Positive for nausea, Negative for abdominal pain, vomiting, diarrhea, constipation. 18:50 Eyes: Negative for injury, pain, redness, and discharge. cp 18:50 ENT: Negative for drainage from ear(s), ear pain, sore throat, difficulty swallowing, difficulty handling secretions. 18:50 Neck: Positive for pain at rest, Negative for injury or acute deformity, stiffness. 18:50 Back: Negative for pain at rest, pain with movement. 18:50 Neuro: Negative for altered mental status, dizziness, headache, numbness, syncope, weakness. 18:50 All other systems are negative. cp Exam: 18:50 Constitutional: The patient appears in no acute distress, alert, awake, cp non-diaphoretic, non-toxic, well developed, well nourished, obese. 18:50 Head/Face: Normocephalic, atraumatic. cp 18:50 Eyes: Periorbital structures: appear normal, Conjunctiva: normal, no exudate, no injection, Sclera: no appreciated abnormality, Lids and lashes: appear normal, bilaterally. 18:50 ENT: External ear(s): are unremarkable, Nose: is normal, Mouth: Lips: moist, Oral mucosa: pink and intact, moist, Posterior pharynx: is normal, airway is patent, no erythema, no exudate. 18:50 Neck: ROM/movement: is normal, is supple, without pain, no range of motions limitations, no meningismus, no nuchal rigidity. 18:50 Chest/axilla: Inspection: mid line surgical scar. 18:50 Cardiovascular: Rate: normal, Rhythm: regular, Edema: is not appreciated, JVD: is not appreciated. 18:50 Respiratory: the patient does not display signs of respiratory distress, Respirations: normal, no use of accessory muscles, no retractions, labored breathing, is not present, Breath sounds: are clear throughout, no decreased breath sounds, no stridor, no wheezing. 18:50 Abdomen/GI: Inspection: abdomen appears normal, Bowel sounds: active, all quadrants, Palpation: abdomen is soft and non-tender, in all quadrants. 18:50 Back: pain, is absent, ROM is normal. Vital Signs: 18:23 BP 112 / 89; Pulse 81; Resp 14; Temp 98.3; Pulse Ox 99% ; hb 18:38 BP 109 / 58; Pulse 82; Resp 18; Pulse Ox 97% ; hb 19:01 Weight 130.18 kg; Height 6 ft. 2 in. ; ko1 19:43 BP 124 / 74; Pulse 85; Resp 17 S; Pulse Ox 99% on R/A; as6 19:01 Body Mass Index 36.85 (130.18 kg, 187.96 cm) ko1 MDM: 18:30 Patient medically screened. [facility] 20:05 Data reviewed: vital signs, nurses notes, lab test result(s), EKG, radiologic studies, cp plain films. 20:05 Differential diagnosis: viral Infection, bacterial infection, acute AR, pulmonary cp embolism. Consideration of Admission/Observation Escalation of care including admission/observation considered. Test considered but Not performed: CT: chest. Care significantly affected by the following chronic conditions: Hypertension, Obesity. Response to treatment: pain resolved. ED course: Vital signs stable. Discussed results with patient that showed EKG was negative for acute STEMI and initial troponin was normal. Reviewed records that showed patient had normal cardiac cath in May [address] Duke[address] My plan was to recheck a troponin and an EKG to monitor for change in troponin prior to any consideration for admission. 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 07/09 18:27 Order name: Basic Metabolic Panel; Complete Time: 19:06 bp 07/09 19:06 Interpretation: Normal except: CL 111; GLUC 115; BUN 23; CRE 1.42; GFR 57. cp 07/09 18:27 Order name: CBC with Diff; Complete Time: 19:06 bp 07/09 18:27 Order name: Troponin HS; Complete Time: 19:06 bp 07/09 19:07 Interpretation: Troponin HS 42.8; Reviewed. cp 07/09 18:28 Order name: LFT's; Complete Time: 19:06 la1 07/09 18:28 Order name: Ptt, Activated; Complete Time: 19:06 la1 07/09 18:28 Order name: PT-INR; Complete Time: 19:06 la1 07/09 18:28 Order name: Magnesium; Complete Time: 19:06 la1 07/09 18:27 Order name: XRAY Chest (1 view); Complete Time: 19:37 bp 07/09 19:37 Interpretation: Report review. cp 07/09 18:27 Order name: EKG; Complete Time: 18:28 bp 07/09 18:27 Order name: Cardiac monitoring; Complete Time: 18:35 bp 07/09 18:27 Order name: EKG - Nurse/Tech; Complete Time: 18:35 bp 07/09 18:27 Order name: IV Saline Lock; Complete Time: 18:35 bp 07/09 18:27 Order name: Labs collected and sent; Complete Time: 18:35 bp 07/09 18:27 Order name: O2 Per Protocol; Complete Time: 18:35 bp 07/09 18:27 Order name: O2 Sat Monitoring; Complete Time: 18:35 bp Administered Medications: No medications were administered Disposition Summary: 07/09/22 20:08 Discharge Ordered Location: Home cp Problem: new cp Symptoms: have improved cp Condition: Stable cp Diagnosis - Chest pain, unspecified cp Followup: cp - With: Private Physician - When: 2 - 3 days - Reason: Recheck today's complaints Discharge Instructions: - Discharge Summary Sheet cp - Nonspecific Chest Pain, Adult cp - Aspirin and Your Heart cp Forms: - Medication Reconciliation Form cp - Thank You Letter cp - Antibiotic Education cp - Prescription Opioid Use cp Signatures: Dispatcher [employer] EDCharli Jean MD MD cha Page, Corey, PA PA cp Sophie Rodríguez, RN RN Lambert Piper RN RN bp
[2022-07-09 21:04] VITALS: TEMP 98.3
[2022-07-09 21:07] VITALS: BP 124/74; O2SAT 99
--- NOTE | 2022-07-12 07:13 | EKG ---
Test Date: 2022-07-09 Test Time: 18:20:15 Clean In Places Operator: LIZ MEASUREMENT RESULTS: Intervals: Rate: 83 CT: 230 QRSD: 128 QT: 416 QTc: 488 [place]: P: 71 CT: 230 QRS: -18 T: 60 INTERPRETIVE STATEMENTS: Sinus rhythm with 1st degree AV block Nonspecific intraventricular block Abnormal ECG Compared to ECG 05/29/2022 15:58:43 First degree AV block now present Sinus bradycardia no longer present Left ventricular hypertrophy no longer present T-wave abnormality no longer present Possible ischemia no longer present Electronically Signed On 07-12-22 07:07:28 CDT by Felipe Crum
== END 2022-07-09 20:17 | disposition home or self-care (01) ==
LOC: ER 18:19
DX: R07.9 Chest pain, unspecified (principal); I48.91 Unspecified atrial fibrillation; I10 Essential (primary) hypertension; Z95.2 Presence of prosthetic heart valve; Z79.01 Long term (current) use of anticoagulants
CPT/HCPCS: 36415; 71045; 80048; 80076; 83735; 84484; 85025; 85610; 85730; 93005; 99285

== ENCOUNTER 2023-02-28 07:03 | Day surgery (SDC) | payer BC ==
[2023-02-27 14:29] LABS: Absolute Lymphocytes (CBC) 1.3 K/uL (0.7-4.9); MCV 89.5 fL (80-100); Platelets 290 thou/uL (152-406); RBC Red Blood Cell Count 5.81 M/uL (4.33-5.43)
[2023-02-27 14:49] LABS: Albumin 3.1 g/dL (3.4-5.0); Bilirubin Direct 0.1 mg/dL (0-0.2); Bilirubin Indirect, Calculated 0.4 mg/dL (0.2-0.8); Bilirubin Total 0.5 mg/dL (0.2-1.0); Potassium 3.8 mEq/L (3.5-5.1); Protein, Total 6.9 g/dL (6.4-8.2)
--- NOTE | 2023-02-27 14:52 | RAD REPORT ---
EXAM DESCRIPTION: RAD - Chest Pa And Lat (2 Views) - 02/27/2023 2:26 pm CLINICAL HISTORY: pre op pending cholecystectomy. Hypertension COMPARISON: Chest Single View dated 07/09/2022; Chest Pa And Lat (2 Views) dated 05/29/2022; Chest Sin gle View dated 08/07/2021; Chest Single View dated 04/18/2021 TECHNIQUE: PA and lateral views of the chest were obtained. FINDINGS: The lungs are clear with stable left basilar atelectasis. Heart size is normal and central vasculature is within normal limits. No pleural effusion or pneumothorax seen. No acute bony finding noted. Stable sequelae of median sternotomy and spinal fusion. IMPRESSION: No acute cardiopulmonary process.
[2023-02-28] MEDS ORDERED: Ringers Lactate 1,000 ML IV ONE (07:15)
[2023-02-28] MEDS: CEFOXITIN SODIUM 1 GM/VIAL ONE ×2 (08:19→09:05)
[2023-02-28] MEDS ORDERED: dexAMETHasone 4 MG/ML VIAL ONE (08:44)
[2023-02-28] MEDS ORDERED: LIDOCAINE 1% MPF 5 ML VIAL ONE (08:44)
[2023-02-28] MEDS ORDERED: ONDANSETRON 4 MG/2 ML VIAL ONE (08:44)
[2023-02-28] MEDS ORDERED: ROCURONIUM 50 MG/5 ML VIAL IV ONE (08:44)
[2023-02-28] MEDS ORDERED: FENTANYL CITR 100 MCG/2 ML ONE (08:45)
[2023-02-28] MEDS ORDERED: propofoL 200 MG/20 ML VIAL IV ONE (08:45)
[2023-02-28] MEDS ORDERED: MIDAZOLAM HCL 2 MG/2 ML INJ ONE (08:45)
--- NOTE | 2023-02-28 10:26 | P.BOP ---
Preoperative diagnosis: acute cholecystitis, symptomatic cholelithiasis Postoperative diagnosis: same plus intrabdominal adhesions Primary procedure: Laparoscopic cholecystectomy Secondary procedure: Laparoscopic lysis of adhesions Estimated blood loss: <10cc Specimen: gb Findings: inflammed edematous gallbladder Anesthesia: General Complications: None Drain(s): LIZZY drain Transferred to: Recovery Room Condition: Good
[2023-02-28] MEDS ORDERED: CODEINE 30MG/APAP 300MG TAB ONE (12:03)
[2023-02-28 12:29] VITALS: BP 136/76; TEMP 97.7; O2SAT 98
--- NOTE | 2023-02-28 18:45 | DS ---
Date of Discharge: 02/28/2023 Diagnoses: Acute cholecystitis, symptomatic cholelithiasis, intraabdominal adhesions. Procedures: Laparoscopic cholecystectomy, laparoscopic lysis of adhesions. Disposition: Home. Activity: As tolerated, no heavy lifting. Condition: Stable. Followup: Follow up with my office in 1 week, call for appointment at [phone]. LIZZY drain to bulb suction. Record output q.24 hours. Medications were already called to the Pharmacy . SHEELA/JEANIE Voice ID: [id number] Report ID: [id number]
--- NOTE | 2023-02-28 18:45 | OP ---
Date of Procedure: 02/28/2023 Surgeon: Angus Asher MD Preoperative Diagnoses: Acute cholecystitis, symptomatic cholelithiasis. Postoperative Diagnoses: Acute cholecystitis, symptomatic cholelithiasis, intraabdominal adhesions. Procedure: Laparoscopic cholecystectomy, laparoscopic lysis of adhesions. Estimated Blood Loss: Less than 10 mL. Specimen: Gallbladder. Finding: Inflamed edematous gallbladder with multiple omental adhesions densely adhered to the liver and to the gallbladder. Anesthesia: General plus local. Complications: None. Drains: LIZZY #10. Indications: This is the case of a male, who comes to us with epigastric right upper quadrant pain, diagnosed with acute cholecystitis, symptomatic cholelithiasis. He has a history of cardiac disease with valve replaced not too long ago, so we have to go through the cardiac clearance process. The pr oblem is still there and he wants to solve the issue before it becomes a major emergency, so we offer ed him laparoscopic possible open cholecystectomy with benefits, alternatives, and risks explained to him including, but not limited to, infection, bleeding, damage to adjacent structures, anesthesia co mplication, choledocholithiasis, bile leak, pancreatitis, GA, even . He also understands this m ay not relieve symptoms, he might need more than one surgical intervention. He understood, signed a consent. Description Of Procedure: The patient brought to the operating room, placed in supine position. Ane sthesia was done without complication. Abdominal area was prepped and draped in sterile fashion. Ti me-out was called. An incision was made in the supraumbilical region. He is a tall person, so the d istance may be better fit if we go supraumbilical. Incision was carried down to fascia, which was op ened under direct vision. Peritoneum was encountered, opened under direct vision. Vicryl #1 placed inside the fascia. Hodan trocar was carefully introduced. Pneumoperitoneum was obtained. I placed 3 more trocars, 5 mm each one of them in epigastric and right upper quadrant area under direct visua lization. Gallbladder cannot be seen. Omentum was attached to the liver. Omentum was attached to t he anterior abdominal wall. In order for us to continue, we had to get those adhesions out. So, we opened LigaSure and with the LigaSure well in that case we were able to slowly and methodically take those adhesions down, carefully removed from the gallbladder and that gave us the window of opportuni ty to continue the surgery laparoscopically. We made sure that hemostasis was obtained all time afte r we did those lysis of adhesions. After that, the grasper was placed on the fundus of the gallbladd er and another grasper in the infundibulum, retracting the gallbladder in inferolateral fashion, expo sing triangle of Calot. The gallbladder was thick, probably from active cholecystitis. Once we put a grasper there, the gallbladder was retracted in the inferolateral fashion exposing the triangle of Calot, obtaining critical view. Cystic duct and cystic artery were clearly isolated, freed circumfer entially, and a connection between those and the gallbladder was clearly identified. I proceeded to ligate those by using at least 3 clips proximal, 1 clip distal, ligation in middle. Same was done wi th the cystic artery. A small little branch of the cystic artery was also ligated using the same lizzy hnique. Hepatic arteries and common bile duct were protected at all times. The gallbladder was aida thai from liver using Bovie cauterizer. Removed from abdominal cavity using an EndoCatch through the umbilical incision. Umbilical incision had to be extended due to the size of the gallbladder to come out. This was reinforced at the end with extra Vicryl #1. At that moment, I proceeded to put the H asson trocar back on, obtained pneumoperitoneum, inspected the area, the lysis of adhesions and the g allbladder fossa. Clips were intact, no bleeding, although there was a lot of inflammation in that r egion. I left a LIZZY drain exiting through one of the trocar site and secured that in place with 3-0 n ylon. No bile leak. No bleeding. At that moment, I proceeded to remove the trocars under direct vi billie, deflated pneumoperitoneum. Closed the fascia with #1 Vicryl, irrigated subcutaneous tissue, cl osed that with 3-0 chromic and skin with ricco. Sponge count, instrument counts correct. The renetta ent tolerated the procedure well. The patient sent to recovery in stable condition. HM/MODL Voice ID: [id number] Report ID: [id number]
== END 2023-02-28 12:15 | disposition home or self-care (01) ==
LOC: OR 07:03
PROVIDERS: ATTEND Surgery
PROC: 0FT44ZZ Resection of Gallbladder, Percutaneous Endoscopic Approach (ICD-10-PCS; principal; 2023-02-28 09:00)
DX: K80.10 Calculus of gallbladder with chronic cholecystitis without obstruction (principal); I51.9 Heart disease, unspecified
CPT/HCPCS: 85025; 80048; 36415; 80076; 88304; 83690; 71046; 47562; J2704; J1100; J2001; J2250; J3010; J0694; J2405; J7120

== ENCOUNTER 2024-11-05 01:55 | Emergency (ER) | payer BC ==
[2024-11-05 02:52] LABS: Absolute Lymphocytes (CBC) 2.1 K/uL (0.7-4.9); Hematocrit 43.3 % (39.6-49.0); Hemoglobin 15.1 g/dL (13.6-17.9); MCH 34.2 pg (27.0-35.0); MCHC 35.0 g/dL (32.0-36.0); MCV 97.9 fL (80-100); MPV 7.5 fL (7.6-11.3); Nucleated RBC Absolute Count 0.0 (0-0); Nucleated Red Blood Cells % 0.1 % (0-0); RBC Red Blood Cell Count 4.42 M/uL (4.33-5.43); White Blood Count 7.20 thou/uL (4.3-10.9)
[2024-11-05 02:53] LABS: PT Prothrombin Time 12.1 SECONDS (10-13.0); Protime INR 1.07
[2024-11-05] MEDS ORDERED: ONDANSETRON 4 MG/2 ML VIAL ONE (02:54)
[2024-11-05] MEDS ORDERED: HYDROMORPHONE HCL 1 MG/ML INJ ONE ×2 (02:54→05:24)
[2024-11-05 03:07] LABS: ALT/SGPT 147.0 U/L (16-61); AST/SGOT 221.0 U/L (15-37); Albumin 3.1 g/dL (3.4-5.0); Albumin/Globulin Ratio 0.9 (1.1-1.8); Alkaline Phosphatase 123.0 U/L (45-117); Anion Gap 13.1 mEq/L (5.0-15.0); BUN Blood Urea Nitrogen 15.0 mg/dL (7-18); Bilirubin Indirect, Calculated 0.2 mg/dL (0.2-0.8); Globulin 3.6 g/dL (2.3-3.5); Glucose Level 100.0 mg/dL (74-106); Lipase 85.0 U/L (13-75); Magnesium 1.7 mg/dL (1.6-2.4); NT PRO-BNP 46.0 pg/mL (<125); Potassium 3.1 mEq/L (3.5-5.1); Troponin High Sensitivity 15.0 pg/mL (<58.9)
[2024-11-05] MEDS ORDERED: NA CHLORIDE 0.9% 1,000 ML ONE ×2 (04:17→05:24)
--- NOTE | 2024-11-05 05:21 | EDPHYS ---
Physician Documentation [facility] Name: Darien Luna Age: 64 yrs Sex: Male : 1960 Arrival Date: 11/05/2024 Time: 01:55 Bed 5 Private MD: Ellen Johnson ED Physician Sandy Zhou HPI: 11/05 02:31 This 64 yrs old Male presents to ER via Unassigned with complaints of Rectal Bleeding, sp3 Low Back Pain. 02:31 64-year-old male with history of prior atrial fibrillation (currently in sinus and not sp3 taking Eliquis), hypertension, possible GI bleed 6 months ago that stopped before he mated to [facility] transferred from [place], who presents to the ED with recurrent nausea, vomiting, diarrhea and blood mixed with stool. All of this is exacerbated as acute on chronic back pain as he has rods in his back and sees pain management. Patient sees Dr. Johnson outpatient for PCP. He has not yet had any colonoscopy or endoscopy procedures. Currently he denies any URI symptoms, fever, headache, chest pain, shortness of breath, bleeding elsewhere, rash, easy bruising, or any other signs or symptoms on ROS at this time.. Historical: - Allergies: 02:27 No Known Allergies; tb4 - Home Meds: 02:27 atorvastatin Oral [Active]; losartan Oral [Active]; metoprolol succinate oral [Active]; tb4 - PMHx: 02:27 Atrial fibrillation; Hypertensive disorder; tb4 - PSHx: 02:27 back surgery; bilateral knee replacement; tb4 - Immunization history:: Adult Immunizations up to date. - Infectious Disease History:: Denies. - Social history:: Smoking status: Patient denies any tobacco usage or history of. Patient uses alcohol, on a daily basis. ROS: 02:34 Constitutional: Negative for fever, chills, and weight loss, Eyes: Negative for injury, sp3 pain, redness, and discharge, Neck: Negative for injury, pain, and swelling, Cardiovascular: Negative for chest pain, palpitations, and edema, Respiratory: Negative for shortness of breath, cough, wheezing, and pleuritic chest pain, Back: Negative for injury and pain, MS/Extremity: Negative for injury and deformity, Skin: Negative for injury, rash, and discoloration, Neuro: Negative for headache, weakness, numbness, tingling, and seizure, Psych: Negative for depression, anxiety, suicide ideation, homicidal ideation, and hallucinations, Allergy/Immunology: Negative for hives, rash, and allergies, Endocrine: Negative for neck swelling, polydipsia, polyuria, polyphagia, and marked weight changes, Hematologic/Lymphatic: Negative for swollen nodes, abnormal bleeding, and unusual bruising, 02:34 All other systems are negative, Exam: 02:35 Constitutional: This is a well developed, well nourished patient who is awake, alert, sp3 and in no acute distress. Head/Face: Normocephalic, atraumatic. Eyes: Pupils equal round and reactive to light, extra-ocular motions intact. Lids and lashes normal. Conjunctiva and sclera are non-icteric and not injected. Cornea within normal limits. Periorbital areas with no swelling, redness, or edema. Neck: Trachea midline, no thyromegaly or masses palpated, and no cervical lymphadenopathy. Supple, full range of motion without nuchal rigidity, or vertebral point tenderness. No Meningismus. Chest/axilla: Normal chest wall appearance and motion. Nontender with no deformity. No lesions are appreciated. Cardiovascular: Regular rate and rhythm with a normal S1 and S2. No gallops, murmurs, or rubs. Normal PMI, no JVD. No pulse deficits. Respiratory: Lungs have equal breath sounds bilaterally, clear to auscultation and percussion. No rales, rhonchi or wheezes noted. No increased work of breathing, no retractions or nasal flaring. Back: No spinal tenderness. No costovertebral tenderness. Full range of motion. Skin: Warm, dry with normal turgor. Normal color with no rashes, no lesions, and no evidence of cellulitis. MS/ Extremity: Pulses equal, no cyanosis. Neurovascular intact. Full, normal range of motion. Neuro: Awake and alert, GCS 15, oriented to person, place, time, and situation. Cranial nerves II-XII grossly intact. Motor strength 5/5 in all extremities. Sensory grossly intact. Cerebellar exam normal. Normal gait. Psych: Awake, alert, with orientation to person, place and time. Behavior, mood, and affect are within normal limits. 02:35 Abdomen/GI: Diffuse mild tenderness to the abdomen. Vital signs are normal and patient is afebrile., 03:39 ECG was reviewed by the Attending Physician. EKG demonstrates normal sinus rhythm at 65 sp3 bpm with a first-degree AV block with MN interval 252, QTc 468, normal axis, nonspecific intraventricular block and nonspecific diffuse ST/T changes without evidence of acute ischemia. Vital Signs: 02:27 BP 130 / 62; Pulse 71; Resp 19; Pulse Ox 97% on R/A; Weight 136.08 kg; Height 6 ft. 2 tb4 in. ; Pain 10/10; 03:19 BP 97 / 73; Pulse 83; Resp 16; Pulse Ox 98% on R/A; tb4 04:30 BP 116 / 54; Pulse 83; Resp 17; Temp 98.4(O); Pulse Ox 97% on 2 lpm NC; Pain 8/10; tb4 05:30 BP 115 / 62; Pulse 72; Resp 20; Pulse Ox 98% on R/A; tb4 02:27 Body Mass Index 38.52 (136.08 kg, 187.96 cm) tb4 02:27 Pain Scale: Adult tb4 04:30 Pain Scale: Adult tb4 MDM: 02:14 Medical Screening Exam initiated sp3 02:35 Data reviewed: vital signs, nurses notes, old medical records, lab test result(s), EKG, sp3 radiologic studies. ED course: 64-year-old male with vomiting, diarrhea with blood mixed with stool and acute on chronic back pain. Differential diagnosis includes gastroenteritis, upper GI bleed, lower GI bleed, pancreatitis, gastritis, among others. I am not highly suspicious of pathology, vascular pathology, sepsis, shock or any other critical process. Workup will include CT scan of the abdomen pelvis with IV contrast, EKG, general labs including type and screen, lactate. Pain control with Dilaudid and Zofran. Disposition pending workup and patient course.. 05:20 ED course: Hemoglobin normal and CT scan is negative. Lactate is 3.2 and creatinine of sp3 1.7. Patient likely has prerenal azotemia and is dehydrated. Will add second liter of normal saline and discharge patient home. Vital signs are completely normal. 1 more dose of pain medication as well.. 11/05 02:28 Order name: Basic Metabolic Panel; Complete Time: 03:38 sp3 11/05 02:28 Order name: CBC with Diff; Complete Time: 03:38 11/05 02:28 Order name: LFT's; Complete Time: 03:38 11/05 02:28 Order name: Magnesium; Complete Time: 03:38 11/05 02:28 Order name: NT PRO-BNP; Complete Time: 03:38 11/05 02:28 Order name: PT-INR; Complete Time: 03:38 11/05 02:28 Order name: Troponin HS; Complete Time: 03:38 11/05 02:28 Order name: Type And Screen; Complete Time: 05:17 11/05 02:28 Order name: Lipase; Complete Time: 03:38 11/05 02:28 Order name: Lactate w/ 2H reflex if indic.; Complete Time: 05:17 3 11/05 03:51 Order name: Ghost Lactate-NO COLLECT Timer; Complete Time: 05:55 EDMS 11/05 03:55 Order name: ABO/RH no charge; Complete Time: 05:17 EDMS 11/05 06:24 Order name: Lactate Sepsis 2 HR Follow-up; Complete Time: 06:27 EDMS 11/05 02:28 Order name: CT Abd/Pelvis - IV Contrast Only 11/05 02:28 Order name: EKG; Complete Time: 02:28 11/05 02:28 Order name: Cardiac monitoring; Complete Time: 02:29 11/05 02:28 Order name: EKG - Nurse/Tech; Complete Time: 03:18 11/05 02:28 Order name: IV Saline Lock; Complete Time: 02:29 11/05 02:28 Order name: Labs collected and sent; Complete Time: 02:29 11/05 02:28 Order name: O2 Per Protocol; Complete Time: 02:11/05 02:28 Order name: O2 Sat Monitoring; Complete Time: 02:29 sp3 Administered Medications: 03:02 Drug: HYDROmorphone IVP 1 mg IVP once Route: IVP; Site: right antecubital; tb4 03:34 Follow up: Response: No adverse reaction; Pain is decreased; RASS: Alert and Calm (0) tb4 03:02 Drug: Ondansetron IVP 4 mg IVP once; over 2 minutes Route: IVP; Site: right antecubital;tb4 03:33 Follow up: Response: No adverse reaction; Nausea is decreased tb4 04:21 Drug: NS 0.9% IV 1000 ml IV at 1 bolus Per protocol; to be given as a bolus over 60 tb4 minutes Route: IV; Rate: 1 bolus; Site: right antecubital; 06:03 Follow up: Response: No adverse reaction; IV Status: Completed infusion tb4 05:28 Drug: HYDROmorphone IVP 1 mg IVP once Route: IVP; Site: right antecubital; tb4 06:03 Follow up: Response: No adverse reaction; Pain is decreased; RASS: Alert and Calm (0) tb4 06:01 Drug: NS 0.9% IV 1000 ml IV at 1000 ml once; to be given as a bolus over 20 minutes tb4 Route: IV; Rate: 1000 ml; Site: right antecubital; 07:04 Follow up: Response: No adverse reaction; IV Status: Completed infusion tb4 Disposition Summary: 11/05/24 05:21 Discharge Ordered Notes: Location: Home sp3 Condition: Stable sp3 Diagnosis - Gastroenteritis, dehydration sp3 Followup: sp3 - With: Private Physician - When: Upon discharge from the Emergency Department - Reason: Continuance of care Discharge Instructions: - Discharge Summary Sheet sp3 - Dehydration, Adult sp3 - Viral Gastroenteritis, Adult sp3 Forms: - Medication Reconciliation Form sp3 - Antibiotic Education sp3 - Prescription Opioid Use sp3 - Patient Portal Instructions sp3 - Leadership Thank You Letter sp3 Prescriptions: - ondansetron HCl 4 mg Oral tablet - take 1 tablet ORAL route 4 times per day as needed for nausea and vomiting; 20 sp3 tablet; Refills: 0, Product Selection Permitted Signatures: Dispatcher [employer] Sandy Beal MD MD sp3 Nicole Douglass RN RN tb4
--- NOTE | 2024-11-05 05:21 | ER ---
Nurse's Notes [facility] Name: Darien Luna Age: 64 yrs Sex: Male : 1960 Arrival Date: 11/05/2024 Time: 01:55 Bed 5 Private MD: Ellen Johnson Diagnosis: Gastroenteritis, dehydration Presentation: 11/05 02:17 Chief complaint: Patient states: Patient c/o chronic lower back pain, nausea, vomiting tb4 and diarrhea x2-3 day. Coronavirus screen: At this time, the client does not indicate any symptoms associated with coronavirus-19. Ebola Screen: No symptoms or risks identified at this time. Initial Sepsis Screen: Does the patient meet any 2 criteria? No. Patient's initial sepsis screen is negative. Does the patient have a suspected source of infection? No. Patient's initial sepsis screen is negative. Risk Assessment: Do you want to hurt yourself or someone else? Patient reports no desire to harm self or others. Onset of symptoms was November 02, 2024. 02:17 Method Of Arrival: Ambulatory tb4 02:17 Acuity: KUSUM 3 tb4 Triage Assessment: 02:17 General: Appears uncomfortable, Behavior is calm, cooperative. Pain: Complains of pain tb4 in lumbar area, left low back and right low back Pain does not radiate. Pain currently is 10 out of 10 on a pain scale. Quality of pain is described as pressure, sharp, Pain began gradually, 2-3 days ago. EENT: No signs and/or symptoms were reported regarding the EENT system. 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 Full function Gait is steady, Speech is slurred, Facial symmetry appears normal. Cardiovascular: Patient's skin is warm and dry. Respiratory: Airway is patent Respiratory effort is even, unlabored, Respiratory pattern is regular, symmetrical. GI: Reports diarrhea, nausea, vomiting. : No signs and/or symptoms were reported regarding the genitourinary system. Derm: No signs and/or symptoms reported regarding the dermatologic system. Skin is intact, is healthy with good turgor, Skin is dry, Skin is normal. Musculoskeletal: Circulation, motion, and sensation intact. Range of motion: intact in all extremities. Historical: - Allergies: : No Known Allergies; tb4 - Home Meds: : atorvastatin Oral [Active]; losartan Oral [Active]; metoprolol succinate oral [Active]; tb4 - PMHx: : Atrial fibrillation; Hypertensive disorder; tb4 - PSHx: : back surgery; bilateral knee replacement; tb4 - Immunization history:: Adult Immunizations up to date. - Infectious Disease History:: Denies. - Social history:: Smoking status: Patient denies any tobacco usage or history of. Patient uses alcohol, on a daily basis. Screenin: [facility] ED Fall Risk Assessment (Adult) History of falling in the last 3 months, tb4 including since admission No falls in past 3 months (0 pts) Confusion or Disorientation No (0 pts) Intoxicated or Sedated No (0 pts) Impaired Gait No (0 pts) Mobility Assist Device Used No (0 pt) Altered Elimination No (0 pt) Score/Fall Risk Level 0 - 2 = Low Risk Maintained a safe environment. Abuse screen: Denies threats or abuse. Denies injuries from another. Nutritional screening: No deficits noted. Tuberculosis screening: No symptoms or risk factors identified. Assessment: 02:48 General: Appears uncomfortable. Respiratory: Airway is patent Respiratory effort is tb4 even, unlabored, Respiratory pattern is regular, symmetrical. GI: Abdomen is round obese. GI: Reports diarrhea, nausea, vomiting, bleeding from rectum. : No signs and/or symptoms were reported regarding the genitourinary system. EENT: No signs and/or symptoms were reported regarding the EENT system. Derm: No signs and/or symptoms reported regarding the dermatologic system. Skin is intact, is healthy with good turgor, Skin is dry, Skin is normal, Skin temperature is warm. Musculoskeletal: No signs and/or symptoms reported regarding the musculoskeletal system. Circulation, motion, and sensation intact. Range of motion: intact in all extremities. Vital Signs: 02:27 BP 130 / 62; Pulse 71; Resp 19; Pulse Ox 97% on R/A; Weight 136.08 kg; Height 6 ft. 2 tb4 in. ; Pain 10/10; 03:19 BP 97 / 73; Pulse 83; Resp 16; Pulse Ox 98% on R/A; tb4 04:30 BP 116 / 54; Pulse 83; Resp 17; Temp 98.4(O); Pulse Ox 97% on 2 lpm NC; Pain 8/10; tb4 05:30 BP 115 / 62; Pulse 72; Resp 20; Pulse Ox 98% on R/A; tb4 02:27 Body Mass Index 38.52 (136.08 kg, 187.96 cm) tb4 02:27 Pain Scale: Adult tb4 04:30 Pain Scale: Adult tb4 ED Course: 01:58 Patient arrived in ED. gm2 01:59 Ellen Johnson DO is Private Physician. gm2 02:14 Sandy Zhou MD is Attending Physician. sp3 02:27 Inserted saline lock: 20 gauge in right antecubital area, using aseptic technique. tb4 Blood collected. Flushed with 10 mL NS. 02:27 Initial lab(s) drawn, by me, sent to lab. tb4 02:27 Patient has correct armband on for positive identification. Bed in low position. Call tb4 light in reach. Side rails up X 1. Side rails up X2. Client placed on continuous cardiac and pulse oximetry monitoring. NIBP monitoring applied. extension work director on. Door closed. Warm blanket given. 02:46 Triage completed. tb4 03:18 EKG done, by ED staff, reviewed by Sandy Zhou MD. tb4 03:35 No provider procedures requiring assistance completed. Ultrasound. Oxygen tb4 administration via nasal cannula \T\ 2L/min Response to oxygen therapy: Patient oxygen dropped to 70, nasal cannula \T\2L was applied. 03:56 CT Abd/Pelvis - IV Contrast Only In Process Unspecified. EDMS 04:31 Arm band placed on right wrist. tb4 07:05 IV discontinued, intact, bleeding controlled, No redness/swelling at site. Pressure tb4 dressing applied. Administered Medications: 03:02 Drug: HYDROmorphone IVP 1 mg IVP once Route: IVP; Site: right antecubital; tb4 03:34 Follow up: Response: No adverse reaction; Pain is decreased; RASS: Alert and Calm (0) tb4 03:02 Drug: Ondansetron IVP 4 mg IVP once; over 2 minutes Route: IVP; Site: right antecubital;tb4 03:33 Follow up: Response: No adverse reaction; Nausea is decreased tb4 04:21 Drug: NS 0.9% IV 1000 ml IV at 1 bolus Per protocol; to be given as a bolus over 60 tb4 minutes Route: IV; Rate: 1 bolus; Site: right antecubital; 06:03 Follow up: Response: No adverse reaction; IV Status: Completed infusion tb4 05:28 Drug: HYDROmorphone IVP 1 mg IVP once Route: IVP; Site: right antecubital; tb4 06:03 Follow up: Response: No adverse reaction; Pain is decreased; RASS: Alert and Calm (0) tb4 06:01 Drug: NS 0.9% IV 1000 ml IV at 1000 ml once; to be given as a bolus over 20 minutes tb4 Route: IV; Rate: 1000 ml; Site: right antecubital; 07:04 Follow up: Response: No adverse reaction; IV Status: Completed infusion tb4 Medication: 02:27 VIS not applicable for this client. tb4 Outcome: 05:21 Discharge ordered by . sp3 07:05 Discharged to home ambulatory, tb4 07:05 Condition: stable 07:05 Discharge instructions given to patient, Instructed on discharge instructions, follow up and referral plans. Demonstrated understanding of instructions, follow-up care, medications, Prescriptions given X 1, 07:06 Patient left the ED. tb4 Signatures: Dispatcher [employer] EDSandy Dumas MD MD sp3 Celina Alston 2 Nicole Douglass, RN RN tb4
--- NOTE | 2024-11-05 05:47 | RAD REPORT ---
EXAM: CT Abdomen and Pelvis With Intravenous Contrast ([id number], [id number]) CLINICAL HISTORY: 64 years Male N, V, D, abd pain. TECHNIQUE: Axial computed tomography images of the abdomen and pelvis with intravenous contrast. Sagittal and coronal reformatted images were created and reviewed. This CT exam was performed using one or more of the following dose reduction techniques: automated exposure control, adjustment of the mA a nd/or kV according to patient size, and/or use of iterative reconstruction technique. COMPARISON: None. FINDINGS: Lung bases: Normal. No mass. No consolidation. Liver: Normal. No mass. Gallbladder and bile ducts: Diffuse hepatic hyperechogenicity. Normal contour. No mass. No intrahep atic bile duct dilation. The portal vein is patent. Status post cholecystectomy. Pancreas: Normal. No mass. No ductal dilation. Spleen: Normal. No splenomegaly. Adrenals: Normal. No mass. Kidneys and ureters: Simple right renal cyst for which no follow-up imaging is necessary. Stomach and bowel: The stomach and small bowel are normal. The large bowel is normal in caliber. Co lonic diverticulosis. No obstruction. No mucosal thickening. Appendix: Normal. Bladder: Normal. No mass. Reproductive: Normal. Intraperitoneal space: Normal. No free air. No fluid collection. Bones/joints: Partially imaged thoracolumbar fusion hardware. No acute bony abnormality. Soft tissues: Pelvic lipomatosis. Vasculature: Aortoiliac atherosclerosis. Lymph nodes: Normal. No lymphadenopathy. IMPRESSION: 1. No acute abnormality. 2. Hepatic steatosis. 3. Colonic diverticulosis. Electronically signed by: Paramjit Crandall MD 11/05/2024 05:13 AM [facility] Due to temporary technical issues with the PACS/YelloYello reporting system, reports are being jennifer d by the in-house radiologist without review as a courtesy to ensure prompt reporting the interpreting radiologist is fully responsible for the content of the report. Transcribed Date/Time: 11/05/2024 5:47 AM
[2024-11-05 07:14] VITALS: TEMP 98.4
[2024-11-05 07:15] VITALS: BP 115/62; O2SAT 98
== END 2024-11-05 07:06 | disposition home or self-care (01) ==
LOC: ER 01:55
DX: K52.9 Noninfective gastroenteritis and colitis, unspecified (principal); E86.0 Dehydration; I10 Essential (primary) hypertension; I48.91 Unspecified atrial fibrillation
CPT/HCPCS: 96361; 93005; 85025; 80048; 36415; 86900; 83735; 86850; 85610; 86901; 80076; 83605 ×2; 84484; 83690; 83880; 74177; 96375; 96374; 99285; Q9967; J1171 ×2; J2405; J7030 ×2

== ENCOUNTER 2024-11-12 08:13 | Inpatient (IN) | payer BC ==
[2024-11-12 09:00] LABS: Absolute Lymphocytes (CBC) 0.6 K/uL (0.7-4.9); Hematocrit 41.5 % (39.6-49.0); Hemoglobin 14.2 g/dL (13.6-17.9); MCH 33.5 pg (27.0-35.0); MCHC 34.1 g/dL (32.0-36.0); MCV 98.1 fL (80-100); MPV 7.7 fL (7.6-11.3); Nucleated RBC Absolute Count 0.0 (0-0); Nucleated Red Blood Cells % 0.0 % (0-0); RBC Red Blood Cell Count 4.23 M/uL (4.33-5.43); White Blood Count 8.80 thou/uL (4.3-10.9)
[2024-11-12 09:10] LABS: PT Prothrombin Time 13.0 SECONDS (10-13.0); PTT, Activated Partial Thromb 25.2 SECONDS (27.2-37.4); Protime INR 1.16
[2024-11-12 09:33] LABS: ALT/SGPT 93.0 U/L (16-61); AST/SGOT 119.0 U/L (15-37); Albumin 2.9 g/dL (3.4-5.0); Albumin/Globulin Ratio 1.0 (1.1-1.8); Alkaline Phosphatase 94.0 U/L (45-117); Anion Gap 11.7 mEq/L (5.0-15.0); BUN Blood Urea Nitrogen 22.0 mg/dL (7-18); Bilirubin Indirect, Calculated 0.6 mg/dL (0.2-0.8); Globulin 2.8 g/dL (2.3-3.5); Glucose Level 71.0 mg/dL (74-106); Potassium 3.7 mEq/L (3.5-5.1)
[2024-11-12] MEDS ORDERED: NA CHLORIDE 0.9% 1,000 ML ONE (10:34)
[2024-11-12] MEDS ORDERED: LORazepam 2 MG/ML VIAL ONE (10:39)
--- NOTE | 2024-11-12 10:41 | ER ---
Nurse's Notes [facility] Name: Darien Luna Age: 64 yrs Sex: Male : 1960 Arrival Date: 11/12/2024 Time: 08:13 Bed 3 Private MD: Diagnosis: Rhabdomyolysis;Tremor, unspecified;Acute Kidney injury Presentation: 11/12 08:40 Coronavirus screen: Client denies travel out of the [place] in the last 14 days. At this db time, the client does not indicate any symptoms associated with coronavirus-19. Ebola Screen: Patient negative for fever greater than or equal to 101.5 degrees Fahrenheit, and additional compatible Ebola Virus Disease symptoms Patient denies exposure to infectious person. Patient denies travel to an Ebola-affected area in the 21 days before illness onset. No symptoms or risks identified at this time. Initial Sepsis Screen: Does the patient meet any 2 criteria? No. Patient's initial sepsis screen is negative. Does the patient have a suspected source of infection? No. Patient's initial sepsis screen is negative. Risk Assessment: Do you want to hurt yourself or someone else? Patient reports no desire to harm self or others. 08:40 Method Of Arrival: EMS: [facility] db 08:40 Acuity: KUSUM 3 db 08:40 Chief complaint: EMS states: ETOH WITHDRAWAL SEEN AT OTHER FACILITY RECENTLY, NO DRINK bp x24 HR. 08:40 Onset of symptoms is unknown. Care prior to arrival: IV initiated. 20 GA, in the left bp antecubital area. Triage Assessment: 08:40 General: Appears in no apparent distress. obese, Behavior is cooperative, appropriate bp for age, anxious. Pain: Denies pain. EENT: No deficits noted. Neuro: Level of Consciousness is awake, alert, obeys commands, Oriented to Appropriate for age. Cardiovascular: Rhythm is sinus rhythm. Respiratory: No deficits noted. GI: No signs and/or symptoms were reported involving the gastrointestinal system. : No signs and/or symptoms were reported regarding the genitourinary system. Derm: No deficits noted. Musculoskeletal: No deficits noted. Historical: - Allergies: 08:42 No Known Allergies; db - PMHx: 08:42 Atrial fibrillation; Hypertensive disorder; db - PSHx: 08:42 back surgery; bilateral knee replacement; db - Immunization history:: Adult Immunizations up to date. - Infectious Disease History:: Denies. - Social history:: Smoking status: Patient denies any tobacco usage or history of. Screenin:[address] [facility] ED Fall Risk Assessment (Adult) History of falling in the last 3 months, db including since admission Yes- single mechanical fall (1 pt) Confusion or Disorientation Yes (5 pts) Intoxicated or Sedated No (0 pts) Impaired Gait No (0 pts) Mobility Assist Device Used No (0 pt) Altered Elimination No (0 pt) Score/Fall Risk Level 3 or more points = High Risk Oriented to surroundings, Maintained a safe environment, Educated pt \T\ family on fall prevention, incl call for assistance when getting out of bed, Hourly rounding (assess needs \T\ fall precautionary measures) done. Abuse screen: Denies threats or abuse. Denies injuries from another. Nutritional screening: No deficits noted. Tuberculosis screening: No symptoms or risk factors identified. Assessment: 10:40 Reassessment: Patient appears in no apparent distress at this time. Patient and/or db family updated on plan of care and expected duration. Pain level reassessed. PT IS HALLUCINATING. HAVING CONVERSATION WITH SELF. STATES IS TALKING TO FIANCE. THERE IS NO ONE IN THE ROOM. General: Appears in no apparent distress. comfortable, Behavior is calm, cooperative. Neuro: Level of Consciousness is awake, alert, obeys commands, confused, Oriented to person, place. Respiratory: Airway is patent Respiratory effort is even, unlabored, Respiratory pattern is regular, symmetrical. 11:15 Reassessment: Patient appears in no apparent distress at this time. Patient and/or db family updated on plan of care and expected duration. Pain level reassessed. General: Appears in no apparent distress. comfortable. 12:00 Neuro: Level of Consciousness is awake, confused, Oriented to person. db 12:04 Reassessment: Patient appears in no apparent distress at this time. Patient and/or db family updated on plan of care and expected duration. Pain level reassessed. PT ASSISTED UP IN BED. 12:11 Reassessment: REPORT GIVEN TO ROZINA IN ICU. db Vital Signs: 08:40 BP 132 / 87; Pulse 87; Resp 24; Temp 100.6(O); Pulse Ox 98% ; Weight 140.61 kg; Height db 6 ft. 2 in. ; Pain 10/10; 09:00 BP 104 / 72; Pulse 88; Resp 24; Pulse Ox 99% ; db 10:30 BP 142 / 79; Pulse 93; Resp 24; Pulse Ox 98% on R/A; db 11:30 BP 130 / 77; Pulse 61; Resp 20; Temp 98.6(O); Pulse Ox 99% ; db 12:15 BP 134 / 97; Pulse 87; Resp 24; Pulse Ox 99% on R/A; db 08:40 Body Mass Index 39.80 (140.61 kg, 187.96 cm) db 08:40 Pain Scale: Adult db Vitals: 09:00 Cardiac Rhythm Assessment Regular Sinus rhythm. db ED Course: 08:32 Patient arrived in ED. iw 08:34 Pradip Rebolledo DO is Attending Physician. ms3 08:40 Arm band placed on. bp 08:41 Triage completed. db 08:42 Lambert Grullon, VERONA is Primary Nurse. bp 08:42 Maintain EMS IV. Dressing intact. Good blood return noted. Site clean \T\ dry. Gauge \T\ db site: 20 G LAC. 10:40 Paramjit Oneill is Hospitalizing Provider. ms3 10:41 Patient has correct armband on for positive identification. Bed in low position. Call db light in reach. Side rails up X 1. Client placed on continuous cardiac and pulse oximetry monitoring. NIBP monitoring applied. enterprise solutions architect on. Pulse ox on. NIBP on. Warm blanket given. Pillow given. 12:12 No provider procedures requiring assistance completed. Patient admitted, IV remains in db place. 12:12 Provided Education on: ADMISSION. db 12:14 Lab(s) recollected, by Urtak, sent to lab. ts3 Administered Medications: 10:37 Drug: NS 0.9% IV 1000 ml IV at 1 bolus Per protocol; to be given as a bolus over 60 bp minutes Route: IV; Rate: 1 bolus; Site: left antecubital; 12:08 Follow up: Response: No adverse reaction; IV Status: Completed infusion; IV Intake: db 1000ml 10:41 Drug: Ativan IVP 1 mg IVP once Route: IVP; Site: left antecubital; bp 12:08 Follow up: Response: No adverse reaction db 11:31 Drug: Ativan IVP 1 mg IVP once Route: IVP; Site: left antecubital; bp 12:09 Follow up: Response: No adverse reaction db Medication: 12:12 VIS not applicable for this client. db Intake: 12:08 IV: 1000ml; Total: 1000ml. db Outcome: 10:40 Decision to Hospitalize by Provider. ms3 12:12 Admitted to ICU accompanied by nurse, accompanied by tech, room 2, on monitor, db 12:12 Condition: stable 12:12 Instructed on the need for admit, 12:43 Patient left the ED. db Signatures: Bisi Coyne, RN VERONA iw Lambert Grullon RN RN Pradip Herzog DO DO ms3 Tammy Haynes, RN RN db Annette Ribeiro ts3 Corrections: (The following items were deleted from the chart) 12:12 12:04 Reassessment: Patient appears in no apparent distress at this time. Patient db and/or family updated on plan of care and expected duration. Pain level reassessed. PT ASSISTED TO BEDSIDE. db 12:12 11:30 BP 130 / 77; Pulse 61bpm; Resp 20bpm; Pulse Ox 99%; db db 12:39 10:40 Neuro: Level of Consciousness is awake, alert, obeys commands, Oriented to db person, place, time, situation, db
--- NOTE | 2024-11-12 10:41 | EDPHYS ---
Physician Documentation [facility] Name: Darien Luna Age: 64 yrs Sex: Male : 1960 Arrival Date: 11/12/2024 Time: : Bed 3 Private MD: ED Physician Pradip Rebolledo HPI: 11/12 09:26 This 64 yrs old Male presents to ER via EMS with complaints of Alcohol withdrawal. ms3 09:26 64-year-old male with past medical history of atrial fibrillation, hypertension, ms3 alcoholism presents to the emergency department via [facility] for alcohol withdrawal. Patient was seen Sunday at [facility] and his alcohol level was in the 300s and patient was released. Patient was found this morning in his backyard after sitting down and being unable to get up with hallucinations and tremors. Patient states he went to a neighbors republican and then coming back sat down in his backyard and could not get up. Patient states his last drink was on Sunday. Patient states he is having 10/10 chronic back pain. Historical: - Allergies: 08:42 No Known Allergies; db - PMHx: 08:42 Atrial fibrillation; Hypertensive disorder; db - PSHx: 08:42 back surgery; bilateral knee replacement; db - Immunization history:: Adult Immunizations up to date. - Infectious Disease History:: Denies. - Social history:: Smoking status: Patient denies any tobacco usage or history of. ROS: 09:26 Constitutional: Negative for fever, and chills. Cardiovascular: Negative for chest ms3 pain, and palpitations. Respiratory: Negative for shortness of breath, cough, wheezing, and pleuritic chest pain, Abdomen/GI: Negative for abdominal pain, nausea, vomiting, diarrhea, and constipation, 09:26 Back: Positive for Chronic back pain, Exam: 09:26 Constitutional: This is a well developed, well nourished patient who is awake, alert, ms3 and in no acute distress. Cardiovascular: Regular rate and rhythm with a normal S1 and S2. No gallops, murmurs, or rubs. Normal PMI, no JVD. No pulse deficits. Respiratory: Lungs have equal breath sounds bilaterally, clear to auscultation and percussion. No rales, rhonchi or wheezes noted. No increased work of breathing, no retractions or nasal flaring. Abdomen/GI: Soft, non-tender, with normal bowel sounds. No distension or tympany. No guarding or rebound. No evidence of tenderness throughout. Skin: Warm, dry with normal turgor. Normal color with no rashes, no lesions, and no evidence of cellulitis. 09:26 Neuro: Abnormal movements: resting tremor, is located in the Bilateral upper extremities, 09:29 ECG was reviewed by the Attending Physician. ms3 Vital Signs: 08:40 BP 132 / 87; Pulse 87; Resp 24; Temp 100.6(O); Pulse Ox 98% ; Weight 140.61 kg; Height db 6 ft. 2 in. ; Pain 10/10; 09:00 BP 104 / 72; Pulse 88; Resp 24; Pulse Ox 99% ; db 10:30 BP 142 / 79; Pulse 93; Resp 24; Pulse Ox 98% on R/A; db 11:30 BP 130 / 77; Pulse 61; Resp 20; Temp 98.6(O); Pulse Ox 99% ; db 12:15 BP 134 / 97; Pulse 87; Resp 24; Pulse Ox 99% on R/A; db 08:40 Body Mass Index 39.80 (140.61 kg, 187.96 cm) db 08:40 Pain Scale: Adult db MDM: 08:34 Medical Screening Exam initiated ms3 09:26 Differential Diagnosis Alcohol withdrawal versus rhabdomyolysis versus electrolyte ms3 abnormality. 10:41 Data reviewed: vital signs, nurses notes, lab test result(s), EKG, and as a result, I ms3 will admit patient. Consideration of Admission/Observation Patient was admitted/placed on observation. Management of patient was discussed with the following: Hospitalist: Mann on behalf of Dr Oneill. I considered the following discharge prescriptions or medication management in the emergency department Medications were administered in the Emergency Department. See MAR. Independent interpretation of the following test(s) in the Emergency Department EKG: See my EKG interpretation above. Counseling: I had a detailed discussion with the patient and/or guardian regarding the historical points, exam findings, and any diagnostic results supporting the discharge/admit diagnosis, lab results, the need for outpatient follow up, to return to the emergency department if symptoms worsen or persist or if there are any questions or concerns that arise at home. ED course: Discussed necessity for admission with patient. Patient understands agrees with plan peer all questions were answered. Patient remains in stable condition in the emergency department.. 11/12 08:35 Order name: BMP; Complete Time: 10:09 ms3 11/12 08:35 Order name: CBC with Diff; Complete Time: 09:29 ms3 11/12 08:35 Order name: Ethanol ms3 11/12 08:35 Order name: Hepatic Function; Complete Time: 10:09 ms3 11/12 08:35 Order name: Protime (+inr); Complete Time: 09:29 ms3 11/12 08:35 Order name: Ptt, Activated; Complete Time: 09:29 ms3 11/12 08:35 Order name: Urine Drug Screen ms3 11/12 08:35 Order name: CK; Complete Time: 10:09 ms3 11/12 11:24 Order name: CBC with Automated Diff EDMS 11/12 11:24 Order name: CBC with Automated Diff EDMS 11/12 11:24 Order name: CBC with Automated Diff EDMS 11/12 11:24 Order name: CBC with Automated Diff EDMS 11/12 11:24 Order name: CBC with Automated Diff EDMS 11/12 11:24 Order name: Comprehensive Metabolic Panel EDMS 11/12 11:24 Order name: Comprehensive Metabolic Panel EDMS 11/12 11:24 Order name: Comprehensive Metabolic Panel EDMS 11/12 11:24 Order name: Comprehensive Metabolic Panel EDMS 11/12 11:24 Order name: Comprehensive Metabolic Panel EDMS 11/12 11:24 Order name: Creatine Phosphokinase EDMS 11/12 11:24 Order name: Creatine Phosphokinase EDMS 11/12 11:24 Order name: Creatine Phosphokinase EDMS 11/12 11:24 Order name: Creatine Phosphokinase EDMS 11/12 11:24 Order name: Magnesium EDMS 11/12 11:24 Order name: Magnesium EDMS 11/12 11:25 Order name: Magnesium EDMS 11/12 11:25 Order name: Magnesium EDMS 11/12 11:25 Order name: Magnesium EDMS 11/12 11:25 Order name: Phosphorus EDMS 11/12 11:25 Order name: Phosphorus EDMS 11/12 11:25 Order name: Phosphorus EDMS 11/12 11:25 Order name: Phosphorus EDMS 11/12 11:25 Order name: Phosphorus EDMS 11/12 11:25 Order name: Thyroid Stimulating Hormone EDNE 11/12 11:25 Order name: Thyroid Stimulating Hormone EDNE 11/12 11:30 Order name: Delirium Tremens Prophylaxis-IV Meds EDMS 11/12 08:35 Order name: EKG - Nurse/Tech; Complete Time: 08:43 ms3 11/12 08:35 Order name: IV Saline Lock; Complete Time: 08:43 ms3 11/12 08:35 Order name: Labs collected and sent; Complete Time: 08:52 ms3 11/12 08:35 Order name: O2 Per Protocol; Complete Time: 08:43 ms3 11/12 08:35 Order name: O2 Sat Monitoring; Complete Time: 08:43 ms3 11/12 08:35 Order name: Suicide Screening ([place]); Complete Time: 08:43 ms3 EC:29 Rate is 86 beats/min. Rhythm is regular. Left axis deviation noted. [place] interval is ms3 prolonged. QRS interval is normal. Clinical impression: NSR w/ Non-specific ST/T Changes. Interpreted by me. Reviewed by me. Administered Medications: 10:37 Drug: NS 0.9% IV 1000 ml IV at 1 bolus Per protocol; to be given as a bolus over 60 bp minutes Route: IV; Rate: 1 bolus; Site: left antecubital; 12:08 Follow up: Response: No adverse reaction; IV Status: Completed infusion; IV Intake: db 1000ml 10:41 Drug: Ativan IVP 1 mg IVP once Route: IVP; Site: left antecubital; bp 12:08 Follow up: Response: No adverse reaction db 11:31 Drug: Ativan IVP 1 mg IVP once Route: IVP; Site: left antecubital; bp 12:09 Follow up: Response: No adverse reaction db Disposition Summary: 11/12/24 10:40 Hospitalization Ordered Notes: Hospitalization Status: Inpatient Admission ms3 Provider: Paramjit Oneill ms3 Condition: Stable ms3 Problem: new ms3 Symptoms: are unchanged ms3 Bed/Room Type: Standard ms3 Location: Intensive Care Unit(11/12/24 11:30) bd Room Assignment: 2-(11/12/24 11:30) bd Diagnosis - Rhabdomyolysis ms3 - Tremor, unspecified ms3 - Acute Kidney injury ms3 Forms: - Medication Reconciliation Form ms3 - SBAR form ms3 - Leadership Thank You Letter ms3 Critical care time excluding procedures: 11:31 Critical care time: Bedside Care: 30 minutes, Consultation: 5 minutes. Total time: 35 ms3 minutes Signatures: Dispatcher [employer] EDMS Bettye Calvin Mann Alba, REAL ESTATE CLERK-C REAL ESTATE CLERK-Cla1 Lambert Grullon, RN RN bp Pradip Rebolledo, DO ms3 Tammy Haynes, RN RN db Corrections: (The following items were deleted from the chart) 08:36 08:36 BASIC METABOLIC PANEL+C.LAB.BRZ ordered. EDMS EDMS 08:36 08:36 CBC+H.LAB.BRZ ordered. EDMS EDMS 08:36 08:36 ETHANOL+C.LAB.BRZ ordered. EDMS EDMS 08:36 08:36 HEPATIC FUNCTION+C.LAB.BRZ ordered. EDMS EDMS 08:36 08:36 PROTIME (+INR)+COAG.LAB.BRZ ordered. EDMS EDMS 08:36 08:36 PTT, ACTIVATED+COAG.LAB.BRZ ordered. EDMS EDMS 08:36 08:36 URINE DRUG SCREEN+UC.LAB.BRZ ordered. EDMS EDMS 08:36 08:36 CREATINE PHOSPHOKINASE+C.LAB.BRZ ordered. EDMS EDMS 09:28 09:26 Neuro: Abnormal movements: resting tremor, is located in the , ms3 ms3 11:30 10:40 Telemetry/MedSurg (Inpatient) ms3 bd 11:30 10:40 ms3 bd
[2024-11-12] MEDS ORDERED: FLUMAZENIL 0.1 MG/ML (5 mL VIAL) IV PRN (11:26)
--- NOTE | 2024-11-12 11:38 | P.HP ---
Certification for Inpatient Patient admitted to: Inpatient With expected LOS: >2 Midnights Patient will require the following post-hospital care: None Practitioner: I am a practitioner with admitting privileges, knowledge of patient current condition, hospital course, and medical plan of care. Services: Services provided to patient in accordance with Admission requirements found in Title 42 Section 412.3 of the Code of Federal Regulations Patient History Date of Service: 11/12/24 Reason for admission: Alcohol withdrawal History of Present Illness: 64-year-old male with history of atrial fibrillation, CKD, alcohol use disorder presents emergency department chief complaint of alcohol withdrawals and a fall resulting in him lying on the ground outside for an unknown period of time but at least overnight. Patient reports his last drink was on Sunday the , he was still drinking 8- 10 shots of tequila daily. He appears to be having visual hallucinations at this time, having conversations with people who are not in the room. His speech is rapid and does not always make sense during conversation. He is very tremulous at this time. Patient was evaluated in the emergency department his labs were significant for a white blood cell count of 8.8 hemoglobin of 14.2 Maldonado crit 41.5 platelets 133 INR is 1.16 creatinine 1.9 T. bili 1.1 D bili 0.5 AST 119 ALT 93 CPK 1890. Patient baseline renal function appears to be around 1.4. Given his ongoing alcohol withdrawal symptoms with active hallucinations patient was admitted to the ICU for further management of alcohol withdrawal, rhabdomyolysis. Allergies No Known Allergies Allergy (Verified 02/28/23 07:48) Home Medications: Atorvastatin Calcium [Lipitor] 40 mg PO DAILY 04/18/21 Losartan/Hydrochlorothiazide [Losartan-Hctz 100-25 mg Tab] 1 tab PO DAILY 04/18/21 Anastrozole [Arimidex*] 1 mg PO DAILY 08/08/21 Metoprolol Succinate [Toprol Xl] 25 mg PO DAILY 02/27/23 Codeine/APAP [Tylenol W/Codeine #3 tab] 1 tab PO Q6HP PRN #1 tab 02/28/23 - Past Medical/Surgical History Diabetic: No -: Hypertension -: A. 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 moist/pink, EOMI Neck: Supple, 2+ carotid pulse no bruit, No LAD Respiratory: Clear to auscultation bilaterally, Normal air movement Cardiovascular: Regular rate/rhythm, Normal S1 S2 Gastrointestinal: Normal bowel sounds, Distended Musculoskeletal: No tenderness Integumentary: No rashes Neurological: Normal speech, Normal strength at 5/5 x4 extr, Normal tone Lymphatics: No axilla or inguinal lymphadenopathy - Studies Laboratory Data (last 24 hrs) 11/12/24 11/12/24 11/12/24 08:50 08:50 08:50 WBC 8.80 Hgb 14.2 Hct 41.5 Plt Count 133 L PT 13.0 INR 1.16 APTT 25.2 L Sodium 141 Potassium 3.7 BUN 22 H Creatinine 1.90 H Glucose 71 L Total Bilirubin 1.1 H AST 119 H ALT 93 H Alkaline Phosphatase 94 Assessment and Plan - Plan Assessment: Alcohol withdrawal Rhabdomyolysis Acute kidney injury History of atrial fibrillation Chronic pain Hypertension Plan: Alcohol withdrawal Scheduled and as needed benzodiazepines Admit to ICU for close monitoring given severity of symptoms Banana bag daily Rhabdomyolysis Acute kidney injury Continue IV fluids Monitor CMP, CPK daily History of atrial fibrillation Reports being taken off of his Eliquis around 6 months ago secondary to internal bleeding Monitor H&H daily, continue subcu heparin for DVT prophylaxis Resume other home medications when verified Chronic pain Takes [place] fives at home, will provide as needed Hypertension Continue home medications when verified DVT PPX: Heparin subcu-taken off of Eliquis around 6 months ago Code status: Full code Discharge Plan: Home Plan to discharge in: Greater than 2 days - Advance Directives Does patient have a Living Will: No Does patient have a Durable POA for Healthcare: No - Code Status/Comfort Care Code Status Assessed: Yes (Full code) Critical Care: No Time Spent Managing Pts Care (In Minutes): 70
[2024-11-12] MEDS: NA CHLORIDE 0.9% 1,000 ML IV SCH (12:00)
[2024-11-12] MEDS: FOLIC ACID 1 MG, MULTIVITAMINS INJ 10 ML, THIAMINE HCL 100 MG in NA CHLORIDE 0.9% 1,000 ML IV SCH (12:46)
[2024-11-12] MEDS: LORazepam 2 MG/ML VIAL IV SCH ×2 (12:46→13:25)
[2024-11-12] MEDS: DEXMEDETOMIDINE HCL 200 MCG in NA CHLORIDE 0.9% 98 ML IV SCH (14:00)
[2024-11-12] MEDS: LORazepam 2 MG/ML VIAL IV PRN (14:29)
[2024-11-12 14:30] LABS: METHAMPHETAM NEGATIVE (NEGATIVE); THC Cannibis NEGATIVE (NEGATIVE)
[2024-11-12] MEDS: HEPARIN 5000 UNIT/ML 1 ML VIAL SQ SCH (19:48)
[2024-11-12] MEDS: DEXMEDETOMIDINE HCL 1,000 MCG in NA CHLORIDE 0.9% 490 ML IV SCH (23:05)
[2024-11-13] MEDS: NA CHLORIDE 0.9% 1,000 ML IV SCH (04:06)
[2024-11-13] MEDS: ACETYLCYST 20% 4 ML VIAL IH ONE (04:15)
[2024-11-13] MEDS: ACETYLCYST 20% 800 MG/4 ML VIAL ONE (04:23)
[2024-11-13] MEDS: NA CHLORIDE 0.9% 500 ML ONE (04:30)
[2024-11-13 08:48] LABS: Absolute Lymphocytes (CBC) 0.5 K/uL (0.7-4.9); Hematocrit 39.3 % (39.6-49.0); Hemoglobin 13.8 g/dL (13.6-17.9); MCH 34.6 pg (27.0-35.0); MCHC 35.0 g/dL (32.0-36.0); MCV 98.7 fL (80-100); MPV 7.3 fL (7.6-11.3); Nucleated RBC Absolute Count 0.0 (0-0); Nucleated Red Blood Cells % 0.2 % (0-0); RBC Red Blood Cell Count 3.98 M/uL (4.33-5.43); White Blood Count 8.20 thou/uL (4.3-10.9)
[2024-11-13 09:19] LABS: ALT/SGPT 68.0 U/L (16-61); AST/SGOT 77.0 U/L (15-37); Albumin 2.4 g/dL (3.4-5.0); Albumin/Globulin Ratio 0.9 (1.1-1.8); Alkaline Phosphatase 81.0 U/L (45-117); Anion Gap 8.8 mEq/L (5.0-15.0); BUN Blood Urea Nitrogen 19.0 mg/dL (7-18); Globulin 2.6 g/dL (2.3-3.5); Glucose Level 92.0 mg/dL (74-106); Magnesium 1.4 mg/dL (1.6-2.4); Potassium 3.8 mEq/L (3.5-5.1); Thyroid Stimulating Hormone 3.55 uIU/mL (0.358-3.740)
[2024-11-13] MEDS: MAGNESIUM SULFATE 1 gm IVPB 1 GM/100 ML BAG IV ONE (10:22)
--- NOTE | 2024-11-13 11:14 | RAD REPORT ---
EXAMINATION: ONE VIEW CHEST XR CLINICAL INDICATION: Male, 64 years old.,r/o pneumonia/aspiration TECHNIQUE: Frontal chest projection is submitted. Examination is limited by patient positioning and t echnique. COMPARISON: 02/27/2023 FINDINGS: The lungs are well inflated and clear with stable prominence of the vascular markings. No pneumothor ax or sizable effusion. The heart is moderately enlarged in size. Mediastinal contours are unchanged. Sequelae of median sternotomy, prosthetic aortic valve, and spinal fusion hardware again s een.. IMPRESSION: No acute intrathoracic abnormalities. Stable findings.
--- NOTE | 2024-11-13 12:31 | P.PN ---
Date of Service: 11/13/24 Subjective: Worsening alcohol withdrawal symptoms Was started on Precedex yesterday As needed Ativan Still with hallucinations, tremors but controlled with Precedex/Ativan Complained of chest pain this morning x 1, troponin moderately elevated ROS: 10 point ROS as noted above, otherwise negative Physical exam GEN: Drowsy, confused, easily agitated, tremulous HEENT: Normal conjunctiva, sclera anicteric CV: Regular rate and rhythm, no edema Pulm: Nonlabored respirations on room air ABD: Soft, nontender, nondistended MSK: No joint tenderness Integumentary: No rashes Neuro: Drowsy, confused, follows simple commands Vitals reviewed Assessment: Alcohol withdrawal NSTEMI Rhabdomyolysis Acute kidney injury History of atrial fibrillation Chronic pain Hypertension Plan: Alcohol withdrawal Started on Precedex drip 11/12 for severe alcohol withdrawals As needed Ativan Wean Precedex as tolerated Continue IV fluids/pain bag NSTEMI Complaint of chest pain earlier today Initial troponin moderately elevated Trend troponin: Trend telemetry obtain cardiology consult as well as echocardiogram Rhabdomyolysis Acute kidney injury Continue IV fluids Monitor CMP, CPK daily ADAN improved, CPK downtrending History of atrial fibrillation Reports being taken off of his Eliquis around 6 months ago secondary to internal bleeding Monitor H&H daily, continue subcu heparin for DVT prophylaxis Resume other home medications when verified Chronic pain Takes [place] fives at home, will provide as needed Hypertension Continue home medications when verified DVT PPX: Heparin subcu-taken off of Eliquis around 6 months ago Code status: Full code Discharge Plan: Home Plan to discharge in: Greater than 2 days Time Spent Managing Pts Care (In Minutes): 35
[2024-11-13] MEDS: ASPIRIN 81 MG CHEWABLE TABLET PO ONE (13:57)
[2024-11-13] MEDS: HEPARIN/D5W 25,000 UNIT/500 ML BAG IV SCH (14:52)
[2024-11-13] MEDS: ATORVASTATIN 40 MG TAB PO SCH (20:04)
[2024-11-13] MEDS: MORPHINE 2 MG/ML SYR IV PRN (20:29)
[2024-11-13 22:26] LABS: Arterial Blood Carboxyhemoglob 1.2 % (0.0-1.5); Blood Gas Inspired Oxygen 21.0 %; Blood Gas Oxyhemoglobin 91.6 % (94.0-97.0); Blood O2 Saturation 93.7 % (92.0-98.5)
--- NOTE | 2024-11-13 22:26 | RAD REPORT ---
EXAMINATION: ONE VIEW CHEST XR CLINICAL INDICATION: SOB TECHNIQUE: Frontal chest projection is submitted. Examination is limited by patient positioning and t echnique. COMPARISON: 11/13/2024 FINDINGS: Moderate bilateral pulmonary opacities noted likely pulmonary edema. The heart is significantly enlar ged. No displaced fractures identified. Spinal hardware is noted. IMPRESSION: Moderate CHF versus volume overload.
[2024-11-14] MEDS: DEXMEDETOMIDINE HCL 200 MCG/2 ML VIAL ONE ×2 (00:23→05:56)
[2024-11-14] MEDS: NA CHLORIDE 0.9% 500 ML ONE ×2 (00:24→05:56)
[2024-11-14] MEDS: IPRATROPIUM BROM 0.5MG/2.5ML NEB PRN (04:00)
[2024-11-14] MEDS: ALBUTEROL 2.5 MG/3 ML NEB SOL NEB PRN (04:00)
[2024-11-14] MEDS: FUROSEMIDE 40 MG/4 ML VIAL IV ONE (04:51)
[2024-11-14 06:04] LABS: Absolute Lymphocytes (CBC) 0.7 K/uL (0.7-4.9); Hematocrit 37.5 % (39.6-49.0); Hemoglobin 13.0 g/dL (13.6-17.9); MCH 33.9 pg (27.0-35.0); MCHC 34.7 g/dL (32.0-36.0); MCV 97.8 fL (80-100); MPV 7.7 fL (7.6-11.3); Nucleated RBC Absolute Count 0.0 (0-0); Nucleated Red Blood Cells % 0.1 % (0-0); RBC Red Blood Cell Count 3.83 M/uL (4.33-5.43); White Blood Count 13.10 thou/uL (4.3-10.9)
[2024-11-14 06:24] LABS: ALT/SGPT 56.0 U/L (16-61); AST/SGOT 43.0 U/L (15-37); Albumin 2.0 g/dL (3.4-5.0); Albumin/Globulin Ratio 0.6 (1.1-1.8); Alkaline Phosphatase 78.0 U/L (45-117); Anion Gap 10.6 mEq/L (5.0-15.0); BUN Blood Urea Nitrogen 18.0 mg/dL (7-18); Globulin 3.1 g/dL (2.3-3.5); Glucose Level 92.0 mg/dL (74-106); Magnesium 1.5 mg/dL (1.6-2.4); Potassium 3.6 mEq/L (3.5-5.1)
[2024-11-14 06:26] LABS: Troponin High Sensitivity 1344.7 pg/mL (<58.9)
[2024-11-14] MEDS: ASPIRIN EC 81 MG TAB PO SCH (07:30)
[2024-11-14] MEDS: ASPIRIN 325 MG TAB PO ONE (08:15)
[2024-11-14] MEDS ORDERED: LIDOCAINE 1% MPF 5 ML VIAL ONE (08:33)
[2024-11-14] MEDS ORDERED: MIDAZOLAM HCL 2 MG/2 ML INJ ONE (08:33)
[2024-11-14] MEDS ORDERED: KETAMINE HCL IN 0.9 % NACL 50 MG/5 ML SYRINGE IV ONE (08:33)
[2024-11-14] MEDS ORDERED: LIDOCAINE 1% 20 ML MDV ONE (12:07)
[2024-11-14] MEDS ORDERED: HEPARIN 5000 UNIT/ML 1 ML VIAL ONE (12:07)
[2024-11-14] MEDS ORDERED: HEPA 1000U/500MLS 2,000 UNIT/1,000 ML BAG IV ONE (12:07)
[2024-11-14] MEDS ORDERED: ATROPINE SULF 1 MG/10 ML SYR IV ONE (12:08)
[2024-11-14] MEDS ORDERED: NA CHLORIDE 0.9% 500 ML ONE (12:31)
--- NOTE | 2024-11-14 13:44 | P.CNS ---
Date of Consult: 11/14/24 Chief Complaint: Alcohol withdrawal History of Present Illness: Patient with PMH of HTN, aortic valve replacement, most likely bioprosthetic vlave, ETOH dependance, presented with fall, found to be having EOTH withdrawal, cardiology consulted for elevated troponin, patient is altered so unable to obtain history. Allergies No Known Allergies Allergy (Verified 02/28/23 07:48) Home medications list reviewed: Yes Home Medications: Atorvastatin Calcium [Lipitor] 40 mg PO DAILY 04/18/21 Losartan/Hydrochlorothiazide [Losartan-Hctz 100-25 mg Tab] 1 tab PO DAILY 04/18/21 Metoprolol Succinate [Toprol Xl] 25 mg PO DAILY 02/27/23 Codeine/APAP [Tylenol W/Codeine #3 tab] 1 tab PO Q6HP PRN #1 tab 02/28/23 - Past Medical/Surgical History Diabetic: No -: Hypertension -: A. 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 moist/pink, EOMI, Sclerae nonicteric Neck: Supple, 2+ carotid pulse no bruit, No LAD, Without JVD or thyroid abnormality Respiratory: Clear to auscultation bilaterally, Normal air movement Cardiovascular: Regular rate/rhythm, Normal S1 S2 Gastrointestinal: Normal bowel sounds, No tenderness Musculoskeletal: No tenderness Integumentary: No rashes Neurological: Normal gait, Normal speech, Normal tone, Normal affect Lymphatics: No axilla or inguinal lymphadenopathy - Problems (1) NSTEMI (non-ST elevated myocardial infarction) Current Visit: Yes Status: Acute Plan: Patient with up trending troponin, unable to tell if chest pain exist as patient is altered. Coronary angiogram done today and his coronaries are clean. 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 continue Metoprolol. (3) Essential hypertension Current Visit: No Status: Acute Plan: resume his po home medications once he is more awake from withdrawal. Cardiology will sign off, please call with any questions.
--- NOTE | 2024-11-14 15:08 | P.PN ---
Date of Service: 11/14/24 Subjective: S/P C with clean coronaries Still on precedex/ativan Confused but follows commands ROS: 10 point ROS as noted above, otherwise negative Physical exam GEN: Drowsy, confused, easily agitated, tremulous HEENT: Normal conjunctiva, sclera anicteric CV: Regular rate and rhythm, no edema Pulm: Nonlabored respirations on room air ABD: Soft, nontender, nondistended MSK: No joint tenderness Integumentary: No rashes Neuro: Drowsy, confused, follows simple commands Vitals reviewed Assessment: Alcohol withdrawal NSTEMI Rhabdomyolysis Acute kidney injury History of atrial fibrillation Chronic pain Hypertension Plan: Alcohol withdrawal Started on Precedex drip 11/12 for severe alcohol withdrawals As needed Ativan Wean Precedex as tolerated Continue IV fluids/pain bag NSTEMI Complaint of chest pain 11/13 Seen by cardiology [facility] 11/14-normal coronaries Continue aspirin daily Rhabdomyolysis Acute kidney injury Continue IV fluids Monitor CMP, CPK daily ADAN improved, CPK downtrending History of atrial fibrillation Reports being taken off of his Eliquis around 6 months ago secondary to internal bleeding Monitor H&H daily, continue subcu heparin for DVT prophylaxis Resume other home medications when verified Chronic pain Takes [place] fives at home, will provide as needed Hypertension Continue home medications when verified DVT PPX: Heparin subcu-taken off of Eliquis around 6 months ago Code status: Full code Discharge Plan: Home Plan to discharge in: Greater than 2 days Time Spent Managing Pts Care (In Minutes): 35
--- NOTE | 2024-11-14 22:02 | OP ---
Date of Procedure: 11/14/2024 Surgeon: Olvin Oseguera Procedure Performed: Selective coronary angiogram. Indication For Procedure: [id number]. Complications: None. Estimated Blood Loss: Less than 50 cc. Access: Right common femoral artery, closed by Mynx. Sedation Time: 20 minutes done by Anesthesia Team. Description Of Procedure: After risks, benefits, and alternatives were explained to the patient's fa robles, the patient's family agreed to proceed with procedure and signed informed consent. The patient was brought back to the labor relations teacher, prepped and draped in sterile fashion. Time-out was performed. S edation was administered by Anesthesia Team. Next, the right common femoral artery access was obtain ed using ultrasound-guided micropuncture technique. A JL4 catheter was advanced over a J-wire to the aortic root. Selective angiogram of the left coronary system was done with that catheter that was l ater exchanged with a JR4 catheter for the selective angiogram of the right coronary system, unable t o do that. So, we used an AL2 catheter and were able to engage the RCA. At the end of procedure, ca theter was removed over a J-wire. Sheath was removed. Mynx was applied. Hemostasis achieved and th e patient was moved back to recovery in stable condition. Findings: 1. Left main, normal. 2. LAD, normal. 3. Left circ, normal. 4. RCA, large, dominant, has an anterior takeoff, and gives a large PDA that is normal. Assessment: Normal coronaries. Plan: To continue medical management. BEBA/JEANIE Voice ID: [id number] Report ID: [id number]
[2024-11-15] MEDS: NA CHLORIDE 0.9% 500 ML ONE (02:25)
[2024-11-15] MEDS: DEXMEDETOMIDINE HCL 200 MCG/2 ML VIAL ONE (02:27)
[2024-11-15 05:42] LABS: Absolute Lymphocytes (CBC) 0.7 K/uL (0.7-4.9); Hematocrit 35.8 % (39.6-49.0); Hemoglobin 12.3 g/dL (13.6-17.9); MCH 34.1 pg (27.0-35.0); MCHC 34.3 g/dL (32.0-36.0); MCV 99.6 fL (80-100); MPV 8.5 fL (7.6-11.3); Nucleated RBC Absolute Count 0.0 (0-0); Nucleated Red Blood Cells % 0.1 % (0-0); RBC Red Blood Cell Count 3.59 M/uL (4.33-5.43); White Blood Count 14.10 thou/uL (4.3-10.9)
[2024-11-15 06:03] LABS: ALT/SGPT 38.0 U/L (16-61); AST/SGOT 33.0 U/L (15-37); Albumin 1.8 g/dL (3.4-5.0); Albumin/Globulin Ratio 0.6 (1.1-1.8); Alkaline Phosphatase 79.0 U/L (45-117); Anion Gap 8.3 mEq/L (5.0-15.0); BUN Blood Urea Nitrogen 15.0 mg/dL (7-18); Globulin 3.2 g/dL (2.3-3.5); Glucose Level 85.0 mg/dL (74-106); Magnesium 1.7 mg/dL (1.6-2.4); Potassium 3.3 mEq/L (3.5-5.1)
[2024-11-15] MEDS: KCL 20 MEQ/100 mL IVPB 20 MEQ/100 ML BAG IV SCH (07:53)
--- NOTE | 2024-11-15 09:17 | P.PN ---
Date of Service: 11/15/24 Subjective: Weaning down Precedex More alert/following commands this morning No acute events overnight [facility] yesterday showed clean coronaries ROS: 10 point ROS as noted above, otherwise negative Physical exam GEN: Drowsy, confused, easily agitated, tremulous HEENT: Normal conjunctiva, sclera anicteric CV: Regular rate and rhythm, no edema Pulm: Nonlabored respirations on room air ABD: Soft, nontender, nondistended MSK: No joint tenderness Integumentary: No rashes Neuro: Drowsy, confused, follows simple commands Vitals reviewed Assessment: Alcohol withdrawal NSTEMI Rhabdomyolysis Acute kidney injury History of atrial fibrillation Chronic pain Hypertension Plan: Alcohol withdrawal Started on Precedex drip 11/12 for severe alcohol withdrawals As needed Ativan Wean Precedex as tolerated Continue IV fluids/pain bag NSTEMI Complaint of chest pain 11/13 Seen by cardiology [facility] 11/14-normal coronaries Continue aspirin daily Rhabdomyolysis Acute kidney injury Continue IV fluids Monitor CMP, CPK daily ADAN improved, CPK downtrending History of atrial fibrillation Reports being taken off of his Eliquis around 6 months ago secondary to internal bleeding Monitor H&H daily, continue subcu heparin for DVT prophylaxis Resume other home medications when verified Chronic pain Takes [place] fives at home, will provide as needed Hypertension Continue home medications when verified DVT PPX: Heparin subcu-taken off of Eliquis around 6 months ago Code status: Full code Discharge Plan: Home Plan to discharge in: Greater than 2 days Time Spent Managing Pts Care (In Minutes): 35
[2024-11-15] MEDS: MAGNESIUM SULFATE 1 gm IVPB 1 GM/100 ML BAG IV ONE (09:53)
[2024-11-16] MEDS: MELATONIN 5 MG TABLET PO ONE (03:43)
[2024-11-16 05:56] LABS: Absolute Lymphocytes (CBC) 0.5 K/uL (0.7-4.9); Hematocrit 35.3 % (39.6-49.0); Hemoglobin 12.4 g/dL (13.6-17.9); MCH 34.7 pg (27.0-35.0); MCHC 35.1 g/dL (32.0-36.0); MCV 99.0 fL (80-100); MPV 7.8 fL (7.6-11.3); Nucleated RBC Absolute Count 0.0 (0-0); Nucleated Red Blood Cells % 0.2 % (0-0); RBC Red Blood Cell Count 3.56 M/uL (4.33-5.43); White Blood Count 10.30 thou/uL (4.3-10.9)
[2024-11-16 06:20] LABS: ALT/SGPT 43.0 U/L (16-61); AST/SGOT 46.0 U/L (15-37); Albumin 1.7 g/dL (3.4-5.0); Albumin/Globulin Ratio 0.5 (1.1-1.8); Alkaline Phosphatase 101.0 U/L (45-117); Anion Gap 7.3 mEq/L (5.0-15.0); BUN Blood Urea Nitrogen 10.0 mg/dL (7-18); Globulin 3.4 g/dL (2.3-3.5); Glucose Level 114.0 mg/dL (74-106); Magnesium 1.9 mg/dL (1.6-2.4); Potassium 3.3 mEq/L (3.5-5.1)
[2024-11-16] MEDS: POTASSIUM PHOS IN 0.9 % NACL 15 MMOL/250 ML BAG IV ONE (08:04)
--- NOTE | 2024-11-16 09:16 | P.PN ---
Date of Service: 11/16/24 Subjective: Weaning down Precedex More alert/following commands this morning No acute events overnight ROS: 10 point ROS as noted above, otherwise negative Physical exam GEN: Drowsy, follow commands, oriented x2 HEENT: Normal conjunctiva, sclera anicteric CV: Regular rate and rhythm, no edema Pulm: Nonlabored respirations on room air ABD: Soft, nontender, nondistended MSK: No joint tenderness Integumentary: No rashes Neuro: Drowsy, confused, follows simple commands Vitals reviewed Assessment: Alcohol withdrawal NSTEMI Rhabdomyolysis Acute kidney injury History of atrial fibrillation Chronic pain Hypertension Plan: Alcohol withdrawal Started on Precedex drip 11/12 for severe alcohol withdrawals As needed Ativan Wean Precedex as tolerated-improving Continue IV fluids/pain bag NSTEMI Complaint of chest pain 11/13 Seen by cardiology [facility] 11/14-normal coronaries Continue aspirin daily Rhabdomyolysis Acute kidney injury Continue IV fluids Monitor CMP, CPK daily ADAN improved, CPK downtrending History of atrial fibrillation Reports being taken off of his Eliquis around 6 months ago secondary to internal bleeding Monitor H&H daily, continue subcu heparin for DVT prophylaxis Resume other home medications when verified Chronic pain Takes [place] fives at home, will provide as needed Hypertension Continue home medications when verified DVT PPX: Heparin subcu-taken off of Eliquis around 6 months ago Code status: Full code Discharge Plan: Home Plan to discharge in: Greater than 2 days Time Spent Managing Pts Care (In Minutes): 35
[2024-11-16] MEDS: KCL 20 MEQ/100 mL IVPB 20 MEQ/100 ML BAG IV SCH (13:06)
[2024-11-16] MEDS: POTASSIUM CL SA 10 MEQ TAB PO ONE (20:56)
[2024-11-17] MEDS ORDERED: ACETAMINOPHEN 325 MG TABLET PO PRN (04:53)
[2024-11-17 05:22] LABS: Hematocrit 33.0 % (39.6-49.0); Hemoglobin 11.2 g/dL (13.6-17.9); MCH 33.8 pg (27.0-35.0); MCHC 33.8 g/dL (32.0-36.0); MCV 100.0 fL (80-100); MPV 7.9 fL (7.6-11.3); RBC Red Blood Cell Count 3.30 M/uL (4.33-5.43); White Blood Count 7.50 thou/uL (4.3-10.9)
[2024-11-17 05:42] LABS: ALT/SGPT 38.0 U/L (16-61); AST/SGOT 31.0 U/L (15-37); Albumin 1.4 g/dL (3.4-5.0); Albumin/Globulin Ratio 0.5 (1.1-1.8); Alkaline Phosphatase 94.0 U/L (45-117); Anion Gap 6.4 mEq/L (5.0-15.0); BUN Blood Urea Nitrogen 8.0 mg/dL (7-18); Globulin 3.0 g/dL (2.3-3.5); Glucose Level 104.0 mg/dL (74-106); Magnesium 1.3 mg/dL (1.6-2.4); Potassium 3.4 mEq/L (3.5-5.1)
[2024-11-17] MEDS: POTASSIUM CL SA 10 MEQ TAB PO ONE (08:16)
--- NOTE | 2024-11-17 08:57 | P.PN ---
Date of Service: 11/17/24 Subjective: Weaning down Precedex More alert/following commands this morning No acute events overnight ROS: 10 point ROS as noted above, otherwise negative Physical exam GEN: Drowsy, follow commands, oriented x2 HEENT: Normal conjunctiva, sclera anicteric CV: Regular rate and rhythm, no edema Pulm: Nonlabored respirations on room air ABD: Soft, nontender, nondistended MSK: No joint tenderness Integumentary: No rashes Neuro: Drowsy, confused, follows simple commands Vitals reviewed Assessment: Alcohol withdrawal NSTEMI Rhabdomyolysis Acute kidney injury History of atrial fibrillation Chronic pain Hypertension Plan: Alcohol withdrawal Started on Precedex drip 11/12 for severe alcohol withdrawals As needed Ativan Wean Precedex as tolerated-improving Starting Librium 11/17 to to allow us to wean Precedex further Continue IV fluids/pain bag Family helping to arrange for rehab after discharge from hospital NSTEMI Complaint of chest pain 11/13 Seen by cardiology [facility] 11/14-normal coronaries Continue aspirin daily Rhabdomyolysis Acute kidney injury Continue IV fluids Monitor CMP, CPK daily ADAN improved, CPK downtrending History of atrial fibrillation Reports being taken off of his Eliquis around 6 months ago secondary to internal bleeding Monitor H&H daily, continue subcu heparin for DVT prophylaxis Resume other home medications when verified Chronic pain Takes [place] fives at home, will provide as needed Hypertension Continue home medications when verified DVT PPX: Heparin subcu-taken off of Eliquis around 6 months ago Code status: Full code Discharge Plan: Home Plan to discharge in: Greater than 2 days Time Spent Managing Pts Care (In Minutes): 35
[2024-11-17] MEDS: HEPARIN 5000 UNIT/ML 1 ML VIAL SQ SCH (09:15)
[2024-11-17] MEDS: HYDROCODONE/APAP 5/325 MG TAB PO PRN (11:08)
[2024-11-18] MEDS: HYDRALAZINE HCL 20 MG/ML VIAL IV PRN (00:55)
[2024-11-18 06:32] LABS: Hematocrit 35.3 % (39.6-49.0); Hemoglobin 12.3 g/dL (13.6-17.9); MCH 34.1 pg (27.0-35.0); MCHC 34.7 g/dL (32.0-36.0); MCV 98.2 fL (80-100); MPV 8.0 fL (7.6-11.3); RBC Red Blood Cell Count 3.59 M/uL (4.33-5.43); White Blood Count 7.90 thou/uL (4.3-10.9)
[2024-11-18 06:53] LABS: Magnesium 1.6 mg/dL (1.6-2.4)
[2024-11-18 06:56] LABS: ALT/SGPT 47.0 U/L (16-61); AST/SGOT 39.0 U/L (15-37); Albumin 1.7 g/dL (3.4-5.0); Albumin/Globulin Ratio 0.5 (1.1-1.8); Alkaline Phosphatase 98.0 U/L (45-117); Anion Gap 5.2 mEq/L (5.0-15.0); BUN Blood Urea Nitrogen 7.0 mg/dL (7-18); Globulin 3.5 g/dL (2.3-3.5); Glucose Level 128.0 mg/dL (74-106); Potassium 3.2 mEq/L (3.5-5.1)
[2024-11-18] MEDS: ONDANSETRON 4 MG/2 ML VIAL IV PRN (07:54)
[2024-11-18] MEDS: POTASSIUM PHOS IN 0.9 % NACL 15 MMOL/250 ML BAG IV ONE (08:03)
[2024-11-18] MEDS: POTASSIUM CL SA 10 MEQ TAB PO ONE (08:16)
[2024-11-18] MEDS: MAGNESIUM SULFATE 1 gm IVPB 1 GM/100 ML BAG IV ONE (08:41)
--- NOTE | 2024-11-18 09:21 | P.PN ---
Date of Service: 11/18/24 Subjective: some confusion reported overnight orientedx3 this morning but slow to respond HR up to 120-130s , sinus anxious Physical Exam: Gen: orientedx3, follows commands, slow to respond CV: Sinus Tachycardia, 1+ bilateral pedal edema Pulm: Nonlabored respirations on room air, clear bilaterally Abdomen: Soft, nontender, nondistended Neuro: Normal strength, normal affect Problem List: Alcohol withdrawal NSTEMI Hypokalemia Acute Rhabdomyolysis, resolved ADAN, resolved History of atrial fibrillation Chronic pain Hypertension Alcohol withdrawal Started on precedex 11/12 for severe alcohol withdrawal precedex weaned off 11/17 Continue Librium, IV fluids, banana bag ativan as needed Monitor for withdrawal resume home metoprolol Family planning on rehab after discharge NSTEMI Cardiology consulted s/p LHC showed normal coronaries asa 81mg, statin Hypokalemia Acute Rhabdomyolysis, resolved ADAN, resolved Continue IV fluids Continue to monitor renal function, electrolytes CPK improved 11/15. ADAN resolved History of atrial fibrillation Reports being taken off of his Eliquis around 6 months ago secondary to internal bleeding Heparin sq for DVT prophylaxis resume home metoprolol Chronic pain Hypertension confirm home meds, restart as appropriate VTE: heparin sq Code: Full Dispo: continue ICU
[2024-11-18] MEDS: METOPROLOL XL 25 MG TAB PO SCH (12:27)
[2024-11-18] MEDS: FUROSEMIDE 40 MG/4 ML VIAL IV ONE (17:26)
[2024-11-18 18:57] LABS: ALT/SGPT 49.0 U/L (16-61); AST/SGOT 36.0 U/L (15-37); Albumin 1.7 g/dL (3.4-5.0); Albumin/Globulin Ratio 0.5 (1.1-1.8); Alkaline Phosphatase 101.0 U/L (45-117); Anion Gap 4.9 mEq/L (5.0-15.0); BUN Blood Urea Nitrogen 6.0 mg/dL (7-18); Globulin 3.7 g/dL (2.3-3.5); Glucose Level 123.0 mg/dL (74-106); Potassium 3.9 mEq/L (3.5-5.1)
[2024-11-18 18:59] LABS: PH, Venous Blood Gas 7.29 (7.32-7.42)
[2024-11-18 19:00] LABS: Base Excess, VBG 10.4 mmol/L (-2.0-3.0); HCO3, Venous Blood Gas 37.0 mmol/L (21.0-29.0); PO2, Venous Blood Gas 47 mmHg (25-40)
[2024-11-18 19:01] LABS: O2 Saturation, VBG 77.2 % (40.0-70.0)
[2024-11-18 19:06] LABS: PCO2, Venous Blood Gas 77 mmHg (41-51)
[2024-11-19 05:09] LABS: Hematocrit 33.7 % (39.6-49.0); Hemoglobin 11.7 g/dL (13.6-17.9); MCH 34.5 pg (27.0-35.0); MCHC 34.7 g/dL (32.0-36.0); MCV 99.4 fL (80-100); MPV 7.6 fL (7.6-11.3); RBC Red Blood Cell Count 3.39 M/uL (4.33-5.43); White Blood Count 7.70 thou/uL (4.3-10.9)
[2024-11-19 05:32] LABS: ALT/SGPT 40.0 U/L (16-61); AST/SGOT 29.0 U/L (15-37); Albumin 1.6 g/dL (3.4-5.0); Albumin/Globulin Ratio 0.5 (1.1-1.8); Alkaline Phosphatase 86.0 U/L (45-117); Anion Gap 5.6 mEq/L (5.0-15.0); BUN Blood Urea Nitrogen 8.0 mg/dL (7-18); Globulin 3.3 g/dL (2.3-3.5); Glucose Level 114.0 mg/dL (74-106); Magnesium 1.7 mg/dL (1.6-2.4); Potassium 3.6 mEq/L (3.5-5.1)
[2024-11-19] MEDS: POTASSIUM 25 MEQ EFFERV TAB PO ONE ×2 (07:56→14:10)
[2024-11-19] MEDS: MAGNESIUM SULFATE 1 gm IVPB 1 GM/100 ML BAG IV ONE (07:56)
--- NOTE | 2024-11-19 08:24 | P.PN ---
Date of Service: 11/19/24 Subjective: more awake/alert. Mentation improving tolerated BiPAP for ~6 hours overnight family updated at bedside afebrile Physical Exam: Gen: orientedx3, follows commands, slow to respond CV: Regular rate and rhythm, 1+ bilateral pedal edema Pulm: Nonlabored respirations on 3L NC, clear bilaterally Abdomen: Soft, nontender, nondistended Neuro: Normal strength, normal affect Problem List: Alcohol withdrawal NSTEMI Hypokalemia Acute Rhabdomyolysis, resolved ADAN, resolved History of atrial fibrillation Chronic pain Hypertension Alcohol withdrawal Started on precedex 11/12 for severe alcohol withdrawal precedex weaned off 11/17 Continue Librium, banana bag ativan as needed IV Fluids dc'd 11/18 added lasix 40mg 11/18 and 11/19 -> diuresing well Monitor for withdrawal resume home metoprolol Family planning on rehab after discharge NSTEMI Cardiology consulted s/p LHC showed normal coronaries asa 81mg, statin Hypokalemia Acute Rhabdomyolysis, resolved ADAN, resolved Continue IV fluids Continue to monitor renal function, electrolytes CPK improved 11/15. ADAN resolved History of atrial fibrillation Reports being taken off of his Eliquis around 6 months ago secondary to internal bleeding Heparin sq for DVT prophylaxis resume home metoprolol Chronic pain Hypertension confirm home meds, restart as appropriate VTE: heparin sq Code: Full Dispo: possibly downgrade to floor later today
[2024-11-19] MEDS ORDERED: METOPROLOL XL 25 MG TAB PO SCH (09:00)
--- NOTE | 2024-11-19 09:07 | RAD REPORT ---
EXAMINATION: ONE VIEW CHEST XR CLINICAL INDICATION: Male, 64 years old.,f/u pulm edema, cough; r/o aspiration TECHNIQUE: Frontal chest projection is submitted. Examination is limited by patient positioning and t echnique. COMPARISON: 11/13/2024 FINDINGS: Mild partial improvement of central interstitial prominence and perihilar hazy opacities. Layering le ft moderate pleural effusion, stable. No pneumothorax or sizable right effusion. Stable cardiomegaly. Mediastinal contours are unchanged. IMPRESSION: Mild partial interval improvement of changes of pulmonary edema as above.
[2024-11-19] MEDS: FUROSEMIDE 40 MG/4 ML VIAL IV ONE (12:08)
[2024-11-19] MEDS: Magnesium Sulfate 2gm IVPB 2 G/50 ML BAG IV ONE (14:10)
[2024-11-19 20:52] LABS: Magnesium 1.9 mg/dL (1.6-2.4); Potassium 3.5 mEq/L (3.5-5.1)
[2024-11-20] MEDS ORDERED: MORPHINE 2 MG/ML SYR ONE (05:57)
[2024-11-20 07:12] LABS: ALT/SGPT 36.0 U/L (16-61); AST/SGOT 24.0 U/L (15-37); Albumin 2.0 g/dL (3.4-5.0); Albumin/Globulin Ratio 0.6 (1.1-1.8); Alkaline Phosphatase 90.0 U/L (45-117); Anion Gap 4.4 mEq/L (5.0-15.0); BUN Blood Urea Nitrogen 10.0 mg/dL (7-18); Globulin 3.3 g/dL (2.3-3.5); Glucose Level 113.0 mg/dL (74-106); Magnesium 1.7 mg/dL (1.6-2.4); Potassium 3.4 mEq/L (3.5-5.1)
[2024-11-20] MEDS: MAGNESIUM SULFATE 1 gm IVPB 1 GM/100 ML BAG IV ONE (08:33)
[2024-11-20] MEDS: FUROSEMIDE 20 MG/ 2ML VIAL IV ONE (08:33)
[2024-11-20] MEDS: POTASSIUM CL SA 10 MEQ TAB PO ONE (08:34)
[2024-11-20] MEDS: MORPHINE 4 MG/ML SYR IV PRN (11:30)
--- NOTE | 2024-11-20 13:05 | P.PN ---
Date of Service: 11/20/24 Subjective: mentation and strength improving sat up at edge of bed multiple times reports some back pain otherwise doing okay breathing okay on room air Physical Exam: Gen: orientedx3, follows commands, slow to respond CV: Regular rate and rhythm, 1+ bilateral pedal edema Pulm: Nonlabored respirations on room air, clear bilaterally Abdomen: Soft, nontender, nondistended Neuro: Normal strength, normal affect Problem List: Alcohol withdrawal NSTEMI Hypokalemia Acute Rhabdomyolysis, resolved ADAN, resolved History of atrial fibrillation Chronic pain Hypertension Alcohol withdrawal Started on precedex 11/12 for severe alcohol withdrawal precedex weaned off 11/17 Continue Librium, banana bag ativan as needed decreased librium to q8h CXR (11/19) showed improvement in pulm edema. s/p IVF and IV Lasix; Lasix dc'd 11/20 Family planning on rehab after discharge Monitor for withdrawal NSTEMI Cardiology consulted s/p LHC showed normal coronaries asa 81mg, statin Hypokalemia Acute Rhabdomyolysis, resolved ADAN, resolved Continue IV fluids Continue to monitor renal function, electrolytes CPK improved 11/15. ADAN resolved History of atrial fibrillation Reports being taken off of his Eliquis around 6 months ago secondary to internal bleeding Heparin sq for DVT prophylaxis resume home metoprolol Chronic pain Hypertension confirm home meds, restart as appropriate VTE: heparin sq Code: Full Dispo: Home
[2024-11-20 23:29] LABS: Arterial Blood Carboxyhemoglob 1.6 % (0.0-1.5); Blood Gas Inspired Oxygen 28.0 %; Blood Gas Oxyhemoglobin 96.3 % (94.0-97.0); Blood O2 Saturation 97.0 % (92.0-98.5)
[2024-11-21 06:25] LABS: ALT/SGPT 33.0 U/L (16-61); AST/SGOT 26.0 U/L (15-37); Albumin 1.9 g/dL (3.4-5.0); Albumin/Globulin Ratio 0.6 (1.1-1.8); Alkaline Phosphatase 83.0 U/L (45-117); Anion Gap 4.8 mEq/L (5.0-15.0); BUN Blood Urea Nitrogen 8.0 mg/dL (7-18); Globulin 3.4 g/dL (2.3-3.5); Glucose Level 101.0 mg/dL (74-106); Magnesium 1.8 mg/dL (1.6-2.4); Potassium 3.8 mEq/L (3.5-5.1)
[2024-11-21] MEDS ORDERED: MAGNESIUM SULFATE 1 gm IVPB 1 GM/100 ML BAG IV ONE (10:00)
--- NOTE | 2024-11-21 10:34 | P.PN ---
Date of Service: 11/21/24 Subjective: feels some slow improvement each day strength slowly improving ambulated with RW with PT today more awake/alert placed on CPAP overnight Physical Exam: Gen: orientedx3, follows commands, NAD CV: Regular rate and rhythm, 1+ bilateral pedal edema Pulm: Nonlabored respirations on room air, clear bilaterally Abdomen: Soft, nontender, nondistended Neuro: Normal strength, normal affect Problem List: Alcohol withdrawal NSTEMI Hypokalemia Acute Rhabdomyolysis, resolved ADAN, resolved History of atrial fibrillation Chronic pain Hypertension Alcohol withdrawal Started on precedex 11/12 for severe alcohol withdrawal precedex weaned off 11/17 Continue Librium, banana bag ativan as needed decrease librium to 25mg BID CXR (11/19) showed improvement in pulm edema. s/p IVF and IV Lasix; Lasix dc'd 11/20 Family planning on rehab after discharge Monitor for withdrawal dc morphine Possibly underlying obstructive sleep apnea some concern overnight given decreased alertness. Suspect secondary to morphine received last night ABG done overnight showed mild CO2 retention More awake/alert this morning. Recommend outpatient eval for possible sleep apnea in few weeks NSTEMI Cardiology consulted s/p LHC showed normal coronaries asa 81mg, statin Hypokalemia Acute Rhabdomyolysis, resolved ADAN, resolved Continue IV fluids Continue to monitor renal function, electrolytes CPK improved 11/15. ADAN resolved History of atrial fibrillation Reports being taken off of his Eliquis around 6 months ago secondary to internal bleeding Heparin sq for DVT prophylaxis resume home metoprolol Chronic pain Hypertension confirm home meds, restart as appropriate VTE: heparin sq Code: Full Dispo: Home
[2024-11-21] MEDS: MAGNESIUM SULFATE 1 gm IVPB 1 GM/100 ML BAG IV ONE (10:54)
[2024-11-21] MEDS: POTASSIUM CL SA 10 MEQ TAB PO ONE (10:55)
[2024-11-22 05:44] LABS: Hematocrit 34.1 % (39.6-49.0); Hemoglobin 11.5 g/dL (13.6-17.9); MCH 33.3 pg (27.0-35.0); MCHC 33.7 g/dL (32.0-36.0); MCV 98.8 fL (80-100); MPV 7.9 fL (7.6-11.3); RBC Red Blood Cell Count 3.45 M/uL (4.33-5.43); White Blood Count 5.60 thou/uL (4.3-10.9)
[2024-11-22 05:56] LABS: Anion Gap 6.6 mEq/L (5.0-15.0); BUN Blood Urea Nitrogen 9.0 mg/dL (7-18); Glucose Level 113.0 mg/dL (74-106); Magnesium 1.7 mg/dL (1.6-2.4); Potassium 3.6 mEq/L (3.5-5.1)
[2024-11-22] MEDS: MAGNESIUM SULFATE 1 gm IVPB 1 GM/100 ML BAG IV ONE (09:02)
[2024-11-22] MEDS: POTASSIUM CL SA 10 MEQ TAB PO ONE (09:03)
[2024-11-22] MEDS: THIAMINE HCL 100 MG TABLET PO SCH (09:03)
[2024-11-22] MEDS: FOLIC ACID 1 MG TABLET PO SCH (09:03)
--- NOTE | 2024-11-22 09:46 | P.PN ---
Date of Service: 11/22/24 Subjective: feeling better today mentation improving. More awake/alert ambulating with walker with PT lower extremity edema improving family updated at bedside Physical Exam: Gen: orientedx3, follows commands, NAD CV: Regular rate and rhythm, 1+ bilateral pedal edema Pulm: Nonlabored respirations on room air, clear bilaterally Abdomen: Soft, nontender, nondistended Neuro: Normal strength, normal affect Problem List: Alcohol withdrawal NSTEMI Hypokalemia Acute Rhabdomyolysis, resolved ADAN, resolved History of atrial fibrillation Chronic pain Hypertension Alcohol withdrawal Started on precedex 11/12 for severe alcohol withdrawal precedex weaned off 11/17 Continue Librium, banana bag ativan as needed decrease librium to 25mg BID Family planning on rehab after discharge Monitor for withdrawal CXR (11/19) showed improvement in pulm edema. s/p IVF and IV lasix. repeat CXR to re-eval; lasix 20mg x1 ordered for today Possibly underlying obstructive sleep apnea some concern overnight given decreased alertness. Suspect secondary to morphine More awake/alert. CPAP at night. Recommend outpatient eval for possible sleep apnea in few weeks NSTEMI Cardiology consulted s/p LHC showed normal coronaries asa 81mg, statin Hypokalemia Acute Rhabdomyolysis, resolved ADAN, resolved Continue IV fluids Continue to monitor renal function, electrolytes CPK improved 11/15. ADAN resolved History of atrial fibrillation Reports being taken off of his Eliquis around 6 months ago secondary to internal bleeding Heparin sq for DVT prophylaxis resume home metoprolol Chronic pain Hypertension confirm home meds, restart as appropriate VTE: heparin sq Code: Full Dispo: Home vs SNF. still quite debilitated. may benefit from SNF vs rehab
[2024-11-22] MEDS: FUROSEMIDE 20 MG/ 2ML VIAL IV ONE (10:35)
--- NOTE | 2024-11-22 11:54 | RAD REPORT ---
EXAMINATION: ONE VIEW CHEST XR CLINICAL INDICATION: Male, 64 years old.,f.u pulm edema/effusion TECHNIQUE: Frontal chest projection is submitted. Examination is limited by patient positioning and t echnique. COMPARISON: 11/19/2024 FINDINGS: The lungs show unchanged aeration, although suboptimal inspiratory effort somewhat limits evaluation. No pneumothorax. Stable left basilar pleural-parenchymal opacity. Stable cardiomegaly. Mediastinal contours are unremarkable. IMPRESSION: Stable findings including left basilar pleural-parenchymal opacity which could reflect persistent eff usion versus unresolved pneumonia.
[2024-11-23 06:18] LABS: Anion Gap 6.7 mEq/L (5.0-15.0); BUN Blood Urea Nitrogen 9.0 mg/dL (7-18); Glucose Level 111.0 mg/dL (74-106); Magnesium 1.9 mg/dL (1.6-2.4); Potassium 3.7 mEq/L (3.5-5.1)
[2024-11-23] MEDS: POTASSIUM CL SA 10 MEQ TAB PO ONE (08:17)
[2024-11-23] MEDS: PREGABALIN 75 MG CAP PO SCH (08:17)
[2024-11-23] MEDS: FUROSEMIDE 40 MG/4 ML VIAL IV ONE (08:19)
[2024-11-23 08:31] VITALS: BMI 40.2
--- NOTE | 2024-11-23 09:52 | P.PN ---
Date of Service: 11/23/24 Subjective: feeling slightly better today lower extremity swelling improving HR stable, no fever asking for wheelchair so he can get out of the room safely agreeable to SNF after discussion Physical Exam: Gen: orientedx3, follows commands, NAD CV: Regular rate and rhythm, trace to 1+ bilateral pedal edema Pulm: Nonlabored respirations on room air, clear bilaterally Abdomen: Soft, nontender, nondistended Neuro: Normal strength, normal affect Problem List: Alcohol withdrawal NSTEMI Hypokalemia Acute Rhabdomyolysis, resolved ADAN, resolved History of atrial fibrillation Chronic pain Hypertension Alcohol withdrawal Started on precedex 11/12 for severe alcohol withdrawal precedex weaned off 11/17 Continue Librium, banana bag ativan as needed decrease librium to 25 mg daily Family planning on rehab after discharge Monitor for withdrawal CXR (11/19) showed improvement in pulm edema Repeat CXR (11/22): persistent effusion s/p IVF and IV lasix Continue IV lasix Possibly underlying obstructive sleep apnea some concern overnight given decreased alertness. Suspect secondary to morphine More awake/alert. CPAP at night. Recommend outpatient eval for possible sleep apnea in few weeks NSTEMI Cardiology consulted s/p LHC showed normal coronaries asa 81mg, statin Hypokalemia Acute Rhabdomyolysis, resolved ADAN, resolved Continue IV fluids Continue to monitor renal function, electrolytes CPK improved 11/15. ADAN resolved History of atrial fibrillation Reports being taken off of his Eliquis around 6 months ago secondary to internal bleeding Heparin sq for DVT prophylaxis resume home metoprolol Chronic pain Hypertension confirm home meds, restart as appropriate VTE: heparin sq Code: Full Dispo: Home vs SNF Likely start SNF process tomorrow. Patient agreeable after discussion. Insurance closed over the weekend.
[2024-11-24 07:55] LABS: Anion Gap 5.7 mEq/L (5.0-15.0); BUN Blood Urea Nitrogen 10.0 mg/dL (7-18); Glucose Level 101.0 mg/dL (74-106); Potassium 3.7 mEq/L (3.5-5.1)
--- NOTE | 2024-11-24 09:40 | P.PN ---
Date of Service: 11/24/24 Subjective: feels strength is improving sat up in the chair for a few hours yesterday lower extremity edema resolved, breathing improving family updated over the phone Physical Exam: Gen: orientedx3, follows commands, NAD CV: Regular rate and rhythm, no edema Pulm: Nonlabored respirations on room air, clear bilaterally Abdomen: Soft, nontender, nondistended Problem List: Alcohol withdrawal NSTEMI Hypokalemia Acute Rhabdomyolysis, resolved ADAN, resolved History of atrial fibrillation Chronic pain Hypertension Alcohol withdrawal Started on precedex 11/12 for severe alcohol withdrawal precedex weaned off 11/17 No further withdrawal symptoms noted. DC librium Family planning on rehab after discharge CXR (11/19) showed improvement in pulm edema Repeat CXR (11/22): persistent effusion s/p IVF and IV lasix. Edema resolved. Breathing more comfortably. Continue PT. Possibly underlying obstructive sleep apnea some concern overnight given decreased alertness. Suspect secondary to morphine More awake/alert. CPAP at night. Recommend outpatient eval for possible sleep apnea in few weeks NSTEMI Cardiology consulted s/p LHC showed normal coronaries asa 81mg, statin Hypokalemia Acute Rhabdomyolysis, resolved ADAN, resolved Continue IV fluids Continue to monitor renal function, electrolytes CPK improved 11/15. ADAN resolved History of atrial fibrillation Reports being taken off of his Eliquis around 6 months ago secondary to internal bleeding Heparin sq for DVT prophylaxis resume home metoprolol Chronic pain Hypertension confirm home meds, restart as appropriate VTE: heparin sq Code: Full Dispo: Home vs SNF anticipate will be strong enough to go to substance abuse rehab facility in next day or two
[2024-11-24] MEDS: POTASSIUM CL SA 10 MEQ TAB PO ONE (09:46)
[2024-11-25] MEDS: POTASSIUM CL SA 10 MEQ TAB PO ONE (10:25)
--- NOTE | 2024-11-25 16:38 | P.PN ---
Subjective Date of Service: 11/25/24 Chief Complaint: Alcohol withdrawal Patient denies any new complaint. He is maintained on 2 L oxygen by nasal cannula. He ambulated in the hallway with therapy today. Physical Examination - Vital Signs Temperature: 97.9 F Blood Pressure: 100/54 Pulse: 79 Respirations: 18 Pulse Ox (%): 98 Assessment And Plan - Plan Physical Exam: Gen: oriented x 3, alert, NAD CV: Regular rate and rhythm, no edema Pulm: Nonlabored respirations on room air, clear bilaterally Abdomen: Soft, nontender, nondistended Problem List: Alcohol withdrawal NSTEMI Hypokalemia Acute Rhabdomyolysis, resolved ADAN, resolved History of atrial fibrillation Chronic pain Hypertension Alcohol withdrawal Started on precedex 11/12 for severe alcohol withdrawal precedex weaned off 11/17 No further withdrawal symptoms noted. DC librium Family planning on rehab after discharge CXR (11/19) showed improvement in pulm edema Repeat CXR (11/22): persistent effusion s/p IVF and IV lasix. Edema resolved. Breathing more comfortably. Continue PT. Possibly underlying obstructive sleep apnea some concern overnight given decreased alertness. Suspect secondary to morphine More awake/alert. CPAP at night. Recommend outpatient eval for possible sleep apnea in few weeks NSTEMI Cardiology consulted s/p LHC showed normal coronaries asa 81mg, statin Hypokalemia Acute Rhabdomyolysis, resolved ADAN, resolved Continue IV fluids Continue to monitor renal function, electrolytes CPK improved 11/15. ADAN resolved History of atrial fibrillation Reports being taken off of his Eliquis around 6 months ago secondary to internal bleeding Heparin sq for DVT prophylaxis resume home metoprolol Chronic pain Hypertension confirm home meds, restart as appropriate 11/25/2024 1. Alcohol withdrawal symptoms resolved. Continue PT. patient slated to disposition to alcohol rehab facility. Continue thiamine and folic acid 2. Continue aspirin and Lipitor for NSTEMI. 3. Heart rate controlled, blood pressure is limiting administration of metoprolol. Continue metoprolol with holding parameters. 4. Monitor and correct electrolytes as needed. 5. Awaiting insurance authorization for rehab. VTE: heparin sq Code: Full
[2024-11-26 07:31] LABS: Anion Gap 7.0 mEq/L (5.0-15.0); BUN Blood Urea Nitrogen 9.0 mg/dL (7-18); Glucose Level 138.0 mg/dL (74-106); Potassium 4.0 mEq/L (3.5-5.1)
[2024-11-26 07:37] LABS: Absolute Lymphocytes (CBC) 1.0 K/uL (0.7-4.9); Hematocrit 33.5 % (39.6-49.0); Hemoglobin 11.3 g/dL (13.6-17.9); MCH 33.5 pg (27.0-35.0); MCHC 33.6 g/dL (32.0-36.0); MCV 99.6 fL (80-100); MPV 8.0 fL (7.6-11.3); Nucleated RBC Absolute Count 0.0 (0-0); Nucleated Red Blood Cells % 0.1 % (0-0); RBC Red Blood Cell Count 3.37 M/uL (4.33-5.43); White Blood Count 6.40 thou/uL (4.3-10.9)
--- NOTE | 2024-11-26 19:11 | P.PN ---
Subjective Date of Service: 11/26/24 Chief Complaint: Alcohol withdrawal Patient denies any new complaint. He has also been ambulating without assistance. Physical Examination - Vital Signs Temperature: 97.9 F Blood Pressure: 143/75 Pulse: 62 Respirations: 16 Pulse Ox (%): 95 Assessment And Plan - Plan Physical Exam: Gen: oriented x 3, alert, NAD CV: Regular rate and rhythm, no edema Pulm: Nonlabored respirations on room air, clear bilaterally Abdomen: Soft, nontender, nondistended Problem List: Alcohol withdrawal NSTEMI Hypokalemia Acute Rhabdomyolysis, resolved ADAN, resolved History of atrial fibrillation Chronic pain Hypertension Alcohol withdrawal Started on precedex 11/12 for severe alcohol withdrawal precedex weaned off 11/17 No further withdrawal symptoms noted. DC librium Family planning on rehab after discharge CXR (11/19) showed improvement in pulm edema Repeat CXR (11/22): persistent effusion s/p IVF and IV lasix. Edema resolved. Breathing more comfortably. Continue PT. Possibly underlying obstructive sleep apnea some concern overnight given decreased alertness. Suspect secondary to morphine More awake/alert. CPAP at night. Recommend outpatient eval for possible sleep apnea in few weeks NSTEMI Cardiology consulted s/p LHC showed normal coronaries asa 81mg, statin Hypokalemia Acute Rhabdomyolysis, resolved ADAN, resolved Continue IV fluids Continue to monitor renal function, electrolytes CPK improved 11/15. ADAN resolved History of atrial fibrillation Reports being taken off of his Eliquis around 6 months ago secondary to internal bleeding Heparin sq for DVT prophylaxis resume home metoprolol Chronic pain Hypertension confirm home meds, restart as appropriate 11/25/2024 1. Alcohol withdrawal symptoms resolved. Continue PT. patient slated to disposition to alcohol rehab facility. Continue thiamine and folic acid 2. Continue aspirin and Lipitor for NSTEMI. 3. Heart rate controlled, blood pressure is limiting administration of metoprolol. Continue metoprolol with holding parameters. 4. Monitor and correct electrolytes as needed. 5. Awaiting insurance authorization for rehab. 11/26/2024 1. Patient ambulating without assistive. Continue thiamine and folic acid 2. Blood pressure improved, heart rate improved. Continue metoprolol. 3. Wean oxygen as tolerated, assess room air oxygen saturation. 4. Patient denied placement in alcohol rehab by insurance. Anticipating DC home with home health in a.m. VTE: heparin sq Code: Full
--- NOTE | 2024-11-27 09:09 | P.DS ---
Admission Date: 11/12/24 Discharge Date: 11/27/24 Disposition: DC HOME/HOME HEALTH CARE Discharge Condition: FAIR Reason for Admission: Alcohol withdrawal Hospital Course: Problem List: Alcohol withdrawal NSTEMI Hypokalemia Acute Rhabdomyolysis, resolved ADAN, resolved History of atrial fibrillation Chronic pain Hypertension Patient presented to the ED with alcohol withdrawal symptoms, visual hallucinat ions after sustaining a fall. Patient reports being on the ground for unknown length of time. Last drink was on Nov 09 and he reported drinking 8-10 shots of tequila a day typically. Patient was admitted to ICU for close monitoring, severe alcohol withdrawal symptoms. Labwork on admission was consistent with ADAN (Cr 1.9), acute rhabdomyolysis (CPK 1890). Tox screen on admission was negative. ADAN and Rhabdo improved quickly with IV hydration. In regards to his alcohol withdrawal, he did require precedex for a few days (11/12-11/17). Patient was weaned off precedex to librium as symptoms improved. He also received supplemental fluids and IV banana bag while hospitalized. Librium was discontinued on 11/24 as his symptoms resolved. Patient was feeling better and deemed stable for discharge. Follow up with PCP in 1 week for further management. Patient was looking to be discharged on alcohol rehab program however this was denied. His troponins were noted to be elevated on admission and peaked at 1344. Dr. Oseguera (cardio) was consulted and recommended left heart catheterization to further evaluate which showed normal coronaries. No further cardiac work up warranted given normal heart cath. Vital Signs/Physical Exam: Temp Pulse Resp BP Pulse Ox 98.1 F 76 20 147/75 H 94 11/27/24 08:00 11/27/24 08:00 11/27/24 08:00 11/27/24 08:00 11/27/24 08:00 General: Alert, In no apparent distress, Oriented x3, Obese HEENT: Mucous membr. moist/pink, Sclerae nonicteric Neck: Supple, JVD not distended Respiratory: Clear to auscultation bilaterally, Normal air movement Cardiovascular: No edema, Regular rate/rhythm, Normal S1 S2 Gastrointestinal: Normal bowel sounds, Soft and benign, Non-distended, No tenderness Musculoskeletal: No swelling, No tenderness Integumentary: No rashes, No cyanosis Neurological: Normal speech, Normal strength at 5/5 x4 extr Laboratory Data at Discharge: WBC 6.40 thou/uL (4.3-10.9) 11/26/24 07:00 Hgb 11.3 g/dL (13.6-17.9) L 11/26/24 07:00 Hct 33.5 % (39.6-49.0) L 11/26/24 07:00 Plt Count 367 thou/uL (152-406) 11/26/24 07:00 PT 13.0 SECONDS (10-13.0) 11/12/24 08:50 INR 1.16 11/12/24 08:50 APTT Cancelled 11/14/24 13:00 Sodium 145 mEq/L (136-145) 11/26/24 07:00 Potassium 4.0 mEq/L (3.5-5.1) 11/26/24 07:00 BUN 9 mg/dL (7-18) 11/26/24 07:00 Creatinine 0.74 mg/dL (0.70-1.30) 11/26/24 07:00 Glucose 138 mg/dL (74-106) H 11/26/24 07:00 Phosphorus 2.8 mg/dL (2.5-4.9) 11/19/24 04:42 Magnesium 1.9 mg/dL (1.6-2.4) 11/23/24 05:34 Total Bilirubin 0.2 mg/dL (0.2-1.0) 11/21/24 05:38 AST 26 U/L (15-37) 11/21/24 05:38 ALT 33 U/L (16-61) 11/21/24 05:38 Alkaline Phosphatase 83 U/L (45-117) 11/21/24 05:38 Home Medications: Losartan/Hydrochlorothiazide [Losartan-Hctz 100-25 mg Tab] 1 tab PO DAILY 04/18/21 Aspirin [Aspirin EC 81 MG] 81 mg PO DAILY #30 tab 11/27/24 Atorvastatin Calcium [Lipitor] 40 mg PO DAILY #30 tab 11/27/24 Folic Acid 1 mg PO DAILY #30 tab 11/27/24 Hydrocodone 5/APAP 325 [Rule 5/325*] 1 tab PO Q6H PRN #12 tab 11/27/24 Metoprolol Succinate [Toprol Xl*] 25 mg PO DAILY #30 tab 11/27/24 Pregabalin [Lyrica] 75 mg PO BID #60 cap 11/27/24 Thiamine HCl [Vitamin B-1*] 100 mg PO DAILY #30 tablet 11/27/24 New Medications: Aspirin [Aspirin EC 81 MG] 81 mg PO DAILY #30 tab Folic Acid 1 mg PO DAILY #30 tab Atorvastatin Calcium [Lipitor] 40 mg PO DAILY #30 tab Pregabalin [Lyrica] 75 mg PO BID #60 cap Hydrocodone 5/APAP 325 [Rule 5/325*] 1 tab PO Q6H PRN #12 tab PRN Reason: Pain Scale 5-7 (Moderate) Metoprolol Succinate [Toprol Xl*] 25 mg PO DAILY #30 tab Thiamine HCl [Vitamin B-1*] 100 mg PO DAILY #30 tablet Physician Discharge Instructions: Physician discharge instructions: Patient presented to the ED with alcohol withdrawal symptoms, visual hallucinations after sustaining a fall. Patient reports being on the ground for unknown length of time. Last drink was on Nov 09 and he reported drinking 8-10 shots of tequila a day typically. Patient was admitted to ICU for close monitoring, severe alcohol withdrawal symptoms. Labwork on admission was consistent with ADAN (Cr 1.9), acute rhabdomyolysis (CPK 1890). Tox screen on admission was negative. ADAN and Rhabdo improved quickly with IV hydration. In regards to his alcohol withdrawal, he did require precedex for a few days (11/12-11/17). Patient was weaned off precedex to librium as symptoms improved. He also received supplemental fluids and banana bag while hospitalized. Librium was discontinued on 11/24 as his symptoms resolved. Patient was feeling better and deemed stable for discharge. Follow up with PCP in 1 week for further management. Family had mentioned they were planning on looking into rehab after discharge. His troponins were noted to be elevated on admission and peaked at 1344. Dr. Oseguera (cardio) was consulted and recommended left heart catheterization to further evaluate which showed normal coronaries. No further cardiac work up warranted given normal heart cath. There is some suspicion for underlying sleep apnea given his snoring, CO2 retention. Untreated sleep apnea can lead to some serious complications. Advised patient to consider getting a sleep study with PCP/Pulmonology in the next few weeks to evaluate for obstructive sleep apnea. Medications: no new meds Follow up: PCP 3-5 days Please call to schedule / confirm appointments Diet: AHA Activity: Fall precautions Followup: NONE,NONE [Primary Care Provider] - Time spent managing pt's care (in minutes): 36
[2024-11-27 09:20] VITALS: O2SAT 94
[2024-11-27 12:08] VITALS: BP 131/69; TEMP 97.9
== END 2024-11-27 17:16 | disposition home health service (06) | DRG 896 ==
LOC: ER 08:13 → ERHOLD 11:21 → 3RD-ICU 11:44 → 2ND 11-19 20:59
PROVIDERS: ADMIT Internal Medicine; ATTEND Internal Medicine
PROC: 4A033R1 Measurement of Arterial Saturation, Peripheral, Percutaneous Approach (ICD-10-PCS; 2024-11-13)
PROC: 4A023N7 Measurement of Cardiac Sampling and Pressure, Left Heart, Percutaneous Approach (ICD-10-PCS; 2024-11-14)
PROC: B2111ZZ Fluoroscopy of Multiple Coronary Arteries using Low Osmolar Contrast (ICD-10-PCS; 2024-11-14)
PROC: 5A09557 Assistance with Respiratory Ventilation, Greater than 96 Consecutive Hours, Continuous Positive Airway Pressure (ICD-10-PCS; principal; 2024-11-18)
DX: F10.232 Alcohol dependence with withdrawal with perceptual disturbance (principal); I21.4 Non-ST elevation (NSTEMI) myocardial infarction; M62.82 Rhabdomyolysis; N17.9 Acute kidney failure, unspecified; Z68.41 Body mass index [BMI] 40.0-44.9, adult; E66.9 Obesity, unspecified; E87.6 Hypokalemia; I48.91 Unspecified atrial fibrillation; I10 Essential (primary) hypertension; F41.9 Anxiety disorder, unspecified; G89.29 Other chronic pain; G47.33 Obstructive sleep apnea (adult) (pediatric); F10.229 Alcohol dependence with intoxication, unspecified; Z79.82 Long term (current) use of aspirin; Z79.899 Other long term (current) drug therapy; Z96.653 Presence of artificial knee joint, bilateral; W18.30XA Fall on same level, unspecified, initial encounter; Y93.9 Activity, unspecified; Y92.9 Unspecified place or not applicable; Y99.9 Unspecified external cause status; Y90.0 Blood alcohol level of less than 20 mg/100 ml
CPT/HCPCS: 36415; 36600; 71045; 76937; 80048; 80053; 80076; 80307; 82077; 82140; 82550; 82803; 82805; 82947; 83735; 84100; 84132; 84443; 84484; 85025; 85027; 85610; 85730; 93005; 93306; 93454; 94640; 94660; 94760; 96361; 96374; 97110; 97116; 97161; 97530; 99285; C1760; C1893; J0360; J0461; J1644; J1938; J2003; J2250; J2270; J2405; J2704; J3411; J3475; J3480; J3490; J7030; J7040; J7608; J7613; J7644; Q9967